=== PATIENT | male | born 1955 | race Caucasian/White ===

== ENCOUNTER 2020-03-26 13:33 | Inpatient (IN) | payer OTHER, SELFPAY ==
[2020-03-26] VITALS (67 sets, daily range): BP systolic 147–220; BP diastolic 85–110; PULSE 45–79; RESP 9–22; TEMP 36.1–36.7; O2SAT 91–99
--- NOTE | 2020-03-26 13:45 | DI.CT_ITS ---
EXAM: CT ABDOMEN PELVIS W CLINICAL HISTORY: ABDOMINAL PAIN, HX PANCREATITIS. TECHNIQUE: Imaging Protocol: Axial computed tomography images with coronal and sagittal reformatted images were created and reviewed CONTRAST MATERIAL: Intravenous: Omnipaque 350 Contrast volume:100 ml Oral: No COMPARISON: No exams were available for comparison FINDINGS: LOWER CHEST: Heart and great vessels: Mild left ventricular dilatation. There are no pleural or pericardial effusions. Lungs: Dependent changes. No pulmonary nodules, mass or infiltrate. Bones: There is no evidence of spine or rib fracture. ABDOMEN/PELVIS: Liver: Normal density. No measurable mass. Gallbladder: No calcified stones, no wall thickening, no abnormal distention.No pericholecystic fluid . Biliary tract: No radiodense calculus, no dilation. Pancreas: There is inflammation of the pancreas and some surrounding fluid. There is no drainable co llection. The vasculature appears intact.. Spleen: Normal. Kidneys: Normal size, contour and axis. No radiodense stones. No hydronephrosis. No masses seen. No perinephric collection. Adrenal glands: No masses seen. Abdominal Aorta: Non-dilated. [id number] atherosclerotic changes. Bowel: Small hiatal hernia. Mild inflammation of the duodenum adjacent to the head of the pancreas. Mild dilatation of loops of small bowel. No evidence of obstruction. Bladder: No gross wall thickening, focal mass or stones. Peritoneal cavity: No ascites, focal collection or mesenteric inflammatory response. No free air. Bones: No suspicious lesions or fractures. Degenerative changes in the spine. Reproductive organs: Within normal limits. Lymph nodes: No pathologically enlarged lymph nodes. Impression: Findings consistent with acute pancreatitis. There is fluid around the pancreas but no drainable foc al collection.. RADIATION DOSE DELIVERED: Total DLP Total DLP DATA REPOSITORY: All CT scans at this facility are submitted to the National Radiology Data Registry (NRDR) Dose Index Registry (DIR) with the [employer] (ACR). RADIATION OPTIMIZATION: All CT scans at this facility use at least one of these dose optimization te chniques: automated exposure control; mA and/or kV adjustment per patient size (includes targeted exa ms where dose is matched to clinical indication); or iterative reconstruction.
--- NOTE | 2020-03-26 13:50 | W.ED.GENAD ---
Discharge Plan Disposition Patient Disposition: [facility] INPATIENT Condition: Serious Discharge Details Chief Complaint: Abd Prob Clinical Impression: Acute recurrent pancreatitis Admit Date/Time: 03/26/20 18:52 Admit Provider: Min Mata Attending Provider: Min Mata Primary Care Provider: Unknown,Unknown ED Provider: Diana Ann Discharge Data Discharge Date/Time-TO BE ENTERED AT DEPARTURE: 03/26/20 20:45 Medical Decision Making <Kari Singh - Last Filed: 03/29/20 16:15> 64-year-old male presents to the ER with left upper quadrant abdominal pain which began approximately an hour and a half ago. Patient states that he has a history of pancreatitis and feels the same. He reports sharp pain which is non radiating he states severe on a scale. Denies chest pain or shortness of breath, positive nausea no vomiting diarrhea. On initial exam he is diaphoretic, has a rigid abdomen tender to left periumbilical area. Slightly bradycardic with a rate of 48. Reports 1 alcoholic drink a day, is a cigar smoker occasionally, denies drugs. Denies any abdominal surgical history. 1436: Informed by balance staff staker that patient is requesting another dose of hydromorphone, 0.5 mg ordered for a total dose of 1 mg. Initial labs resulted initial troponin is negative, EKG was reviewed by [Dr. Bonita Johnston MD] ER attending, shows bradycardia, no STEMI no ectopy. Lipase is greater than 15,000, white blood cell count 15.47, absolute neutrophils 10.36, potassium is 3.0, glucose 162. We will add on an ethyl alcohol level, urinalysis is pending at this time. Expected disposition at this time is admission for pancreatitis pending CT result. CT abdomen pelvis with contrast: FINDINGS: LOWER CHEST: Heart and great vessels: Mild left ventricular dilatation. There are no pleural or pericardial effusions. Lungs: Dependent changes. No pulmonary nodules, mass or infiltrate. Bones: There is no evidence of spine or rib fracture. ABDOMEN/PELVIS: Liver: Normal density. No measurable mass. Gallbladder: No calcified stones, no wall thickening, no abnormal distention.No pericholecystic fluid. Biliary tract: No radiodense calculus, no dilation. Pancreas: There is inflammation of the pancreas and some surrounding fluid. There is no drainable collection. The vasculature appears intact.. Spleen: Normal. Kidneys: Normal size, contour and axis. No radiodense stones. No hydronephrosis. No masses seen. No perinephric collection. Adrenal glands: No masses seen. Abdominal Aorta: Non-dilated. [id number] atherosclerotic changes. Bowel: Small hiatal hernia. Mild inflammation of the duodenum adjacent to the head of the pancreas. Mild dilatation of loops of small bowel. No evidence of obstruction. Bladder: No gross wall thickening, focal mass or stones. Peritoneal cavity: No ascites, focal collection or mesenteric inflammatory response. No free air. Bones: No suspicious lesions or fractures. Degenerative changes in the spine. Reproductive organs: Within normal limits. Lymph nodes: No pathologically enlarged lymph nodes. Impression: Findings consistent with acute pancreatitis. There is fluid around the pancreas but no drainable focal collection. 1555: [facility] transfer center contacted regarding possible transfer for admission for this patient due to staffing issues and bed placement here at [facility]. Patient is still complaining of 6 out of 10 pain requiring other 0.5 mg of Dilaudid IV. Potassium is 3.0 ordered potassium IV piggyback 10 mEq x 4. <MARYJANE Rowley - Last Filed: 03/27/20 21:34> Care transition myself from Fe Rao NP. Please see her initial note for history and presentation. In brief, patient presents with pancreatitis. Pain began approximately an hour and a half prior to arrival. Patient has had pancreatitis historically. Patient is hemodynamically stable. White count of 15.4. Potassium is 3.0. This has been replenished IV. Creatinine 1.26, no comparison historically. Initial troponin and EKG without significant normality. AST and ALT are within normal limits as is total bili. Lipase is over 15,000. Triglycerides 461. Lactate 1.4. CT was reported to have been called severe pancreatitis by radiologist. It did note fluid around the pancreas but no drainable or focal collection. Consult with [facility] has been requested. We are unable to keep the patient here at this time secondary to bed availability. I am also concerned with the speed of which patient's symptoms began and CT findings have developed. Consulted with Dr. Key with [facility]. She advised aggressive IV fluid, NPO. They do not have any bed availability at this point. Initially, we did not have bed here. However, appropriate staffing is now in place and patient may be admitted at this facility.. I consulted with Dr. Mata who agrees to admission for continued monitoring, hydration care of this patient's pancreatitis. Just prior to the patient going upstairs, he seemed more anxious. I did discuss possible need for CIWA protocol with nursing staff and they do agree with this concern. Patient had reported 1 alcoholic beverage per night. However, I wonder if CIWA with PRN Ativan would be appropriate. 1 mg of Ativan ordered. I discussed plan for admission with the patient as well as discussed course for continued care. He voiced understanding and wishes to proceed. HPI <Kari Singh - Last Filed: 03/29/20 16:15> General Mode of arrival: ambulatory. Date/Time Provider Initiated Documentation: 03/26/20 13:44. Limitations to Documentation: no limitations. Information obtained by: patient. HPI Narrative: 64-year-old male presents to the ER with left upper quadrant abdominal pain which began approximately an hour and a half ago. Patient states that he has a history of pancreatitis and feels the same. He reports sharp pain which is non radiating he states severe on a scale. Denies chest pain or shortness of breath, positive nausea no vomiting diarrhea. On initial exam he is diaphoretic, has a rigid abdomen tender to left periumbilical area. Slightly bradycardic with a rate of 48. Reports 1 alcoholic drink a day, is a cigar smoker occasionally, denies drugs. Denies any abdominal surgical history. Related Data Home Medications Medication Instructions Recorded Confirmed Unknown [No Known Home Meds] 03/26/20 03/26/20 Allergies Allergy/AdvReac Type Severity Reaction Status Date / Time Penicillins Allergy Anaphylaxsi Unverified 03/26/20 13:44 s General Stated Complaint: Abd Prob MINI: 2 Review of Systems <Karipatricia Singh - [facility] Filed: 03/29/20 16:15> Narrative: Constitutional: Negative for weight loss, alert and oriented, well groomed, normal body habitus, appears uncomfortable and diaphoretic. HEENT: Denies trauma, headaches, blurry vision, nasal discharge, sore throat, trouble swallowing. Chest: Denies chest pain, palpitations, irregular rhythm, hypertension. Respiratory: Denies Shortness of breath, cough, hemoptysis. GI: Denies vomiting, diarrhea, constipation. Positive abdominal pain and nausea. History of pancreatitis. : Denies dysuria, hematuria, flank pain, rectal bleeding. Neuro: Denies dizziness, blurry vision, weakness, syncope, headache or facial numbness. Hematologic: Denies easy bruising, intolerance to heat or cold, hair loss. PFSH <Kari Singh - Last Filed: 03/29/20 16:15> Medical History (Updated 03/28/20 @ 15:54 by Edith Moore NP) Pancreatitis (Chronic) Trigeminal neuralgia of right side of face (Acute) s/p surgical intervention Social History Smoking/Tobacco Use Status: Current-Occasional Tobacco Type: cigars Alcohol Intake: current Alcohol Intake frequency: 0-2 drinks per day Drug use: Never Substance use type: does not use Do you feel safe at home: Yes Do you feel safe in your relationship?: Yes Exam <Kari Singh - [facility] Filed: 03/29/20 16:15> Narrative Exam Narrative: Constitutional: Alert and oriented x3. Appears stated age. Normal body habitus. Slightly diaphoretic Head: Normocephalic, no trauma. Eyes: Pupils PERRLA, Red reflex noted, EOM's intact. Eyelids symmetrical without lesions, discharge, or swelling. ENT: Bilateral TM's WNL, External ear normal to inspection, no mastoid TTP, swelling, or erythema, Nasal turbinates WNL, no nasal discharge. Normal dentition, Posterior pharynx WNL, no exudate. Chest: Bradycardic at a rate of 48 normal S1, S2, distal pulses intact. Resp: Lungs clear to auscultation bilaterally, no wheezes, rales, or rhonchi. Musculoskeletal: Normal gait, 5/5 strength to all four extremities. Abdomen: Rigid abdomen, hypoactive bowel sounds, left upper quadrant tender to palpation. Skin: No suspicious rashes or lesions. Capillary refill less than 2 sec. Neurologic: Cranial nerves II-XII intact. Alert and oriented x 3. DTR's intact. Hematologic/Lymphatic: No ecchymosis, no lymphadenopathy. Course <Kari Singh - [facility] Filed: 03/29/20 16:15> Vital Signs Vital signs: Vital Signs Temperature 36.5 C 03/26/20 13:41 Pulse 48 L 03/26/20 13:41 Respiratory Rate 16 03/26/20 13:41 Blood Pressure 168/85 H 03/26/20 13:41 Pulse Oximetry 96 03/26/20 13:41 Temperature 36.5 C 03/26/20 13:41 Temperature Source Temporal Artery Scan 03/26/20 13:41 Pulse 48 L 03/26/20 13:41 Respiratory Rate 16 03/26/20 13:41 Respiratory Effort Non-Labored 03/26/20 13:45 Blood Pressure 168/85 H 03/26/20 13:41 Blood Pressure Position Sitting 03/26/20 13:41 Pulse Oximetry 96 03/26/20 13:41 Oxygen Delivery Method Room Air 03/26/20 13:41 Oxygen Flow Rate 0 03/26/20 13:41 Pain Level 10 03/26/20 13:41 <MARYJANE Rowley - Last Filed: 03/27/20 21:34> Abscess I/D Amount of fluid expressed (mL): 10 Sign Out <Kari Singh - Last Filed: 03/29/20 16:15> Sign Out Data: Sign Out Comment: Pending disposition and admission for acute recurrent pancreatitis Last updated by Kari Singh at 03/26/20 16:35
[2020-03-26] MEDS: Normal Saline 1,000 ML 1000 ML IV (14:00)
[2020-03-26] MEDS: HYDROmorphone 2 MG/ML VIAL 0.5 MG IVP ×3 (14:00→17:47)
[2020-03-26] MEDS: Ondansetron 4 MG/2 ML VIAL IVP (14:00)
[2020-03-26 14:07] LABS: Abs Immature Grans 0.05 k/cumm (0.0-0.09); Absolute Basophil Count 0.03 k/cumm (0.0-0.2); Absolute Eosinophil Count 0.32 k/cumm (0.0-0.7); Absolute Lymphocyte Count 3.71 k/cumm (1.2-3.4); Absolute Monocyte Count 0.99 k/cumm (0.11-0.7); Basophils % 0.2; Eosinophils % 2.1; HCT 48.2 % (40.0-50.0); HGB 16.8 g/dL (13.5-17.5); Immature Grans % 0.3 %; Mean Corp. HGB Concentration 34.9 g/dL (32.0-36.0); Mean Corpuscular Hemoglobin 30.4 pg (27.0-33.0); Mean Corpuscular Volume 87.2 fL (80-95); Mean Platelet Volume 9.9 fL (8.0-11.0); Monocytes % 6.4; Platelet Count 281 x1000/uL (130-400); RBC 5.53 m/cumm (4.50-6.00); RBC Distribution Width 13.5 % (11.8-14.1); White Blood Cell Count 15.47 k/cumm (4.4-10.8)
[2020-03-26 14:10] LABS: Absolute Neutrophil Count 10.36 k/cumm (1.2-6.7)
[2020-03-26 14:22] LABS: ALT 37 U/L (16-63); AST 27 U/L (15-37); Albumin 4.2 g/dL (3.4-5.0); Alkaline Phosphatase 102 U/L (46-116); Anion Gap 9.3 mmol/L (3-11); BUN 18 mg/dL (7-18); Bilirubin, Total 0.7 mg/dL (0.2-1.0); CO2 30.7 mmol/L (21.0-32.0); CREATININE 1.26 mg/dL (0.70-1.30); Calcium 9.2 mg/dL (8.5-10.1); Chloride 103 mmol/L (98-107); Glucose 162 mg/dL (74-106); Magnesium 1.9 mg/dL (1.8-2.4); Sodium 143 mmol/L (136-145); Total Protein 8.3 g/dL (6.4-8.2)
[2020-03-26 14:31] LABS: Lipase > 15000 U/L (73-393); Troponin I < 0.05 ng/mL (<0.06)
[2020-03-26] MEDS: Omnipaque 350 MG/ML 100 ML BTL IJ (14:42)
[2020-03-26] MEDS: Normal Saline Flush 10 ML SYR IVP ×4 (14:56→23:37)
[2020-03-26] MEDS: Normal Saline - Diluent 50 ML VIAL IV (14:57)
[2020-03-26 14:59] LABS: ETHANOL BLOOD < 3.0 mg/dL (<3)
[2020-03-26 15:59] LABS: Bilirubin Negative (Negative); Blood Trace-intact (Negative); Clarity Clear (Clear); Glucose Negative (Negative); Ketones Negative (Negative); Leukocyte Esterase Negative (Negative); Nitrite Negative (Negative); Specific Gravity 1.015 (1.005-1.025); Urobilinogen 0.2 EU/dL (Up TO 0.2)
[2020-03-26] MEDS: Normal Saline 250 ML IV (16:01)
[2020-03-26 16:09] LABS: RBC 0-2 HPF (0-2); WBC 0-2 HPF (0-5)
[2020-03-26] MEDS: POTASSIUM CHLORIDE 10 MEQ/100 ML BAG 100 MEQ IVPB ×4 (16:09→21:29)
[2020-03-26 16:10] LABS: Bacteria Negative HPF (Negative); C & S Indicated? No; Epithelial Cells Few HPF (Negative)
[2020-03-26 17:02] LABS: Triglyceride 461 mg/dL (<150)
[2020-03-26 17:16] LABS: Lactate 1.4 mmol/L (0.6-1.4)
[2020-03-26 17:29] LABS: LDL CHOLESTEROL 111 mg/dL (<100)
[2020-03-26 17:42] LABS: Troponin I < 0.05 ng/mL (<0.06)
[2020-03-26] MEDS: ACETAMINOPHEN 1,000 MG/100 ML BTL 400 MG IVPB (18:07)
[2020-03-26] MEDS: Lactated Ringers 1,000 ML 1000 ML IV (18:11)
--- NOTE | 2020-03-26 18:38 | W.PM.HP.N ---
Date of service: 03/26/20 Time of Service: 18:38 Assessment and Plan Assessment and plan (1) Acute recurrent pancreatitis: Status: Acute Assessment and plan: Pancreatitis, etiology not apparent. The suddenness of onset suggests possible mechanical cause (? passed stone), but may be idiopathic. The alcohol history appears underwhelming. In any case will place NPO, IVF and analgesics and antiemetics. Will track Lipase. History of Present Illness History of Present Illness Chief Complaint: abd pain Narrative: 89 male with h/'o pancreatitis 5 year [employer], states no etiology established. Drinks occ spirits, one cocktail once or twice a week, or occ hard lemonade. At any rate reports fairly sudden onset epigastric pain 6 hr ago, no radiation, associated with nausea. W/u in ER of note for lipase >15K and CT showing pancreatic edema, no stones. Given Zofran and cumulatively 2 mg dilaudid, w/o pain relief. Admkitted for further eval. [place] [facility] supportive measures indicated. WBC 15K, T Bili0.7, ALT 37, Ca 9.2 Review of Systems All systems reviewed & are unremarkable except as noted in HPI and below PFSH Social History Smoking/Tobacco Use Status: Current-Occasional Tobacco Type: cigars Alcohol Intake: current Alcohol Intake frequency: 0-2 drinks per day Drug use: Never Substance use type: does not use Do you feel safe at home: Yes Do you feel safe in your relationship?: Yes Meds Home Medications and Allergies Home Medications Medication Instructions Recorded Confirmed Type Unknown [No Known Home Meds] 03/26/20 03/26/20 History Allergies Allergy/AdvReac Type Severity Reaction Status Date / Time Penicillins Allergy Anaphylaxsi Unverified 03/26/20 13:44 s Exam Narrative Exam Narrative: 185/102, 879, 36.7, 20, 95% RA. HEENT anicteric; neck supple; lungs clear, heart RRR bw/o MRG; abdomen hypoactive BS, some guarding, moderate epigastric tenderness w/o rebound; rectal deferred; extremities w/o edema; neuro ox3, non focal Results Labs Result diagrams: 03/26/20 13:50 03/26/20 13:50 Labs: Laboratory Results - last 24 hr 03/26/20 03/26/20 03/26/20 13:25 13:50 13:50 WBC 15.47 H RBC 5.53 Hgb 16.8 Hct 48.2 MCV 87.2 MCH 30.4 MCHC 34.9 RDW 13.5 Plt Count 281 MPV 9.9 Immature Gran % 0.3 Neutrophils % 67.0 Lymphocytes % 24.0 Monocytes % 6.4 Eosinophils % 2.1 Basophils % 0.2 Absolute Neutrophils 10.36 H Absolute Lymphocytes 3.71 H Absolute Monocytes 0.99 H Absolute Eosinophils 0.32 Absolute Basophils 0.03 Sodium 143 Potassium 3.0 L Chloride 103 Carbon Dioxide 30.7 Anion Gap 9.3 BUN 18 Creatinine 1.26 Estimated GFR/1.73 m2 57.80 Glucose 162 H Lactate Calcium 9.2 Magnesium 1.9 Total Bilirubin 0.7 AST 27 ALT 37 Alkaline Phosphatase 102 Troponin I < 0.05 Total Protein 8.3 H Albumin 4.2 Triglycerides LDL Cholesterol Direct Lipase > 87877 H Urine Color Urine Clarity Urine pH Ur Specific [place] Urine Protein Urine Ketones Urine Blood Urine Nitrite Urine Bilirubin Urine Urobilinogen Ur Leukocyte Esterase Urine RBC Urine WBC Ur Epithelial Cells Urine Crystals Urine Bacteria Urine Mucus Ur Culture Indicated? Urine Glucose Ethyl Alcohol < 3.0 03/26/20 03/26/20 03/26/20 13:50 15:40 16:49 WBC RBC Hgb Hct MCV MCH MCHC RDW Plt Count MPV Immature Gran % Neutrophils % Lymphocytes % Monocytes % Eosinophils % Basophils % Absolute Neutrophils Absolute Lymphocytes Absolute Monocytes Absolute Eosinophils Absolute Basophils Sodium Potassium Chloride Carbon Dioxide Anion Gap BUN Creatinine Estimated GFR/1.73 m2 Glucose Lactate Calcium Magnesium Total Bilirubin AST ALT Alkaline Phosphatase Troponin I Cancelled Total Protein Albumin Triglycerides 461 H LDL Cholesterol Direct 111 H Lipase Urine Color Yellow Urine Clarity Clear Urine pH 5.0 Ur Specific [place] 1.015 Urine Protein Negative Urine Ketones Negative Urine Blood Trace-intact H Urine Nitrite Negative Urine Bilirubin Negative Urine Urobilinogen 0.2 Ur Leukocyte Esterase Negative Urine RBC 0-2 Urine WBC 0-2 Ur Epithelial Cells Few Urine Crystals Not Applicable Urine Bacteria Negative Urine Mucus Not Applicable Ur Culture Indicated? No Urine Glucose Negative Ethyl Alcohol 03/26/20 03/26/20 17:10 17:10 WBC RBC Hgb Hct MCV MCH MCHC RDW Plt Count MPV Immature Gran % Neutrophils % Lymphocytes % Monocytes % Eosinophils % Basophils % Absolute Neutrophils Absolute Lymphocytes Absolute Monocytes Absolute Eosinophils Absolute Basophils Sodium Potassium Chloride Carbon Dioxide Anion Gap BUN Creatinine Estimated GFR/1.73 m2 Glucose Lactate 1.4 Calcium Magnesium Total Bilirubin AST ALT Alkaline Phosphatase Troponin I < 0.05 Total Protein Albumin Triglycerides LDL Cholesterol Direct Lipase Urine Color Urine Clarity Urine pH Ur Specific [place] Urine Protein Urine Ketones Urine Blood Urine Nitrite Urine Bilirubin Urine Urobilinogen Ur Leukocyte Esterase Urine RBC Urine WBC Ur Epithelial Cells Urine Crystals Urine Bacteria Urine Mucus Ur Culture Indicated? Urine Glucose Ethyl Alcohol Last Vital Signs Temp 36.7 C 03/26/20 18:16 Pulse 53 L 03/26/20 18:16 Resp 20 03/26/20 18:16 BP 185/102 H 03/26/20 18:16 Pulse Ox 95 03/26/20 18:20 COVID-19 Screening Have you, or has anyone in your household, traveled outside of [place] in the last 14 days?: YES Had IN PERSON contact w/suspected or confirmed C-19 person: No
[2020-03-26] MEDS: fentaNYL 100 MCG/2 ML VIAL 25 MCG IVP (18:39)
[2020-03-26] MEDS: HYDROmorphone 2 MG/ML VIAL 1 MG IVP (19:07)
[2020-03-26] MEDS: LORazepam 2 MG/ML VIAL 1 MG IVP (20:33)
[2020-03-26 20:34] LABS: LDH 205 U/L (85-227)
[2020-03-26] MEDS: fentaNYL 100 MCG/2 ML VIAL IVP ×3 (21:02→23:37)
[2020-03-26] MEDS: POTASSIUM CHLORIDE/0.9% NACL 1,000 ML 150 MEQ IV (21:20)
[2020-03-27] VITALS (9 sets, daily range): BP systolic 145–201; BP diastolic 93–122; PULSE 77–103; RESP 16–18; TEMP 35.7–37.3; O2SAT 93–98
--- NOTE | 2020-03-27 | DI.US_ITS ---
EXAM: US ABDOMEN CLINICAL HISTORY: Pancreatitis TECHNIQUE: Ultrasound abdomen performed using standard protocol. COMPARISON: CT CT ABDOMEN PELVIS W from 03/26/2020 FINDINGS: LIVER: Normal size and echogenicity. No focal liver lesions are seen.. GALLBLADDER: No evidence of cholelithiasis. No evidence of wall thickening. No pericholecystic fluid identified. HENDERSON'S SIGN: Negative. BILIARY SYSTEM: No intrahepatic or extrahepatic biliary ductal dilation. KIDNEYS: Kidneys are symmetric in size. No evidence of renal calculi. No evidence of hydronephrosis. No renal mass or cyst identified. PANCREAS: Obscured. SPLEEN: Not enlarged. ABDOMINAL AORTA AND IVC: Obscured by bowel gas. Seen in ASCITES: A small amount of fluid is seen around the liver. A small right pleural effusion is also see n. IMPRESSION: Small amount of right upper quadrant fluid and small right pleural effusion. No evidence of gallstone s or acute cholecystitis. DATA REPOSITORY:
[2020-03-27] MEDS: fentaNYL 100 MCG/2 ML VIAL IVP ×4 (00:38→07:43)
[2020-03-27] MEDS: Normal Saline Flush 10 ML SYR IVP ×8 (00:41→20:54)
[2020-03-27] MEDS: HYDROmorphone 2 MG/ML VIAL 1 MG IVP (01:18)
[2020-03-27] MEDS: POTASSIUM CHLORIDE/0.9% NACL 1,000 ML 150 MEQ IV (02:55)
[2020-03-27] MEDS: HYDROmorphone 2 MG/ML VIAL IVP ×7 (03:33→21:57)
[2020-03-27 07:34] LABS: HCT 49.7 % (40.0-50.0); HGB 17.4 g/dL (13.5-17.5); Mean Corpuscular Hemoglobin 30.6 pg (27.0-33.0); Mean Corpuscular Volume 87.5 fL (80-95); Mean Platelet Volume 9.8 fL (8.0-11.0); Platelet Count 202 x1000/uL (130-400); RBC 5.68 m/cumm (4.50-6.00); RBC Distribution Width 13.9 % (11.8-14.1); White Blood Cell Count 13.17 k/cumm (4.4-10.8)
[2020-03-27 07:42] LABS: Anion Gap -0.9 mmol/L (3-11); BUN 16 mg/dL (7-18); CO2 26.9 mmol/L (21.0-32.0); CREATININE 1.12 mg/dL (0.70-1.30); Calcium 8.3 mg/dL (8.5-10.1); Chloride 105 mmol/L (98-107); Glucose 162 mg/dL (74-106); Potassium 3.8 mmol/L (3.5-5.1); Sodium 131 mmol/L (136-145)
[2020-03-27] MEDS: Ondansetron 4 MG/2 ML VIAL IVP (07:42)
[2020-03-27 07:54] LABS: Lipase 5826 U/L (73-393)
[2020-03-27 09:06] LABS: Hemoglobin A1C 5.3 % (3.8-5.6)
[2020-03-27 09:11] LABS: ALT 28 U/L (16-63); AST 27 U/L (15-37); Albumin 3.6 g/dL (3.4-5.0); Alkaline Phosphatase 81 U/L (46-116); Magnesium 1.8 mg/dL (1.8-2.4); TSH 0.42 uIU/mL (0.36-3.74); Total Protein 7.2 g/dL (6.4-8.2); Triglyceride 199 mg/dL (<150)
[2020-03-27 09:23] LABS: Bilirubin, Direct 0.21 mg/dL (0.00-0.20); C-Reactive Protein 11.11 mg/dL (0.0-0.3)
--- NOTE | 2020-03-27 09:31 | NUR.NOTE ---
Nursing Note: Reported to photogrammetric stereo compilerLiliana, that the patient was still in 10/10 pain with the pain medications ordered. Requested clarification of pain medication orders. Also stated that the patients blood pressure was 201/118. ESTHER Ford stated she would tell the MD.
[2020-03-27] MEDS: Normal Saline 1,000 ML 125 ML IV ×2 (11:09→18:26)
[2020-03-27] MEDS: Pantoprazole 40 MG VIAL 80 MG IVP (11:42)
[2020-03-27] MEDS: Sucralfate 1 GM TAB PO ×3 (11:43→20:54)
--- NOTE | 2020-03-27 13:05 | W.SURGCON ---
Date of service: 03/27/20 Time of Service: 13:05 Assessment and Plan Assessment and plan (1) Acute recurrent pancreatitis: Status: Acute Assessment and plan: The most common causes of pancreatitis are ETOH and gallstones. He has a few drinks a week which may not explain his pancreatitis. US of gallbladder ordered. Lipase is trending down, will monitor, keep NPO for now. Agree with PPI and Carafate for possible gastritis, follow HgB. History of Present Illness Narrative: This 64-year-old man presented to the emergency department yesterday with sudden onset of significant epigastric pain and nausea. He was diagnosed with pancreatitis based on elevated lipase and CT scan findings. He is feeling somewhat better today although is still requiring narcotics about every hour. He has persistent nausea and will occasionally cough up a small amount of dark brownish fluid. He had a prior episode of pancreatitis about 5 or 6 years ago and was admitted in [place], his home state. He currently takes in about 2 alcoholic drinks a week. He does not recall having had a prior gallbladder ultrasound. He does not take any medications. He reports no prior history of peptic ulcer disease. Does not use NSAIDs. Has noted no bloody or black stools. He has had a normal colonoscopy. Review of Systems All systems reviewed & are unremarkable except as noted in HPI and below PFSH Medical History (Updated 03/27/20 @ 13:10 by Sydnee Lala MD) Pancreatitis (Chronic) Trigeminal neuralgia of right side of face (Acute) s/p surgical intervention Social History Smoking/Tobacco Use Status: Current-Occasional Tobacco Type: cigars Alcohol Intake: current Alcohol Intake frequency: 0-2 drinks per day Drug use: Never Substance use type: does not use Do you feel safe at home: Yes Do you feel safe in your relationship?: Yes Exam Narrative Exam Narrative: Alert Abdomen distended, no significant tenderness Results Last Vital Signs Temp 96.3 F L 03/27/20 09:10 Pulse 91 H 03/27/20 11:07 Resp 16 03/27/20 11:07 BP 185/122 H 03/27/20 11:07 Pulse Ox 93 L 03/27/20 09:10 Labs Result diagrams: 03/27/20 07:15 03/27/20 07:15 Labs: Laboratory Results - last 24 hr 03/26/20 03/26/20 03/26/20 13:25 13:50 13:50 WBC 15.47 H RBC 5.53 Hgb 16.8 Hct 48.2 MCV 87.2 MCH 30.4 MCHC 34.9 RDW 13.5 Plt Count 281 MPV 9.9 Immature Gran % 0.3 Neutrophils % 67.0 Lymphocytes % 24.0 Monocytes % 6.4 Eosinophils % 2.1 Basophils % 0.2 Absolute Neutrophils 10.36 H Absolute Lymphocytes 3.71 H Absolute Monocytes 0.99 H Absolute Eosinophils 0.32 Absolute Basophils 0.03 Sodium 143 Potassium 3.0 L Chloride 103 Carbon Dioxide 30.7 Anion Gap 9.3 BUN 18 Creatinine 1.26 Estimated GFR/1.73 m2 57.80 Glucose 162 H Hemoglobin A1c Lactate Calcium 9.2 Magnesium 1.9 Total Bilirubin 0.7 Conjugated Bilirubin AST 27 ALT 37 Alkaline Phosphatase 102 Lactate Dehydrogenase Troponin I < 0.05 C-Reactive Protein Total Protein 8.3 H Albumin 4.2 Triglycerides LDL Cholesterol Direct Lipase > 81502 H TSH Urine Color Urine Clarity Urine pH Ur Specific [place] Urine Protein Urine Ketones Urine Blood Urine Nitrite Urine Bilirubin Urine Urobilinogen Ur Leukocyte Esterase Urine RBC Urine WBC Ur Epithelial Cells Urine Crystals Urine Bacteria Urine Mucus Ur Culture Indicated? Urine Glucose Ethyl Alcohol < 3.0 03/26/20 03/26/20 03/26/20 13:50 15:40 16:49 WBC RBC Hgb Hct MCV MCH MCHC RDW Plt Count MPV Immature Gran % Neutrophils % Lymphocytes % Monocytes % Eosinophils % Basophils % Absolute Neutrophils Absolute Lymphocytes Absolute Monocytes Absolute Eosinophils Absolute Basophils Sodium Potassium Chloride Carbon Dioxide Anion Gap BUN Creatinine Estimated GFR/1.73 m2 Glucose Hemoglobin A1c Lactate Calcium Magnesium Total Bilirubin Conjugated Bilirubin AST ALT Alkaline Phosphatase Lactate Dehydrogenase Troponin I Cancelled C-Reactive Protein Total Protein Albumin Triglycerides 461 H LDL Cholesterol Direct 111 H Lipase TSH Urine Color Yellow Urine Clarity Clear Urine pH 5.0 Ur Specific [place] 1.015 Urine Protein Negative Urine Ketones Negative Urine Blood Trace-intact H Urine Nitrite Negative Urine Bilirubin Negative Urine Urobilinogen 0.2 Ur Leukocyte Esterase Negative Urine RBC 0-2 Urine WBC 0-2 Ur Epithelial Cells Few Urine Crystals Not Applicable Urine Bacteria Negative Urine Mucus Not Applicable Ur Culture Indicated? No Urine Glucose Negative Ethyl Alcohol 03/26/20 03/26/20 03/26/20 17:10 17:10 17:10 WBC RBC Hgb Hct MCV MCH MCHC RDW Plt Count MPV Immature Gran % Neutrophils % Lymphocytes % Monocytes % Eosinophils % Basophils % Absolute Neutrophils Absolute Lymphocytes Absolute Monocytes Absolute Eosinophils Absolute Basophils Sodium Potassium Chloride Carbon Dioxide Anion Gap BUN Creatinine Estimated GFR/1.73 m2 Glucose Hemoglobin A1c Lactate 1.4 Calcium Magnesium Total Bilirubin Conjugated Bilirubin AST ALT Alkaline Phosphatase Lactate Dehydrogenase 205 Troponin I < 0.05 C-Reactive Protein Total Protein Albumin Triglycerides LDL Cholesterol Direct Lipase TSH Urine Color Urine Clarity Urine pH Ur Specific [place] Urine Protein Urine Ketones Urine Blood Urine Nitrite Urine Bilirubin Urine Urobilinogen Ur Leukocyte Esterase Urine RBC Urine WBC Ur Epithelial Cells Urine Crystals Urine Bacteria Urine Mucus Ur Culture Indicated? Urine Glucose Ethyl Alcohol 03/27/20 03/27/20 03/27/20 07:15 07:15 07:15 WBC 13.17 H RBC 5.68 Hgb 17.4 Hct 49.7 MCV 87.5 MCH 30.6 MCHC 35.0 RDW 13.9 Plt Count 202 MPV 9.8 Immature Gran % Neutrophils % Lymphocytes % Monocytes % Eosinophils % Basophils % Absolute Neutrophils Absolute Lymphocytes Absolute Monocytes Absolute Eosinophils Absolute Basophils Sodium 131 L D Potassium 3.8 D Chloride 105 Carbon Dioxide 26.9 Anion Gap -0.9 L BUN 16 Creatinine 1.12 Estimated GFR/1.73 m2 >= 60.00 Glucose 162 H Hemoglobin A1c 5.3 Lactate Calcium 8.3 L Magnesium 1.8 Total Bilirubin 1.0 Conjugated Bilirubin 0.21 H AST 27 ALT 28 Alkaline Phosphatase 81 Lactate Dehydrogenase Troponin I C-Reactive Protein 11.11 H Total Protein 7.2 Albumin 3.6 Triglycerides 199 H LDL Cholesterol Direct Lipase 5826 H TSH 0.42 Urine Color Urine Clarity Urine pH Ur Specific [place] Urine Protein Urine Ketones Urine Blood Urine Nitrite Urine Bilirubin Urine Urobilinogen Ur Leukocyte Esterase Urine RBC Urine WBC Ur Epithelial Cells Urine Crystals Urine Bacteria Urine Mucus Ur Culture Indicated? Urine Glucose Ethyl Alcohol
--- NOTE | 2020-03-27 13:53 | PGE_ITS ---
Date of Service Date of service: 03/27/20 Time of Service: 13:53 Assessment and Plan Assessment and plan (1) Acute recurrent pancreatitis: Start date: 03/27/20 Start time: 13:58 Status: Acute Assessment and plan: Does endorse drinking twisted teas over last couple of days. Lipase today 5826 CRP elevated at 11.11 Triglycerides have come down to 199 from 461 CIWA 1 overnight Continue fluids, IV analgesics fentanyl dcd, dilaudid IV. NPO, hematest all stools, gastric occult positive, BID PPI, carafate and surgical consult (2) Dark emesis: Start date: 03/27/20 Start time: 14:02 Status: Acute Assessment and plan: Continues to spit up dark emesis, gatric occult positive see above (3) HTN (hypertension): Start date: 03/27/20 Start time: 14:03 Status: Chronic Assessment and plan: Unsure if this is a new finding, patient from [place], it could be pain related, will start on low dose lopressor IV for SBP greater than 140 and DBP greater than 100 (4) DVT prophylaxis: Start date: 03/27/20 Start time: 14:10 Status: Acute Assessment and plan: TEDS and SCD, hold chemical as patient may have GI bleed. above case discussed with Dr. Saldana who is in agreement. Subjective Subjective Patient reports: no new complaints Interval history since last seen: Pain controlled at this time. Vomiting small amount brown emesis. NPO, gastroccult positive. Add BID protonix, carafate and surgery consult. He does endorse at least 6 twisted teas over 24 of March weekend. He denies CP, SOB, n/V/D Exam Const General: cooperative and no acute distress Orientation: alert, awake and oriented x3 Eyes Alignment and Position: alignment normal Cornea: corneas normal Pupils: pinpoint Neck Neck: normal visual inspection, full ROM and no JVD Carotids: normal carotid upstroke Lymphatic: no lymphadenopathy noted and no lymphedema noted Chest Chest: normal inspection of the chest Resp Effort & Inspection: normal respiratory effort Auscultation: clear to auscultation bilaterally Cardio Jugular venous pressure: no JVD Rate: regular rate Rhythm: regular rhythm Heart Sounds: S1 normal and S2 normal GI Inspection: distended Palpation: firm in the LLQ, in the RLQ, in the LUQ and in the RUQ Auscultation: hypoactive bowel sounds Skin General skin exam: no rashes or lesions noted Wounds: no wounds Neuro General: patient alert, patient awake and patient oriented x3 Cognition: normal cognition Speech: speech normal Extrem General: normal to inspection, full ROM and no clubbing, cyanosis or edema Objective Objective Clinical Data: Abnormal lab results 03/26/20 03/26/20 03/26/20 Range/Units 13:50 13:50 13:50 WBC 15.47 H (4.4-10.8) k/cumm Absolute Neutrophils 10.36 H (1.2-6.7) k/cumm Absolute Lymphocytes 3.71 H (1.2-3.4) k/cumm Absolute Monocytes 0.99 H (0.11-0.7) k/cumm Sodium (136-145) mmol/L Potassium 3.0 L (3.5-5.1) mmol/L Anion Gap (3-11) mmol/L Glucose 162 H (74-106) mg/dL Calcium (8.5-10.1) mg/dL Conjugated Bilirubin (0.00-0.20) mg/dL C-Reactive Protein (0.0-0.3) mg/dL Total Protein 8.3 H (6.4-8.2) g/dL Triglycerides 461 H (<150) mg/dL LDL Cholesterol Direct 111 H (<100) mg/dL Lipase > 64578 H (73-393) U/L Urine Blood (Negative) 03/26/20 03/27/20 03/27/20 Range/Units 15:40 07:15 07:15 WBC 13.17 H (4.4-10.8) k/cumm Absolute Neutrophils (1.2-6.7) k/cumm Absolute Lymphocytes (1.2-3.4) k/cumm Absolute Monocytes (0.11-0.7) k/cumm Sodium 131 L D (136-145) mmol/L Potassium (3.5-5.1) mmol/L Anion Gap -0.9 L (3-11) mmol/L Glucose 162 H (74-106) mg/dL Calcium 8.3 L (8.5-10.1) mg/dL Conjugated Bilirubin 0.21 H (0.00-0.20) mg/dL C-Reactive Protein 11.11 H (0.0-0.3) mg/dL Total Protein (6.4-8.2) g/dL Triglycerides 199 H (<150) mg/dL LDL Cholesterol Direct (<100) mg/dL Lipase 5826 H (73-393) U/L Urine Blood Trace-intact H (Negative) Vital Signs Temperature 37.3 C 03/27/20 11:07 Temperature Source Tympanic 03/27/20 09:10 Pulse 91 H 03/27/20 11:07 Pulse Rhythm Regular 03/27/20 08:48 Pulse 48 L 03/26/20 20:10 Respiratory Rate 16 03/27/20 11:07 Respiratory Effort Non-Labored 03/27/20 08:48 Respiratory Depth Normal 03/27/20 08:48 Respiratory Pattern Normal 03/27/20 08:48 Blood Pressure 185/122 H 03/27/20 11:07 Blood Pressure Mean 117 03/26/20 20:01 Blood Pressure Position Sitting 03/26/20 13:41 Pulse Oximetry 94 L 03/27/20 11:07 Oxygen Delivery Method Room Air 03/27/20 11:07 Oxygen Flow Rate 0 03/27/20 11:07 Pain Level 7 03/27/20 12:16 Intake & Output 03/26/20 03/27/20 03/27/20 23:59 11:59 23:59 Intake Total 1258.333 / 1258.333 837.5 / 837.5 Output Total 675 / 675 Balance 1258.333 / 1258.333 162.5 / 162.5 Weight 67.1 kg Intake: IV 1258.333 / 1258.333 837.5 / 837.5 Output: Urine 675 / 675 Other: Urine Color Light Lindsay Urine Appearance Clear Urine Odor None Voiding Methods Urinal Laboratory Results WBC 13.17 k/cumm (4.4-10.8) H 03/27/20 07:15 RBC 5.68 m/cumm (4.50-6.00) 03/27/20 07:15 Hgb 17.4 g/dL (13.5-17.5) 03/27/20 07:15 Hct 49.7 % (40.0-50.0) 03/27/20 07:15 MCV 87.5 fL (80-95) 03/27/20 07:15 MCH 30.6 pg (27.0-33.0) 03/27/20 07:15 MCHC 35.0 g/dL (32.0-36.0) 03/27/20 07:15 RDW 13.9 % (11.8-14.1) 03/27/20 07:15 Plt Count 202 x1000/uL (130-400) 03/27/20 07:15 MPV 9.8 fL (8.0-11.0) 03/27/20 07:15 Immature Gran % 0.3 % 03/26/20 13:50 Neutrophils % 67.0 03/26/20 13:50 Lymphocytes % 24.0 03/26/20 13:50 Monocytes % 6.4 03/26/20 13:50 Eosinophils % 2.1 03/26/20 13:50 Basophils % 0.2 03/26/20 13:50 Absolute Neutrophils 10.36 k/cumm (1.2-6.7) H 03/26/20 13:50 Absolute Lymphocytes 3.71 k/cumm (1.2-3.4) H 03/26/20 13:50 Absolute Monocytes 0.99 k/cumm (0.11-0.7) H 03/26/20 13:50 Absolute Eosinophils 0.32 k/cumm (0.0-0.7) 03/26/20 13:50 Absolute Basophils 0.03 k/cumm (0.0-0.2) 03/26/20 13:50 Sodium 131 mmol/L (136-145) L D 03/27/20 07:15 Potassium 3.8 mmol/L (3.5-5.1) D 03/27/20 07:15 Chloride 105 mmol/L (98-107) 03/27/20 07:15 Carbon Dioxide 26.9 mmol/L (21.0-32.0) 03/27/20 07:15 Anion Gap -0.9 mmol/L (3-11) L 03/27/20 07:15 BUN 16 mg/dL (7-18) 03/27/20 07:15 Creatinine 1.12 mg/dL (0.70-1.30) 03/27/20 07:15 Estimated GFR/1.73 m2 >= 60.00 (mL/min/1.73m2) 03/27/20 07:15 Glucose 162 mg/dL (74-106) H 03/27/20 07:15 Hemoglobin A1c 5.3 % (3.8-5.6) 03/27/20 07:15 Lactate 1.4 mmol/L (0.6-1.4) 03/26/20 17:10 Calcium 8.3 mg/dL (8.5-10.1) L 03/27/20 07:15 Magnesium 1.8 mg/dL (1.8-2.4) 03/27/20 07:15 Total Bilirubin 1.0 mg/dL (0.2-1.0) 03/27/20 07:15 Conjugated Bilirubin 0.21 mg/dL (0.00-0.20) H 03/27/20 07:15 AST 27 U/L (15-37) 03/27/20 07:15 ALT 28 U/L (16-63) 03/27/20 07:15 Alkaline Phosphatase 81 U/L (46-116) 03/27/20 07:15 Lactate Dehydrogenase 205 U/L (85-227) 03/26/20 17:10 Troponin I < 0.05 ng/mL (<0.06) 03/26/20 17:10 C-Reactive Protein 11.11 mg/dL (0.0-0.3) H 03/27/20 07:15 Total Protein 7.2 g/dL (6.4-8.2) 03/27/20 07:15 Albumin 3.6 g/dL (3.4-5.0) 03/27/20 07:15 Triglycerides 199 mg/dL (<150) H 03/27/20 07:15 LDL Cholesterol Direct 111 mg/dL (<100) H 03/26/20 13:50 Lipase 5826 U/L (73-393) H 03/27/20 07:15 TSH 0.42 uIU/mL (0.36-3.74) 03/27/20 07:15 Urine Color Yellow (Yellow) 03/26/20 15:40 Urine Clarity Clear (Clear) 03/26/20 15:40 Urine pH 5.0 (5-8) 03/26/20 15:40 Ur Specific [place] 1.015 (1.005-1.025) 03/26/20 15:40 Urine Protein Negative mg/dL (Negative) 03/26/20 15:40 Urine Ketones Negative mg/dL (Negative) 03/26/20 15:40 Urine Blood Trace-intact (Negative) H 03/26/20 15:40 Urine Nitrite Negative (Negative) 03/26/20 15:40 Urine Bilirubin Negative (Negative) 03/26/20 15:40 Urine Urobilinogen 0.2 EU/dL (Up TO 0.2) 03/26/20 15:40 Ur Leukocyte Esterase Negative (Negative) 03/26/20 15:40 Urine RBC 0-2 HPF (0-2) 03/26/20 15:40 Urine WBC 0-2 HPF (0-5) 03/26/20 15:40 Ur Epithelial Cells Few HPF (Negative) 03/26/20 15:40 Urine Crystals Not Applicable 03/26/20 15:40 Urine Bacteria Negative HPF (Negative) 03/26/20 15:40 Urine Mucus Not Applicable 03/26/20 15:40 Ur Culture Indicated? No 03/26/20 15:40 Urine Glucose Negative mg/dL (Negative) 03/26/20 15:40 Ethyl Alcohol < 3.0 mg/dL (<3) 03/26/20 13:25
[2020-03-27] MEDS: Lisinopril 5 MG TAB PO (14:03)
[2020-03-27 14:27] LABS: COVID-19 RT-PCR UVMMC Result Negative (Negative)
--- NOTE | 2020-03-27 15:09 | PHA.REVIEW ---
Pharmacy Admission Review - Admission Clinical Review (Last Updated 03/27/20 @ 13:10 by Sydnee Lala MD) Dark emesis (Acute) DVT prophylaxis (Acute) Acute recurrent pancreatitis (Acute) Penicillins Allergy (Unverified 03/26/20 13:44) Anaphylaxsis Height 5 ft 10 in Weight 67.1 kg - Renal Dosing Renal Dosing: BUN 16 mg/dL (7-18) 03/27/20 07:15 Creatinine 1.12 mg/dL (0.70-1.30) 03/27/20 07:15 Medications needing adjustments: Reviewed (Crcl ~64 mL/min current meds okay) - Anticoagulation Anticoagulation: Hgb 17.4 g/dL (13.5-17.5) 03/27/20 07:15 Hct 49.7 % (40.0-50.0) 03/27/20 07:15 Plt Count 202 x1000/uL (130-400) 03/27/20 07:15 Creatinine 1.12 mg/dL (0.70-1.30) 03/27/20 07:15 DVT Prohphylaxis: N/A (has dark emesis, gastric occult positive) Therapeutic Anticoagulation: N/A - Opiate Usage Evaluate Pain Scale/Pains Meds: Reviewed Scheduled Bowel Reg ordered if on Opiates?: No (will mention to provider) - Relevant Labs Sodium 131 mmol/L (136-145) L D 03/27/20 07:15 Potassium 3.8 mmol/L (3.5-5.1) D 03/27/20 07:15 Chloride 105 mmol/L (98-107) 03/27/20 07:15 Magnesium 1.8 mg/dL (1.8-2.4) 03/27/20 07:15 C-Reactive Protein 11.11 mg/dL (0.0-0.3) H 03/27/20 07:15 Electrolytes, C-Reactive P, ESR: Reviewed (watch sodium, CRP) - DM Control DM Control: Glucose 162 mg/dL (74-106) H 03/27/20 07:15 Hemoglobin A1c 5.3 % (3.8-5.6) 03/27/20 07:15 Insulin Dosing: N/A - Heart Failure/ND Heart Failure/ND: Troponin I < 0.05 ng/mL (<0.06) 03/26/20 17:10 EF%, SWAPNIL's, B-Blockers, Diuretics: N/A - BP Control BP Control: Blood Pressure 197/117 Blood Pressure 185/122 Blood Pressure 201/118 Blood Pressure 183/104 If elevated: Reviewed (lisinopril dose given today, metoprolol ordered PRN) - Qtc Review If Elevated: N/A (QTc 457) - IV to PO Switch IV Medications: N/A - Home Meds Home Med List reviewed: Reviewed (no known home meds) - Current meds Current Medication Order Review: Reviewed - Comments Comments/Follow Ups: watch BP, sodium, and for med changes (BM meds, IV to PO)
[2020-03-27] MEDS: Metoprolol 5 MG/5 ML VIAL 2.5 MG IVP (15:46)
--- NOTE | 2020-03-27 16:14 | INITIAL_ITS ---
- If Service Date Differs Date of service: 03/27/20 Time of Service: 16:14 Care Management Initial Assess REASON FOR HOSPITALIZATION:: Pancreatitis PAST MEDICAL HISTORY/PAST SURGICAL HISTORY:: Dark emesis, DVT prophylaxis, HTN, Acute recurrent pancreatitis. PREVIOUS FUNCTIONAL STATUS/SOCIAL/FAMILY SUPPORTS:: Rajat lives in [place], [place] with his . He was recently visiting the area when he became ill. He is independent at baseline. CURRENT FUNCTIONAL STATUS:: Rajat is under precautions due to possible Covid 19 exposure, therefore CM did not meet with him in person. CM did attempt to call Rajat in his room, with no answer. Per report, Rajat was visiting the area from [place] when he became ill. He had a surgical consultation today, per report, he will have a gallbladder u/s. CM will continue to follow. ADVANCE DIRECTIVES:: None on file. Has patient been provided with info about the portal/API?: No Did the patient sign up for the portal?: No CODE STATUS:: Full Code INSURANCE COVERAGE / FINANCIAL ISSUES:: [facility] CURRENT HOME/COMMUNITY SERVICES/EQUIPMENT:: Unknown. PRIMARY CARE PHYSICIAN:: Unknown, not local. POTENTIAL DISCHARGE NEEDS:: Follow up appointments, referrals. PATIENT/FAMILY EDUCATION NEEDS:: Review discharge instructions with pt, family, and PCP, discussion of self care needs including ask me three. ANTICIPATED BARRIERS TO DISCHARGE:: None identified at this time. TRANSPORTATION:: Anticipate [facility] will drive him home via private vehicle. PLAN:: Anticipate Rajat will return home when medically cleared. He will follow up with his PCP and discharge plan of care. His will drive him home when ready. CM will continue to follow.
[2020-03-27] MEDS: THIAMINE 100 MG in Normal Saline 100 ML 200 MG IVPB (18:26)
[2020-03-27] MEDS: Pantoprazole 40 MG VIAL IVP (20:53)
[2020-03-28] VITALS (12 sets, daily range): BP systolic 133–178; BP diastolic 80–118; PULSE 98–120; RESP 18–20; TEMP 36.4–37.8; O2SAT 90–96
--- NOTE | 2020-03-28 | DI.MRI_ITS ---
EXAM: MR ABDOMEN WO CLINICAL HISTORY: pancreatitis. TECHNIQUE: Multiplanar multisequence MRI was performed. MRCP sequences were also performed. COMPARISON: CT CT ABDOMEN PELVIS W from 03/26/2020 US US ABDOMEN from 03/27/2020 FINDINGS: No gallstones or abnormal gallbladder wall thickening is seen. There is no biliary dilatation. No choledocholithiasis is visible. There is edema surrounding the pancreas as well as some surrounding fluid. There is no drainable collection. The amount of fluid has increased when compared with the previous CT, extending around the liver and spleen. There is also there are also bilateral pleural e ffusions. There is bibasilar atelectasis. Some edema is also seen in the abdominal wall. The liver , spleen, adrenals, kidneys and aorta are unremarkable. IMPRESSION: Findings consistent with pancreatitis. There is increased ascites and bilateral pleural effusions. No evidence gallstones, common bile duct stones or acute cholecystitis. DATA REPOSITORY:
[2020-03-28] MEDS: HYDROmorphone 2 MG/ML VIAL IVP ×5 (01:29→20:20)
[2020-03-28] MEDS: Normal Saline 1,000 ML 125 ML IV ×3 (02:15→20:20)
[2020-03-28 07:44] LABS: Abs Immature Grans 0.06 k/cumm (0.0-0.09); Absolute Lymphocyte Count 0.87 k/cumm (1.2-3.4); Absolute Monocyte Count 1.03 k/cumm (0.11-0.7); Absolute Neutrophil Count 13.81 k/cumm (1.2-6.7); Basophils % 0.1; HCT 44.2 % (40.0-50.0); HGB 15.4 g/dL (13.5-17.5); Immature Grans % 0.4 %; Lymphocytes % 5.5; Mean Corp. HGB Concentration 34.8 g/dL (32.0-36.0); Mean Corpuscular Volume 88.9 fL (80-95); Mean Platelet Volume 10.1 fL (8.0-11.0); Monocytes % 6.5; Neutrophils % 87.5; Platelet Count 159 x1000/uL (130-400); RBC 4.97 m/cumm (4.50-6.00); RBC Distribution Width 14.6 % (11.8-14.1); White Blood Cell Count 15.78 k/cumm (4.4-10.8)
[2020-03-28] MEDS: LORazepam 1 MG TAB PO/SL (07:47)
[2020-03-28] MEDS: Multivitamin TAB 1 TAB PO (07:48)
[2020-03-28] MEDS: Pantoprazole 40 MG VIAL IVP ×2 (07:48→19:58)
[2020-03-28] MEDS: Normal Saline Flush 10 ML SYR IVP ×2 (07:48→20:01)
[2020-03-28] MEDS: Sucralfate 1 GM TAB PO ×4 (07:48→22:08)
[2020-03-28] MEDS: Folic Acid 1 MG TAB PO (07:48)
[2020-03-28 07:49] LABS: Absolute Basophil Count 0.02 k/cumm (0.0-0.2)
[2020-03-28] MEDS: Thiamine 100 MG TAB PO (07:49)
[2020-03-28 07:50] LABS: ALT 25 U/L (16-63); AST 59 U/L (15-37); Albumin 2.7 g/dL (3.4-5.0); Alkaline Phosphatase 64 U/L (46-116); Anion Gap 8.3 mmol/L (3-11); BUN 19 mg/dL (7-18); Bilirubin, Total 1.7 mg/dL (0.2-1.0); CO2 26.7 mmol/L (21.0-32.0); CREATININE 0.94 mg/dL (0.70-1.30); Chloride 108 mmol/L (98-107); Glucose 122 mg/dL (74-106); Potassium 3.4 mmol/L (3.5-5.1); Sodium 143 mmol/L (136-145); Total Protein 6.2 g/dL (6.4-8.2)
[2020-03-28] MEDS: Metoprolol 5 MG/5 ML VIAL 2.5 MG IVP ×2 (07:50→15:48)
[2020-03-28 08:01] LABS: Lipase 2269 U/L (73-393)
--- NOTE | 2020-03-28 09:13 | W.PM.PROGNOT ---
Date of Service Date of service: 03/28/20 Time of Service: 09:13 Assessment and Plan Assessment and plan (1) PAF (paroxysmal atrial fibrillation): Status: Acute Assessment and plan: very brief and patient is asymptomatic. will start scheduled lopressor with sips of water, IV prn. continue telemetry. (2) Ileus, unspecified: Status: Acute Assessment and plan: likely d/t pancreatitis and narcotic use. will continue NPO status and bowel management. meds with sips, encourage ambulation (3) Acute recurrent pancreatitis: Status: Acute Assessment and plan: symptoms continue to slowly improve with lipase trending downward, still having pain but less use of narcotics. continue IV fluids, bowel rest, pain management. surgery following. MRCP results pending. (4) HTN (hypertension): Status: Chronic Assessment and plan: blood pressures elevated, likely d/t pain, will start scheduled lopressor d/t PAF. continue to monitor and adjust as needed. (5) Dark emesis: Status: Acute Assessment and plan: no further episodes, continue GI prophylaxis (6) DVT prophylaxis: Status: Acute Assessment and plan: TEDS and SCD, hold chemical as patient may have GI bleed. above case discussed with Dr. Saldana who is in agreement. Subjective Subjective Patient reports: feels better, still having pain and afebrile Interval history since last seen: has had 2 bursts of SVT that appear irregular, brief and slows back to sinus tach. asymptomatic with no chest pain, shortness of breath or dizziness Exam Const General: cooperative, ill appearing (older than stated age, with flush face) acutely and lethargic (just received dilaudid) Nutritional Appearance: average body habitus Orientation: awake and oriented x3 [facility] Head: normal to inspection, normocephalic and atraumatic Mouth: oral mucosae normal Cardio Rate: tachycardic (2 episodes of SVT, appears PAF, otherwise ST) Rhythm: regular rhythm GI Inspection: distended Palpation: firm Auscultation: hypoactive bowel sounds General: other (concentrated urine) Skin General skin exam: no rashes or lesions noted Neuro General: patient awake and patient oriented x3 Cognition: normal cognition Speech: speech normal Extrem General: normal to inspection and full ROM Objective Objective Clinical Data: Abnormal lab results 03/27/20 03/28/20 03/28/20 Range/Units 07:15 07:03 07:03 WBC 15.78 H (4.4-10.8) k/cumm RDW 14.6 H (11.8-14.1) % Absolute Neutrophils 13.81 H (1.2-6.7) k/cumm Absolute Lymphocytes 0.87 L (1.2-3.4) k/cumm Absolute Monocytes 1.03 H (0.11-0.7) k/cumm Sodium 131 L D (136-145) mmol/L Potassium 3.4 L (3.5-5.1) mmol/L Chloride 108 H (98-107) mmol/L Anion Gap -0.9 L (3-11) mmol/L BUN 19 H (7-18) mg/dL Glucose 162 H 122 H (74-106) mg/dL Calcium 8.3 L 8.0 L (8.5-10.1) mg/dL Total Bilirubin 1.7 H (0.2-1.0) mg/dL Conjugated Bilirubin 0.21 H (0.00-0.20) mg/dL AST 59 H (15-37) U/L C-Reactive Protein 11.11 H (0.0-0.3) mg/dL Total Protein 6.2 L (6.4-8.2) g/dL Albumin 2.7 L (3.4-5.0) g/dL Triglycerides 199 H (<150) mg/dL Lipase 5826 H 2269 H (73-393) U/L Vital Signs Temperature 36.4 C L 03/28/20 07:46 Temperature Source Tympanic 03/28/20 07:46 Pulse 102 H 03/28/20 08:00 Pulse Rhythm Regular 03/28/20 02:41 Pulse 48 L 03/26/20 20:10 Respiratory Rate 18 03/28/20 07:46 Respiratory Effort Non-Labored 03/28/20 02:41 Respiratory Depth Normal 03/28/20 02:41 Respiratory Pattern Normal 03/28/20 02:41 Blood Pressure 133/85 03/28/20 08:00 Blood Pressure Mean 117 03/26/20 20:01 Blood Pressure Position Sitting 03/26/20 13:41 Pulse Oximetry 96 03/28/20 07:46 Oxygen Delivery Method Room Air 03/28/20 07:46 Oxygen Flow Rate 0 03/28/20 07:46 Pain Level 0 03/28/20 07:46 Intake & Output 03/27/20 03/27/20 03/28/20 11:59 23:59 11:59 Intake Total 837.5 / 1747.917 910.417 / 1747.917 977.083 / 977.083 Output Total 675 / 1075 400 / 1075 380 / 380 Balance 162.5 / 672.917 510.417 / 672.917 597.083 / 597.083 Intake: IV 837.5 / 1747.917 910.417 / 1747.917 977.083 / 977.083 Output: Urine 675 / 1075 400 / 1075 380 / 380 Other: Urine Color Light Lindsay Yellow Light Lindsay Urine Appearance Clear Clear Clear Urine Odor None Normal Normal Voiding Methods Urinal Urinal Urinal Laboratory Results WBC 15.78 k/cumm (4.4-10.8) H 03/28/20 07:03 RBC 4.97 m/cumm (4.50-6.00) 03/28/20 07:03 Hgb 15.4 g/dL (13.5-17.5) 03/28/20 07:03 Hct 44.2 % (40.0-50.0) 03/28/20 07:03 MCV 88.9 fL (80-95) 03/28/20 07:03 MCH 31.0 pg (27.0-33.0) 03/28/20 07:03 MCHC 34.8 g/dL (32.0-36.0) 03/28/20 07:03 RDW 14.6 % (11.8-14.1) H 03/28/20 07:03 Plt Count 159 x1000/uL (130-400) 03/28/20 07:03 MPV 10.1 fL (8.0-11.0) 03/28/20 07:03 Immature Gran % 0.4 % 03/28/20 07:03 Neutrophils % 87.5 03/28/20 07:03 Lymphocytes % 5.5 03/28/20 07:03 Monocytes % 6.5 03/28/20 07:03 Eosinophils % 0.0 03/28/20 07:03 Basophils % 0.1 03/28/20 07:03 Absolute Neutrophils 13.81 k/cumm (1.2-6.7) H 03/28/20 07:03 Absolute Lymphocytes 0.87 k/cumm (1.2-3.4) L 03/28/20 07:03 Absolute Monocytes 1.03 k/cumm (0.11-0.7) H 03/28/20 07:03 Absolute Eosinophils 0.00 k/cumm (0.0-0.7) 03/28/20 07:03 Absolute Basophils 0.02 k/cumm (0.0-0.2) 03/28/20 07:03 Sodium 143 mmol/L (136-145) D 03/28/20 07:03 Potassium 3.4 mmol/L (3.5-5.1) L 03/28/20 07:03 Chloride 108 mmol/L (98-107) H 03/28/20 07:03 Carbon Dioxide 26.7 mmol/L (21.0-32.0) 03/28/20 07:03 Anion Gap 8.3 mmol/L (3-11) 03/28/20 07:03 BUN 19 mg/dL (7-18) H 03/28/20 07:03 Creatinine 0.94 mg/dL (0.70-1.30) 03/28/20 07:03 Estimated GFR/1.73 m2 >= 60.00 (mL/min/1.73m2) 03/28/20 07:03 Glucose 122 mg/dL (74-106) H 03/28/20 07:03 Hemoglobin A1c 5.3 % (3.8-5.6) 03/27/20 07:15 Lactate 1.4 mmol/L (0.6-1.4) 03/26/20 17:10 Calcium 8.0 mg/dL (8.5-10.1) L 03/28/20 07:03 Magnesium 1.8 mg/dL (1.8-2.4) 03/27/20 07:15 Total Bilirubin 1.7 mg/dL (0.2-1.0) H 03/28/20 07:03 Conjugated Bilirubin 0.21 mg/dL (0.00-0.20) H 03/27/20 07:15 AST 59 U/L (15-37) H 03/28/20 07:03 ALT 25 U/L (16-63) 03/28/20 07:03 Alkaline Phosphatase 64 U/L (46-116) 03/28/20 07:03 Lactate Dehydrogenase 205 U/L (85-227) 03/26/20 17:10 Troponin I < 0.05 ng/mL (<0.06) 03/26/20 17:10 C-Reactive Protein 11.11 mg/dL (0.0-0.3) H 03/27/20 07:15 Total Protein 6.2 g/dL (6.4-8.2) L 03/28/20 07:03 Albumin 2.7 g/dL (3.4-5.0) L 03/28/20 07:03 Triglycerides 199 mg/dL (<150) H 03/27/20 07:15 LDL Cholesterol Direct 111 mg/dL (<100) H 03/26/20 13:50 Lipase 2269 U/L (73-393) H 03/28/20 07:03 TSH 0.42 uIU/mL (0.36-3.74) 03/27/20 07:15 Urine Color Yellow (Yellow) 03/26/20 15:40 Urine Clarity Clear (Clear) 03/26/20 15:40 Urine pH 5.0 (5-8) 03/26/20 15:40 Ur Specific [place] 1.015 (1.005-1.025) 03/26/20 15:40 Urine Protein Negative mg/dL (Negative) 03/26/20 15:40 Urine Ketones Negative mg/dL (Negative) 03/26/20 15:40 Urine Blood Trace-intact (Negative) H 03/26/20 15:40 Urine Nitrite Negative (Negative) 03/26/20 15:40 Urine Bilirubin Negative (Negative) 03/26/20 15:40 Urine Urobilinogen 0.2 EU/dL (Up TO 0.2) 03/26/20 15:40 Ur Leukocyte Esterase Negative (Negative) 03/26/20 15:40 Urine RBC 0-2 HPF (0-2) 03/26/20 15:40 Urine WBC 0-2 HPF (0-5) 03/26/20 15:40 Ur Epithelial Cells Few HPF (Negative) 03/26/20 15:40 Urine Crystals Not Applicable 03/26/20 15:40 Urine Bacteria Negative HPF (Negative) 03/26/20 15:40 Urine Mucus Not Applicable 03/26/20 15:40 Ur Culture Indicated? No 03/26/20 15:40 Urine Glucose Negative mg/dL (Negative) 03/26/20 15:40 Ethyl Alcohol < 3.0 mg/dL (<3) 03/26/20 13:25 COVID-19 PCR Negative (Negative) 03/26/20 20:30 Nasopharyn COVID-19 PCR Not Applicable 03/26/20 20:30 [facility] 03/26/20 20:30
[2020-03-28] MEDS: Docusate Sodium 100 MG CAP PO ×2 (09:50→19:58)
--- NOTE | 2020-03-28 10:04 | W.PM.PROGNOT ---
Date of Service Date of service: 03/28/20 Time of Service: 10:05 Assessment and Plan Assessment and plan (1) Acute recurrent pancreatitis: Status: Acute Assessment and plan: A\\ 64 year old male with pancreatitis. Lipase on admission was >15,000. Today it is down to just above 2000. His abdominal pain is getting better. He has not had a BM and has not passed any flatus. US showed no stones and no cholecystitis ? alcohol induced pancreatitis Triglycerides are elevated but not enough to cause pancreatitis P\\ Continue supportive care with IV fluids, bowel rest and pain medication MRCP to make sure there isn't an obstruction although Bilirubin is only slightly elevated today. LFTs continue to be normal (2) Dark emesis: Status: Acute Assessment and plan: A\\ Hgb is stable. Suspect this is due to N/V prior to admission as well as possible alcohol abuse although patient doesn't endorse increased daily drinking P\\ Continue with IV protonix and carafate (3) Ileus, unspecified: Status: Acute Assessment and plan: A\\ This is most likely secondary to his pancreatitis P\\ Continue bowel rest and IV fluids Subjective Subjective Interval history since last seen: Mr. Williamson is a pleasant 64 year old male admitted for acute pancreatitis. He had a previous bout of acute pancreatitis about 5-6 years ago. He tells me that he feels better. He still is needing narcotic pain medications about every 3 to 4 hours which is less then yesterday. He has not had a BM since admission and he is not passing any flatus. His Nausea has resolved. He is asking for some ice chips because his mouth feels dry. Exam GI Inspection: normal to inspection Palpation: soft and tender (periumbilical. NO rebound. Mild guarding) Auscultation: hypoactive bowel sounds Objective Objective Clinical Data: Abnormal lab results 03/28/20 03/28/20 Range/Units 07:03 07:03 WBC 15.78 H (4.4-10.8) k/cumm RDW 14.6 H (11.8-14.1) % Absolute Neutrophils 13.81 H (1.2-6.7) k/cumm Absolute Lymphocytes 0.87 L (1.2-3.4) k/cumm Absolute Monocytes 1.03 H (0.11-0.7) k/cumm Potassium 3.4 L (3.5-5.1) mmol/L Chloride 108 H (98-107) mmol/L BUN 19 H (7-18) mg/dL Glucose 122 H (74-106) mg/dL Calcium 8.0 L (8.5-10.1) mg/dL Total Bilirubin 1.7 H (0.2-1.0) mg/dL AST 59 H (15-37) U/L Total Protein 6.2 L (6.4-8.2) g/dL Albumin 2.7 L (3.4-5.0) g/dL Lipase 2269 H (73-393) U/L Vital Signs Temperature 97.5 F L 03/28/20 07:46 Temperature Source Tympanic 03/28/20 07:46 Pulse 102 H 03/28/20 08:00 Pulse Rhythm Regular 03/28/20 02:41 Pulse 48 L 03/26/20 20:10 Respiratory Rate 18 03/28/20 07:46 Respiratory Effort Non-Labored 03/28/20 02:41 Respiratory Depth Normal 03/28/20 02:41 Respiratory Pattern Normal 03/28/20 02:41 Blood Pressure 133/85 03/28/20 08:00 Blood Pressure Mean 117 03/26/20 20:01 Blood Pressure Position Sitting 03/26/20 13:41 Pulse Oximetry 96 03/28/20 07:46 Oxygen Delivery Method Room Air 03/28/20 07:46 Oxygen Flow Rate 0 03/28/20 07:46 Pain Level 0 03/28/20 07:46 Intake & Output 03/27/20 03/27/20 03/28/20 11:59 23:59 11:59 Intake Total 837.5 / 1747.917 910.417 / 1747.917 977.083 / 977.083 Output Total 675 / 1075 400 / 1075 380 / 380 Balance 162.5 / 672.917 510.417 / 672.917 597.083 / 597.083 Intake: IV 837.5 / 1747.917 910.417 / 1747.917 977.083 / 977.083 Output: Urine 675 / 1075 400 / 1075 380 / 380 Other: Urine Color Light Lindsay Yellow Light Lindsay Urine Appearance Clear Clear Clear Urine Odor None Normal Normal Voiding Methods Urinal Urinal Urinal Laboratory Results WBC 15.78 k/cumm (4.4-10.8) H 03/28/20 07:03 RBC 4.97 m/cumm (4.50-6.00) 03/28/20 07:03 Hgb 15.4 g/dL (13.5-17.5) 03/28/20 07:03 Hct 44.2 % (40.0-50.0) 03/28/20 07:03 MCV 88.9 fL (80-95) 03/28/20 07:03 MCH 31.0 pg (27.0-33.0) 03/28/20 07:03 MCHC 34.8 g/dL (32.0-36.0) 03/28/20 07:03 RDW 14.6 % (11.8-14.1) H 03/28/20 07:03 Plt Count 159 x1000/uL (130-400) 03/28/20 07:03 MPV 10.1 fL (8.0-11.0) 03/28/20 07:03 Immature Gran % 0.4 % 03/28/20 07:03 Neutrophils % 87.5 03/28/20 07:03 Lymphocytes % 5.5 03/28/20 07:03 Monocytes % 6.5 03/28/20 07:03 Eosinophils % 0.0 03/28/20 07:03 Basophils % 0.1 03/28/20 07:03 Absolute Neutrophils 13.81 k/cumm (1.2-6.7) H 03/28/20 07:03 Absolute Lymphocytes 0.87 k/cumm (1.2-3.4) L 03/28/20 07:03 Absolute Monocytes 1.03 k/cumm (0.11-0.7) H 03/28/20 07:03 Absolute Eosinophils 0.00 k/cumm (0.0-0.7) 03/28/20 07:03 Absolute Basophils 0.02 k/cumm (0.0-0.2) 03/28/20 07:03 Sodium 143 mmol/L (136-145) D 03/28/20 07:03 Potassium 3.4 mmol/L (3.5-5.1) L 03/28/20 07:03 Chloride 108 mmol/L (98-107) H 03/28/20 07:03 Carbon Dioxide 26.7 mmol/L (21.0-32.0) 03/28/20 07:03 Anion Gap 8.3 mmol/L (3-11) 03/28/20 07:03 BUN 19 mg/dL (7-18) H 03/28/20 07:03 Creatinine 0.94 mg/dL (0.70-1.30) 03/28/20 07:03 Estimated GFR/1.73 m2 >= 60.00 (mL/min/1.73m2) 03/28/20 07:03 Glucose 122 mg/dL (74-106) H 03/28/20 07:03 Hemoglobin A1c 5.3 % (3.8-5.6) 03/27/20 07:15 Lactate 1.4 mmol/L (0.6-1.4) 03/26/20 17:10 Calcium 8.0 mg/dL (8.5-10.1) L 03/28/20 07:03 Magnesium 1.8 mg/dL (1.8-2.4) 03/27/20 07:15 Total Bilirubin 1.7 mg/dL (0.2-1.0) H 03/28/20 07:03 Conjugated Bilirubin 0.21 mg/dL (0.00-0.20) H 03/27/20 07:15 AST 59 U/L (15-37) H 03/28/20 07:03 ALT 25 U/L (16-63) 03/28/20 07:03 Alkaline Phosphatase 64 U/L (46-116) 03/28/20 07:03 Lactate Dehydrogenase 205 U/L (85-227) 03/26/20 17:10 Troponin I < 0.05 ng/mL (<0.06) 03/26/20 17:10 C-Reactive Protein 11.11 mg/dL (0.0-0.3) H 03/27/20 07:15 Total Protein 6.2 g/dL (6.4-8.2) L 03/28/20 07:03 Albumin 2.7 g/dL (3.4-5.0) L 03/28/20 07:03 Triglycerides 199 mg/dL (<150) H 03/27/20 07:15 LDL Cholesterol Direct 111 mg/dL (<100) H 03/26/20 13:50 Lipase 2269 U/L (73-393) H 03/28/20 07:03 TSH 0.42 uIU/mL (0.36-3.74) 03/27/20 07:15 Urine Color Yellow (Yellow) 03/26/20 15:40 Urine Clarity Clear (Clear) 03/26/20 15:40 Urine pH 5.0 (5-8) 03/26/20 15:40 Ur Specific [place] 1.015 (1.005-1.025) 03/26/20 15:40 Urine Protein Negative mg/dL (Negative) 03/26/20 15:40 Urine Ketones Negative mg/dL (Negative) 03/26/20 15:40 Urine Blood Trace-intact (Negative) H 03/26/20 15:40 Urine Nitrite Negative (Negative) 03/26/20 15:40 Urine Bilirubin Negative (Negative) 03/26/20 15:40 Urine Urobilinogen 0.2 EU/dL (Up TO 0.2) 03/26/20 15:40 Ur Leukocyte Esterase Negative (Negative) 03/26/20 15:40 Urine RBC 0-2 HPF (0-2) 03/26/20 15:40 Urine WBC 0-2 HPF (0-5) 03/26/20 15:40 Ur Epithelial Cells Few HPF (Negative) 03/26/20 15:40 Urine Crystals Not Applicable 03/26/20 15:40 Urine Bacteria Negative HPF (Negative) 03/26/20 15:40 Urine Mucus Not Applicable 03/26/20 15:40 Ur Culture Indicated? No 03/26/20 15:40 Urine Glucose Negative mg/dL (Negative) 03/26/20 15:40 Ethyl Alcohol < 3.0 mg/dL (<3) 03/26/20 13:25 COVID-19 PCR Negative (Negative) 03/26/20 20:30 Nasopharyn COVID-19 PCR Not Applicable 03/26/20 20:30 Ref Test [facility] 03/26/20 20:30
[2020-03-28] MEDS: POTASSIUM CHLORIDE 20 MEQ/100 ML BAG 50 MEQ IVPB ×2 (11:07→13:16)
--- NOTE | 2020-03-28 15:12 | CMPROGNOTE_ITS ---
- If Service Date Differs Date of service: 03/28/20 Time of Service: 15:13 Care Management Progress Note S/O: Rajat remains in precautions due to potential Covid 19 exposure. Per report, he is still requiring narcotic pain medications every 3-4 hours. He remains on bowel rest with IV fluids, and will have an MRCP today to check for an obstruction. CM spoke to his primary RN, who will page CM with any concerns. Attempts to call the hospital room phone have been unsuccessful. CM will continu e to follow. A: Rajat is a 64 year old male admitted on 03/26/20 for Pancreatitis. P: Anticipate Rajat will return home with no anticipated services once medically cleared. His will drive him home via private vehicle when ready. He will follow up with his PCP and discharge plan of care. CM will continue to follow.
--- NOTE | 2020-03-28 18:05 | DI.VRAD_ITS ---
PROCEDURE INFORMATION: Exam: MR Abdomen Without Contrast Exam date and time: 03/28/2020 5:38 PM Age: 64 years old Clinical indication: Abdominal pain; Acute; Patient HX: Pancreatitis; Additional info: Mrcp TECHNIQUE: Imaging protocol: MR of the abdomen without contrast. 3D rendering: MIP and/or 3D reconstructed images were created by the technologist. COMPARISON: CT ABDOMEN PELVIS W 03/26/2020 2:41 PM FINDINGS: Pleura: Interval development of small bilateral pleural effusions. Liver: No mass. Gallbladder and bile ducts: No significant biliary ductal dilation for the patient's age, with the CBD measuring up to 6 mm. Punctate central filling defect in the mid CBD on image 17 series 4001 is related to flow artifact. No discrete intraluminal filling defects are otherwise noted within the CBD. Specifically, there is no evidence of choledocholithiasis. The gallbladder appears unremarkable. Pancreas: Edematous pancreatic parenchyma with surrounding mesenteric fat inflammation and peripancreatic free fluid, in keeping with known diagnosis of acute pancreatitis. No peripancreatic fluid collections are appreciated at this time. Spleen: The spleen appears unremarkable. Adrenals: The adrenal glands are unremarkable. Kidneys and ureters: The kidneys are unremarkable. Stomach and bowel: No bowel obstruction or significant bowel wall thickening. Intraperitoneal space: Worsening diffuse abdominal ascites, now tracking along the bilateral diaphragmatic spaces, perihepatic space, perisplenic space, peripancreatic space, and bilateral paracolic gutters. Arteries: No abdominal aortic aneurysm. Bones/joints: No aggressive osseous lesions. Soft tissues: Unremarkable. IMPRESSION: 1. No cholelithiasis or choledocholithiasis. 2. Worsening interstitial third-spacing, as manifested by worsening diffuse and moderate abdominal ascites and new small bilateral layering pleural effusions 3. Persistent acute pancreatitis without peripancreatic fluid collections appreciated at this time. Dictated and Authenticated by: Dante Weinstein MD. Ordering:DONNA Sharma MD
[2020-03-28] MEDS: Metoprolol 25 MG TAB PO (19:58)
[2020-03-28] MEDS: ACETAMINOPHEN 1,000 MG/100 ML BTL 400 MG IVPB (20:20)
[2020-03-29] VITALS (15 sets, daily range): BP systolic 138–185; BP diastolic 86–111; PULSE 76–115; RESP 18–22; TEMP 35.8–37.3; O2SAT 89–98
[2020-03-29] MEDS: HYDROmorphone 2 MG/ML VIAL IVP ×6 (00:45→19:54)
[2020-03-29] MEDS: Normal Saline 1,000 ML 125 ML IV (04:36)
[2020-03-29] MEDS: Metoprolol 5 MG/5 ML VIAL IVP ×2 (05:05→08:15)
[2020-03-29] MEDS: Docusate Sodium 100 MG CAP PO ×2 (08:15→19:54)
[2020-03-29] MEDS: Bisacodyl 5 MG TABEC 10 MG PO (08:15)
[2020-03-29] MEDS: Metoprolol 25 MG TAB PO ×2 (08:15→11:17)
[2020-03-29] MEDS: Folic Acid 1 MG TAB PO (08:15)
[2020-03-29] MEDS: Normal Saline Flush 10 ML SYR IVP ×3 (08:16→21:59)
[2020-03-29] MEDS: Sucralfate 1 GM TAB PO ×4 (08:16→21:51)
[2020-03-29] MEDS: Pantoprazole 40 MG VIAL IVP ×2 (08:16→19:54)
[2020-03-29] MEDS: Multivitamin TAB 1 TAB PO (08:16)
[2020-03-29] MEDS: Thiamine 100 MG TAB PO (08:16)
[2020-03-29 09:14] LABS: Abs Immature Grans 0.11 k/cumm (0.0-0.09); Absolute Lymphocyte Count 0.93 k/cumm (1.2-3.4); Absolute Monocyte Count 1.01 k/cumm (0.11-0.7); Basophils % 0.1; Eosinophils % 0.1; HGB 14.5 g/dL (13.5-17.5); Immature Grans % 0.7 %; Mean Corp. HGB Concentration 34.5 g/dL (32.0-36.0); Mean Corpuscular Volume 89.7 fL (80-95); Mean Platelet Volume 10.2 fL (8.0-11.0); Monocytes % 6.5; Neutrophils % 86.6; Platelet Count 180 x1000/uL (130-400); RBC 4.68 m/cumm (4.50-6.00); RBC Distribution Width 14.6 % (11.8-14.1); White Blood Cell Count 15.52 k/cumm (4.4-10.8)
[2020-03-29 09:19] LABS: Absolute Basophil Count 0.02 k/cumm (0.0-0.2); Absolute Eosinophil Count 0.02 k/cumm (0.0-0.7); Absolute Neutrophil Count 13.44 k/cumm (1.2-6.7)
--- NOTE | 2020-03-29 09:25 | PGE_ITS ---
Date of Service Date of service: 03/29/20 Time of Service: 09:25 Assessment and Plan Assessment and plan (1) Fluid overload: Status: Acute Assessment and plan: diuresed with good effect, monitor I&O, continue I/S. (2) PAF (paroxysmal atrial fibrillation): Status: Acute Assessment and plan: very brief and patient is asymptomatic. will start scheduled lopressor with sips of water, IV prn. continue telemetry. echo results pending. (3) Ileus, unspecified: Status: Acute Assessment and plan: likely d/t pancreatitis and narcotic use. improving and passing flatus will slowly advance diet and continue bowel management. meds with sips, encourage ambulation. (4) Acute recurrent pancreatitis: Status: Acute Assessment and plan: symptoms continue to slowly improve with lipase trending downward, still having pain but less use of narcotics. continue IV fluids, trial clears, wean pain meds. surgery following. MRCP Findings consistent with pancreatitis. There is increased ascites and bilateral pleural effusions. No evidence gallstones, common bile duct stones or acute cholecystitis. . (5) HTN (hypertension): Status: Chronic Assessment and plan: blood pressures elevated, likely d/t pain, will start scheduled lopressor d/t PAF. continue to monitor and adjust as needed. (6) Dark emesis: Status: Acute Assessment and plan: no further episodes, continue GI prophylaxis (7) DVT prophylaxis: Status: Acute Assessment and plan: TEDS and SCD, hold chemical as patient may have GI bleed. above case discussed with Dr. Saldana who is in agreement. Subjective Subjective Patient reports: still having pain Interval history since last seen: remains NPO, no bowel movement, refusing to get out of bed this morning but after receiving IV lasix for fluid overload, markedly improved this afternoon. pain much improved, no further wheezing, voiding well. no nausea or vomiting Exam Const General: cooperative, ill appearing (older than stated age, with flush face) acutely and lethargic (just received dilaudid) Nutritional Appearance: average body habitus Orientation: awake and oriented x3 HENMT Head: normal to inspection, normocephalic and atraumatic Mouth: oral mucosae normal Cardio Rate: tachycardic (2 episodes of SVT, appears PAF, otherwise ST) Rhythm: regular rhythm GI Inspection: distended Palpation: firm Auscultation: hypoactive bowel sounds General: other (concentrated urine) Skin General skin exam: no rashes or lesions noted Neuro General: patient awake and patient oriented x3 Cognition: normal cognition Speech: speech normal Extrem General: normal to inspection and full ROM Objective Objective Clinical Data: Abnormal lab results 03/29/20 Range/Units 08:42 WBC 15.52 H (4.4-10.8) k/cumm RDW 14.6 H (11.8-14.1) % Absolute Neutrophils 13.44 H (1.2-6.7) k/cumm Absolute Lymphocytes 0.93 L (1.2-3.4) k/cumm Absolute Monocytes 1.01 H (0.11-0.7) k/cumm Vital Signs Temperature 37.3 C 03/29/20 07:50 Temperature Source Tympanic 03/29/20 07:50 Pulse 115 H 03/29/20 08:15 Pulse Rhythm Regular 03/29/20 07:50 Pulse 48 L 03/26/20 20:10 Respiratory Rate 20 03/29/20 07:50 Respiratory Effort Non-Labored 03/29/20 07:50 Respiratory Depth Normal 03/29/20 07:50 Respiratory Pattern Normal 03/29/20 07:50 Blood Pressure 185/111 H 03/29/20 08:15 Blood Pressure Mean 117 03/26/20 20:01 Blood Pressure Position Sitting 03/26/20 13:41 Pulse Oximetry 95 03/29/20 07:50 Oxygen Delivery Method Room Air 03/29/20 07:50 Oxygen Flow Rate 0 03/29/20 07:50 Pain Level 3 03/29/20 07:50 Intake & Output 03/28/20 03/28/20 03/29/20 11:59 23:59 11:59 Intake Total 2954.166 / 4174.166 1220 / 4174.166 1000 / 1000 Output Total 680 / 1450 770 / 1450 570 / 570 Balance 2274.166 / 2724.166 450 / 2724.166 430 / 430 Intake: IV 2954.166 / 4174.166 1220 / 4174.166 1000 / 1000 Output: Urine 680 / 1450 770 / 1450 570 / 570 Other: Urine Color Dark Lindsay Dark Lindsay Dark Lindsay Urine Appearance Clear Clear Clear Urine Odor None None None Voiding Methods Urinal Urinal Urinal Laboratory Results WBC 15.52 k/cumm (4.4-10.8) H 03/29/20 08:42 RBC 4.68 m/cumm (4.50-6.00) 03/29/20 08:42 Hgb 14.5 g/dL (13.5-17.5) 03/29/20 08:42 Hct 42.0 % (40.0-50.0) 03/29/20 08:42 MCV 89.7 fL (80-95) 03/29/20 08:42 MCH 31.0 pg (27.0-33.0) 03/29/20 08:42 MCHC 34.5 g/dL (32.0-36.0) 03/29/20 08:42 RDW 14.6 % (11.8-14.1) H 03/29/20 08:42 Plt Count 180 x1000/uL (130-400) 03/29/20 08:42 MPV 10.2 fL (8.0-11.0) 03/29/20 08:42 Immature Gran % 0.7 % 03/29/20 08:42 Neutrophils % 86.6 03/29/20 08:42 Lymphocytes % 6.0 03/29/20 08:42 Monocytes % 6.5 03/29/20 08:42 Eosinophils % 0.1 03/29/20 08:42 Basophils % 0.1 03/29/20 08:42 Absolute Neutrophils 13.44 k/cumm (1.2-6.7) H 03/29/20 08:42 Absolute Lymphocytes 0.93 k/cumm (1.2-3.4) L 03/29/20 08:42 Absolute Monocytes 1.01 k/cumm (0.11-0.7) H 03/29/20 08:42 Absolute Eosinophils 0.02 k/cumm (0.0-0.7) 03/29/20 08:42 Absolute Basophils 0.02 k/cumm (0.0-0.2) 03/29/20 08:42 Sodium 143 mmol/L (136-145) D 03/28/20 07:03 Potassium 3.4 mmol/L (3.5-5.1) L 03/28/20 07:03 Chloride 108 mmol/L (98-107) H 03/28/20 07:03 Carbon Dioxide 26.7 mmol/L (21.0-32.0) 03/28/20 07:03 Anion Gap 8.3 mmol/L (3-11) 03/28/20 07:03 BUN 19 mg/dL (7-18) H 03/28/20 07:03 Creatinine 0.94 mg/dL (0.70-1.30) 03/28/20 07:03 Estimated GFR/1.73 m2 >= 60.00 (mL/min/1.73m2) 03/28/20 07:03 Glucose 122 mg/dL (74-106) H 03/28/20 07:03 Hemoglobin A1c 5.3 % (3.8-5.6) 03/27/20 07:15 Lactate 1.4 mmol/L (0.6-1.4) 03/26/20 17:10 Calcium 8.0 mg/dL (8.5-10.1) L 03/28/20 07:03 Magnesium 1.8 mg/dL (1.8-2.4) 03/27/20 07:15 Total Bilirubin 1.7 mg/dL (0.2-1.0) H 03/28/20 07:03 Conjugated Bilirubin 0.21 mg/dL (0.00-0.20) H 03/27/20 07:15 AST 59 U/L (15-37) H 03/28/20 07:03 ALT 25 U/L (16-63) 03/28/20 07:03 Alkaline Phosphatase 64 U/L (46-116) 03/28/20 07:03 Lactate Dehydrogenase 205 U/L (85-227) 03/26/20 17:10 Troponin I < 0.05 ng/mL (<0.06) 03/26/20 17:10 C-Reactive Protein 11.11 mg/dL (0.0-0.3) H 03/27/20 07:15 Total Protein 6.2 g/dL (6.4-8.2) L 03/28/20 07:03 Albumin 2.7 g/dL (3.4-5.0) L 03/28/20 07:03 Triglycerides 199 mg/dL (<150) H 03/27/20 07:15 LDL Cholesterol Direct 111 mg/dL (<100) H 03/26/20 13:50 Lipase 2269 U/L (73-393) H 03/28/20 07:03 TSH 0.42 uIU/mL (0.36-3.74) 03/27/20 07:15 Urine Color Yellow (Yellow) 03/26/20 15:40 Urine Clarity Clear (Clear) 03/26/20 15:40 Urine pH 5.0 (5-8) 03/26/20 15:40 Ur Specific [place] 1.015 (1.005-1.025) 03/26/20 15:40 Urine Protein Negative mg/dL (Negative) 03/26/20 15:40 Urine Ketones Negative mg/dL (Negative) 03/26/20 15:40 Urine Blood Trace-intact (Negative) H 03/26/20 15:40 Urine Nitrite Negative (Negative) 03/26/20 15:40 Urine Bilirubin Negative (Negative) 03/26/20 15:40 Urine Urobilinogen 0.2 EU/dL (Up TO 0.2) 03/26/20 15:40 Ur Leukocyte Esterase Negative (Negative) 03/26/20 15:40 Urine RBC 0-2 HPF (0-2) 03/26/20 15:40 Urine WBC 0-2 HPF (0-5) 03/26/20 15:40 Ur Epithelial Cells Few HPF (Negative) 03/26/20 15:40 Urine Crystals Not Applicable 03/26/20 15:40 Urine Bacteria Negative HPF (Negative) 03/26/20 15:40 Urine Mucus Not Applicable 03/26/20 15:40 Ur Culture Indicated? No 03/26/20 15:40 Urine Glucose Negative mg/dL (Negative) 03/26/20 15:40 Ethyl Alcohol < 3.0 mg/dL (<3) 03/26/20 13:25 COVID-19 PCR Negative (Negative) 03/26/20 20:30 Nasopharyn COVID-19 PCR Not Applicable 03/26/20 20:30 Ref Test [facility] 03/26/20 20:30
[2020-03-29 09:29] LABS: ALT 33 U/L (16-63); AST 69 U/L (15-37); Albumin 2.5 g/dL (3.4-5.0); Alkaline Phosphatase 74 U/L (46-116); Anion Gap 9.1 mmol/L (3-11); BUN 20 mg/dL (7-18); Bilirubin, Direct 0.52 mg/dL (0.00-0.20); Bilirubin, Total 1.6 mg/dL (0.2-1.0); CO2 26.9 mmol/L (21.0-32.0); CREATININE 0.87 mg/dL (0.70-1.30); Calcium 8.4 mg/dL (8.5-10.1); Chloride 108 mmol/L (98-107); Glucose 90 mg/dL (74-106); Magnesium 1.9 mg/dL (1.8-2.4); Potassium 3.3 mmol/L (3.5-5.1); Sodium 144 mmol/L (136-145); Total Protein 6.5 g/dL (6.4-8.2); Troponin I < 0.05 ng/mL (<0.06)
--- NOTE | 2020-03-29 09:38 | W.PM.PROGNOT ---
Date of Service Date of service: 03/29/20 Time of Service: 09:38 Assessment and Plan Assessment and plan (1) Acute recurrent pancreatitis: Status: Acute Assessment and plan: No signs of biliary pathology. MRI and ultrasound reviewed. He does have severe pancreatitis. There is no signs of necrotizing pancreatitis at this point there is no abscesses. There is nothing drainable. There is no signs of infection from the pancreas itself. It is some mild elevated bilirubin but this is probably due to ductal swelling. At this point the only treatment is supportive. This is going to take several weeks to months to clear because of the severity. Is at high risk for developing necrotizing keep otitis, abdominal compartment syndrome, blood clots, pneumonia, and pseudocysts. We will continue to follow to monitor for signs of this. cont pulm toilet. He is somewhat fluid overloaded. He is however having pretty significant third spacing into the abdominal and the retroperitoneum as well. He does have dark urine. No signs of abdominal compartment syndrome at this time. No signs of bleeding into the retroperitoneum. GI proph: PPI/carafate elevated WBC: No signs of pneumonia on chest x-ray. No signs of DVT. No signs of abscesses or infections within the pancreas itself. No open wounds or breakdown. He is not currently on antibiotics. But I do not see any in any indication for antibiotics at this time. No signs of alcohol withdrawal at this point His albumin is 2.5. He does have bowel sounds and is passing gas. He does want to try a popsicle today. This is acceptable. It is day 3 of his admission. If he is not tolerating p.o.'s significantly improved his lab work significantly improved by tomorrow, and that I would insert PICC line in preparation of starting TPN. DVT proph: Unclear why patient is not on Lovenox. He does not allergies. His platelets and his hemoglobin stable Electrolyte abnormalities: Replace as required No signs of biliary pathology. Address alcohol issues as outpatient. Subjective Subjective Interval history since last seen: Pt seen and examined. Pt c/o abdominal pain- although it is better. He denies fever/chills. He says he is hungry. He is passing gas. no thrush adn no diaeehea. He is on abx. He is walking around in his room. he is pulling about 12-1300 on IS. No calf pain or swelling. His abdom is extremely distended on bloated. Flank edema but no echymosis. no sign sof ETOH w/ drawl today Pt is extremely hungry and wants to try a popsicles. All labs and radiological studies are reviewed. Exam HENMT Other: No eye pain or discharge. No redness or swelling. No dental abscesses. No thrush. No headaches. Resp Effort & Inspection: normal respiratory effort and able to speak in complete sentences Other: Lungs are clear to auscultation bilaterally. No wheeze rhonchi or wheezing. Patient does note some short of breath. Was then about 12 to 1300 cc on I-S. Cardio Other: NSR GI Auscultation: normal bowel sounds Other: distended abdom/flank from edema. no echmyosis. tender but improved per pt. no gross ascites Skin Other: mild non pitting edema. Objective Objective Clinical Data: Abnormal lab results 03/29/20 03/29/20 Range/Units 08:42 08:42 WBC 15.52 H (4.4-10.8) k/cumm RDW 14.6 H (11.8-14.1) % Absolute Neutrophils 13.44 H (1.2-6.7) k/cumm Absolute Lymphocytes 0.93 L (1.2-3.4) k/cumm Absolute Monocytes 1.01 H (0.11-0.7) k/cumm Potassium 3.3 L (3.5-5.1) mmol/L Chloride 108 H (98-107) mmol/L BUN 20 H (7-18) mg/dL Calcium 8.4 L (8.5-10.1) mg/dL Total Bilirubin 1.6 H (0.2-1.0) mg/dL Conjugated Bilirubin 0.52 H (0.00-0.20) mg/dL AST 69 H (15-37) U/L Albumin 2.5 L (3.4-5.0) g/dL Vital Signs Temperature 37.3 C 03/29/20 07:50 Temperature Source Tympanic 03/29/20 07:50 Pulse 115 H 03/29/20 08:15 Pulse Rhythm Regular 03/29/20 07:50 Pulse 48 L 03/26/20 20:10 Respiratory Rate 20 03/29/20 07:50 Respiratory Effort Non-Labored 03/29/20 07:50 Respiratory Depth Normal 03/29/20 07:50 Respiratory Pattern Normal 03/29/20 07:50 Blood Pressure 185/111 H 03/29/20 08:15 Blood Pressure Mean 117 03/26/20 20:01 Blood Pressure Position Sitting 03/26/20 13:41 Pulse Oximetry 95 03/29/20 07:50 Oxygen Delivery Method Room Air 03/29/20 07:50 Oxygen Flow Rate 0 03/29/20 07:50 Pain Level 3 03/29/20 07:50 Intake & Output 03/28/20 03/28/20 03/29/20 11:59 23:59 11:59 Intake Total 2954.166 / 4174.166 1220 / 4174.166 1000 / 1000 Output Total 680 / 1450 770 / 1450 570 / 570 Balance 2274.166 / 2724.166 450 / 2724.166 430 / 430 Intake: IV 2954.166 / 4174.166 1220 / 4174.166 1000 / 1000 Output: Urine 680 / 1450 770 / 1450 570 / 570 Other: Urine Color Dark Lindsay Dark Lindsay Dark Lindsay Urine Appearance Clear Clear Clear Urine Odor None None None Voiding Methods Urinal Urinal Urinal Laboratory Results WBC 15.52 k/cumm (4.4-10.8) H 03/29/20 08:42 RBC 4.68 m/cumm (4.50-6.00) 03/29/20 08:42 Hgb 14.5 g/dL (13.5-17.5) 03/29/20 08:42 Hct 42.0 % (40.0-50.0) 03/29/20 08:42 MCV 89.7 fL (80-95) 03/29/20 08:42 MCH 31.0 pg (27.0-33.0) 03/29/20 08:42 MCHC 34.5 g/dL (32.0-36.0) 03/29/20 08:42 RDW 14.6 % (11.8-14.1) H 03/29/20 08:42 Plt Count 180 x1000/uL (130-400) 03/29/20 08:42 MPV 10.2 fL (8.0-11.0) 03/29/20 08:42 Immature Gran % 0.7 % 03/29/20 08:42 Neutrophils % 86.6 03/29/20 08:42 Lymphocytes % 6.0 03/29/20 08:42 Monocytes % 6.5 03/29/20 08:42 Eosinophils % 0.1 03/29/20 08:42 Basophils % 0.1 03/29/20 08:42 Absolute Neutrophils 13.44 k/cumm (1.2-6.7) H 03/29/20 08:42 Absolute Lymphocytes 0.93 k/cumm (1.2-3.4) L 03/29/20 08:42 Absolute Monocytes 1.01 k/cumm (0.11-0.7) H 03/29/20 08:42 Absolute Eosinophils 0.02 k/cumm (0.0-0.7) 03/29/20 08:42 Absolute Basophils 0.02 k/cumm (0.0-0.2) 03/29/20 08:42 Sodium 144 mmol/L (136-145) 03/29/20 08:42 Potassium 3.3 mmol/L (3.5-5.1) L 03/29/20 08:42 Chloride 108 mmol/L (98-107) H 03/29/20 08:42 Carbon Dioxide 26.9 mmol/L (21.0-32.0) 03/29/20 08:42 Anion Gap 9.1 mmol/L (3-11) 03/29/20 08:42 BUN 20 mg/dL (7-18) H 03/29/20 08:42 Creatinine 0.87 mg/dL (0.70-1.30) 03/29/20 08:42 Estimated GFR/1.73 m2 >= 60.00 (mL/min/1.73m2) 03/29/20 08:42 Glucose 90 mg/dL (74-106) 03/29/20 08:42 Hemoglobin A1c 5.3 % (3.8-5.6) 03/27/20 07:15 Lactate 1.4 mmol/L (0.6-1.4) 03/26/20 17:10 Calcium 8.4 mg/dL (8.5-10.1) L 03/29/20 08:42 Magnesium 1.9 mg/dL (1.8-2.4) 03/29/20 08:42 Total Bilirubin 1.6 mg/dL (0.2-1.0) H 03/29/20 08:42 Conjugated Bilirubin 0.52 mg/dL (0.00-0.20) H 03/29/20 08:42 AST 69 U/L (15-37) H 03/29/20 08:42 ALT 33 U/L (16-63) 03/29/20 08:42 Alkaline Phosphatase 74 U/L (46-116) 03/29/20 08:42 Lactate Dehydrogenase 205 U/L (85-227) 03/26/20 17:10 Troponin I < 0.05 ng/mL (<0.06) 03/29/20 08:42 C-Reactive Protein 11.11 mg/dL (0.0-0.3) H 03/27/20 07:15 Total Protein 6.5 g/dL (6.4-8.2) 03/29/20 08:42 Albumin 2.5 g/dL (3.4-5.0) L 03/29/20 08:42 Triglycerides 199 mg/dL (<150) H 03/27/20 07:15 LDL Cholesterol Direct 111 mg/dL (<100) H 03/26/20 13:50 Lipase 2269 U/L (73-393) H 03/28/20 07:03 TSH 0.42 uIU/mL (0.36-3.74) 03/27/20 07:15 Urine Color Yellow (Yellow) 03/26/20 15:40 Urine Clarity Clear (Clear) 03/26/20 15:40 Urine pH 5.0 (5-8) 03/26/20 15:40 Ur Specific [place] 1.015 (1.005-1.025) 03/26/20 15:40 Urine Protein Negative mg/dL (Negative) 03/26/20 15:40 Urine Ketones Negative mg/dL (Negative) 03/26/20 15:40 Urine Blood Trace-intact (Negative) H 03/26/20 15:40 Urine Nitrite Negative (Negative) 03/26/20 15:40 Urine Bilirubin Negative (Negative) 03/26/20 15:40 Urine Urobilinogen 0.2 EU/dL (Up TO 0.2) 03/26/20 15:40 Ur Leukocyte Esterase Negative (Negative) 03/26/20 15:40 Urine RBC 0-2 HPF (0-2) 03/26/20 15:40 Urine WBC 0-2 HPF (0-5) 03/26/20 15:40 Ur Epithelial Cells Few HPF (Negative) 03/26/20 15:40 Urine Crystals Not Applicable 03/26/20 15:40 Urine Bacteria Negative HPF (Negative) 03/26/20 15:40 Urine Mucus Not Applicable 03/26/20 15:40 Ur Culture Indicated? No 03/26/20 15:40 Urine Glucose Negative mg/dL (Negative) 03/26/20 15:40 Ethyl Alcohol < 3.0 mg/dL (<3) 03/26/20 13:25 COVID-19 PCR Negative (Negative) 03/26/20 20:30 Nasopharyn COVID-19 PCR Not Applicable 03/26/20 20:30 Ref Test Perform Site [facility] lab 03/26/20 20:30
--- NOTE | 2020-03-29 11:57 | PDOC.CMPRO ---
- If Service Date Differs Date of service: 03/29/20 Time of Service: 11:57 Care Management Progress Note S/O: Rajat remains inpatient today no change in the plan of care. CM will continue to assess for ongoing discharge needs. A: Rajat is a 64 year old male admitted on 03/26/20 for Pancreatitis. P: Anticipate Rajat will return home with no anticipated services once medically cleared. His will drive him home via private vehicle when ready. He will follow up with his PCP and discharge plan of care. CM will continue to follow.
[2020-03-29 12:09] LABS: TSH (W/Ref FT4) 0.33 uIU/mL (0.36-3.74)
--- NOTE | 2020-03-29 12:31 | NS.NUTBLAN_ITS ---
Date of service: 03/29/20 Time of Service: 12:32 Nutritional Consult ASSESSMENT: 64 year old male admitted 03/26/20 with acute pancreatitis with ileus. PMH: HTN, alcohol abuse. BMI wnl. Has been NPO x 3 days with no bowel tones, or BM. If NPO is expected > 5 days, recommend initiate TPN to support nutrient needs. Estimated Needs: [id number] kcal, 70-80 g protein, 2010 free fluid. Has been refusing to ambulate as recommended. Meds include MVI, thiamin, folic acid, lasix. Labs indicate lipase trending down (15K to 699 ). NUTRITIONAL DIAGNOSIS: Inadequate oral nutrient intake due to ileus/ NPO status INTERVENTION: NPO status if NPO>5 days, initiate TPN to support lean body mass, immune function. TPN: Dextrose 10%, Amino Acids 4.25% in 2000 ml infuse @80 cc/hr. Lipids 20% 250 m l/day run @ 10cc/hour provides total of 1520 kcal, 84 g protein, 55 g fat. Standard electrolytes and MVI and trace elements. daily labs CBC with Diff, CMP, magnesium, phosphorus and potassium and replete as needed. Lipid panel 3 times weekly, Blood glucose monitoring twice daily. MONITORING AND EVALUATION: will monitor labs, meds and progression to PO diet May need TPN, will make necessary recommendations Time Spent in Nutritional Counseling and Treatment: 0
[2020-03-29 12:33] LABS: FREE T4 1.09 ng/dL (0.76-1.46); Lipase 699 U/L (73-393)
[2020-03-29] MEDS: Albuterol HFA 8 GM 60 PUFF INH IH (12:45)
[2020-03-29] MEDS: POTASSIUM CHLORIDE 10 MEQ/100 ML BAG 100 MEQ IVPB ×4 (12:59→17:21)
[2020-03-29] MEDS: Potassium Chloride 20 MEQ TABCR 40 MEQ PO (13:00)
[2020-03-29] MEDS: Furosemide 40 MG/4 ML VIAL IVP (13:00)
--- NOTE | 2020-03-29 14:14 | DI.RAD_ITS ---
EXAM: XR PORTABLE CHEST AP CLINICAL HISTORY: wheezing TECHNIQUE: 2D digital imaging was performed. COMPARISON: CT CT ABDOMEN PELVIS W from 03/26/2020 MR MR ABDOMEN WO from 03/28/2020 FINDINGS: The heart size is within normal limits for projection. The lungs are not well inflated. There are s mall bilateral pleural effusions and mild basilar atelectasis. The upper lobes appear clear. There is no evidence of pulmonary edema. IMPRESSION: Small bilateral pleural effusions and bibasilar atelectasis. DATA REPOSITORY: RADIATION DOSE DELIVERED:
[2020-03-29] MEDS: Metoprolol 50 MG TAB PO (19:54)
[2020-03-29] MEDS: ACETAMINOPHEN 1,000 MG/100 ML BTL 400 MG IVPB (19:56)
--- NOTE | 2020-03-29 21:40 | NUR.NOTE ---
Patient state he is not feeling right, state he does not know what it is and he is unable to identify what it is but he is not feeling right. Vitals Temp: 35.8, Resp: 20bpm, Pulses: 76 Bp: 138/86mmHg. Lungs sounds a slightly wheezy, with fine crackles in the bases. State he does not want to be alone in the room. Denies having any chest patient or SOB but state he is starting to feel a little nauseated and bloated.
[2020-03-29] MEDS: Ondansetron 4 MG/2 ML VIAL IVP (21:59)
[2020-03-30] VITALS (15 sets, daily range): BP systolic 129–176; BP diastolic 76–117; PULSE 89–128; RESP 18–22; TEMP 36.1–37; O2SAT 91–100
[2020-03-30] MEDS: Normal Saline Flush 10 ML SYR IVP ×9 (00:33→18:22)
[2020-03-30] MEDS: HYDROmorphone 2 MG/ML VIAL IVP ×4 (00:33→11:08)
[2020-03-30] MEDS: ACETAMINOPHEN 1,000 MG/100 ML BTL 400 MG IVPB (06:33)
[2020-03-30 07:39] LABS: Abs Immature Grans 0.09 k/cumm (0.0-0.09); Absolute Basophil Count 0.01 k/cumm (0.0-0.2); Absolute Eosinophil Count 0.04 k/cumm (0.0-0.7); Absolute Lymphocyte Count 0.95 k/cumm (1.2-3.4); Absolute Monocyte Count 1.14 k/cumm (0.11-0.7); Absolute Neutrophil Count 12.18 k/cumm (1.2-6.7); Basophils % 0.1; Eosinophils % 0.3; HCT 38.2 % (40.0-50.0); HGB 13.1 g/dL (13.5-17.5); Immature Grans % 0.6 %; Lymphocytes % 6.6; Mean Corp. HGB Concentration 34.3 g/dL (32.0-36.0); Mean Corpuscular Hemoglobin 30.8 pg (27.0-33.0); Mean Corpuscular Volume 89.7 fL (80-95); Mean Platelet Volume 10.1 fL (8.0-11.0); Monocytes % 7.9; Neutrophils % 84.5; Platelet Count 203 x1000/uL (130-400); RBC 4.26 m/cumm (4.50-6.00); RBC Distribution Width 14.7 % (11.8-14.1); White Blood Cell Count 14.41 k/cumm (4.4-10.8)
[2020-03-30 07:54] LABS: ALT 36 U/L (16-63); AST 47 U/L (15-37); Albumin 2.4 g/dL (3.4-5.0); Alkaline Phosphatase 75 U/L (46-116); Anion Gap 6.5 mmol/L (3-11); BUN 20 mg/dL (7-18); Bilirubin, Direct 0.35 mg/dL (0.00-0.20); CO2 29.5 mmol/L (21.0-32.0); CREATININE 1.01 mg/dL (0.70-1.30); Calcium 8.4 mg/dL (8.5-10.1); Chloride 105 mmol/L (98-107); Glucose 159 mg/dL (74-106); NT-proBNP 328 pg/mL (<300); Sodium 141 mmol/L (136-145); Total Protein 6.4 g/dL (6.4-8.2)
[2020-03-30] MEDS: Thiamine 100 MG TAB PO (07:54)
[2020-03-30] MEDS: Metoprolol 50 MG TAB PO ×2 (07:54→19:43)
[2020-03-30] MEDS: Enoxaparin 40 MG/0.4 ML SYR SC (07:54)
[2020-03-30] MEDS: Folic Acid 1 MG TAB PO (07:54)
[2020-03-30] MEDS: Pantoprazole 40 MG VIAL IVP ×2 (07:54→19:44)
[2020-03-30] MEDS: Sucralfate 1 GM TAB PO ×3 (07:54→21:57)
[2020-03-30] MEDS: Docusate Sodium 100 MG CAP PO ×2 (07:54→19:44)
[2020-03-30] MEDS: Multivitamin TAB 1 TAB PO (07:54)
[2020-03-30 07:56] LABS: Potassium 2.9 mmol/L (3.5-5.1)
[2020-03-30 09:39] LABS: Lipase 263 U/L (73-393)
[2020-03-30 09:41] LABS: Iron 19 ug/dL (65-175); Total Iron Binding Capacity 127 ug/dL (250-450); Transferrin Sat 15 % (20-55)
[2020-03-30] MEDS: Potassium Chloride 20 MEQ TABCR 40 MEQ PO ×3 (09:43→21:57)
[2020-03-30] MEDS: Bisacodyl 5 MG TABEC 10 MG PO (09:43)
--- NOTE | 2020-03-30 12:18 | PGE_ITS ---
Date of Service Date of service: 03/30/20 Time of Service: 12:18 Assessment and Plan Assessment and plan (1) Acute recurrent pancreatitis: Status: Acute Assessment and plan: Labs are improved today Agree with trying suppository, definitely expect an ileus due to inflammation, narcotics, inactivity Can slowly advance diet when he feels ready Subjective Subjective Interval history since last seen: Tolerating clear liquids. Appetite is poor, does not want to advance. Passing flatus, no BM. Thinks abdomen is softer. Exam Narrative Exam Narrative: Resting comfortably after recent pain meds Abdomen distended but not tense. No significant tenderness to palpation. Objective Objective Clinical Data: Abnormal lab results 03/29/20 03/30/20 03/30/20 Range/Units 08:42 06:45 06:45 WBC 14.41 H (4.4-10.8) k/cumm RBC 4.26 L (4.50-6.00) m/cumm Hgb 13.1 L (13.5-17.5) g/dL Hct 38.2 L (40.0-50.0) % RDW 14.7 H (11.8-14.1) % Absolute Neutrophils 12.18 H (1.2-6.7) k/cumm Absolute Lymphocytes 0.95 L (1.2-3.4) k/cumm Absolute Monocytes 1.14 H (0.11-0.7) k/cumm Potassium 2.9 L* (3.5-5.1) mmol/L BUN 20 H (7-18) mg/dL Glucose 159 H (74-106) mg/dL Calcium 8.4 L (8.5-10.1) mg/dL Iron (65-175) ug/dL TIBC (250-450) ug/dL Transferrin % Sat (20-55) % Conjugated Bilirubin 0.35 H (0.00-0.20) mg/dL AST 47 H (15-37) U/L NT-Pro-B Natriuret Pep 328 H (<300) pg/mL Albumin 2.4 L (3.4-5.0) g/dL Lipase 699 H (73-393) U/L TSH 0.33 L (0.36-3.74) uIU/mL 03/30/20 Range/Units 06:45 WBC (4.4-10.8) k/cumm RBC (4.50-6.00) m/cumm Hgb (13.5-17.5) g/dL Hct (40.0-50.0) % RDW (11.8-14.1) % Absolute Neutrophils (1.2-6.7) k/cumm Absolute Lymphocytes (1.2-3.4) k/cumm Absolute Monocytes (0.11-0.7) k/cumm Potassium (3.5-5.1) mmol/L BUN (7-18) mg/dL Glucose (74-106) mg/dL Calcium (8.5-10.1) mg/dL Iron 19 L (65-175) ug/dL TIBC 127 L (250-450) ug/dL Transferrin % Sat 15 L (20-55) % Conjugated Bilirubin (0.00-0.20) mg/dL AST (15-37) U/L NT-Pro-B Natriuret Pep (<300) pg/mL Albumin (3.4-5.0) g/dL Lipase (73-393) U/L TSH (0.36-3.74) uIU/mL Vital Signs Temperature 98.2 F 03/30/20 11:15 Temperature Source Tympanic 03/30/20 11:15 Pulse 89 03/30/20 11:15 Pulse Rhythm Regular 03/30/20 08:00 Pulse 48 L 03/26/20 20:10 Respiratory Rate 20 03/30/20 11:15 Respiratory Effort Non-Labored 03/30/20 08:00 Respiratory Depth Normal 03/30/20 08:00 Respiratory Pattern Normal 03/30/20 08:00 Blood Pressure 158/106 H 03/30/20 11:15 Blood Pressure Mean 117 03/26/20 20:01 Blood Pressure Position Sitting 03/26/20 13:41 Pulse Oximetry 93 L 03/30/20 11:15 Oxygen Delivery Method Room Air 03/30/20 11:15 Oxygen Flow Rate 0 03/30/20 11:15 Pain Level 4 03/30/20 11:15 Comment 03/30/20 00:40 Intake & Output 03/29/20 03/30/20 03/30/20 23:59 11:59 23:59 Intake Total 300 / 1300 110 / 110 Output Total 2350 / 3470 400 / 400 Balance -2050 / -2170 -290 / -290 Intake: IV 300 / 1300 Oral 90 / 90 Output: Urine 2350 / 3470 400 / 400 Other: Urine Color Light Lindsay Light Lindsay Urine Appearance Clear Clear Urine Odor None None Comment per patient verbalization pt Voiding Methods Toilet Toilet Laboratory Results WBC 14.41 k/cumm (4.4-10.8) H 03/30/20 06:45 RBC 4.26 m/cumm (4.50-6.00) L 03/30/20 06:45 Hgb 13.1 g/dL (13.5-17.5) L 03/30/20 06:45 Hct 38.2 % (40.0-50.0) L 03/30/20 06:45 MCV 89.7 fL (80-95) 03/30/20 06:45 MCH 30.8 pg (27.0-33.0) 03/30/20 06:45 MCHC 34.3 g/dL (32.0-36.0) 03/30/20 06:45 RDW 14.7 % (11.8-14.1) H 03/30/20 06:45 Plt Count 203 x1000/uL (130-400) 03/30/20 06:45 MPV 10.1 fL (8.0-11.0) 03/30/20 06:45 Immature Gran % 0.6 % 03/30/20 06:45 Neutrophils % 84.5 03/30/20 06:45 Lymphocytes % 6.6 03/30/20 06:45 Monocytes % 7.9 03/30/20 06:45 Eosinophils % 0.3 03/30/20 06:45 Basophils % 0.1 03/30/20 06:45 Absolute Neutrophils 12.18 k/cumm (1.2-6.7) H 03/30/20 06:45 Absolute Lymphocytes 0.95 k/cumm (1.2-3.4) L 03/30/20 06:45 Absolute Monocytes 1.14 k/cumm (0.11-0.7) H 03/30/20 06:45 Absolute Eosinophils 0.04 k/cumm (0.0-0.7) 03/30/20 06:45 Absolute Basophils 0.01 k/cumm (0.0-0.2) 03/30/20 06:45 Sodium 141 mmol/L (136-145) 03/30/20 06:45 Potassium 2.9 mmol/L (3.5-5.1) L* 03/30/20 06:45 Chloride 105 mmol/L (98-107) 03/30/20 06:45 Carbon Dioxide 29.5 mmol/L (21.0-32.0) 03/30/20 06:45 Anion Gap 6.5 mmol/L (3-11) 03/30/20 06:45 BUN 20 mg/dL (7-18) H 03/30/20 06:45 Creatinine 1.01 mg/dL (0.70-1.30) 03/30/20 06:45 Estimated GFR/1.73 m2 >= 60.00 (mL/min/1.73m2) 03/30/20 06:45 Glucose 159 mg/dL (74-106) H 03/30/20 06:45 Hemoglobin A1c 5.3 % (3.8-5.6) 03/27/20 07:15 Lactate 1.4 mmol/L (0.6-1.4) 03/26/20 17:10 Calcium 8.4 mg/dL (8.5-10.1) L 03/30/20 06:45 Magnesium 2.0 mg/dL (1.8-2.4) 03/30/20 06:45 Iron 19 ug/dL (65-175) L 03/30/20 06:45 TIBC 127 ug/dL (250-450) L 03/30/20 06:45 Transferrin % Sat 15 % (20-55) L 03/30/20 06:45 Total Bilirubin 1.0 mg/dL (0.2-1.0) 03/30/20 06:45 Conjugated Bilirubin 0.35 mg/dL (0.00-0.20) H 03/30/20 06:45 AST 47 U/L (15-37) H 03/30/20 06:45 ALT 36 U/L (16-63) 03/30/20 06:45 Alkaline Phosphatase 75 U/L (46-116) 03/30/20 06:45 Lactate Dehydrogenase 205 U/L (85-227) 03/26/20 17:10 Troponin I < 0.05 ng/mL (<0.06) 03/29/20 08:42 C-Reactive Protein 11.11 mg/dL (0.0-0.3) H 03/27/20 07:15 NT-Pro-B Natriuret Pep 328 pg/mL (<300) H 03/30/20 06:45 Total Protein 6.4 g/dL (6.4-8.2) 03/30/20 06:45 Albumin 2.4 g/dL (3.4-5.0) L 03/30/20 06:45 Triglycerides 199 mg/dL (<150) H 03/27/20 07:15 LDL Cholesterol Direct 111 mg/dL (<100) H 03/26/20 13:50 Lipase 263 U/L (73-393) 03/30/20 06:45 TSH 0.33 uIU/mL (0.36-3.74) L 03/29/20 08:42 Free T4 1.09 ng/dL (0.76-1.46) 03/29/20 08:42 Urine Color Yellow (Yellow) 03/26/20 15:40 Urine Clarity Clear (Clear) 03/26/20 15:40 Urine pH 5.0 (5-8) 03/26/20 15:40 Ur Specific [place] 1.015 (1.005-1.025) 03/26/20 15:40 Urine Protein Negative mg/dL (Negative) 03/26/20 15:40 Urine Ketones Negative mg/dL (Negative) 03/26/20 15:40 Urine Blood Trace-intact (Negative) H 03/26/20 15:40 Urine Nitrite Negative (Negative) 03/26/20 15:40 Urine Bilirubin Negative (Negative) 03/26/20 15:40 Urine Urobilinogen 0.2 EU/dL (Up TO 0.2) 03/26/20 15:40 Ur Leukocyte Esterase Negative (Negative) 03/26/20 15:40 Urine RBC 0-2 HPF (0-2) 03/26/20 15:40 Urine WBC 0-2 HPF (0-5) 03/26/20 15:40 Ur Epithelial Cells Few HPF (Negative) 03/26/20 15:40 Urine Crystals Not Applicable 03/26/20 15:40 Urine Bacteria Negative HPF (Negative) 03/26/20 15:40 Urine Mucus Not Applicable 03/26/20 15:40 Ur Culture Indicated? No 03/26/20 15:40 Urine Glucose Negative mg/dL (Negative) 03/26/20 15:40 Ethyl Alcohol < 3.0 mg/dL (<3) 03/26/20 13:25 COVID-19 PCR Negative (Negative) 03/26/20 20:30 Nasopharyn COVID-19 PCR Not Applicable 03/26/20 20:30 Ref Test Perform Site [facility] lab 03/26/20 20:30
--- NOTE | 2020-03-30 13:11 | PGE_ITS ---
Date of Service Date of service: 03/30/20 Time of Service: 13:11 Assessment and Plan Assessment and plan (1) Hypokalemia: Status: Acute Assessment and plan: worsened by diuresis and ongoing npo, will continue to replete and follow. magnesium 2.0. (2) Fluid overload: Status: Acute Assessment and plan: improved with diuresis, will repeat again today, continue to monitor I&O, continue I/S. (3) PAF (paroxysmal atrial fibrillation): Status: Acute Assessment and plan: No further episodes, tolerating scheduled lopressor with sips of water, IV prn. continue telemetry. echo with LVEF of 60% with no wall motion abnormalities. no significant valvular disease. (4) Ileus, unspecified: Status: Acute Assessment and plan: likely d/t pancreatitis and narcotic use. improving and passing flatus will slowly advance diet and continue aggressive bowel management. meds with sips, encourage ambulation. (5) Acute recurrent pancreatitis: Status: Acute Assessment and plan: symptoms continue to slowly improve with lipase normalized, still having pain but will decrease narcotics as lipase normalized. continue to trial clears, wean pain meds. surgery following. MRCP Findings consistent with pancreatitis. There is increased ascites and bilateral pleural effusions. No evidence gallstones, common bile duct stones or acute cholecystitis. . (6) HTN (hypertension): Status: Chronic Assessment and plan: blood pressures improved on lopressor. continue to monitor and adjust as needed. (7) Dark emesis: Status: Acute Assessment and plan: no further episodes, continue GI prophylaxis (8) DVT prophylaxis: Status: Acute Assessment and plan: TEDS and SCD, hold chemical as patient may have GI bleed. patient has been encouraged to ambulate above case discussed with Dr. Saldana who is in agreement. Subjective Subjective Patient reports: still having pain, voiding w/o difficulty, no bowel movement and shortness of breath Interval history since last seen: remains NPO, no bowel movement, refusing to get out of bed this morning but after receiving IV lasix for fluid overload, no nausea or vomiting Exam Const General: cooperative, ill appearing (older than stated age, with flush face) acutely and lethargic (just received dilaudid) Nutritional Appearance: average body habitus Orientation: awake and oriented x3 HENMT Head: normal to inspection, normocephalic and atraumatic Mouth: oral mucosae normal Cardio Rate: tachycardic (2 episodes of SVT, appears PAF, otherwise ST) Rhythm: regular rhythm GI Inspection: distended Palpation: firm Auscultation: hypoactive bowel sounds General: other (concentrated urine) Skin General skin exam: no rashes or lesions noted Neuro General: patient awake and patient oriented x3 Cognition: normal cognition Speech: speech normal Extrem General: normal to inspection and full ROM Objective Objective Clinical Data: Abnormal lab results 03/30/20 03/30/20 03/30/20 Range/Units 06:45 06:45 06:45 WBC 14.41 H (4.4-10.8) k/cumm RBC 4.26 L (4.50-6.00) m/cumm Hgb 13.1 L (13.5-17.5) g/dL Hct 38.2 L (40.0-50.0) % RDW 14.7 H (11.8-14.1) % Absolute Neutrophils 12.18 H (1.2-6.7) k/cumm Absolute Lymphocytes 0.95 L (1.2-3.4) k/cumm Absolute Monocytes 1.14 H (0.11-0.7) k/cumm Potassium 2.9 L* (3.5-5.1) mmol/L BUN 20 H (7-18) mg/dL Glucose 159 H (74-106) mg/dL Calcium 8.4 L (8.5-10.1) mg/dL Iron 19 L (65-175) ug/dL TIBC 127 L (250-450) ug/dL Transferrin % Sat 15 L (20-55) % Conjugated Bilirubin 0.35 H (0.00-0.20) mg/dL AST 47 H (15-37) U/L NT-Pro-B Natriuret Pep 328 H (<300) pg/mL Albumin 2.4 L (3.4-5.0) g/dL Vital Signs Temperature 36.8 C 03/30/20 11:15 Temperature Source Tympanic 03/30/20 11:15 Pulse 89 03/30/20 11:15 Pulse Rhythm Regular 03/30/20 08:00 Pulse 48 L 03/26/20 20:10 Respiratory Rate 20 03/30/20 11:15 Respiratory Effort Non-Labored 03/30/20 08:00 Respiratory Depth Normal 03/30/20 08:00 Respiratory Pattern Normal 03/30/20 08:00 Blood Pressure 158/106 H 03/30/20 11:15 Blood Pressure Mean 117 03/26/20 20:01 Blood Pressure Position Sitting 03/26/20 13:41 Pulse Oximetry 93 L 03/30/20 11:15 Oxygen Delivery Method Room Air 03/30/20 11:15 Oxygen Flow Rate 0 03/30/20 11:15 Pain Level 4 03/30/20 11:15 Comment 03/30/20 00:40 Intake & Output 03/29/20 03/30/20 03/30/20 23:59 11:59 23:59 Intake Total 300 / 1300 110 / 110 Output Total 2350 / 3470 400 / 400 Balance -2050 / -2170 -290 / -290 Intake: IV 300 / 1300 Oral 90 / 90 Output: Urine 2350 / 3470 400 / 400 Other: Urine Color Light Lindsay Light Lindsay Urine Appearance Clear Clear Urine Odor None None Comment per patient verbalization pt Voiding Methods Toilet Toilet Laboratory Results WBC 14.41 k/cumm (4.4-10.8) H 03/30/20 06:45 RBC 4.26 m/cumm (4.50-6.00) L 03/30/20 06:45 Hgb 13.1 g/dL (13.5-17.5) L 03/30/20 06:45 Hct 38.2 % (40.0-50.0) L 03/30/20 06:45 MCV 89.7 fL (80-95) 03/30/20 06:45 MCH 30.8 pg (27.0-33.0) 03/30/20 06:45 MCHC 34.3 g/dL (32.0-36.0) 03/30/20 06:45 RDW 14.7 % (11.8-14.1) H 03/30/20 06:45 Plt Count 203 x1000/uL (130-400) 03/30/20 06:45 MPV 10.1 fL (8.0-11.0) 03/30/20 06:45 Immature Gran % 0.6 % 03/30/20 06:45 Neutrophils % 84.5 03/30/20 06:45 Lymphocytes % 6.6 03/30/20 06:45 Monocytes % 7.9 03/30/20 06:45 Eosinophils % 0.3 03/30/20 06:45 Basophils % 0.1 03/30/20 06:45 Absolute Neutrophils 12.18 k/cumm (1.2-6.7) H 03/30/20 06:45 Absolute Lymphocytes 0.95 k/cumm (1.2-3.4) L 03/30/20 06:45 Absolute Monocytes 1.14 k/cumm (0.11-0.7) H 03/30/20 06:45 Absolute Eosinophils 0.04 k/cumm (0.0-0.7) 03/30/20 06:45 Absolute Basophils 0.01 k/cumm (0.0-0.2) 03/30/20 06:45 Sodium 141 mmol/L (136-145) 03/30/20 06:45 Potassium 2.9 mmol/L (3.5-5.1) L* 03/30/20 06:45 Chloride 105 mmol/L (98-107) 03/30/20 06:45 Carbon Dioxide 29.5 mmol/L (21.0-32.0) 03/30/20 06:45 Anion Gap 6.5 mmol/L (3-11) 03/30/20 06:45 BUN 20 mg/dL (7-18) H 03/30/20 06:45 Creatinine 1.01 mg/dL (0.70-1.30) 03/30/20 06:45 Estimated GFR/1.73 m2 >= 60.00 (mL/min/1.73m2) 03/30/20 06:45 Glucose 159 mg/dL (74-106) H 03/30/20 06:45 Hemoglobin A1c 5.3 % (3.8-5.6) 03/27/20 07:15 Lactate 1.4 mmol/L (0.6-1.4) 03/26/20 17:10 Calcium 8.4 mg/dL (8.5-10.1) L 03/30/20 06:45 Magnesium 2.0 mg/dL (1.8-2.4) 03/30/20 06:45 Iron 19 ug/dL (65-175) L 03/30/20 06:45 TIBC 127 ug/dL (250-450) L 03/30/20 06:45 Transferrin % Sat 15 % (20-55) L 03/30/20 06:45 Total Bilirubin 1.0 mg/dL (0.2-1.0) 03/30/20 06:45 Conjugated Bilirubin 0.35 mg/dL (0.00-0.20) H 03/30/20 06:45 AST 47 U/L (15-37) H 03/30/20 06:45 ALT 36 U/L (16-63) 03/30/20 06:45 Alkaline Phosphatase 75 U/L (46-116) 03/30/20 06:45 Lactate Dehydrogenase 205 U/L (85-227) 03/26/20 17:10 Troponin I < 0.05 ng/mL (<0.06) 03/29/20 08:42 C-Reactive Protein 11.11 mg/dL (0.0-0.3) H 03/27/20 07:15 NT-Pro-B Natriuret Pep 328 pg/mL (<300) H 03/30/20 06:45 Total Protein 6.4 g/dL (6.4-8.2) 03/30/20 06:45 Albumin 2.4 g/dL (3.4-5.0) L 03/30/20 06:45 Triglycerides 199 mg/dL (<150) H 03/27/20 07:15 LDL Cholesterol Direct 111 mg/dL (<100) H 03/26/20 13:50 Lipase 263 U/L (73-393) 03/30/20 06:45 TSH 0.33 uIU/mL (0.36-3.74) L 03/29/20 08:42 Free T4 1.09 ng/dL (0.76-1.46) 03/29/20 08:42 Urine Color Yellow (Yellow) 03/26/20 15:40 Urine Clarity Clear (Clear) 03/26/20 15:40 Urine pH 5.0 (5-8) 03/26/20 15:40 Ur Specific [place] 1.015 (1.005-1.025) 03/26/20 15:40 Urine Protein Negative mg/dL (Negative) 03/26/20 15:40 Urine Ketones Negative mg/dL (Negative) 03/26/20 15:40 Urine Blood Trace-intact (Negative) H 03/26/20 15:40 Urine Nitrite Negative (Negative) 03/26/20 15:40 Urine Bilirubin Negative (Negative) 03/26/20 15:40 Urine Urobilinogen 0.2 EU/dL (Up TO 0.2) 03/26/20 15:40 Ur Leukocyte Esterase Negative (Negative) 03/26/20 15:40 Urine RBC 0-2 HPF (0-2) 03/26/20 15:40 Urine WBC 0-2 HPF (0-5) 03/26/20 15:40 Ur Epithelial Cells Few HPF (Negative) 03/26/20 15:40 Urine Crystals Not Applicable 03/26/20 15:40 Urine Bacteria Negative HPF (Negative) 03/26/20 15:40 Urine Mucus Not Applicable 03/26/20 15:40 Ur Culture Indicated? No 03/26/20 15:40 Urine Glucose Negative mg/dL (Negative) 03/26/20 15:40 Ethyl Alcohol < 3.0 mg/dL (<3) 03/26/20 13:25 COVID-19 PCR Negative (Negative) 03/26/20 20:30 Nasopharyn COVID-19 PCR Not Applicable 03/26/20 20:30 Ref Test Perform Site [facility] lab 03/26/20 20:30
[2020-03-30] MEDS: HYDROmorphone 2 MG/ML VIAL 1 MG IVP ×3 (14:32→23:31)
[2020-03-30] MEDS: Furosemide 40 MG/4 ML VIAL IVP (14:33)
[2020-03-30] MEDS: Magnesium Citrate 300 ML BTL PO (14:33)
--- NOTE | 2020-03-30 15:15 | PDOC.CMPRO ---
- If Service Date Differs Date of service: 03/30/20 Time of Service: 15:15 Care Management Progress Note S/O: Per report, Baris diet will be slowly advanced today. Once he has a bowel movement and is able to tolerate his diet, he may be ready for discharge. He remains under precautions for Covid 19. CM will continue to follow. A: Rajat is a 64 year old male admitted on 03/26/20 for Pancreatitis. P: Anticipate Rajat will return home with no anticipated services once medically cleared. His will drive him home via private vehicle when ready. He will follow up with his PCP and discharge plan of care. CM will continue to follow.
[2020-03-30] MEDS: Metoprolol 5 MG/5 ML VIAL IVP (15:49)
--- NOTE | 2020-03-30 16:08 | W.NUTRFU ---
Date of service: 03/30/20 Time of Service: 16:08 Nutritional Follow up NOTE: Diet readvanced to clears, will provide ensure clear TID to provide additional 600 calories, 45 g protein. If unable to complete at least 50% of clear liquid tray, recommend considering TPN. See note from 03/29/20 for TPN recommendations. Time Spent in Nutritional Counseling and Treatment: 0 time spent face to face
[2020-03-30] MEDS: Ondansetron 4 MG/2 ML VIAL IVP (17:00)
[2020-03-30 17:07] LABS: Potassium 2.9 mmol/L (3.5-5.1)
--- NOTE | 2020-03-30 17:45 | DI.CT_ITS ---
EXAM: CT ABDOMEN PELVIS W CLINICAL HISTORY: abdominal pain, worsening, distention TECHNIQUE: COMPARISON: CT CT ABDOMEN PELVIS W from 03/26/2020 FINDINGS: CT examination of the abdomen and pelvis was performed with bolus inj fusion of 100 cc of Omnipaque 3 50. Images obtained through the lung bases show bilateral pleural effusions and small areas of consolidat ion and/or atelectasis. In comparison with prior examination of March 30, note is again made of marked peripancreatic edema, there are now areas of decreased attenuation involving the pancreatic body suggesting areas of necro sis and/or edema. There is increased intra-abdominal fluid in comparison with prior examination. No free intraperitoneal air or retroperitoneal gas seen. There is mild wall thickening of the duodenum and gastric antrum consistent with mild inflammation associated with pancreatitis. Colon is moderat sherine distended and gas and fluid filled, no focal colonic lesion identified, question diarrhea. Liver and spleen appear normal. No biliary dilatation. Increased radiodensity of gallbladder conten ts consistent with excretion contrast material from prior CT March 26. Adrenals and kidneys are unremarkable with incidental left renal cysts. No urinary tract calcificati on or obstruction. Small urinary bladder diverticuli and wall thickening again noted consistent with chronic bladder outlet obstruction. IMPRESSION: Findings consistent with interval worsening of pancreatitis with probable pancreatic necrosis now pre sent. No pseudocyst formation identified. Marked colonic dilatation without specific evidence of obstruction. Bilateral pleural effusions and areas of atelectasis and/or consolidation in lung bases.
[2020-03-30] MEDS: POTASSIUM CHLORIDE 10 MEQ/100 ML BAG 100 MEQ IVPB ×4 (18:22→21:57)
--- NOTE | 2020-03-30 19:04 | DI.VRAD_ITS ---
PROCEDURE INFORMATION: Exam: CT Abdomen And Pelvis With Contrast Exam date and time: 03/30/2020 5:57 PM Age: 64 years old Clinical indication: Abdominal pain worsening, distension, bloating TECHNIQUE: Imaging protocol: Computed tomography of the abdomen and pelvis with intravenous contrast. COMPARISON: CT ABDOMEN PELVIS W 03/26/2020 2:41 PM FINDINGS: Lungs: Compared to 03/26/2020, new small bilateral pleural fluid collections with new adjacent areas of consolidation and/or atelectasis within the posterior lower lobes. Liver: Normal. No mass. Gallbladder and bile ducts: Small amount of retained contrast material within the gallbladder in this patient with prior CT examination on 03/26/2020. No biliary tract dilatation. Pancreas: Compared to 03/26/2020, once again noted is the enlarged pancreas with peripancreatic stranding / peripancreatic fluid consistent with acute pancreatitis. The pancreatic body and proximal tail now exhibit new decreased density - reflecting increased edema or possible early necrosis. No pseudocyst formation. Spleen: Normal. No splenomegaly. Adrenals: Normal. No mass. Kidneys and ureters: Normal. No hydronephrosis. Stomach and bowel: No significant amount of well-formed stool within the colon - primarily internal fluid and air - suggesting diarrhea. Appendix: No evidence of appendicitis. Intraperitoneal space: Unremarkable. No free air. No significant fluid collection. Retroperitoneal space: Compared to 03/26/2020, mild interval increase in fluid along Gerota's fascia bilaterally with fluid now seen within paracolic gutters and within the pelvis. Vasculature: Unremarkable. No abdominal aortic aneurysm. Lymph nodes: Unremarkable. No enlarged lymph nodes. Bladder: Unremarkable as visualized. Reproductive: Enlarged prostate gland measuring 4.9 cm transversely. Bones/joints: Spinal degenerative changes. Soft tissues: Fat-containing umbilical hernia. IMPRESSION: 1. Compared to 03/26/2020, once again noted is the enlarged pancreas with peripancreatic stranding / peripancreatic fluid consistent with acute pancreatitis. The pancreatic body and proximal tail now exhibit new decreased density - reflecting increased edema or possible early necrosis. 2. No pseudocyst formation. 3. Compared to 03/26/2020, mild interval increase in fluid along Gerota's fascia bilaterally with fluid now seen within paracolic gutters and within the pelvis. 4. No significant amount of well-formed stool within the colon - primarily internal fluid and air - suggesting diarrhea. 5. Compared to 03/26/2020, new small bilateral pleural fluid collections with new adjacent areas of consolidation and/or atelectasis within the posterior lower lobes. Dictated and Authenticated by: Derrek Lopes MD. Ordering:DONNA Sharma MD
[2020-03-30] MEDS: Normal Saline Flush 10 ML SYR 20 ML IVP (19:43)
--- NOTE | 2020-03-30 20:30 | NUR.NOTE ---
Nursing Note: Notified M/S of increased HR rate 226 @ 1920. Strips captured. ALC.
[2020-03-30] MEDS: Lactated Ringers 1,000 ML 150 ML IV (20:52)
[2020-03-31] MEDS: chlorproMAZINE 25 MG TAB PO (02:43)
[2020-03-31] MEDS: HYDROmorphone 2 MG/ML VIAL 1 MG IVP ×8 (02:43→22:38)
[2020-03-31 03:00] LABS: COVID-19 RT-PCR UVMMC Result Negative (Negative)
[2020-03-31] MEDS: Lactated Ringers 1,000 ML 150 ML IV ×3 (06:26→20:40)
[2020-03-31 07:20] VITALS: BP 164/82; PULSE 103; RESP 17; TEMP 36.9; O2SAT 95
[2020-03-31 07:36] LABS: Abs Immature Grans 0.12 k/cumm (0.0-0.09); Absolute Basophil Count 0.01 k/cumm (0.0-0.2); Absolute Eosinophil Count 0.09 k/cumm (0.0-0.7); Absolute Lymphocyte Count 0.96 k/cumm (1.2-3.4); Absolute Monocyte Count 1.21 k/cumm (0.11-0.7); Basophils % 0.1; Eosinophils % 0.7; HCT 36.8 % (40.0-50.0); HGB 12.4 g/dL (13.5-17.5); Immature Grans % 0.9 %; Lymphocytes % 7.1; Mean Corp. HGB Concentration 33.7 g/dL (32.0-36.0); Mean Corpuscular Hemoglobin 30.4 pg (27.0-33.0); Mean Corpuscular Volume 90.2 fL (80-95); Mean Platelet Volume 9.9 fL (8.0-11.0); Monocytes % 8.9; Neutrophils % 82.3; Platelet Count 213 x1000/uL (130-400); RBC 4.08 m/cumm (4.50-6.00); RBC Distribution Width 14.8 % (11.8-14.1); White Blood Cell Count 13.54 k/cumm (4.4-10.8)
[2020-03-31 07:39] LABS: Absolute Neutrophil Count 11.14 k/cumm (1.2-6.7)
[2020-03-31] MEDS: Pantoprazole 40 MG VIAL IVP ×2 (07:39→20:29)
[2020-03-31] MEDS: Normal Saline Flush 10 ML SYR 20 ML IVP ×2 (07:39→20:28)
[2020-03-31] MEDS: Normal Saline Flush 10 ML SYR IVP ×4 (07:40→16:56)
[2020-03-31] MEDS: Sucralfate 1 GM TAB PO ×4 (07:41→21:35)
[2020-03-31] MEDS: Thiamine 100 MG TAB PO (07:42)
[2020-03-31] MEDS: Multivitamin TAB 1 TAB PO (07:42)
[2020-03-31] MEDS: Metoprolol 50 MG TAB PO ×3 (07:42→20:29)
[2020-03-31] MEDS: Enoxaparin 40 MG/0.4 ML SYR SC (07:42)
[2020-03-31] MEDS: Folic Acid 1 MG TAB PO (07:42)
[2020-03-31 07:52] LABS: ALT 30 U/L (16-63); AST 37 U/L (15-37); Albumin 2.1 g/dL (3.4-5.0); Alkaline Phosphatase 87 U/L (46-116); Anion Gap 9.1 mmol/L (3-11); BUN 20 mg/dL (7-18); Bilirubin, Total 0.7 mg/dL (0.2-1.0); CO2 28.9 mmol/L (21.0-32.0); Calcium 8.3 mg/dL (8.5-10.1); Chloride 104 mmol/L (98-107); Glucose 120 mg/dL (74-106); Potassium 3.5 mmol/L (3.5-5.1); Sodium 142 mmol/L (136-145)
--- NOTE | 2020-03-31 08:41 | PGE_ITS ---
Date of Service Date of service: 03/31/20 Time of Service: 08:41 Assessment and Plan Assessment and plan (1) Elevated d-dimer: Status: Acute Assessment and plan: unclear significance, respiratory status has been guarded but stable. he definitely needs to continue aggressive pulmonary toilet in setting of pleural effusions and abdominal pain/distention. no increased oxygen requirements or chest pain. will defer further testing to ordering provider (2) Hypokalemia: Status: Acute Assessment and plan: worsened by diuresis and ongoing npo but better today with repletion, will continue to replete and follow. magnesium 2.0. (3) Fluid overload: Status: Acute Assessment and plan: improved with diuresis, continue to monitor I&O, continue I/S. back on IV fluids as he is now NPO again, monitor fluid status closely (4) PAF (paroxysmal atrial fibrillation): Status: Acute Assessment and plan: continues to have brief, 1 minute episodes periodically, lopressor dose increased, IV prn. continue telemetry. echo with LVEF of 60% with no wall motion abnormalities. no significant valvular disease. (5) Ileus, unspecified: Status: Acute Assessment and plan: likely d/t pancreatitis and narcotic use. improving and passing flatus will slowly advance diet and continue aggressive bowel management. meds with sips, encourage ambulation. (6) Acute recurrent pancreatitis: Status: Acute Assessment and plan: symptoms worsened overnight so made NPO again, lipase had normalized, repeat CT last night shows ongoing inflammation, increased narcotics. surgery following. MRCP Findings consistent with pancreatitis. There is increased ascites and bilateral pleural effusions. No evidence gallstones, common bile duct stones or acute cholecystitis. . (7) HTN (hypertension): Status: Chronic Assessment and plan: blood pressures improved on lopressor. continue to monitor and adjust as needed. (8) Dark emesis: Status: Acute Assessment and plan: no further episodes, continue GI prophylaxis (9) DVT prophylaxis: Status: Acute Assessment and plan: TEDS and SCD, lovenox initiated by surgery. patient has been encouraged to ambulate above case discussed with Dr. Coleman who is in agreement. Subjective Subjective Patient reports: still having pain, voiding w/o difficulty, no bowel movement and shortness of breath Interval history since last seen: remains NPO, no bowel movement, refusing to get out of bed this morning but after receiving IV lasix for fluid overload, no nausea or vomiting Exam Const General: cooperative, ill appearing (older than stated age, with flush face) acutely and lethargic (just received dilaudid) Nutritional Appearance: average body habitus Orientation: awake and oriented x3 [facility] Head: normal to inspection, normocephalic and atraumatic Mouth: oral mucosae normal Cardio Rate: tachycardic (2 episodes of SVT, appears PAF, otherwise ST) Rhythm: regular rhythm GI Inspection: distended Palpation: firm Auscultation: hypoactive bowel sounds General: other (concentrated urine) Skin General skin exam: no rashes or lesions noted Neuro General: patient awake and patient oriented x3 Cognition: normal cognition Speech: speech normal Extrem General: normal to inspection and full ROM Objective Objective Clinical Data: Abnormal lab results 03/30/20 03/30/20 03/30/20 Range/Units 06:45 06:45 16:45 WBC (4.4-10.8) k/cumm RBC (4.50-6.00) m/cumm Hgb (13.5-17.5) g/dL Hct (40.0-50.0) % RDW (11.8-14.1) % Absolute Neutrophils (1.2-6.7) k/cumm Absolute Lymphocytes (1.2-3.4) k/cumm Absolute Monocytes (0.11-0.7) k/cumm Potassium 2.9 L* 2.9 L* (3.5-5.1) mmol/L BUN 20 H (7-18) mg/dL Glucose 159 H (74-106) mg/dL Calcium 8.4 L (8.5-10.1) mg/dL Iron 19 L (65-175) ug/dL TIBC 127 L (250-450) ug/dL Transferrin % Sat 15 L (20-55) % Conjugated Bilirubin 0.35 H (0.00-0.20) mg/dL AST 47 H (15-37) U/L NT-Pro-B Natriuret Pep 328 H (<300) pg/mL Total Protein (6.4-8.2) g/dL Albumin 2.4 L (3.4-5.0) g/dL 03/31/20 03/31/20 Range/Units 07:00 07:00 WBC 13.54 H (4.4-10.8) k/cumm RBC 4.08 L (4.50-6.00) m/cumm Hgb 12.4 L (13.5-17.5) g/dL Hct 36.8 L (40.0-50.0) % RDW 14.8 H (11.8-14.1) % Absolute Neutrophils 11.14 H (1.2-6.7) k/cumm Absolute Lymphocytes 0.96 L (1.2-3.4) k/cumm Absolute Monocytes 1.21 H (0.11-0.7) k/cumm Potassium (3.5-5.1) mmol/L BUN 20 H (7-18) mg/dL Glucose 120 H (74-106) mg/dL Calcium 8.3 L (8.5-10.1) mg/dL Iron (65-175) ug/dL TIBC (250-450) ug/dL Transferrin % Sat (20-55) % Conjugated Bilirubin (0.00-0.20) mg/dL AST (15-37) U/L NT-Pro-B Natriuret Pep (<300) pg/mL Total Protein 6.0 L (6.4-8.2) g/dL Albumin 2.1 L (3.4-5.0) g/dL Vital Signs Temperature 36.9 C 03/31/20 07:20 Temperature Source Tympanic 03/31/20 07:20 Pulse 103 H 03/31/20 07:20 Pulse Rhythm Regular 03/30/20 22:20 Pulse 48 L 03/26/20 20:10 Respiratory Rate 17 03/31/20 07:20 Respiratory Effort Non-Labored 03/30/20 22:20 Respiratory Depth Normal 03/30/20 22:20 Respiratory Pattern Normal 03/30/20 22:20 Blood Pressure 164/82 H 03/31/20 07:20 Blood Pressure Mean 117 03/26/20 20:01 Blood Pressure Position Sitting 03/26/20 13:41 Pulse Oximetry 95 03/31/20 07:20 Oxygen Delivery Method Room Air 03/31/20 07:20 Oxygen Flow Rate 0 03/31/20 07:20 Pain Level 6 03/31/20 07:42 Comment 03/30/20 00:40 Intake & Output 03/30/20 03/30/20 03/31/20 11:59 23:59 11:59 Intake Total 260 / 820 560 / 820 1000 / 1000 Output Total 400 / 1050 650 / 1050 Balance -140 / -230 -90 / -230 1000 / 1000 Intake: IV 20 / 340 320 / 340 1000 / 1000 Oral 240 / 480 240 / 480 Output: Urine 400 / 400 Stool 350 / 350 Emesis 300 / 300 Other: Urine Color Light Lindsay Yellow Urine Appearance Clear Clear Urine Odor None Comment pt voiding in toilet. missing hat Stool Occult Blood Negative Stool Characteristics Liquid Emesis Description Clear/Water Voiding Methods Toilet Laboratory Results WBC 13.54 k/cumm (4.4-10.8) H 03/31/20 07:00 RBC 4.08 m/cumm (4.50-6.00) L 03/31/20 07:00 Hgb 12.4 g/dL (13.5-17.5) L 03/31/20 07:00 Hct 36.8 % (40.0-50.0) L 03/31/20 07:00 MCV 90.2 fL (80-95) 03/31/20 07:00 MCH 30.4 pg (27.0-33.0) 03/31/20 07:00 MCHC 33.7 g/dL (32.0-36.0) 03/31/20 07:00 RDW 14.8 % (11.8-14.1) H 03/31/20 07:00 Plt Count 213 x1000/uL (130-400) 03/31/20 07:00 MPV 9.9 fL (8.0-11.0) 03/31/20 07:00 Immature Gran % 0.9 % 03/31/20 07:00 Neutrophils % 82.3 03/31/20 07:00 Lymphocytes % 7.1 03/31/20 07:00 Monocytes % 8.9 03/31/20 07:00 Eosinophils % 0.7 03/31/20 07:00 Basophils % 0.1 03/31/20 07:00 Absolute Neutrophils 11.14 k/cumm (1.2-6.7) H 03/31/20 07:00 Absolute Lymphocytes 0.96 k/cumm (1.2-3.4) L 03/31/20 07:00 Absolute Monocytes 1.21 k/cumm (0.11-0.7) H 03/31/20 07:00 Absolute Eosinophils 0.09 k/cumm (0.0-0.7) 03/31/20 07:00 Absolute Basophils 0.01 k/cumm (0.0-0.2) 03/31/20 07:00 Sodium 142 mmol/L (136-145) 03/31/20 07:00 Potassium 3.5 mmol/L (3.5-5.1) 03/31/20 07:00 Chloride 104 mmol/L (98-107) 03/31/20 07:00 Carbon Dioxide 28.9 mmol/L (21.0-32.0) 03/31/20 07:00 Anion Gap 9.1 mmol/L (3-11) 03/31/20 07:00 BUN 20 mg/dL (7-18) H 03/31/20 07:00 Creatinine 0.90 mg/dL (0.70-1.30) 03/31/20 07:00 Estimated GFR/1.73 m2 >= 60.00 (mL/min/1.73m2) 03/31/20 07:00 Glucose 120 mg/dL (74-106) H 03/31/20 07:00 Hemoglobin A1c 5.3 % (3.8-5.6) 03/27/20 07:15 Lactate 1.4 mmol/L (0.6-1.4) 03/26/20 17:10 Calcium 8.3 mg/dL (8.5-10.1) L 03/31/20 07:00 Magnesium 2.0 mg/dL (1.8-2.4) 03/30/20 06:45 Iron 19 ug/dL (65-175) L 03/30/20 06:45 TIBC 127 ug/dL (250-450) L 03/30/20 06:45 Transferrin % Sat 15 % (20-55) L 03/30/20 06:45 Total Bilirubin 0.7 mg/dL (0.2-1.0) 03/31/20 07:00 Conjugated Bilirubin 0.35 mg/dL (0.00-0.20) H 03/30/20 06:45 AST 37 U/L (15-37) 03/31/20 07:00 ALT 30 U/L (16-63) 03/31/20 07:00 Alkaline Phosphatase 87 U/L (46-116) 03/31/20 07:00 Lactate Dehydrogenase 205 U/L (85-227) 03/26/20 17:10 Troponin I < 0.05 ng/mL (<0.06) 03/29/20 08:42 C-Reactive Protein 11.11 mg/dL (0.0-0.3) H 03/27/20 07:15 NT-Pro-B Natriuret Pep 328 pg/mL (<300) H 03/30/20 06:45 Total Protein 6.0 g/dL (6.4-8.2) L 03/31/20 07:00 Albumin 2.1 g/dL (3.4-5.0) L 03/31/20 07:00 Triglycerides 199 mg/dL (<150) H 03/27/20 07:15 LDL Cholesterol Direct 111 mg/dL (<100) H 03/26/20 13:50 Lipase 263 U/L (73-393) 03/30/20 06:45 TSH 0.33 uIU/mL (0.36-3.74) L 03/29/20 08:42 Free T4 1.09 ng/dL (0.76-1.46) 03/29/20 08:42 Urine Color Yellow (Yellow) 03/26/20 15:40 Urine Clarity Clear (Clear) 03/26/20 15:40 Urine pH 5.0 (5-8) 03/26/20 15:40 Ur Specific [place] 1.015 (1.005-1.025) 03/26/20 15:40 Urine Protein Negative mg/dL (Negative) 03/26/20 15:40 Urine Ketones Negative mg/dL (Negative) 03/26/20 15:40 Urine Blood Trace-intact (Negative) H 03/26/20 15:40 Urine Nitrite Negative (Negative) 03/26/20 15:40 Urine Bilirubin Negative (Negative) 03/26/20 15:40 Urine Urobilinogen 0.2 EU/dL (Up TO 0.2) 03/26/20 15:40 Ur Leukocyte Esterase Negative (Negative) 03/26/20 15:40 Urine RBC 0-2 HPF (0-2) 03/26/20 15:40 Urine WBC 0-2 HPF (0-5) 03/26/20 15:40 Ur Epithelial Cells Few HPF (Negative) 03/26/20 15:40 Urine Crystals Not Applicable 03/26/20 15:40 Urine Bacteria Negative HPF (Negative) 03/26/20 15:40 Urine Mucus Not Applicable 03/26/20 15:40 Ur Culture Indicated? No 03/26/20 15:40 Urine Glucose Negative mg/dL (Negative) 03/26/20 15:40 Ethyl Alcohol < 3.0 mg/dL (<3) 03/26/20 13:25 COVID-19 PCR Negative (Negative) 03/30/20 08:05 Nasopharyn COVID-19 PCR Not Applicable 03/30/20 08:05 Ref Test Perform Site [facility] lab 03/30/20 08:05
[2020-03-31 08:50] LABS: D-Dimer > 7500 ng/mlFEU (<500)
[2020-03-31] MEDS: POTASSIUM CHLORIDE 10 MEQ/100 ML BAG 100 MEQ IVPB ×4 (09:21→13:09)
--- NOTE | 2020-03-31 09:36 | PGE_ITS ---
Date of Service Date of service: 03/31/20 Time of Service: 09:36 Assessment and Plan Assessment and plan (1) Acute recurrent pancreatitis: Status: Acute Assessment and plan: CT from last night reviewed. Shows more inflammation than admission CT with possible early necrosis of portions of the pancreas. No drainable collection/pseudocyst. No air. The slow progress is expected. Continue present management. Encourage ambulation. Subjective Subjective Interval history since last seen: Reports ongoing epigastric pain, worsened by eating. He does not want to advance his diet. No vomiting. Has hiccups that are relieved by Dilaudid. Loose stool last night. Exam Narrative Exam Narrative: In bed Abdomen distended. Mild epigastric tenderness. Objective Objective Clinical Data: Abnormal lab results 03/30/20 03/30/20 03/31/20 Range/Units 06:45 16:45 07:00 WBC (4.4-10.8) k/cumm RBC (4.50-6.00) m/cumm Hgb (13.5-17.5) g/dL Hct (40.0-50.0) % RDW (11.8-14.1) % Absolute Neutrophils (1.2-6.7) k/cumm Absolute Lymphocytes (1.2-3.4) k/cumm Absolute Monocytes (0.11-0.7) k/cumm D-Dimer (<500) ng/mlFEU Potassium 2.9 L* (3.5-5.1) mmol/L BUN 20 H (7-18) mg/dL Glucose 120 H (74-106) mg/dL Calcium 8.3 L (8.5-10.1) mg/dL Iron 19 L (65-175) ug/dL TIBC 127 L (250-450) ug/dL Transferrin % Sat 15 L (20-55) % Total Protein 6.0 L (6.4-8.2) g/dL Albumin 2.1 L (3.4-5.0) g/dL 03/31/20 03/31/20 Range/Units 07:00 08:03 WBC 13.54 H (4.4-10.8) k/cumm RBC 4.08 L (4.50-6.00) m/cumm Hgb 12.4 L (13.5-17.5) g/dL Hct 36.8 L (40.0-50.0) % RDW 14.8 H (11.8-14.1) % Absolute Neutrophils 11.14 H (1.2-6.7) k/cumm Absolute Lymphocytes 0.96 L (1.2-3.4) k/cumm Absolute Monocytes 1.21 H (0.11-0.7) k/cumm D-Dimer > 7500 H (<500) ng/mlFEU Potassium (3.5-5.1) mmol/L BUN (7-18) mg/dL Glucose (74-106) mg/dL Calcium (8.5-10.1) mg/dL Iron (65-175) ug/dL TIBC (250-450) ug/dL Transferrin % Sat (20-55) % Total Protein (6.4-8.2) g/dL Albumin (3.4-5.0) g/dL Vital Signs Temperature 98.4 F 03/31/20 07:20 Temperature Source Tympanic 03/31/20 07:20 Pulse 103 H 03/31/20 07:20 Pulse Rhythm Regular 03/30/20 22:20 Pulse 48 L 03/26/20 20:10 Respiratory Rate 17 03/31/20 07:20 Respiratory Effort Non-Labored 03/30/20 22:20 Respiratory Depth Normal 03/30/20 22:20 Respiratory Pattern Normal 03/30/20 22:20 Blood Pressure 164/82 H 03/31/20 07:20 Blood Pressure Mean 117 03/26/20 20:01 Blood Pressure Position Sitting 03/26/20 13:41 Pulse Oximetry 95 03/31/20 07:20 Oxygen Delivery Method Room Air 03/31/20 07:20 Oxygen Flow Rate 0 03/31/20 07:20 Pain Level 6 03/31/20 07:42 Comment 03/30/20 00:40 Intake & Output 03/30/20 03/30/20 03/31/20 11:59 23:59 11:59 Intake Total 260 / 820 560 / 820 1000 / 1000 Output Total 400 / 1050 650 / 1050 Balance -140 / -230 -90 / -230 1000 / 1000 Intake: IV 20 / 340 320 / 340 1000 / 1000 Oral 240 / 480 240 / 480 Output: Urine 400 / 400 Stool 350 / 350 Emesis 300 / 300 Other: Urine Color Light Lindsay Yellow Urine Appearance Clear Clear Urine Odor None Comment pt voiding in toilet. missing hat Stool Occult Blood Negative Stool Characteristics Liquid Emesis Description Clear/Water Voiding Methods Toilet Laboratory Results WBC 13.54 k/cumm (4.4-10.8) H 03/31/20 07:00 RBC 4.08 m/cumm (4.50-6.00) L 03/31/20 07:00 Hgb 12.4 g/dL (13.5-17.5) L 03/31/20 07:00 Hct 36.8 % (40.0-50.0) L 03/31/20 07:00 MCV 90.2 fL (80-95) 03/31/20 07:00 MCH 30.4 pg (27.0-33.0) 03/31/20 07:00 MCHC 33.7 g/dL (32.0-36.0) 03/31/20 07:00 RDW 14.8 % (11.8-14.1) H 03/31/20 07:00 Plt Count 213 x1000/uL (130-400) 03/31/20 07:00 MPV 9.9 fL (8.0-11.0) 03/31/20 07:00 Immature Gran % 0.9 % 03/31/20 07:00 Neutrophils % 82.3 03/31/20 07:00 Lymphocytes % 7.1 03/31/20 07:00 Monocytes % 8.9 03/31/20 07:00 Eosinophils % 0.7 03/31/20 07:00 Basophils % 0.1 03/31/20 07:00 Absolute Neutrophils 11.14 k/cumm (1.2-6.7) H 03/31/20 07:00 Absolute Lymphocytes 0.96 k/cumm (1.2-3.4) L 03/31/20 07:00 Absolute Monocytes 1.21 k/cumm (0.11-0.7) H 03/31/20 07:00 Absolute Eosinophils 0.09 k/cumm (0.0-0.7) 03/31/20 07:00 Absolute Basophils 0.01 k/cumm (0.0-0.2) 03/31/20 07:00 D-Dimer > 7500 ng/mlFEU (<500) H 03/31/20 08:03 Sodium 142 mmol/L (136-145) 03/31/20 07:00 Potassium 3.5 mmol/L (3.5-5.1) 03/31/20 07:00 Chloride 104 mmol/L (98-107) 03/31/20 07:00 Carbon Dioxide 28.9 mmol/L (21.0-32.0) 03/31/20 07:00 Anion Gap 9.1 mmol/L (3-11) 03/31/20 07:00 BUN 20 mg/dL (7-18) H 03/31/20 07:00 Creatinine 0.90 mg/dL (0.70-1.30) 03/31/20 07:00 Estimated GFR/1.73 m2 >= 60.00 (mL/min/1.73m2) 03/31/20 07:00 Glucose 120 mg/dL (74-106) H 03/31/20 07:00 Hemoglobin A1c 5.3 % (3.8-5.6) 03/27/20 07:15 Lactate 1.4 mmol/L (0.6-1.4) 03/26/20 17:10 Calcium 8.3 mg/dL (8.5-10.1) L 03/31/20 07:00 Magnesium 2.0 mg/dL (1.8-2.4) 03/30/20 06:45 Iron 19 ug/dL (65-175) L 03/30/20 06:45 TIBC 127 ug/dL (250-450) L 03/30/20 06:45 Transferrin % Sat 15 % (20-55) L 03/30/20 06:45 Total Bilirubin 0.7 mg/dL (0.2-1.0) 03/31/20 07:00 Conjugated Bilirubin 0.35 mg/dL (0.00-0.20) H 03/30/20 06:45 AST 37 U/L (15-37) 03/31/20 07:00 ALT 30 U/L (16-63) 03/31/20 07:00 Alkaline Phosphatase 87 U/L (46-116) 03/31/20 07:00 Lactate Dehydrogenase 205 U/L (85-227) 03/26/20 17:10 Troponin I < 0.05 ng/mL (<0.06) 03/29/20 08:42 C-Reactive Protein 11.11 mg/dL (0.0-0.3) H 03/27/20 07:15 NT-Pro-B Natriuret Pep 328 pg/mL (<300) H 03/30/20 06:45 Total Protein 6.0 g/dL (6.4-8.2) L 03/31/20 07:00 Albumin 2.1 g/dL (3.4-5.0) L 03/31/20 07:00 Triglycerides 199 mg/dL (<150) H 03/27/20 07:15 LDL Cholesterol Direct 111 mg/dL (<100) H 03/26/20 13:50 Lipase 263 U/L (73-393) 03/30/20 06:45 TSH 0.33 uIU/mL (0.36-3.74) L 03/29/20 08:42 Free T4 1.09 ng/dL (0.76-1.46) 03/29/20 08:42 Urine Color Yellow (Yellow) 03/26/20 15:40 Urine Clarity Clear (Clear) 03/26/20 15:40 Urine pH 5.0 (5-8) 03/26/20 15:40 Ur Specific [place] 1.015 (1.005-1.025) 03/26/20 15:40 Urine Protein Negative mg/dL (Negative) 03/26/20 15:40 Urine Ketones Negative mg/dL (Negative) 03/26/20 15:40 Urine Blood Trace-intact (Negative) H 03/26/20 15:40 Urine Nitrite Negative (Negative) 03/26/20 15:40 Urine Bilirubin Negative (Negative) 03/26/20 15:40 Urine Urobilinogen 0.2 EU/dL (Up TO 0.2) 03/26/20 15:40 Ur Leukocyte Esterase Negative (Negative) 03/26/20 15:40 Urine RBC 0-2 HPF (0-2) 03/26/20 15:40 Urine WBC 0-2 HPF (0-5) 03/26/20 15:40 Ur Epithelial Cells Few HPF (Negative) 03/26/20 15:40 Urine Crystals Not Applicable 03/26/20 15:40 Urine Bacteria Negative HPF (Negative) 03/26/20 15:40 Urine Mucus Not Applicable 03/26/20 15:40 Ur Culture Indicated? No 03/26/20 15:40 Urine Glucose Negative mg/dL (Negative) 03/26/20 15:40 Ethyl Alcohol < 3.0 mg/dL (<3) 03/26/20 13:25 COVID-19 PCR Negative (Negative) 03/30/20 08:05 Nasopharyn COVID-19 PCR Not Applicable 03/30/20 08:05 Ref Test [facility] 03/30/20 08:05
--- NOTE | 2020-03-31 13:48 | CMPROGNOTE_ITS ---
- If Service Date Differs Date of service: 03/31/20 Time of Service: 13:48 Care Management Progress Note S/O: CM was able to visit with Drew today as his precautions for Covid have been lifted. 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 His family has all returned home since their vacation ended, leaving him in [place] alone. He stated that he has had pancreatitis before, but it was not this severe and he was able to return home after 3-4 days. Per report, there is possible early necrosis on his repeat CT, so his progress is expected to be slow. He stated that he is hoping to have it resolved soon so that he can return home. also recommends ambulation for increased progress. CM will continue to follow. A: Rajat is a 64 year old male admitted on 03/26/20 for Pancreatitis. P: Anticipate Rajat will return home with no anticipated services once medically cleared. His will drive him home via private vehicle when ready. He will follow up with his PCP and discharge plan of care. CM will continue to follow.
[2020-03-31 15:39] VITALS: BP 164/111; PULSE 88; RESP 16; TEMP 37.2; O2SAT 91
[2020-03-31] MEDS: ACETAMINOPHEN 1,000 MG/100 ML BTL 400 MG IVPB (15:43)
[2020-03-31] MEDS: Docusate Sodium 100 MG CAP PO (20:29)
[2020-03-31 21:10] VITALS: BP 177/101; PULSE 93; RESP 18; TEMP 37.1; O2SAT 95
[2020-03-31 23:20] VITALS: BP 177/100; PULSE 91; RESP 17; TEMP 36.9; O2SAT 95
[2020-04-01] VITALS (13 sets, daily range): BP systolic 158–196; BP diastolic 94–110; PULSE 69–111; RESP 18–19; TEMP 36–37.1; O2SAT 95–98
--- NOTE | 2020-04-01 | DI.CT_ITS ---
EXAM: CT CHEST PE CTA CLINICAL HISTORY: Elevated d-dimer, heart rate and SOB TECHNIQUE: COMPARISON: CT CT ABDOMEN PELVIS W from 03/30/2020 FINDINGS: CT angiography of the chest was performed with intravenous infusion of 75 cc of Omnipaque 350. Images obtained through the upper abdomen again show findings of severe pancreatitis. There are moderate-sized bilateral pleural effusions, right greater left. There are areas of depende nt atelectasis seen bilaterally. Superimposed patchy consolidation not excludable on this examinatio n. Otherwise lungs are clear. No pulmonary embolic disease. No thoracic aortic aneurysm or dissect ion. No mediastinal or hilar adenopathy. Tracheobronchial tree appears intact. IMPRESSION: Bilateral pleural effusions with presumed bibasilar atelectasis. Small areas of consolidation could not be excluded on this examination. No evidence of pulmonary embolic disease.
[2020-04-01] MEDS: chlorproMAZINE 25 MG TAB PO (00:13)
[2020-04-01] MEDS: Lactated Ringers 1,000 ML 150 ML IV ×2 (03:06→10:59)
[2020-04-01] MEDS: HYDROmorphone 2 MG/ML VIAL 1 MG IVP ×7 (03:31→22:57)
[2020-04-01] MEDS: Normal Saline Flush 10 ML SYR 20 ML IVP ×2 (08:15→20:38)
[2020-04-01] MEDS: Pantoprazole 40 MG VIAL IVP ×2 (08:15→20:37)
[2020-04-01] MEDS: Enoxaparin 40 MG/0.4 ML SYR SC (08:16)
[2020-04-01] MEDS: Sucralfate 1 GM TAB PO ×4 (08:21→21:31)
[2020-04-01] MEDS: Multivitamin TAB 1 TAB PO (08:21)
[2020-04-01] MEDS: Thiamine 100 MG TAB PO (08:21)
[2020-04-01] MEDS: Folic Acid 1 MG TAB PO (08:21)
[2020-04-01] MEDS: Docusate Sodium 100 MG CAP PO ×2 (08:21→20:37)
--- NOTE | 2020-04-01 08:48 | PDOC.CMPRO ---
- If Service Date Differs Date of service: 04/01/20 Time of Service: 08:48 Care Management Progress Note S/O: Rajat was sitting up in bed when CM met with him. He had an ice bag on his head and stated it was to reduce the nausea which he still has, despite medication. Drew shared that he is not feeling well and was disinclined to have a lengthy conversation.Per report, there is possible early necrosis on his repeat CT, so his progress is expected to be slow. He stated that he is hoping to have it resolved soon so that he can return home. also recommends ambulation for increased progress. CM will continue to follow. A: Rajat is a 64 year old male admitted on 03/26/20 for Pancreatitis. P: Anticipate Rajat will return home with no anticipated services once medically cleared. His will drive him home via private vehicle when ready. He will follow up with his PCP and discharge plan of care. CM will continue to follow.
[2020-04-01] MEDS: Metoprolol 50 MG TAB PO ×3 (09:00→20:37)
[2020-04-01] MEDS: Metoprolol 5 MG/5 ML VIAL IVP (09:09)
[2020-04-01] MEDS: Normal Saline Flush 10 ML SYR IVP ×4 (09:10→18:45)
[2020-04-01] MEDS: Omnipaque 350 MG/ML 100 ML BTL IV (09:33)
[2020-04-01] MEDS: Normal Saline - Diluent 50 ML VIAL IV (09:43)
[2020-04-01] MEDS: amLODIPine 5 MG TAB PO (10:49)
--- NOTE | 2020-04-01 10:57 | DI.VRAD_ITS ---
PROCEDURE INFORMATION: Exam: CT Angiography Chest With Contrast Exam date and time: 04/01/2020 9:48 AM Age: 64 years old Clinical indication: Abnormal findings; Abnormal diagnostic tests; Elevated d-dimer; Patient HX: Elevated heart rate, SOB TECHNIQUE: Imaging protocol: Computed tomographic angiography of the chest with intravenous contrast. 3D rendering: MIP and/or 3D reconstructed images were created by the technologist. Contrast material: OMNIPAQUE 350; Contrast volume: 75 ml; Contrast route: INTRAVENOUS (IV); COMPARISON: 1. CT ABDOMEN PELVIS W 03/30/2020 5:51:44 PM 2. CR XR PORTABLE CHEST AP 03/29/2020 2:08 PM FINDINGS: Tubes, catheters and devices: Left upper extremity PICC with distal tip at the superior caval atrial junction. Pulmonary arteries: Evaluation limited by respiratory motion. No pulmonary emboli. Aorta: There is no evidence of an abdominal aortic aneurysm.There is no evidence of dissection, leak, rupture, or other acute vascular pathology. Lungs: Consolidation and/or atelectasis of the posterior lower lobes (right greater than left). Upper lobe centrilobular emphysema. No masses. Right lower lobe bronchiolar wall thickening. Pleural space: Moderate right, small left pleural effusions. No pneumothorax Heart: Unremarkable. No cardiomegaly. No pericardial effusion. Lymph nodes: Unremarkable. No enlarged lymph nodes. Pancreas: Partially visualized sequelae of acute pancreatitis with likely areas of necrosis. No pseudoaneurysm. Bones/joints: Unremarkable. No acute fracture. Soft tissues: Unremarkable. IMPRESSION: 1. No large pulmonary embolus. 2. Right, greater than left posterior lower lobe consolidations with associated bronchiolar wall thickening could represent aspiration and/or atelectasis. 3. Moderate right, small left pleural effusions. 4. Partially visualized acute pancreatitis process with likely areas of necrosis. No pseudoaneurysm of the splenic artery. Dictated and Authenticated by: Ru Myers MD. Ordering:GUILLERMINA Jenkins MD
[2020-04-01] MEDS: Lactated Ringers 1,000 ML 100 ML IV ×2 (10:59→22:30)
[2020-04-01] MEDS: ACETAMINOPHEN 1,000 MG/100 ML BTL 400 MG IVPB ×2 (11:24→18:44)
[2020-04-01] MEDS: Trimethobenzamide 200 MG/2 ML VIAL IM ×2 (11:32→18:44)
--- NOTE | 2020-04-01 12:24 | PGE_ITS ---
Date of Service Date of service: 04/01/20 Time of Service: 12:24 Assessment and Plan Assessment and plan (1) Acute recurrent pancreatitis: Status: Acute Assessment and plan: Agree with advancing diet as tolerated Transition to PO pain meds when eating more Chest CT done yesterday to evaluate elevated D dimer did not show PE. Does have bilateral effusions/atelectasis. Patient advised to walk. Subjective Subjective Interval history since last seen: Says today is a better day Walked twice last night Still passing flatus Tolerated clears without increased pain or nausea Exam Narrative Exam Narrative: In chair, more alert Abdomen distended but no significant tenderness Objective Objective Clinical Data: Vital Signs Temperature 97.5 F L 04/01/20 12:09 Temperature Source Temporal Artery Scan 04/01/20 12:09 Pulse 94 H 04/01/20 12:09 Pulse Rhythm Regular 03/31/20 17:46 Pulse 48 L 03/26/20 20:10 Respiratory Rate 18 04/01/20 12:09 Respiratory Effort Non-Labored 03/31/20 17:46 Respiratory Depth Normal 03/31/20 17:46 Respiratory Pattern Normal 03/31/20 17:46 Blood Pressure 164/94 H 04/01/20 12:09 Blood Pressure Mean 117 03/26/20 20:01 Blood Pressure Position Sitting 03/26/20 13:41 Pulse Oximetry 96 04/01/20 12:09 Oxygen Delivery Method Room Air 04/01/20 12:09 Oxygen Flow Rate 0 04/01/20 12:09 Pain Level 3 04/01/20 12:09 Comment 03/31/20 21:10 Intake & Output 03/31/20 04/01/20 04/01/20 23:59 11:59 23:59 Intake Total 2225 / 3445 1964 Output Total 1300 / 1300 1275 / 1425 150 / 1425 Balance 925 / 2145 690 / 540 -150 / 540 Intake: IV 2225 / 3445 1964 Output: Urine 1300 / 1300 1275 / 1425 150 / 1425 Other: Urine Color Yellow Yellow Pale Urine Appearance Clear Clear Clear Urine Odor None Normal Normal Emesis Description None Voiding Methods Toilet Urinal Laboratory Results WBC 13.54 k/cumm (4.4-10.8) H 03/31/20 07:00 RBC 4.08 m/cumm (4.50-6.00) L 03/31/20 07:00 Hgb 12.4 g/dL (13.5-17.5) L 03/31/20 07:00 Hct 36.8 % (40.0-50.0) L 03/31/20 07:00 MCV 90.2 fL (80-95) 03/31/20 07:00 MCH 30.4 pg (27.0-33.0) 03/31/20 07:00 MCHC 33.7 g/dL (32.0-36.0) 03/31/20 07:00 RDW 14.8 % (11.8-14.1) H 03/31/20 07:00 Plt Count 213 x1000/uL (130-400) 03/31/20 07:00 MPV 9.9 fL (8.0-11.0) 03/31/20 07:00 Immature Gran % 0.9 % 03/31/20 07:00 Neutrophils % 82.3 03/31/20 07:00 Lymphocytes % 7.1 03/31/20 07:00 Monocytes % 8.9 03/31/20 07:00 Eosinophils % 0.7 03/31/20 07:00 Basophils % 0.1 03/31/20 07:00 Absolute Neutrophils 11.14 k/cumm (1.2-6.7) H 03/31/20 07:00 Absolute Lymphocytes 0.96 k/cumm (1.2-3.4) L 03/31/20 07:00 Absolute Monocytes 1.21 k/cumm (0.11-0.7) H 03/31/20 07:00 Absolute Eosinophils 0.09 k/cumm (0.0-0.7) 03/31/20 07:00 Absolute Basophils 0.01 k/cumm (0.0-0.2) 03/31/20 07:00 D-Dimer > 7500 ng/mlFEU (<500) H 03/31/20 08:03 Sodium 142 mmol/L (136-145) 03/31/20 07:00 Potassium 3.5 mmol/L (3.5-5.1) 03/31/20 07:00 Chloride 104 mmol/L (98-107) 03/31/20 07:00 Carbon Dioxide 28.9 mmol/L (21.0-32.0) 03/31/20 07:00 Anion Gap 9.1 mmol/L (3-11) 03/31/20 07:00 BUN 20 mg/dL (7-18) H 03/31/20 07:00 Creatinine 0.90 mg/dL (0.70-1.30) 03/31/20 07:00 Estimated GFR/1.73 m2 >= 60.00 (mL/min/1.73m2) 03/31/20 07:00 Glucose 120 mg/dL (74-106) H 03/31/20 07:00 Hemoglobin A1c 5.3 % (3.8-5.6) 03/27/20 07:15 Lactate 1.4 mmol/L (0.6-1.4) 03/26/20 17:10 Calcium 8.3 mg/dL (8.5-10.1) L 03/31/20 07:00 Magnesium 2.0 mg/dL (1.8-2.4) 03/30/20 06:45 Iron 19 ug/dL (65-175) L 03/30/20 06:45 TIBC 127 ug/dL (250-450) L 03/30/20 06:45 Transferrin % Sat 15 % (20-55) L 03/30/20 06:45 Total Bilirubin 0.7 mg/dL (0.2-1.0) 03/31/20 07:00 Conjugated Bilirubin 0.35 mg/dL (0.00-0.20) H 03/30/20 06:45 AST 37 U/L (15-37) 03/31/20 07:00 ALT 30 U/L (16-63) 03/31/20 07:00 Alkaline Phosphatase 87 U/L (46-116) 03/31/20 07:00 Lactate Dehydrogenase 205 U/L (85-227) 03/26/20 17:10 Troponin I < 0.05 ng/mL (<0.06) 03/29/20 08:42 C-Reactive Protein 11.11 mg/dL (0.0-0.3) H 03/27/20 07:15 NT-Pro-B Natriuret Pep 328 pg/mL (<300) H 03/30/20 06:45 Total Protein 6.0 g/dL (6.4-8.2) L 03/31/20 07:00 Albumin 2.1 g/dL (3.4-5.0) L 03/31/20 07:00 Triglycerides 199 mg/dL (<150) H 03/27/20 07:15 LDL Cholesterol Direct 111 mg/dL (<100) H 03/26/20 13:50 Lipase 263 U/L (73-393) 03/30/20 06:45 TSH 0.33 uIU/mL (0.36-3.74) L 03/29/20 08:42 Free T4 1.09 ng/dL (0.76-1.46) 03/29/20 08:42 Urine Color Yellow (Yellow) 03/26/20 15:40 Urine Clarity Clear (Clear) 03/26/20 15:40 Urine pH 5.0 (5-8) 03/26/20 15:40 Ur Specific [place] 1.015 (1.005-1.025) 03/26/20 15:40 Urine Protein Negative mg/dL (Negative) 03/26/20 15:40 Urine Ketones Negative mg/dL (Negative) 03/26/20 15:40 Urine Blood Trace-intact (Negative) H 03/26/20 15:40 Urine Nitrite Negative (Negative) 03/26/20 15:40 Urine Bilirubin Negative (Negative) 03/26/20 15:40 Urine Urobilinogen 0.2 EU/dL (Up TO 0.2) 03/26/20 15:40 Ur Leukocyte Esterase Negative (Negative) 03/26/20 15:40 Urine RBC 0-2 HPF (0-2) 03/26/20 15:40 Urine WBC 0-2 HPF (0-5) 03/26/20 15:40 Ur Epithelial Cells Few HPF (Negative) 03/26/20 15:40 Urine Crystals Not Applicable 03/26/20 15:40 Urine Bacteria Negative HPF (Negative) 03/26/20 15:40 Urine Mucus Not Applicable 03/26/20 15:40 Ur Culture Indicated? No 03/26/20 15:40 Urine Glucose Negative mg/dL (Negative) 03/26/20 15:40 Ethyl Alcohol < 3.0 mg/dL (<3) 03/26/20 13:25 COVID-19 PCR Negative (Negative) 03/30/20 08:05 Nasopharyn COVID-19 PCR Not Applicable 03/30/20 08:05 Ref Test Perform Site [facility] 03/30/20 08:05
--- NOTE | 2020-04-01 12:33 | W.PM.PROGNOT ---
Date of Service Date of service: 04/01/20 Time of Service: 12:33 Assessment and Plan Assessment and plan (1) Elevated d-dimer: Start date: 04/01/20 Start time: 12:35 Status: Acute Assessment and plan: unclear significance, likely from possibly necrotic pancreas. CTA negative for PE. (2) Hypokalemia: Start date: 04/01/20 Start time: 12:36 Status: Acute Assessment and plan: Improved today. Continue to monitor and repelete as needed. (3) Fluid overload: Start date: 04/01/20 Start time: 12:36 Status: Resolved Assessment and plan: Does not appear volume overloaded today. Decreased IVF to 100 from 150. Starting to take po will d/c fluids when patient able to take PO without nausea and vomting. (4) PAF (paroxysmal atrial fibrillation): Start date: 04/01/20 Start time: 12:37 Status: Acute Assessment and plan: continues to have brief, 1 minute episodes periodically, lopressor dose increased, IV prn. continue telemetry. echo with LVEF of 60% with no wall motion abnormalities. no significant valvular disease. (5) Ileus, unspecified: Start date: 04/01/20 Start time: 12:37 Status: Acute Assessment and plan: likely d/t pancreatitis and narcotic use. improving and passing flatus encourage ambulation QID with ICS use. Starting po intake today. (6) Acute recurrent pancreatitis: Start date: 04/01/20 Start time: 12:38 Status: Acute Assessment and plan: Improving symptoms today, lipase had normalized, repeat CT last night shows ongoing inflammation, increased narcotics. surgery following. MRCP Findings consistent with pancreatitis. There is increased ascites and bilateral pleural effusions. No evidence gallstones, common bile duct stones or acute cholecystitis. . (7) HTN (hypertension): Start date: 04/01/20 Start time: 12:38 Status: Chronic Assessment and plan: Blood pressure in elevated today in 190 sbp and 110 dbp will add amlodinpine for better pressure control in addition to Lopressor. continue to monitor and adjust as needed. (8) Dark emesis: Start date: 04/01/20 Start time: 12:40 Status: Acute Assessment and plan: no further episodes, continue GI prophylaxis (9) DVT prophylaxis: Start date: 04/01/20 Start time: 12:40 Status: Acute Assessment and plan: TEDS and SCD, lovenox initiated by surgery. patient has been encouraged to ambulate above case discussed with Dr. Coleman who is in agreement. Subjective Subjective Patient reports: feels better Interval history since last seen: Feeling better today. Passing flatus, wants to eat a popsicle. Surgery agrees to advancing diet to clears. Continues to have hiccups. Encourage ambulation QID. Denies N/V/D, SOB, CP. Exam Const General: cooperative and no acute distress Orientation: alert, awake and oriented x3 Eyes Alignment and Position: alignment normal Cornea: corneas normal Pupils: pinpoint Neck Neck: normal visual inspection, full ROM and no JVD Carotids: normal carotid upstroke Lymphatic: no lymphadenopathy noted and no lymphedema noted Chest Chest: normal inspection of the chest Resp Effort & Inspection: normal respiratory effort Auscultation: clear to auscultation bilaterally Cardio Jugular venous pressure: no JVD Rate: regular rate Rhythm: regular rhythm Heart Sounds: S1 normal and S2 normal GI Inspection: distended Palpation: firm in the LLQ, in the RLQ, in the LUQ and in the RUQ Auscultation: hypoactive bowel sounds Skin General skin exam: no rashes or lesions noted Wounds: no wounds Neuro General: patient alert, patient awake and patient oriented x3 Cognition: normal cognition Speech: speech normal Extrem General: normal to inspection, full ROM and no clubbing, cyanosis or edema Objective Objective Clinical Data: Vital Signs Temperature 36.4 C L 04/01/20 12:09 Temperature Source Temporal Artery Scan 04/01/20 12:09 Pulse 94 H 04/01/20 12:09 Pulse Rhythm Regular 03/31/20 17:46 Pulse 48 L 03/26/20 20:10 Respiratory Rate 18 04/01/20 12:09 Respiratory Effort Non-Labored 03/31/20 17:46 Respiratory Depth Normal 03/31/20 17:46 Respiratory Pattern Normal 03/31/20 17:46 Blood Pressure 164/94 H 04/01/20 12:09 Blood Pressure Mean 117 03/26/20 20:01 Blood Pressure Position Sitting 03/26/20 13:41 Pulse Oximetry 96 04/01/20 12:09 Oxygen Delivery Method Room Air 04/01/20 12:09 Oxygen Flow Rate 0 04/01/20 12:09 Pain Level 3 04/01/20 12:09 Comment 03/31/20 21:10 Intake & Output 03/31/20 04/01/20 04/01/20 23:59 11:59 23:59 Intake Total 2225 / 3445 1964 Output Total 1300 / 1300 1275 / 1425 150 / 1425 Balance 925 / 2145 690 / 540 -150 / 540 Intake: IV 2225 / 3445 1964 Output: Urine 1300 / 1300 1275 / 1425 150 / 1425 Other: Urine Color Yellow Yellow Pale Urine Appearance Clear Clear Clear Urine Odor None Normal Normal Emesis Description None Voiding Methods Toilet Urinal Laboratory Results WBC 13.54 k/cumm (4.4-10.8) H 03/31/20 07:00 RBC 4.08 m/cumm (4.50-6.00) L 03/31/20 07:00 Hgb 12.4 g/dL (13.5-17.5) L 03/31/20 07:00 Hct 36.8 % (40.0-50.0) L 03/31/20 07:00 MCV 90.2 fL (80-95) 03/31/20 07:00 MCH 30.4 pg (27.0-33.0) 03/31/20 07:00 MCHC 33.7 g/dL (32.0-36.0) 03/31/20 07:00 RDW 14.8 % (11.8-14.1) H 03/31/20 07:00 Plt Count 213 x1000/uL (130-400) 03/31/20 07:00 MPV 9.9 fL (8.0-11.0) 03/31/20 07:00 Immature Gran % 0.9 % 03/31/20 07:00 Neutrophils % 82.3 03/31/20 07:00 Lymphocytes % 7.1 03/31/20 07:00 Monocytes % 8.9 03/31/20 07:00 Eosinophils % 0.7 03/31/20 07:00 Basophils % 0.1 03/31/20 07:00 Absolute Neutrophils 11.14 k/cumm (1.2-6.7) H 03/31/20 07:00 Absolute Lymphocytes 0.96 k/cumm (1.2-3.4) L 03/31/20 07:00 Absolute Monocytes 1.21 k/cumm (0.11-0.7) H 03/31/20 07:00 Absolute Eosinophils 0.09 k/cumm (0.0-0.7) 03/31/20 07:00 Absolute Basophils 0.01 k/cumm (0.0-0.2) 03/31/20 07:00 D-Dimer > 7500 ng/mlFEU (<500) H 03/31/20 08:03 Sodium 142 mmol/L (136-145) 03/31/20 07:00 Potassium 3.5 mmol/L (3.5-5.1) 03/31/20 07:00 Chloride 104 mmol/L (98-107) 03/31/20 07:00 Carbon Dioxide 28.9 mmol/L (21.0-32.0) 03/31/20 07:00 Anion Gap 9.1 mmol/L (3-11) 03/31/20 07:00 BUN 20 mg/dL (7-18) H 03/31/20 07:00 Creatinine 0.90 mg/dL (0.70-1.30) 03/31/20 07:00 Estimated GFR/1.73 m2 >= 60.00 (mL/min/1.73m2) 03/31/20 07:00 Glucose 120 mg/dL (74-106) H 03/31/20 07:00 Hemoglobin A1c 5.3 % (3.8-5.6) 03/27/20 07:15 Lactate 1.4 mmol/L (0.6-1.4) 03/26/20 17:10 Calcium 8.3 mg/dL (8.5-10.1) L 03/31/20 07:00 Magnesium 2.0 mg/dL (1.8-2.4) 03/30/20 06:45 Iron 19 ug/dL (65-175) L 03/30/20 06:45 TIBC 127 ug/dL (250-450) L 03/30/20 06:45 Transferrin % Sat 15 % (20-55) L 03/30/20 06:45 Total Bilirubin 0.7 mg/dL (0.2-1.0) 03/31/20 07:00 Conjugated Bilirubin 0.35 mg/dL (0.00-0.20) H 03/30/20 06:45 AST 37 U/L (15-37) 03/31/20 07:00 ALT 30 U/L (16-63) 03/31/20 07:00 Alkaline Phosphatase 87 U/L (46-116) 03/31/20 07:00 Lactate Dehydrogenase 205 U/L (85-227) 03/26/20 17:10 Troponin I < 0.05 ng/mL (<0.06) 03/29/20 08:42 C-Reactive Protein 11.11 mg/dL (0.0-0.3) H 03/27/20 07:15 NT-Pro-B Natriuret Pep 328 pg/mL (<300) H 03/30/20 06:45 Total Protein 6.0 g/dL (6.4-8.2) L 03/31/20 07:00 Albumin 2.1 g/dL (3.4-5.0) L 03/31/20 07:00 Triglycerides 199 mg/dL (<150) H 03/27/20 07:15 LDL Cholesterol Direct 111 mg/dL (<100) H 03/26/20 13:50 Lipase 263 U/L (73-393) 03/30/20 06:45 TSH 0.33 uIU/mL (0.36-3.74) L 03/29/20 08:42 Free T4 1.09 ng/dL (0.76-1.46) 03/29/20 08:42 Urine Color Yellow (Yellow) 03/26/20 15:40 Urine Clarity Clear (Clear) 03/26/20 15:40 Urine pH 5.0 (5-8) 03/26/20 15:40 Ur Specific [place] 1.015 (1.005-1.025) 03/26/20 15:40 Urine Protein Negative mg/dL (Negative) 03/26/20 15:40 Urine Ketones Negative mg/dL (Negative) 03/26/20 15:40 Urine Blood Trace-intact (Negative) H 03/26/20 15:40 Urine Nitrite Negative (Negative) 03/26/20 15:40 Urine Bilirubin Negative (Negative) 03/26/20 15:40 Urine Urobilinogen 0.2 EU/dL (Up TO 0.2) 03/26/20 15:40 Ur Leukocyte Esterase Negative (Negative) 03/26/20 15:40 Urine RBC 0-2 HPF (0-2) 03/26/20 15:40 Urine WBC 0-2 HPF (0-5) 03/26/20 15:40 Ur Epithelial Cells Few HPF (Negative) 03/26/20 15:40 Urine Crystals Not Applicable 03/26/20 15:40 Urine Bacteria Negative HPF (Negative) 03/26/20 15:40 Urine Mucus Not Applicable 03/26/20 15:40 Ur Culture Indicated? No 03/26/20 15:40 Urine Glucose Negative mg/dL (Negative) 03/26/20 15:40 Ethyl Alcohol < 3.0 mg/dL (<3) 03/26/20 13:25 COVID-19 PCR Negative (Negative) 03/30/20 08:05 Nasopharyn COVID-19 PCR Not Applicable 03/30/20 08:05 [facility] 03/30/20 08:05
[2020-04-02] VITALS (8 sets, daily range): BP systolic 124–169; BP diastolic 79–99; PULSE 76–104; RESP 16–20; TEMP 36.7–37.7; O2SAT 91–99
--- NOTE | 2020-04-02 | DI.US_ITS ---
EXAM: US ABDOMEN CLINICAL HISTORY: r/o gallbladder and worsening pancreatitis TECHNIQUE: Ultrasound abdomen performed using standard protocol. COMPARISON: US US ABDOMEN from 03/27/[address] ABDOMEN PELVIS W from 03/30/2020 FINDINGS: ABDOMINAL AORTA AND IVC: Visualized portions normal caliber. PANCREAS: Unremarkable sonographically. Please refer to the CT scan of the abdomen and pelvis from . LIVER: Normal. Hepatopedal flow in the Portal Vein. GALLBLADDER: No evidence of cholelithiasis. No evidence of wall thickening. No pericholecystic fluid identified. There is sludge seen within the gallbladder. BILIARY SYSTEM: Common bile duct measures 4.6 mm. No intrahepatic biliary ductal dilation. MCPHERSON'S SIGN: Positive KIDNEYS: Kidneys are symmetric in size. No evidence of renal calculi. No evidence of hydronephrosis. No renal mass or cyst identified. SPLEEN: Upper limits of normal in size at 12.9 cm. ASCITES: Small amount of ascites in the right lower quadrant. Lungs: No pleural effusions. IMPRESSION: 1. No evidence of cholelithiasis or biliary ductal dilatation. 2. Gallbladder sludge and positive sonographic Mcpherson sign. 3. Small amount of abdominal ascites and bilateral pleural effusions DATA REPOSITORY:
[2020-04-02] MEDS: HYDROmorphone 2 MG/ML VIAL 1 MG IVP ×7 (00:58→21:31)
[2020-04-02] MEDS: Lactated Ringers 1,000 ML 100 ML IV (06:16)
[2020-04-02 07:26] LABS: Abs Immature Grans 0.41 k/cumm (0.0-0.09); Absolute Basophil Count 0.02 k/cumm (0.0-0.2); Absolute Lymphocyte Count 1.08 k/cumm (1.2-3.4); Basophils % 0.1; Eosinophils % 1.4; HCT 35.7 % (40.0-50.0); HGB 12.2 g/dL (13.5-17.5); Immature Grans % 2.3 %; Lymphocytes % 6.1; Mean Corp. HGB Concentration 34.2 g/dL (32.0-36.0); Mean Corpuscular Hemoglobin 30.4 pg (27.0-33.0); Mean Platelet Volume 9.8 fL (8.0-11.0); Monocytes % 6.2; Neutrophils % 83.9; Platelet Count 256 x1000/uL (130-400); RBC 4.01 m/cumm (4.50-6.00); White Blood Cell Count 17.71 k/cumm (4.4-10.8)
[2020-04-02 07:28] LABS: Absolute Eosinophil Count 0.25 k/cumm (0.0-0.7); Absolute Neutrophil Count 14.86 k/cumm (1.2-6.7)
[2020-04-02 07:37] LABS: Anion Gap 9.5 mmol/L (3-11); BUN 12 mg/dL (7-18); CO2 28.5 mmol/L (21.0-32.0); CREATININE 0.91 mg/dL (0.70-1.30); Calcium 8.3 mg/dL (8.5-10.1); Chloride 98 mmol/L (98-107); Glucose 117 mg/dL (74-106); Magnesium 1.7 mg/dL (1.8-2.4); Sodium 136 mmol/L (136-145)
[2020-04-02 07:47] LABS: C-Reactive Protein > 25.00 mg/dL (0.0-0.3)
[2020-04-02] MEDS: Magnesium Oxide 400 MG TAB 800 MG PO (08:40)
[2020-04-02] MEDS: amLODIPine 5 MG TAB PO (08:41)
[2020-04-02] MEDS: Thiamine 100 MG TAB PO (08:42)
[2020-04-02] MEDS: Potassium Chloride 20 MEQ TABCR PO (08:42)
[2020-04-02] MEDS: Folic Acid 1 MG TAB PO (08:42)
[2020-04-02] MEDS: Sucralfate 1 GM TAB PO ×4 (08:43→22:22)
[2020-04-02] MEDS: Multivitamin TAB 1 TAB PO (08:43)
[2020-04-02] MEDS: Metoprolol 50 MG TAB PO ×3 (08:43→19:43)
[2020-04-02] MEDS: Pantoprazole 40 MG VIAL IVP ×2 (08:45→19:43)
[2020-04-02] MEDS: Enoxaparin 40 MG/0.4 ML SYR SC (08:45)
[2020-04-02] MEDS: Normal Saline Flush 10 ML SYR 20 ML IVP ×2 (08:46→19:43)
[2020-04-02] MEDS: Normal Saline Flush 10 ML SYR IVP ×6 (08:48→17:54)
[2020-04-02] MEDS: POTASSIUM CHLORIDE 20 MEQ/100 ML BAG 50 MEQ IVPB ×2 (09:19→11:23)
[2020-04-02] MEDS: metroNIDAZOLE 1,000 MG/200 ML BAG 200 MG IVPB (09:48)
--- NOTE | 2020-04-02 11:17 | CMPROGNOTE_ITS ---
- If Service Date Differs Date of service: 04/02/20 Time of Service: 11:17 Care Management Progress Note S/O: Drew was lying in bed when CM met with him. He stated that he is doing ok. He reported that his is having a hard time with him being so far from home, but he is able to update her daily. He stated that he was going to have a shower today, which he was looking forward to. Per report, he may need to be transferred to a tertiary facility. His provider will discuss this and other opt ions with the surgical team today. CM will continue to follow. A: Rajat is a 64 year old male admitted on 03/26/20 for Pancreatitis. P: Anticipate Rajat will return home with no anticipated services once medically cleared. His will drive him home via private vehicle when ready. He will follow up with his PCP and discharge plan of care. CM will continue to follow.
[2020-04-02] MEDS: levoFLOXacin 750 MG/150 ML BAG 100 MG IVPB (11:24)
[2020-04-02 13:38] LABS: Lactate 0.7 mmol/L (0.6-1.4)
--- NOTE | 2020-04-02 14:02 | PGE_ITS ---
Date of Service Date of service: 04/02/20 Time of Service: 14:09 Assessment and Plan Assessment and plan (1) Acute recurrent pancreatitis: Start date: 04/02/20 Start time: 14:23 Status: Acute Assessment and plan: Symptoms the same. WBC increased to 17 and CRP greater than 25. CT with atelectasis vs pleural effusions. Clinically this does not appear to be pneumonia. No cough, sputum, LSC, however he has been immobile starting on antibiotics, vanco, levaquin and metradonazole to cover both lungs and pancreas. Will repeat labs in am Encourage ambulation with ICS Lactate 0.7, Blood cultures pending. . (2) Elevated d-dimer: Start date: 04/02/20 Start time: 14:14 Status: Ruled-out Assessment and plan: unclear significance, likely from possibly necrotic pancreas. CTA negative for PE. (3) Hypokalemia: Start date: 04/02/20 Start time: 14:14 Status: Acute Assessment and plan: 3.0 today given both PO and IV supplementation, will recheck in am. likely from not eating and dilution (4) Fluid overload: Start date: 04/02/20 Start time: 14:15 Status: Resolved Assessment and plan: Does not appear volume overloaded today. Decreased IVF from 100 to 50, he started taking clears. Hiccups have improved, nausea improved. (5) PAF (paroxysmal atrial fibrillation): Start date: 04/02/20 Start time: 14:16 Status: Acute Assessment and plan: Started on amlodipine, has not required any doses of IV for HR or BP lopressor dose increased, IV prn. continue telemetry. echo with LVEF of 60% with no wall motion abnormalities. no significant valvular disease. (6) Ileus, unspecified: Start date: 04/02/20 Start time: 14:18 Status: Acute Assessment and plan: likely d/t pancreatitis and narcotic use. improving and passing flatus encourage ambulation QID with ICS use. Taking PO, Abd u/s without evidence of cholelithiasis, ductal dilatation, gallbladder sludge and positive cm sign, small amount ascities. (7) HTN (hypertension): Start date: 04/02/20 Start time: 14:23 Status: Chronic Assessment and plan: Blood pressure in elevated today in 190 sbp and 110 dbp will add amlodinpine for better pressure control in addition to Lopressor. continue to monitor and adjust as needed. (8) Dark emesis: Start date: 04/02/20 Start time: 14:25 Status: Resolved Assessment and plan: no further episodes, continue GI prophylaxis (9) DVT prophylaxis: Start date: 04/02/20 Start time: 14:25 Status: Acute Assessment and plan: TEDS and SCD, lovenox initiated by surgery. patient has been encouraged to ambulate above case discussed with Dr. Coleman who is in agreement. Subjective Subjective Patient reports: other Interval history since last seen: Appears more tired today. Arousable but sleepy. Continues to c/o pain. Abd is round. He denies CP, SOB, N/V/D. Exam Const General: cooperative and no acute distress Orientation: alert, awake and oriented x3 Other: sleepy Eyes Alignment and Position: alignment normal Cornea: corneas normal Pupils: pinpoint Neck Neck: normal visual inspection, full ROM and no JVD Carotids: normal carotid upstroke Lymphatic: no lymphadenopathy noted and no lymphedema noted Chest Chest: normal inspection of the chest Resp Effort & Inspection: normal respiratory effort Auscultation: clear to auscultation bilaterally Cardio Jugular venous pressure: no JVD Rate: regular rate Rhythm: regular rhythm Heart Sounds: S1 normal and S2 normal GI Inspection: distended Palpation: firm in the LLQ, in the RLQ, in the LUQ and in the RUQ Auscultation: hypoactive bowel sounds Skin General skin exam: no rashes or lesions noted Wounds: no wounds Neuro General: patient alert, patient awake and patient oriented x3 Cognition: normal cognition Speech: speech normal Extrem General: normal to inspection, full ROM and no clubbing, cyanosis or edema Objective Objective Clinical Data: Abnormal lab results 04/02/20 04/02/20 Range/Units 06:15 06:15 WBC 17.71 H (4.4-10.8) k/cumm RBC 4.01 L (4.50-6.00) m/cumm Hgb 12.2 L (13.5-17.5) g/dL Hct 35.7 L (40.0-50.0) % Absolute Neutrophils 14.86 H (1.2-6.7) k/cumm Absolute Lymphocytes 1.08 L (1.2-3.4) k/cumm Absolute Monocytes 1.10 H (0.11-0.7) k/cumm Potassium 3.0 L (3.5-5.1) mmol/L Glucose 117 H (74-106) mg/dL Calcium 8.3 L (8.5-10.1) mg/dL Magnesium 1.7 L (1.8-2.4) mg/dL C-Reactive Protein > 25.00 H (0.0-0.3) mg/dL Vital Signs Temperature 37.7 C H 04/02/20 12:02 Temperature Source Temporal Artery Scan 04/02/20 12:02 Pulse 96 H 04/02/20 13:15 Pulse Rhythm Regular 04/02/20 10:51 Pulse 48 L 03/26/20 20:10 Respiratory Rate 20 04/02/20 12:02 Respiratory Effort Non-Labored 04/02/20 10:51 Respiratory Depth Normal 04/02/20 10:51 Respiratory Pattern Normal 04/02/20 10:51 Blood Pressure 143/97 H 04/02/20 13:15 Blood Pressure Mean 117 03/26/20 20:01 Blood Pressure Position Sitting 03/26/20 13:41 Pulse Oximetry 91 L 04/02/20 12:02 Oxygen Delivery Method Room Air 04/02/20 12:02 Oxygen Flow Rate 0 04/02/20 12:02 Pain Level 4 04/02/20 11:49 Comment 04/01/20 22:59 Intake & Output 04/01/20 04/02/20 04/02/20 23:59 11:59 23:59 Intake Total 2060 / 4055 1356.667 / 1356.667 Output Total 650 / 1925 800 / 800 Balance 1410 / 2130 556.667 / 556.667 Intake: IV 1100 / 3095 876.667 / 876.667 Oral 960 / 960 480 / 480 Output: Urine 550 / 1825 800 / 800 Stool 100 / 100 Other: Urine Color Dark Lindsay Straw Urine Appearance Clear Clear Urine Odor None Strong Stool Size Small Stool Characteristics Soft Formed Liquid Voiding Methods Urinal Urinal Laboratory Results WBC 17.71 k/cumm (4.4-10.8) H 04/02/20 06:15 RBC 4.01 m/cumm (4.50-6.00) L 04/02/20 06:15 Hgb 12.2 g/dL (13.5-17.5) L 04/02/20 06:15 Hct 35.7 % (40.0-50.0) L 04/02/20 06:15 MCV 89.0 fL (80-95) 04/02/20 06:15 MCH 30.4 pg (27.0-33.0) 04/02/20 06:15 MCHC 34.2 g/dL (32.0-36.0) 04/02/20 06:15 RDW 14.0 % (11.8-14.1) 04/02/20 06:15 Plt Count 256 x1000/uL (130-400) 04/02/20 06:15 MPV 9.8 fL (8.0-11.0) 04/02/20 06:15 Immature Gran % 2.3 % 04/02/20 06:15 Neutrophils % 83.9 04/02/20 06:15 Lymphocytes % 6.1 04/02/20 06:15 Monocytes % 6.2 04/02/20 06:15 Eosinophils % 1.4 04/02/20 06:15 Basophils % 0.1 04/02/20 06:15 Absolute Neutrophils 14.86 k/cumm (1.2-6.7) H 04/02/20 06:15 Absolute Lymphocytes 1.08 k/cumm (1.2-3.4) L 04/02/20 06:15 Absolute Monocytes 1.10 k/cumm (0.11-0.7) H 04/02/20 06:15 Absolute Eosinophils 0.25 k/cumm (0.0-0.7) 04/02/20 06:15 Absolute Basophils 0.02 k/cumm (0.0-0.2) 04/02/20 06:15 D-Dimer > 7500 ng/mlFEU (<500) H 03/31/20 08:03 Sodium 136 mmol/L (136-145) 04/02/20 06:15 Potassium 3.0 mmol/L (3.5-5.1) L 04/02/20 06:15 Chloride 98 mmol/L (98-107) 04/02/20 06:15 Carbon Dioxide 28.5 mmol/L (21.0-32.0) 04/02/20 06:15 Anion Gap 9.5 mmol/L (3-11) 04/02/20 06:15 BUN 12 mg/dL (7-18) D 04/02/20 06:15 Creatinine 0.91 mg/dL (0.70-1.30) 04/02/20 06:15 Estimated GFR/1.73 m2 >= 60.00 (mL/min/1.73m2) 04/02/20 06:15 Glucose 117 mg/dL (74-106) H 04/02/20 06:15 Hemoglobin A1c 5.3 % (3.8-5.6) 03/27/20 07:15 Lactate 0.7 mmol/L (0.6-1.4) 04/02/20 13:25 Calcium 8.3 mg/dL (8.5-10.1) L 04/02/20 06:15 Magnesium 1.7 mg/dL (1.8-2.4) L 04/02/20 06:15 Iron 19 ug/dL (65-175) L 03/30/20 06:45 TIBC 127 ug/dL (250-450) L 03/30/20 06:45 Transferrin % Sat 15 % (20-55) L 03/30/20 06:45 Total Bilirubin 0.7 mg/dL (0.2-1.0) 03/31/20 07:00 Conjugated Bilirubin 0.35 mg/dL (0.00-0.20) H 03/30/20 06:45 AST 37 U/L (15-37) 03/31/20 07:00 ALT 30 U/L (16-63) 03/31/20 07:00 Alkaline Phosphatase 87 U/L (46-116) 03/31/20 07:00 Lactate Dehydrogenase 205 U/L (85-227) 03/26/20 17:10 Troponin I < 0.05 ng/mL (<0.06) 03/29/20 08:42 C-Reactive Protein > 25.00 mg/dL (0.0-0.3) H 04/02/20 06:15 NT-Pro-B Natriuret Pep 328 pg/mL (<300) H 03/30/20 06:45 Total Protein 6.0 g/dL (6.4-8.2) L 03/31/20 07:00 Albumin 2.1 g/dL (3.4-5.0) L 03/31/20 07:00 Triglycerides 199 mg/dL (<150) H 03/27/20 07:15 LDL Cholesterol Direct 111 mg/dL (<100) H 03/26/20 13:50 Lipase 263 U/L (73-393) 03/30/20 06:45 TSH 0.33 uIU/mL (0.36-3.74) L 03/29/20 08:42 Free T4 1.09 ng/dL (0.76-1.46) 03/29/20 08:42 Urine Color Yellow (Yellow) 03/26/20 15:40 Urine Clarity Clear (Clear) 03/26/20 15:40 Urine pH 5.0 (5-8) 03/26/20 15:40 Ur Specific [place] 1.015 (1.005-1.025) 03/26/20 15:40 Urine Protein Negative mg/dL (Negative) 03/26/20 15:40 Urine Ketones Negative mg/dL (Negative) 03/26/20 15:40 Urine Blood Trace-intact (Negative) H 03/26/20 15:40 Urine Nitrite Negative (Negative) 03/26/20 15:40 Urine Bilirubin Negative (Negative) 03/26/20 15:40 Urine Urobilinogen 0.2 EU/dL (Up TO 0.2) 03/26/20 15:40 Ur Leukocyte Esterase Negative (Negative) 03/26/20 15:40 Urine RBC 0-2 HPF (0-2) 03/26/20 15:40 Urine WBC 0-2 HPF (0-5) 03/26/20 15:40 Ur Epithelial Cells Few HPF (Negative) 03/26/20 15:40 Urine Crystals Not Applicable 03/26/20 15:40 Urine Bacteria Negative HPF (Negative) 03/26/20 15:40 Urine Mucus Not Applicable 03/26/20 15:40 Ur Culture Indicated? No 03/26/20 15:40 Urine Glucose Negative mg/dL (Negative) 03/26/20 15:40 Ethyl Alcohol < 3.0 mg/dL (<3) 03/26/20 13:25 COVID-19 PCR Negative (Negative) 03/30/20 08:05 Nasopharyn COVID-19 PCR Not Applicable 03/30/20 08:05 Ref Test [facility]form [facility] 03/30/20 08:05
[2020-04-02 14:50] LABS: BE 5.8 mmol/L (-3-3); HCO3 29 mmol/L (22-28); pCO2 39 mmHg (34-47); pH 7.49 (7.35-7.45); pO2 67 mmHg (83-108); sO2 94 % (94-98); tCO2 26 mmol/L (22-29)
[2020-04-02 14:52] LABS: FIO2 21 %; Site Left Radial
[2020-04-02] MEDS: metroNIDAZOLE 500 MG/100 ML BAG 100 MG IVPB ×2 (16:50→22:22)
[2020-04-02] MEDS: Lactated Ringers 1,000 ML 50 ML IV (19:21)
[2020-04-02] MEDS: Docusate Sodium 100 MG CAP PO (19:43)
[2020-04-02] MEDS: Acetaminophen 325 MG TAB 650 MG PO (21:30)
[2020-04-03] VITALS (7 sets, daily range): BP systolic 118–162; BP diastolic 70–90; PULSE 70–87; RESP 18–94; TEMP 36.5–37.7; O2SAT 95–97
[2020-04-03] MEDS: HYDROmorphone 2 MG/ML VIAL 1 MG IVP ×3 (03:03→23:55)
[2020-04-03] MEDS: metroNIDAZOLE 500 MG/100 ML BAG 100 MG IVPB ×4 (04:08→21:51)
[2020-04-03 07:47] LABS: Abs Immature Grans 0.29 k/cumm (0.0-0.09); Absolute Basophil Count 0.02 k/cumm (0.0-0.2); Absolute Lymphocyte Count 0.86 k/cumm (1.2-3.4); Absolute Monocyte Count 0.96 k/cumm (0.11-0.7); Basophils % 0.1; Eosinophils % 1.3; HCT 32.1 % (40.0-50.0); HGB 11.2 g/dL (13.5-17.5); Immature Grans % 1.7 %; Lymphocytes % 5.1; Mean Corp. HGB Concentration 34.9 g/dL (32.0-36.0); Mean Corpuscular Hemoglobin 31.1 pg (27.0-33.0); Mean Corpuscular Volume 89.2 fL (80-95); Mean Platelet Volume 9.4 fL (8.0-11.0); Monocytes % 5.7; Neutrophils % 86.1; Platelet Count 278 x1000/uL (130-400); RBC Distribution Width 14.1 % (11.8-14.1); White Blood Cell Count 16.77 k/cumm (4.4-10.8)
[2020-04-03 07:48] LABS: Bilirubin Negative (Negative); Blood Trace-intact (Negative); Clarity Clear (Clear); Glucose Negative (Negative); Ketones 15 mg/dL (Negative); Leukocyte Esterase Negative (Negative); Nitrite Negative (Negative)
[2020-04-03 07:51] LABS: Absolute Eosinophil Count 0.22 k/cumm (0.0-0.7); Absolute Neutrophil Count 14.44 k/cumm (1.2-6.7)
--- NOTE | 2020-04-03 07:51 | PDOC.CMPRO ---
- If Service Date Differs Date of service: 04/03/20 Time of Service: 07:51 Care Management Progress Note S/O: Drew was sitting up in a chair when CM met with him. He stated that he still has a lot of pain and was waiting for his pain medication. Drew denied nausea at this time. Per Dr. Lala, his abdominal exam shows slight improvement. Goals include ambulation and increased protein intake. CM will continue to follow. A: Rajat is a 64 year old male admitted on 03/26/20 for Pancreatitis. P: Anticipate Rajat will return home with no anticipated services once medically cleared. His will drive him home via private vehicle when ready. He will follow up with his PCP and discharge plan of care. CM will continue to support Drew and his discharge planning needs.
[2020-04-03 08:00] LABS: BUN 10 mg/dL (7-18); CREATININE 0.88 mg/dL (0.70-1.30); Calcium 8.2 mg/dL (8.5-10.1); Chloride 101 mmol/L (98-107); Glucose 151 mg/dL (74-106); Magnesium 1.7 mg/dL (1.8-2.4); Sodium 137 mmol/L (136-145)
[2020-04-03 08:04] LABS: Potassium 2.8 mmol/L (3.5-5.1)
[2020-04-03 08:06] LABS: C & S Indicated? No; Epithelial Cells Rare HPF (Negative); RBC 0-2 HPF (0-2); WBC 0-2 HPF (0-5)
[2020-04-03] MEDS: Enoxaparin 40 MG/0.4 ML SYR SC (08:27)
[2020-04-03] MEDS: Normal Saline Flush 10 ML SYR 20 ML IVP ×2 (08:35→20:41)
[2020-04-03] MEDS: amLODIPine 5 MG TAB PO (08:36)
[2020-04-03] MEDS: Pantoprazole 40 MG VIAL IVP ×2 (08:36→20:40)
[2020-04-03] MEDS: Docusate Sodium 100 MG CAP PO ×2 (08:37→20:41)
[2020-04-03] MEDS: Thiamine 100 MG TAB PO (08:37)
[2020-04-03] MEDS: Sucralfate 1 GM TAB PO ×4 (08:37→21:50)
[2020-04-03] MEDS: Metoprolol 50 MG TAB PO ×3 (08:38→20:40)
[2020-04-03] MEDS: Multivitamin TAB 1 TAB PO (08:38)
[2020-04-03] MEDS: Folic Acid 1 MG TAB PO (08:38)
--- NOTE | 2020-04-03 10:31 | W.NUTRFU ---
Date of service: 04/03/20 Time of Service: 10:31 Nutritional Follow up NOTE: ASSESSMENT: 64 year old male admitted 03/26/20 with acute pancreatitis with ileus Has been NPO or on clear liquid diet with inconsistent intake for last 7 days. Met with Drew and he reports no appetite. Discussed importance of po intake. Recommend initiate TPN to support nutrient needs. Estimated Needs: 2927-5239 kcal, 70-80 g protein, 2010 free fluid. Has been refusing to ambulate as recommended. Meds include MVI, thiamin, folic acid, lasix. Labs indicate lipase trending down (15K to 699 ). NUTRITIONAL DIAGNOSIS: Inadequate oral nutrient intake for more than 7 days INTERVENTION: initiate TPN to support lean body mass, immune function. TPN: Dextrose 10%, Amino Acids 4.25% in 2000 ml infuse @80 cc/hr. Lipids 20% 250 ml/day run @ 10cc/hour provides total of 1520 kcal, 84 g protein, 55 g fat. Standard electrolytes and MVI and trace elements. daily labs CBC with Diff, CMP, magnesium, phosphorus and potassium and replete as needed. Lipid panel 3 times weekly, Blood glucose monitoring twice daily. MONITORING AND EVALUATION: will monitor labs, meds and progression to PO diet May need TPN, will make necessary recommendations Time Spent in Nutritional Counseling and Treatment: 10 min spent face to face
[2020-04-03] MEDS: MAGNESIUM SULFATE 2 GM/50 ML BAG IVPB (10:48)
[2020-04-03] MEDS: Normal Saline Flush 10 ML SYR IVP ×3 (10:48→23:55)
[2020-04-03] MEDS: levoFLOXacin 750 MG/150 ML BAG 100 MG IVPB (11:18)
[2020-04-03] MEDS: POTASSIUM CHLORIDE 10 MEQ/100 ML BAG 100 MEQ IVPB (11:57)
--- NOTE | 2020-04-03 12:19 | PGE_ITS ---
Date of Service Date of service: 04/03/20 Time of Service: 12:19 Assessment and Plan Assessment and plan (1) Acute recurrent pancreatitis: Status: Acute Assessment and plan: Abdominal exam slightly improved today. Continue to advance diet Patient encouraged to walk, take in protein drinks preferentially Subjective Subjective Interval history since last seen: Tolerated crackers this am Walked once today No vomiting Still having pain Exam Narrative Exam Narrative: Alert Abdomen distended but less tense. No significant tenderness. Objective Objective Clinical Data: Abnormal lab results 04/02/20 04/03/20 04/03/20 Range/Units 14:49 07:10 07:10 WBC 16.77 H (4.4-10.8) k/cumm RBC 3.60 L (4.50-6.00) m/cumm Hgb 11.2 L (13.5-17.5) g/dL Hct 32.1 L (40.0-50.0) % Absolute Neutrophils 14.44 H (1.2-6.7) k/cumm Absolute Lymphocytes 0.86 L (1.2-3.4) k/cumm Absolute Monocytes 0.96 H (0.11-0.7) k/cumm ABG pH 7.49 H (7.35-7.45) ABG pO2 67 L (83-108) mmHg ABG HCO3 29 H (22-28) mmol/L ABG Base Excess 5.8 H (-3-3) mmol/L Potassium 2.8 L* (3.5-5.1) mmol/L Glucose 151 H (74-106) mg/dL Calcium 8.2 L (8.5-10.1) mg/dL Magnesium 1.7 L (1.8-2.4) mg/dL Urine Ketones (Negative) mg/dL Urine Blood (Negative) Urine Urobilinogen (Up TO 0.2) EU/dL 04/03/20 Range/Units 07:25 WBC (4.4-10.8) k/cumm RBC (4.50-6.00) m/cumm Hgb (13.5-17.5) g/dL Hct (40.0-50.0) % Absolute Neutrophils (1.2-6.7) k/cumm Absolute Lymphocytes (1.2-3.4) k/cumm Absolute Monocytes (0.11-0.7) k/cumm ABG pH (7.35-7.45) ABG pO2 (83-108) mmHg ABG HCO3 (22-28) mmol/L ABG Base Excess (-3-3) mmol/L Potassium (3.5-5.1) mmol/L Glucose (74-106) mg/dL Calcium (8.5-10.1) mg/dL Magnesium (1.8-2.4) mg/dL Urine Ketones 15 H (Negative) mg/dL Urine Blood Trace-intact H (Negative) Urine Urobilinogen 1.0 H (Up TO 0.2) EU/dL Vital Signs Temperature 98.8 F 04/03/20 11:10 Temperature Source Tympanic 04/03/20 11:10 Pulse 82 04/03/20 11:10 Pulse Rhythm Regular 04/03/20 08:30 Pulse 48 L 03/26/20 20:10 Respiratory Rate 19 04/03/20 11:10 Respiratory Effort 04/03/20 08:30 Respiratory Depth Normal 04/03/20 08:30 Respiratory Pattern Normal 04/03/20 08:30 Blood Pressure 118/70 04/03/20 11:10 Blood Pressure Mean 117 03/26/20 20:01 Blood Pressure Position Sitting 03/26/20 13:41 Pulse Oximetry 97 04/03/20 11:10 Oxygen Delivery Method Room Air 04/03/20 11:10 Oxygen Flow Rate 0 04/03/20 11:10 Pain Level 3 04/03/20 11:33 Comment 04/01/20 22:59 Intake & Output 04/02/20 04/03/20 04/03/20 23:59 11:59 23:59 Intake Total 2350.000 / 3706.667 100 / 100 Output Total 400 / 1500 1000 / 1000 Balance 1950.000 / 2206.667 -900 / -900 Intake: IV 1870.000 / 2746.667 100 / 100 Oral 480 / 960 Output: Urine 400 / 1500 1000 / 1000 Other: Urine Color Yellow Light Lindsay Urine Appearance Clear Clear Comment mixed with bowel Stool Occult Blood Negative Stool Size Moderate Moderate Stool Characteristics Liquid Liquid Voiding Methods Urinal Urinal Laboratory Results WBC 16.77 k/cumm (4.4-10.8) H 04/03/20 07:10 RBC 3.60 m/cumm (4.50-6.00) L 04/03/20 07:10 Hgb 11.2 g/dL (13.5-17.5) L 04/03/20 07:10 Hct 32.1 % (40.0-50.0) L 04/03/20 07:10 MCV 89.2 fL (80-95) 04/03/20 07:10 MCH 31.1 pg (27.0-33.0) 04/03/20 07:10 MCHC 34.9 g/dL (32.0-36.0) 04/03/20 07:10 RDW 14.1 % (11.8-14.1) 04/03/20 07:10 Plt Count 278 x1000/uL (130-400) 04/03/20 07:10 MPV 9.4 fL (8.0-11.0) 04/03/20 07:10 Immature Gran % 1.7 % 04/03/20 07:10 Neutrophils % 86.1 04/03/20 07:10 Lymphocytes % 5.1 04/03/20 07:10 Monocytes % 5.7 04/03/20 07:10 Eosinophils % 1.3 04/03/20 07:10 Basophils % 0.1 04/03/20 07:10 Absolute Neutrophils 14.44 k/cumm (1.2-6.7) H 04/03/20 07:10 Absolute Lymphocytes 0.86 k/cumm (1.2-3.4) L 04/03/20 07:10 Absolute Monocytes 0.96 k/cumm (0.11-0.7) H 04/03/20 07:10 Absolute Eosinophils 0.22 k/cumm (0.0-0.7) 04/03/20 07:10 Absolute Basophils 0.02 k/cumm (0.0-0.2) 04/03/20 07:10 D-Dimer > 7500 ng/mlFEU (<500) H 03/31/20 08:03 ABG Sample Site Left radial 04/02/20 14:49 ABG pH 7.49 (7.35-7.45) H 04/02/20 14:49 ABG pCO2 39 mmHg (34-47) 04/02/20 14:49 ABG pO2 67 mmHg (83-108) L 04/02/20 14:49 ABG HCO3 29 mmol/L (22-28) H 04/02/20 14:49 ABG Total CO2 26 mmol/L (22-29) 04/02/20 14:49 ABG O2 Saturation 94 % (94-98) 04/02/20 14:49 ABG Base Excess 5.8 mmol/L (-3-3) H 04/02/20 14:49 FiO2 21 % 04/02/20 14:49 Sodium 137 mmol/L (136-145) 04/03/20 07:10 Potassium 2.8 mmol/L (3.5-5.1) L* 04/03/20 07:10 Chloride 101 mmol/L (98-107) 04/03/20 07:10 Carbon Dioxide 31.0 mmol/L (21.0-32.0) 04/03/20 07:10 Anion Gap 5.0 mmol/L (3-11) 04/03/20 07:10 BUN 10 mg/dL (7-18) 04/03/20 07:10 Creatinine 0.88 mg/dL (0.70-1.30) 04/03/20 07:10 Estimated GFR/1.73 m2 >= 60.00 (mL/min/1.73m2) 04/03/20 07:10 Glucose 151 mg/dL (74-106) H 04/03/20 07:10 Hemoglobin A1c 5.3 % (3.8-5.6) 03/27/20 07:15 Lactate 0.7 mmol/L (0.6-1.4) 04/02/20 13:25 Calcium 8.2 mg/dL (8.5-10.1) L 04/03/20 07:10 Magnesium 1.7 mg/dL (1.8-2.4) L 04/03/20 07:10 Iron 19 ug/dL (65-175) L 03/30/20 06:45 TIBC 127 ug/dL (250-450) L 03/30/20 06:45 Transferrin % Sat 15 % (20-55) L 03/30/20 06:45 Total Bilirubin 0.7 mg/dL (0.2-1.0) 03/31/20 07:00 Conjugated Bilirubin 0.35 mg/dL (0.00-0.20) H 03/30/20 06:45 AST 37 U/L (15-37) 03/31/20 07:00 ALT 30 U/L (16-63) 03/31/20 07:00 Alkaline Phosphatase 87 U/L (46-116) 03/31/20 07:00 Lactate Dehydrogenase 205 U/L (85-227) 03/26/20 17:10 Troponin I < 0.05 ng/mL (<0.06) 03/29/20 08:42 C-Reactive Protein > 25.00 mg/dL (0.0-0.3) H 04/02/20 06:15 NT-Pro-B Natriuret Pep 328 pg/mL (<300) H 03/30/20 06:45 Total Protein 6.0 g/dL (6.4-8.2) L 03/31/20 07:00 Albumin 2.1 g/dL (3.4-5.0) L 03/31/20 07:00 Triglycerides 199 mg/dL (<150) H 03/27/20 07:15 LDL Cholesterol Direct 111 mg/dL (<100) H 03/26/20 13:50 Lipase 263 U/L (73-393) 03/30/20 06:45 TSH 0.33 uIU/mL (0.36-3.74) L 03/29/20 08:42 Free T4 1.09 ng/dL (0.76-1.46) 03/29/20 08:42 Urine Color Yellow (Yellow) 04/03/20 07:25 Urine Clarity Clear (Clear) 04/03/20 07:25 Urine pH 6.0 (5-8) 04/03/20 07:25 Ur Specific [place] 1.020 (1.005-1.025) 04/03/20 07:25 Urine Protein Negative mg/dL (Negative) 04/03/20 07:25 Urine Ketones 15 mg/dL (Negative) H 04/03/20 07:25 Urine Blood Trace-intact (Negative) H 04/03/20 07:25 Urine Nitrite Negative (Negative) 04/03/20 07:25 Urine Bilirubin Negative (Negative) 04/03/20 07:25 Urine Urobilinogen 1.0 EU/dL (Up TO 0.2) H 04/03/20 07:25 Ur Leukocyte Esterase Negative (Negative) 04/03/20 07:25 Urine RBC 0-2 HPF (0-2) 04/03/20 07:25 Urine WBC 0-2 HPF (0-5) 04/03/20 07:25 Ur Epithelial Cells Rare HPF (Negative) 04/03/20 07:25 Urine Crystals Not Applicable 04/03/20 07:25 Urine Bacteria Not Applicable 04/03/20 07:25 Urine Mucus Not Applicable 04/03/20 07:25 Ur Culture Indicated? No 04/03/20 07:25 Urine Glucose Negative mg/dL (Negative) 04/03/20 07:25 Ethyl Alcohol < 3.0 mg/dL (<3) 03/26/20 13:25 COVID-19 PCR Negative (Negative) 03/30/20 08:05 Nasopharyn COVID-19 PCR Not Applicable 03/30/20 08:05 Ref Test Perform Site [facility] lab 03/30/20 08:05
[2020-04-03] MEDS: POTASSIUM CHLORIDE 10 MEQ/100 ML BAG 200 MEQ IVPB ×3 (12:30→13:39)
[2020-04-03] MEDS: Potassium Chloride 20 MEQ TABCR PO ×2 (13:15→20:40)
[2020-04-03] MEDS: Acetaminophen 325 MG TAB 650 MG PO ×2 (14:36→19:01)
--- NOTE | 2020-04-03 14:36 | W.PM.PROGNOT ---
Date of Service Date of service: 04/03/20 Time of Service: 14:36 Assessment and Plan Assessment and plan (1) Elevated d-dimer: Status: Ruled-out Assessment and plan: unclear significance, No PE on CT scan. (2) Hypokalemia: Status: Acute Assessment and plan: will continue to replete and follow. magnesium 1.7, will get 2 gm IV magnesium and 40 meq IV potassium. (3) Fluid overload: Status: Resolved Assessment and plan: uvolemic, monitor (4) PAF (paroxysmal atrial fibrillation): Status: Acute Assessment and plan: no further events, continue telemetry. echo with LVEF of 60% with no wall motion abnormalities. no significant valvular disease. tsh normal (5) Ileus, unspecified: Status: Acute Assessment and plan: likely d/t pancreatitis and narcotic use. improving and passing flatus and having loose stools, advance diet per surgery. meds with sips, encourage ambulation. (6) Acute recurrent pancreatitis: Status: Acute Assessment and plan: symptoms remain severe, lipase had normalized, repeat CT shows ongoing inflammation, increased narcotics. surgery following. MRCP Findings consistent with pancreatitis. There is increased ascites and bilateral pleural effusions. No evidence gallstones, common bile duct stones or acute cholecystitis. . (7) HTN (hypertension): Status: Chronic Assessment and plan: blood pressures improved on lopressor. continue to monitor and adjust as needed. (8) Dark emesis: Status: Resolved Assessment and plan: no further episodes, continue GI prophylaxis (9) DVT prophylaxis: Status: Acute Assessment and plan: TEDS and SCD, lovenox. patient has been encouraged to ambulate above case discussed with Dr. Coleman who is in agreement. Subjective Subjective Patient reports: still having pain, diarrhea and afebrile Interval history since last seen: tolerating 25% meals, loose stools, still refusing to get out of bed and using I/S, Exam Const General: cooperative, ill appearing (older than stated age, with flush face) acutely and lethargic (just received dilaudid) Nutritional Appearance: average body habitus Orientation: awake and oriented x3 HENMT Head: normal to inspection, normocephalic and atraumatic Mouth: oral mucosae normal Cardio Rate: regular rate Rhythm: regular rhythm GI Inspection: distended Palpation: firm Auscultation: hypoactive bowel sounds General: other (concentrated urine) Skin General skin exam: no rashes or lesions noted Neuro General: patient awake and patient oriented x3 Cognition: normal cognition Speech: speech normal Extrem General: normal to inspection and full ROM Objective Objective Clinical Data: Abnormal lab results 04/02/20 04/03/20 04/03/20 Range/Units 14:49 07:10 07:10 WBC 16.77 H (4.4-10.8) k/cumm RBC 3.60 L (4.50-6.00) m/cumm Hgb 11.2 L (13.5-17.5) g/dL Hct 32.1 L (40.0-50.0) % Absolute Neutrophils 14.44 H (1.2-6.7) k/cumm Absolute Lymphocytes 0.86 L (1.2-3.4) k/cumm Absolute Monocytes 0.96 H (0.11-0.7) k/cumm ABG pH 7.49 H (7.35-7.45) ABG pO2 67 L (83-108) mmHg ABG HCO3 29 H (22-28) mmol/L ABG Base Excess 5.8 H (-3-3) mmol/L Potassium 2.8 L* (3.5-5.1) mmol/L Glucose 151 H (74-106) mg/dL Calcium 8.2 L (8.5-10.1) mg/dL Magnesium 1.7 L (1.8-2.4) mg/dL Urine Ketones (Negative) mg/dL Urine Blood (Negative) Urine Urobilinogen (Up TO 0.2) EU/dL 04/03/20 Range/Units 07:25 WBC (4.4-10.8) k/cumm RBC (4.50-6.00) m/cumm Hgb (13.5-17.5) g/dL Hct (40.0-50.0) % Absolute Neutrophils (1.2-6.7) k/cumm Absolute Lymphocytes (1.2-3.4) k/cumm Absolute Monocytes (0.11-0.7) k/cumm ABG pH (7.35-7.45) ABG pO2 (83-108) mmHg ABG HCO3 (22-28) mmol/L ABG Base Excess (-3-3) mmol/L Potassium (3.5-5.1) mmol/L Glucose (74-106) mg/dL Calcium (8.5-10.1) mg/dL Magnesium (1.8-2.4) mg/dL Urine Ketones 15 H (Negative) mg/dL Urine Blood Trace-intact H (Negative) Urine Urobilinogen 1.0 H (Up TO 0.2) EU/dL Vital Signs Temperature 37.1 C 04/03/20 11:10 Temperature Source Tympanic 04/03/20 11:10 Pulse 82 04/03/20 11:10 Pulse Rhythm Regular 04/03/20 08:30 Pulse 48 L 03/26/20 20:10 Respiratory Rate 19 04/03/20 11:10 Respiratory Effort 04/03/20 08:30 Respiratory Depth Normal 04/03/20 08:30 Respiratory Pattern Normal 04/03/20 08:30 Blood Pressure 118/70 04/03/20 11:10 Blood Pressure Mean 117 03/26/20 20:01 Blood Pressure Position Sitting 03/26/20 13:41 Pulse Oximetry 97 04/03/20 11:10 Oxygen Delivery Method Room Air 04/03/20 11:10 Oxygen Flow Rate 0 04/03/20 11:10 Pain Level 3 04/03/20 14:36 Comment 04/01/20 22:59 Intake & Output 04/02/20 04/03/20 04/03/20 23:59 11:59 23:59 Intake Total 2350.000 / 3706.667 100 / 355 255 / 355 Output Total 400 / 1500 1000 / 2200 1200 / 2200 Balance 1950.000 / 2206.667 -900 / -1845 -945 / -1845 Intake: IV 1870.000 / 2746.667 100 / 355 255 / 355 Oral 480 / 960 Output: Urine 400 / 1500 1000 / 1300 300 / 1300 Stool 900 / 900 Other: Urine Color Yellow Light Lindsay Light Lindsay Dark Lindsay Urine Appearance Clear Clear Clear Urine Odor Normal Comment mixed with bowel Stool Occult Blood Negative Stool Size Moderate Moderate Large Stool Characteristics Liquid Liquid Liquid Brown Voiding Methods Urinal Urinal Urinal Laboratory Results WBC 16.77 k/cumm (4.4-10.8) H 04/03/20 07:10 RBC 3.60 m/cumm (4.50-6.00) L 04/03/20 07:10 Hgb 11.2 g/dL (13.5-17.5) L 04/03/20 07:10 Hct 32.1 % (40.0-50.0) L 04/03/20 07:10 MCV 89.2 fL (80-95) 04/03/20 07:10 MCH 31.1 pg (27.0-33.0) 04/03/20 07:10 MCHC 34.9 g/dL (32.0-36.0) 04/03/20 07:10 RDW 14.1 % (11.8-14.1) 04/03/20 07:10 Plt Count 278 x1000/uL (130-400) 04/03/20 07:10 MPV 9.4 fL (8.0-11.0) 04/03/20 07:10 Immature Gran % 1.7 % 04/03/20 07:10 Neutrophils % 86.1 04/03/20 07:10 Lymphocytes % 5.1 04/03/20 07:10 Monocytes % 5.7 04/03/20 07:10 Eosinophils % 1.3 04/03/20 07:10 Basophils % 0.1 04/03/20 07:10 Absolute Neutrophils 14.44 k/cumm (1.2-6.7) H 04/03/20 07:10 Absolute Lymphocytes 0.86 k/cumm (1.2-3.4) L 04/03/20 07:10 Absolute Monocytes 0.96 k/cumm (0.11-0.7) H 04/03/20 07:10 Absolute Eosinophils 0.22 k/cumm (0.0-0.7) 04/03/20 07:10 Absolute Basophils 0.02 k/cumm (0.0-0.2) 04/03/20 07:10 D-Dimer > 7500 ng/mlFEU (<500) H 03/31/20 08:03 ABG Sample Site Left radial 04/02/20 14:49 ABG pH 7.49 (7.35-7.45) H 04/02/20 14:49 ABG pCO2 39 mmHg (34-47) 04/02/20 14:49 ABG pO2 67 mmHg (83-108) L 04/02/20 14:49 ABG HCO3 29 mmol/L (22-28) H 04/02/20 14:49 ABG Total CO2 26 mmol/L (22-29) 04/02/20 14:49 ABG O2 Saturation 94 % (94-98) 04/02/20 14:49 ABG Base Excess 5.8 mmol/L (-3-3) H 04/02/20 14:49 FiO2 21 % 04/02/20 14:49 Sodium 137 mmol/L (136-145) 04/03/20 07:10 Potassium 2.8 mmol/L (3.5-5.1) L* 04/03/20 07:10 Chloride 101 mmol/L (98-107) 04/03/20 07:10 Carbon Dioxide 31.0 mmol/L (21.0-32.0) 04/03/20 07:10 Anion Gap 5.0 mmol/L (3-11) 04/03/20 07:10 BUN 10 mg/dL (7-18) 04/03/20 07:10 Creatinine 0.88 mg/dL (0.70-1.30) 04/03/20 07:10 Estimated GFR/1.73 m2 >= 60.00 (mL/min/1.73m2) 04/03/20 07:10 Glucose 151 mg/dL (74-106) H 04/03/20 07:10 Hemoglobin A1c 5.3 % (3.8-5.6) 03/27/20 07:15 Lactate 0.7 mmol/L (0.6-1.4) 04/02/20 13:25 Calcium 8.2 mg/dL (8.5-10.1) L 04/03/20 07:10 Magnesium 1.7 mg/dL (1.8-2.4) L 04/03/20 07:10 Iron 19 ug/dL (65-175) L 03/30/20 06:45 TIBC 127 ug/dL (250-450) L 03/30/20 06:45 Transferrin % Sat 15 % (20-55) L 03/30/20 06:45 Total Bilirubin 0.7 mg/dL (0.2-1.0) 03/31/20 07:00 Conjugated Bilirubin 0.35 mg/dL (0.00-0.20) H 03/30/20 06:45 AST 37 U/L (15-37) 03/31/20 07:00 ALT 30 U/L (16-63) 03/31/20 07:00 Alkaline Phosphatase 87 U/L (46-116) 03/31/20 07:00 Lactate Dehydrogenase 205 U/L (85-227) 03/26/20 17:10 Troponin I < 0.05 ng/mL (<0.06) 03/29/20 08:42 C-Reactive Protein > 25.00 mg/dL (0.0-0.3) H 04/02/20 06:15 NT-Pro-B Natriuret Pep 328 pg/mL (<300) H 03/30/20 06:45 Total Protein 6.0 g/dL (6.4-8.2) L 03/31/20 07:00 Albumin 2.1 g/dL (3.4-5.0) L 03/31/20 07:00 Triglycerides 199 mg/dL (<150) H 03/27/20 07:15 LDL Cholesterol Direct 111 mg/dL (<100) H 03/26/20 13:50 Lipase 263 U/L (73-393) 03/30/20 06:45 TSH 0.33 uIU/mL (0.36-3.74) L 03/29/20 08:42 Free T4 1.09 ng/dL (0.76-1.46) 03/29/20 08:42 Urine Color Yellow (Yellow) 04/03/20 07:25 Urine Clarity Clear (Clear) 04/03/20 07:25 Urine pH 6.0 (5-8) 04/03/20 07:25 Ur Specific [place] 1.020 (1.005-1.025) 04/03/20 07:25 Urine Protein Negative mg/dL (Negative) 04/03/20 07:25 Urine Ketones 15 mg/dL (Negative) H 04/03/20 07:25 Urine Blood Trace-intact (Negative) H 04/03/20 07:25 Urine Nitrite Negative (Negative) 04/03/20 07:25 Urine Bilirubin Negative (Negative) 04/03/20 07:25 Urine Urobilinogen 1.0 EU/dL (Up TO 0.2) H 04/03/20 07:25 Ur Leukocyte Esterase Negative (Negative) 04/03/20 07:25 Urine RBC 0-2 HPF (0-2) 04/03/20 07:25 Urine WBC 0-2 HPF (0-5) 04/03/20 07:25 Ur Epithelial Cells Rare HPF (Negative) 04/03/20 07:25 Urine Crystals Not Applicable 04/03/20 07:25 Urine Bacteria Not Applicable 04/03/20 07:25 Urine Mucus Not Applicable 04/03/20 07:25 Ur Culture Indicated? No 04/03/20 07:25 Urine Glucose Negative mg/dL (Negative) 04/03/20 07:25 Ethyl Alcohol < 3.0 mg/dL (<3) 03/26/20 13:25 COVID-19 PCR Negative (Negative) 03/30/20 08:05 Nasopharyn COVID-19 PCR Not Applicable 03/30/20 08:05 Ref Test [facility] 03/30/20 08:05
[2020-04-03 17:07] LABS: Vancomycin, Trough 10.5 ug/mL (10.0-20.0)
[2020-04-03] MEDS: Lactated Ringers 1,000 ML 50 ML IV (17:45)
[2020-04-04] VITALS (7 sets, daily range): BP systolic 136–196; BP diastolic 06–105; PULSE 56–96; RESP 16–20; TEMP 36.9–37.4; O2SAT 95–96
[2020-04-04] MEDS: Acetaminophen 325 MG TAB 650 MG PO ×3 (02:28→17:56)
[2020-04-04] MEDS: metroNIDAZOLE 500 MG/100 ML BAG 100 MG IVPB ×4 (04:23→21:45)
[2020-04-04 07:22] LABS: Abs Immature Grans 0.28 k/cumm (0.0-0.09); Absolute Basophil Count 0.02 k/cumm (0.0-0.2); Absolute Eosinophil Count 0.22 k/cumm (0.0-0.7); Absolute Lymphocyte Count 0.92 k/cumm (1.2-3.4); Absolute Monocyte Count 0.99 k/cumm (0.11-0.7); Basophils % 0.1; Eosinophils % 1.3; HCT 33.3 % (40.0-50.0); HGB 11.2 g/dL (13.5-17.5); Immature Grans % 1.7 %; Lymphocytes % 5.5; Mean Corp. HGB Concentration 33.6 g/dL (32.0-36.0); Mean Corpuscular Hemoglobin 30.1 pg (27.0-33.0); Mean Corpuscular Volume 89.5 fL (80-95); Mean Platelet Volume 9.6 fL (8.0-11.0); Monocytes % 5.9; Neutrophils % 85.5; Platelet Count 302 x1000/uL (130-400); RBC 3.72 m/cumm (4.50-6.00); RBC Distribution Width 14.2 % (11.8-14.1)
[2020-04-04 07:23] LABS: Absolute Neutrophil Count 14.28 k/cumm (1.2-6.7)
[2020-04-04 07:32] LABS: ALT 42 U/L (16-63); AST 51 U/L (15-37); Alkaline Phosphatase 100 U/L (46-116); Anion Gap 7.4 mmol/L (3-11); BUN 7 mg/dL (7-18); Bilirubin, Total 0.6 mg/dL (0.2-1.0); CO2 29.6 mmol/L (21.0-32.0); CREATININE 0.89 mg/dL (0.70-1.30); Calcium 7.8 mg/dL (8.5-10.1); Chloride 102 mmol/L (98-107); Glucose 164 mg/dL (74-106); Magnesium 1.9 mg/dL (1.8-2.4); Sodium 139 mmol/L (136-145); Total Protein 5.6 g/dL (6.4-8.2)
[2020-04-04 07:34] LABS: Potassium 2.8 mmol/L (3.5-5.1)
[2020-04-04] MEDS: amLODIPine 5 MG TAB PO ×2 (07:54→10:11)
[2020-04-04] MEDS: Sucralfate 1 GM TAB PO ×4 (07:54→21:10)
[2020-04-04] MEDS: Docusate Sodium 100 MG CAP PO (07:54)
[2020-04-04] MEDS: Pantoprazole 40 MG VIAL IVP ×2 (07:55→19:54)
[2020-04-04] MEDS: Potassium Chloride 20 MEQ TABCR PO ×3 (07:55→18:31)
[2020-04-04] MEDS: Metoprolol 50 MG TAB PO ×2 (07:55→19:54)
[2020-04-04] MEDS: Enoxaparin 40 MG/0.4 ML SYR SC (07:56)
[2020-04-04] MEDS: Normal Saline Flush 10 ML SYR 20 ML IVP ×2 (07:56→19:53)
[2020-04-04] MEDS: Normal Saline Flush 10 ML SYR IVP ×5 (07:56→21:59)
[2020-04-04] MEDS: HYDROmorphone 2 MG/ML VIAL 1 MG IVP ×4 (08:04→21:59)
--- NOTE | 2020-04-04 09:16 | W.PM.PROGNOT ---
Date of Service Date of service: 04/04/20 Time of Service: 09:16 Assessment and Plan Assessment and plan (1) Elevated d-dimer: Status: Ruled-out Assessment and plan: unclear significance, No PE on CT scan. no further evaluation at this time (2) Hypokalemia: Status: Acute Assessment and plan: will continue to replete and follow. magnesium 1.9, 40 meq IV potassium and 20 mg TID PO. (3) Fluid overload: Status: Resolved Assessment and plan: uvolemic, monitor (4) PAF (paroxysmal atrial fibrillation): Status: Acute Assessment and plan: no further events, continue telemetry. echo with LVEF of 60% with no wall motion abnormalities. no significant valvular disease. tsh normal. heart rate in the 50's this morning. will decrease lopressor to BID and continue to monitor (5) Ileus, unspecified: Status: Acute Assessment and plan: resolved, advance diet per surgery. meds with sips, encourage ambulation. (6) Acute recurrent pancreatitis: Status: Acute Assessment and plan: symptoms slowly improving, will try advancing diet as tolerated, MRCP Findings consistent with pancreatitis. There is increased ascites and bilateral pleural effusions. No evidence gallstones, common bile duct stones or acute cholecystitis. . (7) HTN (hypertension): Status: Chronic Assessment and plan: blood pressures still elevated, continue lopressor bid, increase amlodipine to 10 mg daily. continue to monitor and adjust as needed. (8) Dark emesis: Status: Resolved Assessment and plan: no further episodes, continue GI prophylaxis (9) DVT prophylaxis: Status: Acute Assessment and plan: TEDS and SCD, lovenox. patient has been encouraged to ambulate (10) Discharge planning issues: Status: Acute Assessment and plan: home with no services once medically stable and taking good PO above case discussed with Dr. Coleman who is in agreement. Subjective Subjective Patient reports: tolerating liquids well, bowel movement and afebrile Interval history since last seen: tolerating 25% meals, increased stools, still reporting pain and resistant to get out of bed and using I/S, Exam Const General: cooperative, comfortable, no acute distress and ill appearing (older than stated age, with flush face) Nutritional Appearance: average body habitus Orientation: awake and oriented x3 HENMT Head: normal to inspection, normocephalic and atraumatic Mouth: oral mucosae normal Cardio Rate: regular rate Rhythm: regular rhythm GI Inspection: distended Palpation: soft Auscultation: hypoactive bowel sounds Skin General skin exam: no rashes or lesions noted Neuro General: patient awake and patient oriented x3 Cognition: normal cognition Speech: speech normal Extrem General: normal to inspection and full ROM Objective Objective Clinical Data: Abnormal lab results 04/04/20 04/04/20 Range/Units 06:25 06:25 WBC 16.70 H (4.4-10.8) k/cumm RBC 3.72 L (4.50-6.00) m/cumm Hgb 11.2 L (13.5-17.5) g/dL Hct 33.3 L (40.0-50.0) % RDW 14.2 H (11.8-14.1) % Absolute Neutrophils 14.28 H (1.2-6.7) k/cumm Absolute Lymphocytes 0.92 L (1.2-3.4) k/cumm Absolute Monocytes 0.99 H (0.11-0.7) k/cumm Potassium 2.8 L* (3.5-5.1) mmol/L Glucose 164 H (74-106) mg/dL Calcium 7.8 L (8.5-10.1) mg/dL AST 51 H (15-37) U/L Total Protein 5.6 L (6.4-8.2) g/dL Albumin 2.0 L (3.4-5.0) g/dL Vital Signs Temperature 37.4 C 04/04/20 07:35 Temperature Source Tympanic 04/04/20 07:35 Pulse 56 L 04/04/20 07:35 Pulse Rhythm Regular 04/03/20 21:00 Pulse 48 L 03/26/20 20:10 Respiratory Rate 18 04/04/20 07:35 Respiratory Effort Non-Labored 04/03/20 21:00 Respiratory Depth Normal 04/03/20 21:00 Respiratory Pattern Normal 04/03/20 21:00 Blood Pressure 173/06 H 04/04/20 07:35 Blood Pressure Mean 117 03/26/20 20:01 Blood Pressure Position Sitting 03/26/20 13:41 Pulse Oximetry 96 04/04/20 07:35 Oxygen Delivery Method Room Air 04/04/20 07:35 Oxygen Flow Rate 0 04/04/20 07:35 Pain Level 3 04/04/20 08:04 Comment 04/01/20 22:59 Intake & Output 04/03/20 04/03/20 04/04/20 11:59 23:59 11:59 Intake Total 200 / 1905 1705 / 1905 340 / 340 Output Total 1000 / 2200 1200 / 2200 725 / 725 Balance -800 / -295 505 / -295 -385 / -385 Intake: IV 200 / 1905 1705 / 1905 100 / 100 Oral 240 / 240 Output: Urine 1000 / 1300 300 / 1300 250 / 250 Stool 900 / 900 475 / 475 Other: Urine Color Light Lindsay Yellow Yellow Urine Appearance Clear Clear Clear Urine Odor Normal Comment mixed with bowel mixed with stool Stool Occult Blood Negative Stool Size Moderate Moderate Small Stool Characteristics Liquid Liquid Liquid Brown Voiding Methods Urinal Bedside Commode Bedside Commode Laboratory Results WBC 16.70 k/cumm (4.4-10.8) H 04/04/20 06:25 RBC 3.72 m/cumm (4.50-6.00) L 04/04/20 06:25 Hgb 11.2 g/dL (13.5-17.5) L 04/04/20 06:25 Hct 33.3 % (40.0-50.0) L 04/04/20 06:25 MCV 89.5 fL (80-95) 04/04/20 06:25 MCH 30.1 pg (27.0-33.0) 04/04/20 06:25 MCHC 33.6 g/dL (32.0-36.0) 04/04/20 06:25 RDW 14.2 % (11.8-14.1) H 04/04/20 06:25 Plt Count 302 x1000/uL (130-400) 04/04/20 06:25 MPV 9.6 fL (8.0-11.0) 04/04/20 06:25 Immature Gran % 1.7 % 04/04/20 06:25 Neutrophils % 85.5 04/04/20 06:25 Lymphocytes % 5.5 04/04/20 06:25 Monocytes % 5.9 04/04/20 06:25 Eosinophils % 1.3 04/04/20 06:25 Basophils % 0.1 04/04/20 06:25 Absolute Neutrophils 14.28 k/cumm (1.2-6.7) H 04/04/20 06:25 Absolute Lymphocytes 0.92 k/cumm (1.2-3.4) L 04/04/20 06:25 Absolute Monocytes 0.99 k/cumm (0.11-0.7) H 04/04/20 06:25 Absolute Eosinophils 0.22 k/cumm (0.0-0.7) 04/04/20 06:25 Absolute Basophils 0.02 k/cumm (0.0-0.2) 04/04/20 06:25 D-Dimer > 7500 ng/mlFEU (<500) H 03/31/20 08:03 ABG Sample Site Left radial 04/02/20 14:49 ABG pH 7.49 (7.35-7.45) H 04/02/20 14:49 ABG pCO2 39 mmHg (34-47) 04/02/20 14:49 ABG pO2 67 mmHg (83-108) L 04/02/20 14:49 ABG HCO3 29 mmol/L (22-28) H 04/02/20 14:49 ABG Total CO2 26 mmol/L (22-29) 04/02/20 14:49 ABG O2 Saturation 94 % (94-98) 04/02/20 14:49 ABG Base Excess 5.8 mmol/L (-3-3) H 04/02/20 14:49 FiO2 21 % 04/02/20 14:49 Sodium 139 mmol/L (136-145) 04/04/20 06:25 Potassium 2.8 mmol/L (3.5-5.1) L* 04/04/20 06:25 Chloride 102 mmol/L (98-107) 04/04/20 06:25 Carbon Dioxide 29.6 mmol/L (21.0-32.0) 04/04/20 06:25 Anion Gap 7.4 mmol/L (3-11) 04/04/20 06:25 BUN 7 mg/dL (7-18) 04/04/20 06:25 Creatinine 0.89 mg/dL (0.70-1.30) 04/04/20 06:25 Estimated GFR/1.73 m2 >= 60.00 (mL/min/1.73m2) 04/04/20 06:25 Glucose 164 mg/dL (74-106) H 04/04/20 06:25 Hemoglobin A1c 5.3 % (3.8-5.6) 03/27/20 07:15 Lactate 0.7 mmol/L (0.6-1.4) 04/02/20 13:25 Calcium 7.8 mg/dL (8.5-10.1) L 04/04/20 06:25 Magnesium 1.9 mg/dL (1.8-2.4) 04/04/20 06:25 Iron 19 ug/dL (65-175) L 03/30/20 06:45 TIBC 127 ug/dL (250-450) L 03/30/20 06:45 Transferrin % Sat 15 % (20-55) L 03/30/20 06:45 Total Bilirubin 0.6 mg/dL (0.2-1.0) 04/04/20 06:25 Conjugated Bilirubin 0.35 mg/dL (0.00-0.20) H 03/30/20 06:45 AST 51 U/L (15-37) H 04/04/20 06:25 ALT 42 U/L (16-63) 04/04/20 06:25 Alkaline Phosphatase 100 U/L (46-116) 04/04/20 06:25 Lactate Dehydrogenase 205 U/L (85-227) 03/26/20 17:10 Troponin I < 0.05 ng/mL (<0.06) 03/29/20 08:42 C-Reactive Protein > 25.00 mg/dL (0.0-0.3) H 04/02/20 06:15 NT-Pro-B Natriuret Pep 328 pg/mL (<300) H 03/30/20 06:45 Total Protein 5.6 g/dL (6.4-8.2) L 04/04/20 06:25 Albumin 2.0 g/dL (3.4-5.0) L 04/04/20 06:25 Triglycerides 199 mg/dL (<150) H 03/27/20 07:15 LDL Cholesterol Direct 111 mg/dL (<100) H 03/26/20 13:50 Lipase 263 U/L (73-393) 03/30/20 06:45 TSH 0.33 uIU/mL (0.36-3.74) L 03/29/20 08:42 Free T4 1.09 ng/dL (0.76-1.46) 03/29/20 08:42 Urine Color Yellow (Yellow) 04/03/20 07:25 Urine Clarity Clear (Clear) 04/03/20 07:25 Urine pH 6.0 (5-8) 04/03/20 07:25 Ur Specific [place] 1.020 (1.005-1.025) 04/03/20 07:25 Urine Protein Negative mg/dL (Negative) 04/03/20 07:25 Urine Ketones 15 mg/dL (Negative) H 04/03/20 07:25 Urine Blood Trace-intact (Negative) H 04/03/20 07:25 Urine Nitrite Negative (Negative) 04/03/20 07:25 Urine Bilirubin Negative (Negative) 04/03/20 07:25 Urine Urobilinogen 1.0 EU/dL (Up TO 0.2) H 04/03/20 07:25 Ur Leukocyte Esterase Negative (Negative) 04/03/20 07:25 Urine RBC 0-2 HPF (0-2) 04/03/20 07:25 Urine WBC 0-2 HPF (0-5) 04/03/20 07:25 Ur Epithelial Cells Rare HPF (Negative) 04/03/20 07:25 Urine Crystals Not Applicable 04/03/20 07:25 Urine Bacteria Not Applicable 04/03/20 07:25 Urine Mucus Not Applicable 04/03/20 07:25 Ur Culture Indicated? No 04/03/20 07:25 Urine Glucose Negative mg/dL (Negative) 04/03/20 07:25 Vancomycin Trough 10.5 ug/mL (10.0-20.0) 04/03/20 16:45 Ethyl Alcohol < 3.0 mg/dL (<3) 03/26/20 13:25 COVID-19 PCR Negative (Negative) 03/30/20 08:05 Nasopharyn COVID-19 PCR Not Applicable 03/30/20 08:05 Ref Test Perform Site [place] [facility] 03/30/20 08:05
[2020-04-04] MEDS: POTASSIUM CHLORIDE 10 MEQ/100 ML BAG 200 MEQ IVPB ×4 (09:30→11:40)
[2020-04-04] MEDS: levoFLOXacin 750 MG/150 ML BAG 100 MG IVPB (10:05)
--- NOTE | 2020-04-04 15:41 | PDOC.CMPRO ---
- If Service Date Differs Date of service: 04/04/20 Time of Service: 15:58 Care Management Progress Note S/O: Drew was lying in bed when CM met with him. He stated that he still is in pain, but per MD, he is making progress in the right direction. He stated that he felt so much better after having a shower and shave. He also stated that he has been in regular contact with his . CM will continue to follow. A: Rajat is a 64 year old male admitted on 03/26/20 for Pancreatitis. P: Anticipate Rajat will return home with no anticipated services once medically cleared. His will drive him home via private vehicle when ready. He will follow up with his PCP and discharge plan of care. CM will continue to support Drew and his discharge planning needs.
[2020-04-04] MEDS: POTASSIUM CHLORIDE/0.9% NACL 1,000 ML 50 MEQ IV (16:07)
[2020-04-05] VITALS (7 sets, daily range): BP systolic 139–157; BP diastolic 85–93; PULSE 69–93; RESP 17–18; TEMP 35.7–37.3; O2SAT 94–96
[2020-04-05] MEDS: HYDROmorphone 2 MG/ML VIAL 1 MG IVP ×4 (02:18→21:57)
[2020-04-05] MEDS: Normal Saline Flush 10 ML SYR IVP ×3 (02:19→15:15)
[2020-04-05] MEDS: metroNIDAZOLE 500 MG/100 ML BAG 100 MG IVPB ×4 (04:59→21:57)
[2020-04-05] MEDS: Acetaminophen 325 MG TAB 650 MG PO ×2 (05:44→13:31)
[2020-04-05 06:40] LABS: HCT 32.8 % (40.0-50.0); HGB 11.1 g/dL (13.5-17.5); Mean Corp. HGB Concentration 33.8 g/dL (32.0-36.0); Mean Corpuscular Hemoglobin 30.2 pg (27.0-33.0); Mean Corpuscular Volume 89.4 fL (80-95); Mean Platelet Volume 9.1 fL (8.0-11.0); Platelet Count 330 x1000/uL (130-400); RBC 3.67 m/cumm (4.50-6.00); White Blood Cell Count 16.61 k/cumm (4.4-10.8)
[2020-04-05 06:53] LABS: Anion Gap 7.8 mmol/L (3-11); BUN 9 mg/dL (7-18); CO2 28.2 mmol/L (21.0-32.0); CREATININE 0.92 mg/dL (0.70-1.30); Chloride 99 mmol/L (98-107); Glucose 224 mg/dL (74-106); Magnesium 1.7 mg/dL (1.8-2.4); PHOSPHORUS 2.7 mg/dL (2.6-4.7); Potassium 3.1 mmol/L (3.5-5.1); Sodium 135 mmol/L (136-145)
[2020-04-05] MEDS: Potassium Chloride 20 MEQ TABCR PO ×3 (07:47→18:01)
[2020-04-05] MEDS: Sucralfate 1 GM TAB PO ×4 (07:48→21:57)
[2020-04-05] MEDS: Metoprolol 50 MG TAB PO ×2 (08:43→20:42)
[2020-04-05] MEDS: amLODIPine 10 MG TAB PO (08:43)
[2020-04-05] MEDS: Enoxaparin 40 MG/0.4 ML SYR SC (08:44)
[2020-04-05] MEDS: Pantoprazole 40 MG VIAL IVP ×2 (08:45→20:43)
[2020-04-05] MEDS: Normal Saline Flush 10 ML SYR 20 ML IVP ×2 (08:48→20:43)
[2020-04-05] MEDS: Magnesium Oxide 400 MG TAB PO (09:36)
[2020-04-05] MEDS: Potassium Chloride 20 MEQ TABCR 40 MEQ PO ×2 (09:36→13:31)
[2020-04-05] MEDS: levoFLOXacin 750 MG/150 ML BAG 100 MG IVPB (10:57)
[2020-04-05] MEDS: Ondansetron 4 MG/2 ML VIAL IVP (12:09)
--- NOTE | 2020-04-05 12:09 | W.PM.PROGNOT ---
Date of Service Date of service: 04/05/20 Time of Service: 12:10 Assessment and Plan Assessment and plan (1) Acute recurrent pancreatitis: Start date: 04/05/20 Start time: 12:16 Status: Acute Assessment and plan: slowly improving sx. Not tolerating po well, small amounts. sleeping alot, depressed mood, which is likely contributing to lack of appetite. Lack of motivation to move and pain will only make recovery longer. Will add cymbalta for depression. TPN per surgery Continue to intake PO even if small amounts. continue to encourage ambulation . (2) Elevated d-dimer: Start date: 04/05/20 Start time: 12:18 Status: Ruled-out Assessment and plan: unclear significance CTA negative for PE. no further evaluation (3) Hypokalemia: Start date: 04/05/20 Start time: 12:18 Status: Acute Assessment and plan: continue to replete and follow (4) Fluid overload: Start date: 04/05/20 Start time: 12:18 Status: Resolved Assessment and plan: Uvolemic (5) PAF (paroxysmal atrial fibrillation): Start date: 04/05/20 Start time: 12:19 Status: Chronic Assessment and plan: No further events he has not required any additional doses of IV metoprolol for bp in 2 days, mag has not been below 1.7 at this time D/C teley. (6) Ileus, unspecified: Start date: 04/05/20 Start time: 12:23 Status: Resolved Assessment and plan: TPN per surgery, meds with sips, encourage PO intake and ambulation (7) HTN (hypertension): Start date: 04/05/20 Start time: 12:23 Status: Chronic Assessment and plan: Elevated but improved. Not requiring additional doses IV lopressor, Amlodipine increased to 10 mg daily. continue to monitor and adjust (8) DVT prophylaxis: Status: Acute Assessment and plan: TEDS and SCD, lovenox initiated by surgery. patient has been encouraged to ambulate above case discussed with Dr. Coleman who is in agreement. Subjective Subjective Patient reports: still having pain, vomiting and other Interval history since last seen: sitting up in chair when evaluating patient. TPN started by surgery. Patient is awake and tearful he is feeling depressed missing his family. He states he has no appetite and just does not want to eat. States he is having pain, takes the pain medicine and falls asleep and therefore does not get up. It sounds as though he may becoming FTT. Will start low dose cymbalta for depression. There is a 6% chance this could cause anorexia per UTD, however with his severe depression this is likely the cause he is not eating and if his mood improved his appetite may improve. He is also vomiting at times. Will treat with IVP medication. He denies CP, SOB. Exam Const General: cooperative, comfortable, no acute distress and ill appearing (older than stated age, with flush face) acutely Nutritional Appearance: average body habitus Orientation: alert, awake and oriented x3 HENMT Head: normal to inspection, normocephalic and atraumatic Mouth: oral mucosae normal Eyes Alignment and Position: alignment normal Cornea: corneas normal Pupils: pinpoint Neck Neck: normal visual inspection, full ROM and no JVD Carotids: normal carotid upstroke Lymphatic: no lymphadenopathy noted and no lymphedema noted Chest Chest: normal inspection of the chest Resp Effort & Inspection: normal respiratory effort Auscultation: clear to auscultation bilaterally Cardio Jugular venous pressure: no JVD Rate: regular rate Rhythm: regular rhythm Heart Sounds: S1 normal and S2 normal GI Inspection: distended Palpation: soft Auscultation: hypoactive bowel sounds General: other (concentrated urine) Skin General skin exam: no rashes or lesions noted Wounds: no wounds Neuro General: patient alert, patient awake and patient oriented x3 Cognition: normal cognition Speech: speech normal Extrem General: normal to inspection, full ROM and no clubbing, cyanosis or edema Objective Objective Clinical Data: Abnormal lab results 04/04/20 04/05/20 04/05/20 Range/Units 16:00 06:30 06:30 WBC 16.61 H (4.4-10.8) k/cumm RBC 3.67 L (4.50-6.00) m/cumm Hgb 11.1 L (13.5-17.5) g/dL Hct 32.8 L (40.0-50.0) % Sodium 135 L (136-145) mmol/L Potassium 3.1 L (3.5-5.1) mmol/L Glucose 224 H (74-106) mg/dL Calcium 8.0 L (8.5-10.1) mg/dL Magnesium 1.7 L (1.8-2.4) mg/dL Vancomycin Trough 21.1 H* (10.0-20.0) ug/mL Vital Signs Temperature 37.1 C 04/05/20 11:29 Temperature Source Temporal Artery Scan 04/05/20 11:29 Pulse 89 04/05/20 11:29 Pulse Rhythm Regular 04/05/20 04:38 Pulse 48 L 03/26/20 20:10 Respiratory Rate 17 04/05/20 11:29 Respiratory Effort Non-Labored 04/05/20 04:38 Respiratory Depth Normal 04/05/20 04:38 Respiratory Pattern Normal 04/05/20 04:38 Blood Pressure 147/85 H 04/05/20 11:29 Blood Pressure Mean 117 03/26/20 20:01 Blood Pressure Position Sitting 03/26/20 13:41 Pulse Oximetry 96 04/05/20 11:29 Oxygen Delivery Method Room Air 04/05/20 11:29 Oxygen Flow Rate 0 04/05/20 11:29 Pain Level 0 04/05/20 11:29 Comment 04/01/20 22:59 Intake & Output 04/04/20 04/05/20 04/05/20 23:59 11:59 23:59 Intake Total 1891.333 / 3421.333 1621 / 1621 Output Total 1999 / 3024 3300 / 3300 Balance -108.667 / 396.333 -1679 / -1679 Intake: IV 1771.333 / 2821.333 1381 / 1381 Oral 120 / 600 240 / 240 Output: Urine 1999 / 2550 3300 / 3300 Other: Urine Color Yellow Dark Lindsay Urine Appearance Clear Clear Urine Odor None Normal Comment mixed with diarrhea - Stool Occult Blood Negative Stool Size Moderate Small Stool Characteristics Liquid Soft Brown Brown Voiding Methods Bedside Commode Bedside Commode Laboratory Results WBC 16.61 k/cumm (4.4-10.8) H 04/05/20 06:30 RBC 3.67 m/cumm (4.50-6.00) L 04/05/20 06:30 Hgb 11.1 g/dL (13.5-17.5) L 04/05/20 06:30 Hct 32.8 % (40.0-50.0) L 04/05/20 06:30 MCV 89.4 fL (80-95) 04/05/20 06:30 MCH 30.2 pg (27.0-33.0) 04/05/20 06:30 MCHC 33.8 g/dL (32.0-36.0) 04/05/20 06:30 RDW 14.0 % (11.8-14.1) 04/05/20 06:30 Plt Count 330 x1000/uL (130-400) 04/05/20 06:30 MPV 9.1 fL (8.0-11.0) 04/05/20 06:30 Immature Gran % 1.7 % 04/04/20 06:25 Neutrophils % 85.5 04/04/20 06:25 Lymphocytes % 5.5 04/04/20 06:25 Monocytes % 5.9 04/04/20 06:25 Eosinophils % 1.3 04/04/20 06:25 Basophils % 0.1 04/04/20 06:25 Absolute Neutrophils 14.28 k/cumm (1.2-6.7) H 04/04/20 06:25 Absolute Lymphocytes 0.92 k/cumm (1.2-3.4) L 04/04/20 06:25 Absolute Monocytes 0.99 k/cumm (0.11-0.7) H 04/04/20 06:25 Absolute Eosinophils 0.22 k/cumm (0.0-0.7) 04/04/20 06:25 Absolute Basophils 0.02 k/cumm (0.0-0.2) 04/04/20 06:25 D-Dimer > 7500 ng/mlFEU (<500) H 03/31/20 08:03 ABG Sample Site Left radial 04/02/20 14:49 ABG pH 7.49 (7.35-7.45) H 04/02/20 14:49 ABG pCO2 39 mmHg (34-47) 04/02/20 14:49 ABG pO2 67 mmHg (83-108) L 04/02/20 14:49 ABG HCO3 29 mmol/L (22-28) H 04/02/20 14:49 ABG Total CO2 26 mmol/L (22-29) 04/02/20 14:49 ABG O2 Saturation 94 % (94-98) 04/02/20 14:49 ABG Base Excess 5.8 mmol/L (-3-3) H 04/02/20 14:49 FiO2 21 % 04/02/20 14:49 Sodium 135 mmol/L (136-145) L 04/05/20 06:30 Potassium 3.1 mmol/L (3.5-5.1) L 04/05/20 06:30 Chloride 99 mmol/L (98-107) 04/05/20 06:30 Carbon Dioxide 28.2 mmol/L (21.0-32.0) 04/05/20 06:30 Anion Gap 7.8 mmol/L (3-11) 04/05/20 06:30 BUN 9 mg/dL (7-18) 04/05/20 06:30 Creatinine 0.92 mg/dL (0.70-1.30) 04/05/20 06:30 Estimated GFR/1.73 m2 >= 60.00 (mL/min/1.73m2) 04/05/20 06:30 Glucose 224 mg/dL (74-106) H 04/05/20 06:30 Hemoglobin A1c 5.3 % (3.8-5.6) 03/27/20 07:15 Lactate 0.7 mmol/L (0.6-1.4) 04/02/20 13:25 Calcium 8.0 mg/dL (8.5-10.1) L 04/05/20 06:30 Phosphorus 2.7 mg/dL (2.6-4.7) 04/05/20 06:30 Magnesium 1.7 mg/dL (1.8-2.4) L 04/05/20 06:30 Iron 19 ug/dL (65-175) L 03/30/20 06:45 TIBC 127 ug/dL (250-450) L 03/30/20 06:45 Transferrin % Sat 15 % (20-55) L 03/30/20 06:45 Total Bilirubin 0.6 mg/dL (0.2-1.0) 04/04/20 06:25 Conjugated Bilirubin 0.35 mg/dL (0.00-0.20) H 03/30/20 06:45 AST 51 U/L (15-37) H 04/04/20 06:25 ALT 42 U/L (16-63) 04/04/20 06:25 Alkaline Phosphatase 100 U/L (46-116) 04/04/20 06:25 Lactate Dehydrogenase 205 U/L (85-227) 03/26/20 17:10 Troponin I < 0.05 ng/mL (<0.06) 03/29/20 08:42 C-Reactive Protein > 25.00 mg/dL (0.0-0.3) H 04/02/20 06:15 NT-Pro-B Natriuret Pep 328 pg/mL (<300) H 03/30/20 06:45 Total Protein 5.6 g/dL (6.4-8.2) L 04/04/20 06:25 Albumin 2.0 g/dL (3.4-5.0) L 04/04/20 06:25 Triglycerides 199 mg/dL (<150) H 03/27/20 07:15 LDL Cholesterol Direct 111 mg/dL (<100) H 03/26/20 13:50 Lipase 263 U/L (73-393) 03/30/20 06:45 TSH 0.33 uIU/mL (0.36-3.74) L 03/29/20 08:42 Free T4 1.09 ng/dL (0.76-1.46) 03/29/20 08:42 Urine Color Yellow (Yellow) 04/03/20 07:25 Urine Clarity Clear (Clear) 04/03/20 07:25 Urine pH 6.0 (5-8) 04/03/20 07:25 Ur Specific [place] 1.020 (1.005-1.025) 04/03/20 07:25 Urine Protein Negative mg/dL (Negative) 04/03/20 07:25 Urine Ketones 15 mg/dL (Negative) H 04/03/20 07:25 Urine Blood Trace-intact (Negative) H 04/03/20 07:25 Urine Nitrite Negative (Negative) 04/03/20 07:25 Urine Bilirubin Negative (Negative) 04/03/20 07:25 Urine Urobilinogen 1.0 EU/dL (Up TO 0.2) H 04/03/20 07:25 Ur Leukocyte Esterase Negative (Negative) 04/03/20 07:25 Urine RBC 0-2 HPF (0-2) 04/03/20 07:25 Urine WBC 0-2 HPF (0-5) 04/03/20 07:25 Ur Epithelial Cells Rare HPF (Negative) 04/03/20 07:25 Urine Crystals Not Applicable 04/03/20 07:25 Urine Bacteria Not Applicable 04/03/20 07:25 Urine Mucus Not Applicable 04/03/20 07:25 Ur Culture Indicated? No 04/03/20 07:25 Urine Glucose Negative mg/dL (Negative) 04/03/20 07:25 Vancomycin Trough 21.1 ug/mL (10.0-20.0) H* 04/04/20 16:00 Ethyl Alcohol < 3.0 mg/dL (<3) 03/26/20 13:25 COVID-19 PCR Negative (Negative) 03/30/20 08:05 Nasopharyn COVID-19 PCR Not Applicable 03/30/20 08:05 Ref Test Perform [facility] 03/30/20 08:05
[2020-04-05] MEDS: DULoxetine 20 MG CAP PO (12:28)
--- NOTE | 2020-04-05 13:30 | W.NUTCONSULT ---
Date of service: 04/05/20 Time of Service: 13:30 Nutritional Consult ASSESSMENT: Met with Drew again today and he continues to reports no appetite, unwilling to push his intake due to stomach pain. Recommend initiate TPN to support nutrient needs. Estimated Needs: [id number] kcal, 70-80 g protein, 2010 free fluid. Has been refusing to ambulate as recommended. Meds include MVI, thiamin, folic acid, lasix. Lipase wnl (03/30/20) NUTRITIONAL DIAGNOSIS: Moderate Malnutrition due to inadequate intake > 7 days due to acute pancreatitis INTERVENTION: TPN: Dextrose 10%, Amino Acids 4.25% in 2000 ml infuse Goal rate @80 cc/hr. Lipids 20% 250 ml/day run @ 31cc/hour provides total of 1520 kcal, 84 g protein, 55 g fat. S Continue oral intake- switch to LOW FAT diet for increased toleranace MONITORING AND EVALUATION: Pharmacy to monitor labs and adjust TPN per needs will follow and encourage po intake and make recommendations to taper TPN as po intake increases. Will start calorie count today. Time Spent in Nutritional Counseling and Treatment: 10 min
--- NOTE | 2020-04-05 16:49 | PDOC.CMPRO ---
- If Service Date Differs Date of service: 04/05/20 Time of Service: 16:49 Care Management Progress Note S/O: Drew was sitting up in his chair when CM met with him. He reported that he had just been vomiting. He stated that he misses his family, especially his grandchildren. He stated that he was tearful while reading a message that his 14 year old grandson wrote to him. He reported that he didn't expect his course to be so long here, but he is very happy with the care he is receiving. CM will continue to follow. A: Rajat is a 64 year old male admitted on 03/26/20 for Pancreatitis. P: Anticipate Rajat will return home with no anticipated services once medically cleared. His will drive him home via private vehicle when ready. He will follow up with his PCP and discharge plan of care. CM will continue to support Drew and his discharge planning needs.
[2020-04-05 18:56] LABS: Vancomycin, Trough 25.2 ug/mL (10.0-20.0)
--- NOTE | 2020-04-05 19:15 | W.PM.PROGNOT ---
Date of Service Date of service: 04/05/20 Time of Service: 19:15 Assessment and Plan Assessment and plan (1) Ileus, unspecified: Status: Resolved (2) Acute recurrent pancreatitis: Status: Acute Assessment and plan: -Because of the change in the patient's health status and his mild white count will order a CT for in the morning to look for abscesses or pseudocyst formation. I do not believe he has had any major abdominal surgery before. Most likely the ileus is physiologic and not mechanical in nature. He is getting plenty of IV fluid and taking minimal and orally. We will hold his p.o. intake for now he has Zofran for nausea. If it becomes severe during the night he may require NG tube placement. He is on PPI prophylaxis as well as Carafate. We may need to hold the Carafate as well -We will check chest x-ray in the morning in the morning for pneumonia. He is on Levaquin Flagyl and Vanco. He did have a sputum culture which was mostly normal juanito. But there was some staph/gram-positive cocci as well. He is on Vanco for this. -He also has been having pretty liquid stools and has been on antibiotics I am in a send stool for C. difficile as well. Preliminary recommendations following results CT scan tomorrow (3) HTN (hypertension): Status: Chronic (4) Anemia of chronic disease: Status: Acute Assessment and plan: He is on a PPI. We will start him on Bentyl for. (5) Protein-calorie malnutrition, mild: Status: Acute Assessment and plan: Continue TPN Electrolytes adjusted Continue following sliding scale insulin (6) Gallbladder sludge: Status: Acute Assessment and plan: -Unknown if this is the cause of the pancreatitis, or from pancreatitis/PND. Patient not clinically stable to undergo lap moy at this time. If his gallbladder persistently becomes infected then they should do a percutaneous drain and treat with antibiotics. Subjective Subjective Interval history since last seen: Pt was actively vomting while I was in the room. He did eat more today- but has vomted it all up this evening. He is passing gas and passing liquid stool. Nursing notes that his abdomen is much more distended this afternoon. They do not appreciate any bowel sounds. Patient has been requiring more pain medication. He says he has been coughing up green sputum as well. no leg pain or swelling. no pain or birning w/ urination no breakdown per RN's. Pt is on TPN/lovnox/vanco/levaquin/flagyl cxr and repeat CT abdom in am. Exam Resp Effort & Inspection: normal respiratory effort and able to speak in complete sentences Auscultation: clear to auscultation bilaterally GI Other: more distended and firm today. signif less edema than last week. no acitve BS present tonight Extrem General: normal to inspection, capillary refill normal and no clubbing, cyanosis or edema Other: PICC site c/d/i Objective Objective Clinical Data: Abnormal lab results 04/05/20 04/05/20 04/05/20 Range/Units 06:30 06:30 17:30 WBC 16.61 H (4.4-10.8) k/cumm RBC 3.67 L (4.50-6.00) m/cumm Hgb 11.1 L (13.5-17.5) g/dL Hct 32.8 L (40.0-50.0) % Sodium 135 L (136-145) mmol/L Potassium 3.1 L (3.5-5.1) mmol/L Glucose 224 H (74-106) mg/dL Calcium 8.0 L (8.5-10.1) mg/dL Magnesium 1.7 L (1.8-2.4) mg/dL Vancomycin Trough 25.2 H* (10.0-20.0) ug/mL Vital Signs Temperature 37.1 C 04/05/20 11:29 Temperature Source Temporal Artery Scan 04/05/20 11:29 Pulse 93 H 04/05/20 12:34 Pulse Rhythm Regular 04/05/20 15:40 Pulse 48 L 03/26/20 20:10 Respiratory Rate 17 04/05/20 11:29 Respiratory Effort Non-Labored 04/05/20 15:40 Respiratory Depth Normal 04/05/20 15:40 Respiratory Pattern Normal 04/05/20 15:40 Blood Pressure 147/85 H 04/05/20 11:29 Blood Pressure Mean 117 03/26/20 20:01 Blood Pressure Position Sitting 03/26/20 13:41 Pulse Oximetry 96 04/05/20 11:29 Oxygen Delivery Method Room Air 04/05/20 11:29 Oxygen Flow Rate 0 04/05/20 11:29 Pain Level 4 04/05/20 15:14 Comment 04/01/20 22:59 Intake & Output 04/04/20 04/05/20 04/05/20 23:59 11:59 23:59 Intake Total 1891.333 / 3421.333 1721 / 2211 490 / 2211 Output Total 1999 / 3025 3300 / 4500 1200 / 4500 Balance -108.667 / 396.333 -1579 / -2289 -710 / -2289 Intake: IV 1771.333 / 2821.333 1481 / 1731 250 / 1731 Oral 120 / 600 240 / 480 240 / 480 Output: Urine 1999 / 2550 3300 / 4500 1200 / 4500 Other: Urine Color Yellow Dark Lindsay Yellow Urine Appearance Clear Clear Clear Urine Odor None Normal Normal Comment mixed with diarrhea - mixed with stool. Stool Occult Blood Negative Stool Size Moderate Small Small Stool Characteristics Liquid Soft Soft Brown Brown Brown Voiding Methods Bedside Commode Bedside Commode Bedside Commode Laboratory Results WBC 16.61 k/cumm (4.4-10.8) H 04/05/20 06:30 RBC 3.67 m/cumm (4.50-6.00) L 04/05/20 06:30 Hgb 11.1 g/dL (13.5-17.5) L 04/05/20 06:30 Hct 32.8 % (40.0-50.0) L 04/05/20 06:30 MCV 89.4 fL (80-95) 04/05/20 06:30 MCH 30.2 pg (27.0-33.0) 04/05/20 06:30 MCHC 33.8 g/dL (32.0-36.0) 04/05/20 06:30 RDW 14.0 % (11.8-14.1) 04/05/20 06:30 Plt Count 330 x1000/uL (130-400) 04/05/20 06:30 MPV 9.1 fL (8.0-11.0) 04/05/20 06:30 Immature Gran % 1.7 % 04/04/20 06:25 Neutrophils % 85.5 04/04/20 06:25 Lymphocytes % 5.5 04/04/20 06:25 Monocytes % 5.9 04/04/20 06:25 Eosinophils % 1.3 04/04/20 06:25 Basophils % 0.1 04/04/20 06:25 Absolute Neutrophils 14.28 k/cumm (1.2-6.7) H 04/04/20 06:25 Absolute Lymphocytes 0.92 k/cumm (1.2-3.4) L 04/04/20 06:25 Absolute Monocytes 0.99 k/cumm (0.11-0.7) H 04/04/20 06:25 Absolute Eosinophils 0.22 k/cumm (0.0-0.7) 04/04/20 06:25 Absolute Basophils 0.02 k/cumm (0.0-0.2) 04/04/20 06:25 D-Dimer > 7500 ng/mlFEU (<500) H 03/31/20 08:03 ABG Sample Site Left radial 04/02/20 14:49 ABG pH 7.49 (7.35-7.45) H 04/02/20 14:49 ABG pCO2 39 mmHg (34-47) 04/02/20 14:49 ABG pO2 67 mmHg (83-108) L 04/02/20 14:49 ABG HCO3 29 mmol/L (22-28) H 04/02/20 14:49 ABG Total CO2 26 mmol/L (22-29) 04/02/20 14:49 ABG O2 Saturation 94 % (94-98) 04/02/20 14:49 ABG Base Excess 5.8 mmol/L (-3-3) H 04/02/20 14:49 FiO2 21 % 04/02/20 14:49 Sodium 135 mmol/L (136-145) L 04/05/20 06:30 Potassium 3.1 mmol/L (3.5-5.1) L 04/05/20 06:30 Chloride 99 mmol/L (98-107) 04/05/20 06:30 Carbon Dioxide 28.2 mmol/L (21.0-32.0) 04/05/20 06:30 Anion Gap 7.8 mmol/L (3-11) 04/05/20 06:30 BUN 9 mg/dL (7-18) 04/05/20 06:30 Creatinine 0.92 mg/dL (0.70-1.30) 04/05/20 06:30 Estimated GFR/1.73 m2 >= 60.00 (mL/min/1.73m2) 04/05/20 06:30 Glucose 224 mg/dL (74-106) H 04/05/20 06:30 Hemoglobin A1c 5.3 % (3.8-5.6) 03/27/20 07:15 Lactate 0.7 mmol/L (0.6-1.4) 04/02/20 13:25 Calcium 8.0 mg/dL (8.5-10.1) L 04/05/20 06:30 Phosphorus 2.7 mg/dL (2.6-4.7) 04/05/20 06:30 Magnesium 1.7 mg/dL (1.8-2.4) L 04/05/20 06:30 Iron 19 ug/dL (65-175) L 03/30/20 06:45 TIBC 127 ug/dL (250-450) L 03/30/20 06:45 Transferrin % Sat 15 % (20-55) L 03/30/20 06:45 Total Bilirubin 0.6 mg/dL (0.2-1.0) 04/04/20 06:25 Conjugated Bilirubin 0.35 mg/dL (0.00-0.20) H 03/30/20 06:45 AST 51 U/L (15-37) H 04/04/20 06:25 ALT 42 U/L (16-63) 04/04/20 06:25 Alkaline Phosphatase 100 U/L (46-116) 04/04/20 06:25 Lactate Dehydrogenase 205 U/L (85-227) 03/26/20 17:10 Troponin I < 0.05 ng/mL (<0.06) 03/29/20 08:42 C-Reactive Protein > 25.00 mg/dL (0.0-0.3) H 04/02/20 06:15 NT-Pro-B Natriuret Pep 328 pg/mL (<300) H 03/30/20 06:45 Total Protein 5.6 g/dL (6.4-8.2) L 04/04/20 06:25 Albumin 2.0 g/dL (3.4-5.0) L 04/04/20 06:25 Triglycerides 199 mg/dL (<150) H 03/27/20 07:15 LDL Cholesterol Direct 111 mg/dL (<100) H 03/26/20 13:50 Lipase 263 U/L (73-393) 03/30/20 06:45 TSH 0.33 uIU/mL (0.36-3.74) L 03/29/20 08:42 Free T4 1.09 ng/dL (0.76-1.46) 03/29/20 08:42 Urine Color Yellow (Yellow) 04/03/20 07:25 Urine Clarity Clear (Clear) 04/03/20 07:25 Urine pH 6.0 (5-8) 04/03/20 07:25 Ur Specific [place] 1.020 (1.005-1.025) 04/03/20 07:25 Urine Protein Negative mg/dL (Negative) 04/03/20 07:25 Urine Ketones 15 mg/dL (Negative) H 04/03/20 07:25 Urine Blood Trace-intact (Negative) H 04/03/20 07:25 Urine Nitrite Negative (Negative) 04/03/20 07:25 Urine Bilirubin Negative (Negative) 04/03/20 07:25 Urine Urobilinogen 1.0 EU/dL (Up TO 0.2) H 04/03/20 07:25 Ur Leukocyte Esterase Negative (Negative) 04/03/20 07:25 Urine RBC 0-2 HPF (0-2) 04/03/20 07:25 Urine WBC 0-2 HPF (0-5) 04/03/20 07:25 Ur Epithelial Cells Rare HPF (Negative) 04/03/20 07:25 Urine Crystals Not Applicable 04/03/20 07:25 Urine Bacteria Not Applicable 04/03/20 07:25 Urine Mucus Not Applicable 04/03/20 07:25 Ur Culture Indicated? No 04/03/20 07:25 Urine Glucose Negative mg/dL (Negative) 04/03/20 07:25 Vancomycin Trough 25.2 ug/mL (10.0-20.0) H* 04/05/20 17:30 Ethyl Alcohol < 3.0 mg/dL (<3) 03/26/20 13:25 COVID-19 PCR Negative (Negative) 03/30/20 08:05 Nasopharyn COVID-19 PCR Not Applicable 03/30/20 08:05 Ref Test Perform Site [facility] lab 03/30/20 08:05
[2020-04-05] MEDS: Docusate Sodium 100 MG CAP PO (20:42)
--- NOTE | 2020-04-06 | DI.CT_ITS ---
EXAM: CT ABDOMEN PELVIS W CLINICAL HISTORY: pancreatitis/elevated WBC/new onset ileus TECHNIQUE: COMPARISON: CT CT ABDOMEN PELVIS W from 03/30/[address] CHEST PE CTA from 04/01/2020 FINDINGS: CT examination of the abdomen and pelvis was performed with intravenous infusion of 100 cc of Omnipaq ue 350. Examination is compared with recent scan of March 30. Note is again made findings of severe acute pancreatitis. There appear to be areas of pancreatic nec rosis and there are peripancreatic poorly defined areas of fluid attenuation which are slightly more prominent than on the previous examination. No gross pseudocyst or abscess identified at this time. Thickening of a snow of adjacent stomach, duodenum, and transverse colon noted consistent with infl ammation. Right pleural effusion and basilar atelectasis noted, less prominent than on prior study, previously noted left pleural effusion has resolved. Trace fluid identified in the pelvis and [place] gutters, no gross interval change from prior study. No evidence of bowel obstruction. Unremarkable appearance of liver, spleen, adrenals, and kidneys. IMPRESSION: Interval development of increasing areas of peripancreatic fluid attenuation in a patient with severe acute pancreatitis. No gross pseudocyst identified at this time. Decreasing pleural effusions since the prior study.
[2020-04-06] MEDS: HYDROmorphone 2 MG/ML VIAL 1 MG IVP ×5 (02:28→22:37)
[2020-04-06] MEDS: metroNIDAZOLE 500 MG/100 ML BAG 100 MG IVPB ×4 (04:16→21:20)
[2020-04-06 05:50] VITALS: BP 151/93; PULSE 73; RESP 18; TEMP 36.3; O2SAT 95
[2020-04-06 07:25] VITALS: BP 151/95; PULSE 74; RESP 18; TEMP 35.6; O2SAT 95
[2020-04-06] MEDS: Potassium Chloride 20 MEQ TABCR PO ×3 (07:42→17:34)
[2020-04-06] MEDS: Sucralfate 1 GM TAB PO ×4 (07:42→21:20)
[2020-04-06] MEDS: Omnipaque 350 MG/ML 100 ML BTL IJ (09:05)
[2020-04-06 09:09] LABS: INR 1.2 (0.9-1.1); Prothrombin Time 11.9 sec (9.3-11.0)
--- NOTE | 2020-04-06 09:20 | DI.RAD_ITS ---
EXAM: XR CHEST 2V PA LATERAL CLINICAL HISTORY: elevated WBC/greensputum TECHNIQUE: COMPARISON: CR XR PORTABLE CHEST AP from 03/29/2020 FINDINGS: Heart is not enlarged. There are minimal areas of atelectasis in the lung bases, there has been sign ificant interval improvement since previous examination of March 29. A PICC line is noted with its t ip in the superior vena cava just above the right atrium. No significant pleural effusion seen radio graphically, although CT obtained earlier today did show a small right pleural effusion. IMPRESSION: Interval clearing of the lung bases since prior study.
[2020-04-06] MEDS: DULoxetine 20 MG CAP PO (09:28)
[2020-04-06] MEDS: Enoxaparin 40 MG/0.4 ML SYR SC (09:28)
[2020-04-06] MEDS: Metoprolol 50 MG TAB PO ×2 (09:29→20:12)
[2020-04-06] MEDS: Normal Saline Flush 10 ML SYR 20 ML IVP ×2 (09:30→20:17)
[2020-04-06] MEDS: amLODIPine 10 MG TAB PO (09:30)
--- NOTE | 2020-04-06 09:30 | PDOC.CMPRO ---
- If Service Date Differs Date of service: 04/06/20 Time of Service: 09:30 Care Management Progress Note S/O: Drew was sitting up in bed when CM met with him. He admitted to having pain at that time and was waiting for medication. Drew shared a video of his 2 year old grandaughter saying I love you and blowing him kisses. He stated that he really misses her and his 15 year old grandson, with whom he is very close. Drew had had his diet advanced a couple of days ago but was unable to tolerate it, so is again NPO. CM to follow. A: Rajat is a 64 year old male admitted on 03/26/20 for Pancreatitis. P: Anticipate Rajat will return home with no anticipated services once medically cleared. His will drive him home via private vehicle when ready. He will follow up with his PCP and discharge plan of care. CM will continue to support Drew and his discharge planning needs.
[2020-04-06] MEDS: Pantoprazole 40 MG VIAL IVP ×2 (09:31→20:12)
[2020-04-06] MEDS: Insulin Aspart 300 UNITS/3 ML PEN SC ×3 (09:32→20:12)
--- NOTE | 2020-04-06 10:16 | W.PM.PROGNOT ---
Date of Service Date of service: 04/06/20 Time of Service: 16:00 Assessment and Plan Assessment and plan (1) Gallbladder sludge: Status: Acute (2) Protein-calorie malnutrition, mild: Status: Acute (3) Anemia of chronic disease: Status: Acute (4) HTN (hypertension): Status: Chronic (5) Acute recurrent pancreatitis: Status: Acute Assessment and plan: CT shows no abscesses.no ileues try cl liq supportive care hopefully soon transition to more po's to facilitate d/c. Subjective Subjective Interval history since last seen: pt feeling better today. no headaches. No CP or SOB. no productive cough. no dysuria. no leg pain or swelling. no n/v today. had a small bm. reviewed results of CT and labs- appear to be doing well. Exam HENMT Other: no thrush no dental abscesses. Chest Chest: normal inspection of the chest Resp Effort & Inspection: normal respiratory effort and able to speak in complete sentences Auscultation: clear to auscultation bilaterally Cardio Rate: regular rate Rhythm: regular rhythm GI Palpation: soft Auscultation: normal bowel sounds Other: less distention Extrem General: no clubbing, cyanosis or edema Objective Objective Clinical Data: Abnormal lab results 04/05/20 04/06/20 04/06/20 Range/Units 17:30 07:00 08:40 WBC 13.72 H (4.4-10.8) k/cumm RBC 3.51 L (4.50-6.00) m/cumm Hgb 10.6 L (13.5-17.5) g/dL Hct 33.0 L (40.0-50.0) % PT 11.9 H (9.3-11.0) sec INR 1.2 H (0.9-1.1) Vancomycin Trough 25.2 H* (10.0-20.0) ug/mL Vital Signs Temperature 35.6 C L 04/06/20 07:25 Temperature Source Tympanic 04/06/20 07:25 Pulse 74 04/06/20 07:25 Pulse Rhythm Regular 04/06/20 03:21 Pulse 48 L 03/26/20 20:10 Respiratory Rate 18 04/06/20 07:25 Respiratory Effort Non-Labored 04/06/20 03:21 Respiratory Depth Normal 04/06/20 03:21 Respiratory Pattern Normal 04/06/20 03:21 Blood Pressure 151/95 H 04/06/20 07:25 Blood Pressure Mean 117 03/26/20 20:01 Blood Pressure Position Sitting 03/26/20 13:41 Pulse Oximetry 95 04/06/20 07:25 Oxygen Delivery Method Room Air 04/06/20 07:25 Oxygen Flow Rate 0 04/06/20 07:25 Pain Level 0 04/06/20 07:25 Comment 04/01/20 22:59 Intake & Output 04/05/20 04/05/20 04/06/20 11:59 23:59 11:59 Intake Total 1721 / 4451 2730 / 4451 1051 / 1051 Output Total 3300 / 5220 1920 / 5220 2140 / 2140 Balance -1579 / -769 810 / -769 -1089 / -1089 Intake: IV 1481 / 3971 2490 / 3971 1051 / 1051 Oral 240 / 480 240 / 480 Output: Urine 3300 / 4820 1520 / 4820 2140 / 2140 Stool 400 / 400 Other: Urine Color Dark [place] Yellow Yellow Urine Appearance Clear Clear Clear Urine Odor Normal Normal Normal Comment mixed with stool. Stool Occult Blood Negative Positive Negative Stool Size Small Moderate Small Stool Characteristics Soft Liquid Soft Brown Voiding Methods Bedside Commode Urinal Urinal Laboratory Results WBC 13.72 k/cumm (4.4-10.8) H 04/06/20 07:00 RBC 3.51 m/cumm (4.50-6.00) L 04/06/20 07:00 Hgb 10.6 g/dL (13.5-17.5) L 04/06/20 07:00 Hct 33.0 % (40.0-50.0) L 04/06/20 07:00 MCV 94.0 fL (80-95) 04/06/20 07:00 MCH 30.2 pg (27.0-33.0) 04/06/20 07:00 MCHC 32.1 g/dL (32.0-36.0) 04/06/20 07:00 RDW 14.1 % (11.8-14.1) 04/06/20 07:00 Plt Count 318 x1000/uL (130-400) 04/06/20 07:00 MPV 9.5 fL (8.0-11.0) 04/06/20 07:00 Immature Gran % 1.7 % 04/04/20 06:25 Neutrophils % 85.5 04/04/20 06:25 Lymphocytes % 5.5 04/04/20 06:25 Monocytes % 5.9 04/04/20 06:25 Eosinophils % 1.3 04/04/20 06:25 Basophils % 0.1 04/04/20 06:25 Absolute Neutrophils 14.28 k/cumm (1.2-6.7) H 04/04/20 06:25 Absolute Lymphocytes 0.92 k/cumm (1.2-3.4) L 04/04/20 06:25 Absolute Monocytes 0.99 k/cumm (0.11-0.7) H 04/04/20 06:25 Absolute Eosinophils 0.22 k/cumm (0.0-0.7) 04/04/20 06:25 Absolute Basophils 0.02 k/cumm (0.0-0.2) 04/04/20 06:25 PT 11.9 sec (9.3-11.0) H 04/06/20 08:40 INR 1.2 (0.9-1.1) H 04/06/20 08:40 D-Dimer > 7500 ng/mlFEU (<500) H 03/31/20 08:03 ABG Sample Site Left radial 04/02/20 14:49 ABG pH 7.49 (7.35-7.45) H 04/02/20 14:49 ABG pCO2 39 mmHg (34-47) 04/02/20 14:49 ABG pO2 67 mmHg (83-108) L 04/02/20 14:49 ABG HCO3 29 mmol/L (22-28) H 04/02/20 14:49 ABG Total CO2 26 mmol/L (22-29) 04/02/20 14:49 ABG O2 Saturation 94 % (94-98) 04/02/20 14:49 ABG Base Excess 5.8 mmol/L (-3-3) H 04/02/20 14:49 FiO2 21 % 04/02/20 14:49 Sodium Cancelled 04/06/20 07:00 Potassium Cancelled 04/06/20 07:00 Chloride Cancelled 04/06/20 07:00 Carbon Dioxide Cancelled 04/06/20 07:00 Anion Gap Cancelled 04/06/20 07:00 BUN Cancelled 04/06/20 07:00 Creatinine Cancelled 04/06/20 07:00 Estimated GFR/1.73 m2 Cancelled 04/06/20 07:00 Glucose Cancelled 04/06/20 07:00 Hemoglobin A1c 5.3 % (3.8-5.6) 03/27/20 07:15 Lactate 0.7 mmol/L (0.6-1.4) 04/02/20 13:25 Calcium Cancelled 04/06/20 07:00 Phosphorus Cancelled 04/06/20 07:00 Magnesium Cancelled 04/06/20 07:00 Iron 19 ug/dL (65-175) L 03/30/20 06:45 TIBC 127 ug/dL (250-450) L 03/30/20 06:45 Transferrin % Sat 15 % (20-55) L 03/30/20 06:45 Total Bilirubin Cancelled 04/06/20 07:00 Conjugated Bilirubin 0.35 mg/dL (0.00-0.20) H 03/30/20 06:45 AST Cancelled 04/06/20 07:00 ALT Cancelled 04/06/20 07:00 Alkaline Phosphatase Cancelled 04/06/20 07:00 Lactate Dehydrogenase 205 U/L (85-227) 03/26/20 17:10 Troponin I < 0.05 ng/mL (<0.06) 03/29/20 08:42 C-Reactive Protein Cancelled 04/06/20 07:00 NT-Pro-B Natriuret Pep 328 pg/mL (<300) H 03/30/20 06:45 Total Protein Cancelled 04/06/20 07:00 Albumin Cancelled 04/06/20 07:00 Triglycerides 199 mg/dL (<150) H 03/27/20 07:15 LDL Cholesterol Direct 111 mg/dL (<100) H 03/26/20 13:50 Lipase Cancelled 04/06/20 07:00 TSH 0.33 uIU/mL (0.36-3.74) L 03/29/20 08:42 Free T4 1.09 ng/dL (0.76-1.46) 03/29/20 08:42 Urine Color Yellow (Yellow) 04/03/20 07:25 Urine Clarity Clear (Clear) 04/03/20 07:25 Urine pH 6.0 (5-8) 04/03/20 07:25 Ur Specific [place] 1.020 (1.005-1.025) 04/03/20 07:25 Urine Protein Negative mg/dL (Negative) 04/03/20 07:25 Urine Ketones 15 mg/dL (Negative) H 04/03/20 07:25 Urine Blood Trace-intact (Negative) H 04/03/20 07:25 Urine Nitrite Negative (Negative) 04/03/20 07:25 Urine Bilirubin Negative (Negative) 04/03/20 07:25 Urine Urobilinogen 1.0 EU/dL (Up TO 0.2) H 04/03/20 07:25 Ur Leukocyte Esterase Negative (Negative) 04/03/20 07:25 Urine RBC 0-2 HPF (0-2) 04/03/20 07:25 Urine WBC 0-2 HPF (0-5) 04/03/20 07:25 Ur Epithelial Cells Rare HPF (Negative) 04/03/20 07:25 Urine Crystals Not Applicable 04/03/20 07:25 Urine Bacteria Not Applicable 04/03/20 07:25 Urine Mucus Not Applicable 04/03/20 07:25 Ur Culture Indicated? No 04/03/20 07:25 Urine Glucose Negative mg/dL (Negative) 04/03/20 07:25 Vancomycin Trough 25.2 ug/mL (10.0-20.0) H* 04/05/20 17:30 Ethyl Alcohol < 3.0 mg/dL (<3) 03/26/20 13:25 COVID-19 PCR Negative (Negative) 03/30/20 08:05 Nasopharyn COVID-19 PCR Not Applicable 03/30/20 08:05 Ref Test Perform Site [facility] 03/30/20 08:05
[2020-04-06] MEDS: levoFLOXacin 750 MG/150 ML BAG 100 MG IVPB (10:22)
[2020-04-06] MEDS: Normal Saline Flush 10 ML SYR IVP ×4 (10:25→17:35)
[2020-04-06 11:20] VITALS: BP 144/80; PULSE 80; RESP 18; TEMP 36.7; O2SAT 97
[2020-04-06 11:43] LABS: ALT 59 U/L (16-63); AST 64 U/L (15-37); Albumin 2.4 g/dL (3.4-5.0); Alkaline Phosphatase 108 U/L (46-116); Anion Gap 5.4 mmol/L (3-11); BUN 12 mg/dL (7-18); Bilirubin, Total 0.4 mg/dL (0.2-1.0); C-Reactive Protein 12.66 mg/dL (0.0-0.3); CO2 30.6 mmol/L (21.0-32.0); CREATININE 0.86 mg/dL (0.70-1.30); Calcium 8.5 mg/dL (8.5-10.1); Chloride 96 mmol/L (98-107); Glucose 273 mg/dL (74-106); Lipase 332 U/L (73-393); Magnesium 1.9 mg/dL (1.8-2.4); PHOSPHORUS 2.8 mg/dL (2.6-4.7); Potassium 3.9 mmol/L (3.5-5.1); Sodium 132 mmol/L (136-145); Total Protein 6.6 g/dL (6.4-8.2)
--- NOTE | 2020-04-06 12:08 | DM INPTCON_ITS ---
Date of service: 04/06/20 Time of Service: 12:09 Diabetes Inpatient Consult DESCRIPTION/ASSESSMENT: 64 year old gentleman receiving TPN due to acute pancreatits and now with ilues. TPN (D10/AA4.25 and 20% lipids) providing 200 grams carbohydrate, 84 grams protein and 55 g fat in 2 L solution/250 ml lipids, now with hyperglycemia controlled by sliding scale insulin (aspart) SQ q 6 hours. Suspect hyperglycedmia due to multiple factors including acute pancreatitis, acute phase response, initiation of TPN with protein caloric malnutrition. At risk for refeeding syndrome, will need to monitor Phos, Mg and calcium daily and replete. Expect blood sugars to normalize. Met with Drew today, he was out of bed and feeling much better. He is currently NPO due to continued pain with po intake, now with ileus. Per MD notes, may need NG for drainage. INTERVENTION: continue to monitor CBC, CMP, Mag, Phos and Ca daily and replete as needed continue sliding scale insulin as ordered PLAN: continue sliding scale insulin to correct blood sugars as needed monitor electrolytes daily (Mg, Phos, Ca) and replete. At risk for refeeding syndrome Continue current TPN, specifications writer will make recommendations to taper as po intake increases When appropriate, advance diet to LOW FAT Time Spent in Nutritional Counseling and Treatment: 10 min
[2020-04-06] MEDS: IRON SUCROSE COMPLEX 200 MG in Normal Saline 100 ML 400 MG IVPB ×2 (12:34→12:52)
--- NOTE | 2020-04-06 14:55 | W.PM.PROGNOT ---
Date of Service Date of service: 04/06/20 Time of Service: 14:55 Assessment and Plan Assessment and plan (1) Acute recurrent pancreatitis: Start date: 04/06/20 Start time: 14:57 Status: Acute Assessment and plan: slowly improving sx. Not tolerating po well, small amounts, Pain appears improved, states a 3 today. Mood appears improved, continue cymbalta. TPN per surgery Continue to intake PO even if small amounts. continue to encourage ambulation . (2) Hypokalemia: Start date: 04/06/20 Start time: 14:58 Status: Acute Assessment and plan: continue to replete and follow 3.9 today (3) PAF (paroxysmal atrial fibrillation): Start date: 04/06/20 Start time: 15:02 Status: Chronic Assessment and plan: No further events he has not required any additional doses of IV metoprolol for bp in 2 days, mag has not been below 1.7 at this time D/C teley. (4) Ileus, unspecified: Start date: 04/06/20 Start time: 15:02 Status: Resolved Assessment and plan: TPN per surgery, meds with sips, encourage PO intake and ambulation (5) HTN (hypertension): Start date: 04/06/20 Start time: 15:02 Status: Chronic Assessment and plan: Elevated but improved. Not requiring additional doses IV lopressor, Amlodipine increased to 10 mg daily. continue to monitor and adjust (6) DVT prophylaxis: Start date: 04/06/20 Start time: 15:06 Status: Acute Assessment and plan: TEDS and SCD, lovenox initiated by surgery. patient has been encouraged to ambulate above case discussed with Dr. Coleman who is in agreement. Subjective Subjective Patient reports: other Interval history since last seen: Pain is improved today, he states a 3. He was up and ambulating, he appears in better mood, not tearful, smiling. Started on cymbalta yesterday. Continue TPN per surgery. Poor PO intake. Denies CP, SOB, N/V/D> Exam Const General: cooperative, comfortable, no acute distress and ill appearing (older than stated age, with flush face) acutely Nutritional Appearance: average body habitus Orientation: alert, awake and oriented x3 HENMT Head: normal to inspection, normocephalic and atraumatic Mouth: oral mucosae normal Eyes Alignment and Position: alignment normal Cornea: corneas normal Pupils: pinpoint Neck Neck: normal visual inspection, full ROM and no JVD Carotids: normal carotid upstroke Lymphatic: no lymphadenopathy noted and no lymphedema noted Chest Chest: normal inspection of the chest Resp Effort & Inspection: normal respiratory effort Auscultation: clear to auscultation bilaterally Cardio Jugular venous pressure: no JVD Rate: regular rate Rhythm: regular rhythm Heart Sounds: S1 normal and S2 normal GI Inspection: distended Palpation: soft and firm in the LLQ, in the RLQ, in the LUQ and in the RUQ Auscultation: hypoactive bowel sounds General: other (concentrated urine) Skin General skin exam: no rashes or lesions noted Wounds: no wounds Neuro General: patient alert, patient awake and patient oriented x3 Cognition: normal cognition Speech: speech normal Extrem General: normal to inspection, full ROM and no clubbing, cyanosis or edema Objective Objective Clinical Data: Abnormal lab results 04/05/20 04/06/20 04/06/20 Range/Units 17:30 07:00 08:40 WBC 13.72 H (4.4-10.8) k/cumm RBC 3.51 L (4.50-6.00) m/cumm Hgb 10.6 L (13.5-17.5) g/dL Hct 33.0 L (40.0-50.0) % PT 11.9 H (9.3-11.0) sec INR 1.2 H (0.9-1.1) Sodium (136-145) mmol/L Chloride (98-107) mmol/L Glucose (74-106) mg/dL AST (15-37) U/L C-Reactive Protein (0.0-0.3) mg/dL Albumin (3.4-5.0) g/dL Vancomycin Trough 25.2 H* (10.0-20.0) ug/mL 04/06/20 Range/Units 11:13 WBC (4.4-10.8) k/cumm RBC (4.50-6.00) m/cumm Hgb (13.5-17.5) g/dL Hct (40.0-50.0) % PT (9.3-11.0) sec INR (0.9-1.1) Sodium 132 L (136-145) mmol/L Chloride 96 L (98-107) mmol/L Glucose 273 H (74-106) mg/dL AST 64 H (15-37) U/L C-Reactive Protein 12.66 H (0.0-0.3) mg/dL Albumin 2.4 L (3.4-5.0) g/dL Vancomycin Trough (10.0-20.0) ug/mL Vital Signs Temperature 36.7 C 04/06/20 11:20 Temperature Source Tympanic 04/06/20 11:20 Pulse 80 04/06/20 11:20 Pulse Rhythm Regular 04/06/20 08:00 Pulse 48 L 03/26/20 20:10 Respiratory Rate 18 04/06/20 11:20 Respiratory Effort Non-Labored 04/06/20 08:00 Respiratory Depth Normal 04/06/20 08:00 Respiratory Pattern Normal 04/06/20 08:00 Blood Pressure 144/80 H 04/06/20 11:20 Blood Pressure Mean 117 03/26/20 20:01 Blood Pressure Position Sitting 03/26/20 13:41 Pulse Oximetry 97 04/06/20 11:20 Oxygen Delivery Method Room Air 04/06/20 11:20 Oxygen Flow Rate 0 04/06/20 11:20 Pain Level 3 04/06/20 12:33 Comment 04/01/20 22:59 Intake & Output 04/05/20 04/06/20 04/06/20 23:59 11:59 23:59 Intake Total 2880 / 4601 1151 / 1261 110 / 1261 Output Total 1920 / 5220 2610 / 2610 Balance 960 / -619 -1459 / -1349 110 / -1349 Intake: IV 2640 / 4121 1151 / 1261 110 / 1261 Oral 240 / 480 0 / 0 Output: Urine 1520 / 4820 2610 / 2610 Stool 400 / 400 Other: Urine Color Yellow Yellow Urine Appearance Clear Clear Urine Odor Normal Normal Comment mixed with stool. Stool Occult Blood Positive Negative Stool Size Moderate Small Stool Characteristics Liquid Soft Voiding Methods Urinal Bedside Commode Laboratory Results WBC 13.72 k/cumm (4.4-10.8) H 04/06/20 07:00 RBC 3.51 m/cumm (4.50-6.00) L 07/17/20 07:00 Hgb 10.6 g/dL (13.5-17.5) L 04/06/20 07:00 Hct 33.0 % (40.0-50.0) L 04/06/20 07:00 MCV 94.0 fL (80-95) 04/06/20 07:00 MCH 30.2 pg (27.0-33.0) 04/06/20 07:00 MCHC 32.1 g/dL (32.0-36.0) 04/06/20 07:00 RDW 14.1 % (11.8-14.1) 04/06/20 07:00 Plt Count 318 x1000/uL (130-400) 04/06/20 07:00 MPV 9.5 fL (8.0-11.0) 04/06/20 07:00 Immature Gran % 1.7 % 04/04/20 06:25 Neutrophils % 85.5 04/04/20 06:25 Lymphocytes % 5.5 04/04/20 06:25 Monocytes % 5.9 04/04/20 06:25 Eosinophils % 1.3 04/04/20 06:25 Basophils % 0.1 04/04/20 06:25 Absolute Neutrophils 14.28 k/cumm (1.2-6.7) H 04/04/20 06:25 Absolute Lymphocytes 0.92 k/cumm (1.2-3.4) L 04/04/20 06:25 Absolute Monocytes 0.99 k/cumm (0.11-0.7) H 04/04/20 06:25 Absolute Eosinophils 0.22 k/cumm (0.0-0.7) 04/04/20 06:25 Absolute Basophils 0.02 k/cumm (0.0-0.2) 04/04/20 06:25 PT 11.9 sec (9.3-11.0) H 04/06/20 08:40 INR 1.2 (0.9-1.1) H 04/06/20 08:40 D-Dimer > 7500 ng/mlFEU (<500) H 03/31/20 08:03 ABG Sample Site Left radial 04/02/20 14:49 ABG pH 7.49 (7.35-7.45) H 04/02/20 14:49 ABG pCO2 39 mmHg (34-47) 04/02/20 14:49 ABG pO2 67 mmHg (83-108) L 04/02/20 14:49 ABG HCO3 29 mmol/L (22-28) H 04/02/20 14:49 ABG Total CO2 26 mmol/L (22-29) 04/02/20 14:49 ABG O2 Saturation 94 % (94-98) 04/02/20 14:49 ABG Base Excess 5.8 mmol/L (-3-3) H 04/02/20 14:49 FiO2 21 % 04/02/20 14:49 Sodium 132 mmol/L (136-145) L 04/06/20 11:13 Potassium 3.9 mmol/L (3.5-5.1) D 04/06/20 11:13 Chloride 96 mmol/L (98-107) L 04/06/20 11:13 Carbon Dioxide 30.6 mmol/L (21.0-32.0) 04/06/20 11:13 Anion Gap 5.4 mmol/L (3-11) 04/06/20 11:13 BUN 12 mg/dL (7-18) 04/06/20 11:13 Creatinine 0.86 mg/dL (0.70-1.30) 04/06/20 11:13 Estimated GFR/1.73 m2 >= 60.00 (mL/min/1.73m2) 04/06/20 11:13 Glucose 273 mg/dL (74-106) H 04/06/20 11:13 Hemoglobin A1c 5.3 % (3.8-5.6) 03/27/20 07:15 Lactate 0.7 mmol/L (0.6-1.4) 04/02/20 13:25 Calcium 8.5 mg/dL (8.5-10.1) 04/06/20 11:13 Phosphorus 2.8 mg/dL (2.6-4.7) 04/06/20 11:13 Magnesium 1.9 mg/dL (1.8-2.4) 04/06/20 11:13 Iron 19 ug/dL (65-175) L 03/30/20 06:45 TIBC 127 ug/dL (250-450) L 03/30/20 06:45 Transferrin % Sat 15 % (20-55) L 03/30/20 06:45 Total Bilirubin 0.4 mg/dL (0.2-1.0) 04/06/20 11:13 Conjugated Bilirubin 0.35 mg/dL (0.00-0.20) H 03/30/20 06:45 AST 64 U/L (15-37) H 04/06/20 11:13 ALT 59 U/L (16-63) 04/06/20 11:13 Alkaline Phosphatase 108 U/L (46-116) 04/06/20 11:13 Lactate Dehydrogenase 205 U/L (85-227) 03/26/20 17:10 Troponin I < 0.05 ng/mL (<0.06) 03/29/20 08:42 C-Reactive Protein 12.66 mg/dL (0.0-0.3) H 04/06/20 11:13 NT-Pro-B Natriuret Pep 328 pg/mL (<300) H 03/30/20 06:45 Total Protein 6.6 g/dL (6.4-8.2) 04/06/20 11:13 Albumin 2.4 g/dL (3.4-5.0) L 04/06/20 11:13 Triglycerides 199 mg/dL (<150) H 03/27/20 07:15 LDL Cholesterol Direct 111 mg/dL (<100) H 03/26/20 13:50 Lipase 332 U/L (73-393) 04/06/20 11:13 TSH 0.33 uIU/mL (0.36-3.74) L 03/29/20 08:42 Free T4 1.09 ng/dL (0.76-1.46) 03/29/20 08:42 Urine Color Yellow (Yellow) 04/03/20 07:25 Urine Clarity Clear (Clear) 04/03/20 07:25 Urine pH 6.0 (5-8) 04/03/20 07:25 Ur Specific [place] 1.020 (1.005-1.025) 04/03/20 07:25 Urine Protein Negative mg/dL (Negative) 04/03/20 07:25 Urine Ketones 15 mg/dL (Negative) H 04/03/20 07:25 Urine Blood Trace-intact (Negative) H 04/03/20 07:25 Urine Nitrite Negative (Negative) 04/03/20 07:25 Urine Bilirubin Negative (Negative) 04/03/20 07:25 Urine Urobilinogen 1.0 EU/dL (Up TO 0.2) H 04/03/20 07:25 Ur Leukocyte Esterase Negative (Negative) 04/03/20 07:25 Urine RBC 0-2 HPF (0-2) 04/03/20 07:25 Urine WBC 0-2 HPF (0-5) 04/03/20 07:25 Ur Epithelial Cells Rare HPF (Negative) 04/03/20 07:25 Urine Crystals Not Applicable 04/03/20 07:25 Urine Bacteria Not Applicable 04/03/20 07:25 Urine Mucus Not Applicable 04/03/20 07:25 Ur Culture Indicated? No 04/03/20 07:25 Urine Glucose Negative mg/dL (Negative) 04/03/20 07:25 Vancomycin Trough 25.2 ug/mL (10.0-20.0) H* 04/05/20 17:30 Ethyl Alcohol < 3.0 mg/dL (<3) 03/26/20 13:25 COVID-19 PCR Negative (Negative) 03/30/20 08:05 Nasopharyn COVID-19 PCR Not Applicable 03/30/20 08:05 Ref Test Perform Site [facility] 03/30/20 08:05
[2020-04-06 15:20] VITALS: BP 140/86; PULSE 84; RESP 18; TEMP 36.6; O2SAT 96
[2020-04-06] MEDS: POTASSIUM CHLORIDE/0.9% NACL 1,000 ML 50 MEQ IV (19:26)
[2020-04-06 19:59] VITALS: BP 157/83; PULSE 78; RESP 17; TEMP 36.7; O2SAT 95
[2020-04-06] MEDS: Docusate Sodium 100 MG CAP PO (20:12)
[2020-04-06 23:33] VITALS: BP 130/78; PULSE 72; RESP 18; TEMP 36.6; O2SAT 96
[2020-04-07] MEDS: Insulin Aspart 300 UNITS/3 ML PEN SC ×4 (02:16→20:44)
[2020-04-07] MEDS: metroNIDAZOLE 500 MG/100 ML BAG 100 MG IVPB ×4 (03:38→21:36)
[2020-04-07 03:44] VITALS: BP 146/93; PULSE 79; RESP 18; TEMP 36.2; O2SAT 93
[2020-04-07] MEDS: HYDROmorphone 2 MG/ML VIAL 1 MG IVP ×4 (05:17→20:44)
[2020-04-07 07:41] VITALS: BP 144/86; PULSE 78; RESP 17; TEMP 37.2; O2SAT 95
[2020-04-07 07:46] LABS: HCT 34.4 % (40.0-50.0); HGB 11.6 g/dL (13.5-17.5); Mean Corp. HGB Concentration 33.7 g/dL (32.0-36.0); Mean Corpuscular Hemoglobin 30.1 pg (27.0-33.0); Mean Corpuscular Volume 89.1 fL (80-95); Mean Platelet Volume 9.5 fL (8.0-11.0); Platelet Count 373 x1000/uL (130-400); RBC 3.86 m/cumm (4.50-6.00); RBC Distribution Width 13.4 % (11.8-14.1); White Blood Cell Count 13.08 k/cumm (4.4-10.8)
[2020-04-07 07:54] LABS: Anion Gap 7.1 mmol/L (3-11); BUN 13 mg/dL (7-18); CO2 27.9 mmol/L (21.0-32.0); CREATININE 0.84 mg/dL (0.70-1.30); Calcium 8.5 mg/dL (8.5-10.1); Chloride 98 mmol/L (98-107); Glucose 261 mg/dL (74-106); Magnesium 1.9 mg/dL (1.8-2.4); PHOSPHORUS 3.2 mg/dL (2.6-4.7); Potassium 3.7 mmol/L (3.5-5.1); Sodium 133 mmol/L (136-145)
[2020-04-07] MEDS: Docusate Sodium 100 MG CAP PO ×2 (08:27→20:44)
[2020-04-07] MEDS: DULoxetine 20 MG CAP PO (08:27)
[2020-04-07] MEDS: amLODIPine 10 MG TAB PO (08:27)
[2020-04-07] MEDS: Sucralfate 1 GM TAB PO ×4 (08:27→21:36)
[2020-04-07] MEDS: Metoprolol 50 MG TAB PO ×2 (08:27→20:44)
[2020-04-07] MEDS: Potassium Chloride 20 MEQ TABCR PO ×3 (08:27→17:11)
[2020-04-07] MEDS: Enoxaparin 40 MG/0.4 ML SYR SC (08:28)
[2020-04-07] MEDS: Normal Saline Flush 10 ML SYR 20 ML IVP ×2 (08:28→20:45)
[2020-04-07] MEDS: Pantoprazole 40 MG VIAL IVP ×2 (08:28→20:44)
[2020-04-07 08:37] LABS: Procalcitonin 0.1 ng/mL
[2020-04-07] MEDS: levoFLOXacin 750 MG/150 ML BAG 100 MG IVPB (09:46)
[2020-04-07] MEDS: Normal Saline Flush 10 ML SYR IVP ×4 (09:47→15:53)
[2020-04-07 10:19] LABS: Ferritin 1637 ng/mL (26-388)
[2020-04-07] MEDS: Insulin Glargine 300 UNITS/3 ML PEN SC ×2 (11:07→21:36)
--- NOTE | 2020-04-07 11:51 | W.PM.PROGNOT ---
Date of Service Date of service: 04/07/20 Time of Service: 11:52 Assessment and Plan Assessment and plan (1) Acute recurrent pancreatitis: Start date: 04/07/20 Start time: 13:22 Status: Acute Assessment and plan: slowly improving sx. Pain appears improved. Mood appears improved, continue cymbalta. TPN per surgery Tolerating small amounts of PO without pain and nv continue to encourage ambulation . (2) Hypokalemia: Start date: 04/07/20 Start time: 13:23 Status: Acute Assessment and plan: continue to replete and follow 3.7 today (3) Ileus, unspecified: Start date: 04/07/20 Start time: 13:25 Status: Resolved Assessment and plan: TPN per surgery, meds with sips, encourage PO intake and ambulation (4) HTN (hypertension): Start date: 04/07/20 Start time: 13:26 Status: Chronic Assessment and plan: Improved with Amlodipine 10 mg daily. continue to monitor and adjust (5) DVT prophylaxis: Start date: 04/07/20 Start time: 13:26 Status: Acute Assessment and plan: TEDS and SCD, lovenox initiated by surgery. patient has been encouraged to ambulate above case discussed with Dr. Saldana who is in agreement. Subjective Subjective Patient reports: tolerating liquids well Interval history since last seen: Pain is improved. Tolerating clear liquids this morning without vomiting. Exam Const General: cooperative, comfortable, no acute distress and ill appearing (older than stated age, with flush face) acutely Nutritional Appearance: average body habitus Orientation: alert, awake and oriented x3 HENMT Head: normal to inspection, normocephalic and atraumatic Mouth: oral mucosae normal Eyes Alignment and Position: alignment normal Cornea: corneas normal Pupils: pinpoint Neck Neck: normal visual inspection, full ROM and no JVD Carotids: normal carotid upstroke Lymphatic: no lymphadenopathy noted and no lymphedema noted Chest Chest: normal inspection of the chest Resp Effort & Inspection: normal respiratory effort Auscultation: clear to auscultation bilaterally Cardio Jugular venous pressure: no JVD Rate: regular rate Rhythm: regular rhythm Heart Sounds: S1 normal and S2 normal GI Inspection: distended Palpation: soft and firm in the LLQ, in the RLQ, in the LUQ and in the RUQ Auscultation: hypoactive bowel sounds General: other (concentrated urine) Skin General skin exam: no rashes or lesions noted Wounds: no wounds Neuro General: patient alert, patient awake and patient oriented x3 Cognition: normal cognition Speech: speech normal Extrem General: normal to inspection, full ROM and no clubbing, cyanosis or edema Objective Objective Clinical Data: Abnormal lab results 04/07/20 04/07/20 Range/Units 07:00 07:00 WBC 13.08 H (4.4-10.8) k/cumm RBC 3.86 L (4.50-6.00) m/cumm Hgb 11.6 L (13.5-17.5) g/dL Hct 34.4 L (40.0-50.0) % Sodium 133 L (136-145) mmol/L Glucose 261 H (74-106) mg/dL Ferritin 1637 H (26-388) ng/mL Vital Signs Temperature 37.2 C 04/07/20 07:41 Temperature Source Temporal Artery Scan 04/07/20 07:41 Pulse 78 04/07/20 07:41 Pulse Rhythm Regular 04/07/20 08:30 Pulse 48 L 03/26/20 20:10 Respiratory Rate 17 04/07/20 07:41 Respiratory Effort Non-Labored 04/07/20 08:30 Respiratory Depth Normal 04/07/20 08:30 Respiratory Pattern Normal 04/07/20 08:30 Blood Pressure 144/86 H 04/07/20 07:41 Blood Pressure Mean 117 03/26/20 20:01 Blood Pressure Position Sitting 03/26/20 13:41 Pulse Oximetry 95 04/07/20 07:41 Oxygen Delivery Method Room Air 04/07/20 07:41 Oxygen Flow Rate 0 04/07/20 07:41 Pain Level 0 04/07/20 07:41 Comment 04/01/20 22:59 Intake & Output 04/06/20 04/06/20 04/07/20 11:59 23:59 11:59 Intake Total 1651 / 3251 1600 / 3251 801.667 / 801.667 Output Total 2610 / 5310 2700 / 5310 1300 / 1300 Balance -959 / -2059 -1100 / -2059 -498.333 / -498.333 Intake: IV 1651 / 3251 1600 / 3251 801.667 / 801.667 Oral 0 / 0 Output: Urine 2610 / 5310 2700 / 5310 1300 / 1300 Other: Urine Color Yellow Yellow Yellow Urine Appearance Clear Clear Clear Urine Odor Normal Normal None Comment 1600 from a few times going to the bathroom. Stool Occult Blood Negative Stool Size Small Stool Characteristics Soft Voiding Methods Bedside Commode Bedside Commode Bedside Commode Laboratory Results WBC 13.08 k/cumm (4.4-10.8) H 04/07/20 07:00 RBC 3.86 m/cumm (4.50-6.00) L 04/07/20 07:00 Hgb 11.6 g/dL (13.5-17.5) L 04/07/20 07:00 Hct 34.4 % (40.0-50.0) L 04/07/20 07:00 MCV 89.1 fL (80-95) D 04/07/20 07:00 MCH 30.1 pg (27.0-33.0) 04/07/20 07:00 MCHC 33.7 g/dL (32.0-36.0) 04/07/20 07:00 RDW 13.4 % (11.8-14.1) 04/07/20 07:00 Plt Count 373 x1000/uL (130-400) 04/07/20 07:00 MPV 9.5 fL (8.0-11.0) 04/07/20 07:00 Immature Gran % 1.7 % 04/04/20 06:25 Neutrophils % 85.5 04/04/20 06:25 Lymphocytes % 5.5 04/04/20 06:25 Monocytes % 5.9 04/04/20 06:25 Eosinophils % 1.3 04/04/20 06:25 Basophils % 0.1 04/04/20 06:25 Absolute Neutrophils 14.28 k/cumm (1.2-6.7) H 04/04/20 06:25 Absolute Lymphocytes 0.92 k/cumm (1.2-3.4) L 04/04/20 06:25 Absolute Monocytes 0.99 k/cumm (0.11-0.7) H 04/04/20 06:25 Absolute Eosinophils 0.22 k/cumm (0.0-0.7) 04/04/20 06:25 Absolute Basophils 0.02 k/cumm (0.0-0.2) 04/04/20 06:25 PT 11.9 sec (9.3-11.0) H 04/06/20 08:40 INR 1.2 (0.9-1.1) H 04/06/20 08:40 D-Dimer > 7500 ng/mlFEU (<500) H 03/31/20 08:03 ABG Sample Site Left radial 04/02/20 14:49 ABG pH 7.49 (7.35-7.45) H 04/02/20 14:49 ABG pCO2 39 mmHg (34-47) 04/02/20 14:49 ABG pO2 67 mmHg (83-108) L 04/02/20 14:49 ABG HCO3 29 mmol/L (22-28) H 04/02/20 14:49 ABG Total CO2 26 mmol/L (22-29) 04/02/20 14:49 ABG O2 Saturation 94 % (94-98) 04/02/20 14:49 ABG Base Excess 5.8 mmol/L (-3-3) H 04/02/20 14:49 FiO2 21 % 04/02/20 14:49 Sodium 133 mmol/L (136-145) L 04/07/20 07:00 Potassium 3.7 mmol/L (3.5-5.1) 04/07/20 07:00 Chloride 98 mmol/L (98-107) 04/07/20 07:00 Carbon Dioxide 27.9 mmol/L (21.0-32.0) 04/07/20 07:00 Anion Gap 7.1 mmol/L (3-11) 04/07/20 07:00 BUN 13 mg/dL (7-18) 04/07/20 07:00 Creatinine 0.84 mg/dL (0.70-1.30) 04/07/20 07:00 Estimated GFR/1.73 m2 >= 60.00 (mL/min/1.73m2) 04/07/20 07:00 Glucose 261 mg/dL (74-106) H 04/07/20 07:00 Hemoglobin A1c 5.3 % (3.8-5.6) 03/27/20 07:15 Lactate 0.7 mmol/L (0.6-1.4) 04/02/20 13:25 Calcium 8.5 mg/dL (8.5-10.1) 04/07/20 07:00 Phosphorus 3.2 mg/dL (2.6-4.7) 04/07/20 07:00 Magnesium 1.9 mg/dL (1.8-2.4) 04/07/20 07:00 Iron 19 ug/dL (65-175) L 03/30/20 06:45 TIBC 127 ug/dL (250-450) L 03/30/20 06:45 Transferrin % Sat 15 % (20-55) L 03/30/20 06:45 Ferritin 1637 ng/mL (26-388) H 04/07/20 07:00 Total Bilirubin 0.4 mg/dL (0.2-1.0) 04/06/20 11:13 Conjugated Bilirubin 0.35 mg/dL (0.00-0.20) H 03/30/20 06:45 AST 64 U/L (15-37) H 04/06/20 11:13 ALT 59 U/L (16-63) 04/06/20 11:13 Alkaline Phosphatase 108 U/L (46-116) 04/06/20 11:13 Lactate Dehydrogenase 205 U/L (85-227) 03/26/20 17:10 Troponin I < 0.05 ng/mL (<0.06) 03/29/20 08:42 C-Reactive Protein 12.66 mg/dL (0.0-0.3) H 04/06/20 11:13 NT-Pro-B Natriuret Pep 328 pg/mL (<300) H 03/30/20 06:45 Total Protein 6.6 g/dL (6.4-8.2) 04/06/20 11:13 Albumin 2.4 g/dL (3.4-5.0) L 04/06/20 11:13 Triglycerides 199 mg/dL (<150) H 03/27/20 07:15 LDL Cholesterol Direct 111 mg/dL (<100) H 03/26/20 13:50 Lipase 332 U/L (73-393) 04/06/20 11:13 Procalcitonin 0.1 ng/mL 04/07/20 07:00 TSH 0.33 uIU/mL (0.36-3.74) L 03/29/20 08:42 Free T4 1.09 ng/dL (0.76-1.46) 03/29/20 08:42 Urine Color Yellow (Yellow) 04/03/20 07:25 Urine Clarity Clear (Clear) 04/03/20 07:25 Urine pH 6.0 (5-8) 04/03/20 07:25 Ur Specific [place] 1.020 (1.005-1.025) 04/03/20 07:25 Urine Protein Negative mg/dL (Negative) 04/03/20 07:25 Urine Ketones 15 mg/dL (Negative) H 04/03/20 07:25 Urine Blood Trace-intact (Negative) H 04/03/20 07:25 Urine Nitrite Negative (Negative) 04/03/20 07:25 Urine Bilirubin Negative (Negative) 04/03/20 07:25 Urine Urobilinogen 1.0 EU/dL (Up TO 0.2) H 04/03/20 07:25 Ur Leukocyte Esterase Negative (Negative) 04/03/20 07:25 Urine RBC 0-2 HPF (0-2) 04/03/20 07:25 Urine WBC 0-2 HPF (0-5) 04/03/20 07:25 Ur Epithelial Cells Rare HPF (Negative) 04/03/20 07:25 Urine Crystals Not Applicable 04/03/20 07:25 Urine Bacteria Not Applicable 04/03/20 07:25 Urine Mucus Not Applicable 04/03/20 07:25 Ur Culture Indicated? No 04/03/20 07:25 Urine Glucose Negative mg/dL (Negative) 04/03/20 07:25 Vancomycin Trough 25.2 ug/mL (10.0-20.0) H* 04/05/20 17:30 Ethyl Alcohol < 3.0 mg/dL (<3) 03/26/20 13:25 COVID-19 PCR Negative (Negative) 03/30/20 08:05 Nasopharyn COVID-19 PCR Not Applicable 03/30/20 08:05 Ref Test Perform Site [facility] lab 03/30/20 08:05
--- NOTE | 2020-04-07 13:18 | W.PM.PROGNOT ---
Date of Service Date of service: 04/07/20 Time of Service: 13:18 Assessment and Plan Assessment and plan (1) Gallbladder sludge: Status: Acute (2) Protein-calorie malnutrition, mild: Status: Acute (3) Anemia of chronic disease: Status: Acute (4) HTN (hypertension): Status: Chronic (5) Acute recurrent pancreatitis: Status: Acute Assessment and plan: tolerating cl liq today. Cont TPN until 48hrs of tolerating liquids. cont insulin. started on Creon pulm toilet/cont walking DVT and GI prophalxis cont supportive care -may require GB out eveutally. -pt will need insulin and glucometer to get back TO [place] -will send pt home w/ PICC as will prob require mult hospitalizations. ? length of abx- per hospitalists -will need close F/u w/ PCP in [place] Subjective Subjective Interval history since last seen: Patient continues to slowly improve. He did take in a full liquid tray today. He had no nausea vomiting. He is passing gas and urinating without any problems. He did note increase in pain every time he eats. He he is coughing, but not bringing up anything. He has had no fever or chills. Blood sugars have been in the 250-300 and have been covered. He notes he has very little strength or energy. Discussed with him that it is going to take many months to a year for him to fully recover. He cannot ever drink alcohol again. At some point he may need to have his gallbladder out it is indeterminate whether gallbladder is the cause of the pancreatitis, or the sludge in the gallbladder is from not eating and being on TPN. This will need to be followed very closely. He does have a PCP where he lives in [place]. He will need to follow-up with them very closely. He may have episodes again that landed him in the hospital. He will need to be monitored very closely. He may not be on insulin and pancreatic enzymes lifelong. Exam HENMT Other: no thrush Resp Other: no changes no thrush GI Other: soft. good BS. no peritonits. pt c/o pain after eating. d/w pt will prob have pain for some time- could even b/c chronic. Extrem Other: no c/c/e Objective Objective Clinical Data: Abnormal lab results 04/07/20 04/07/20 Range/Units 07:00 07:00 WBC 13.08 H (4.4-10.8) k/cumm RBC 3.86 L (4.50-6.00) m/cumm Hgb 11.6 L (13.5-17.5) g/dL Hct 34.4 L (40.0-50.0) % Sodium 133 L (136-145) mmol/L Glucose 261 H (74-106) mg/dL Ferritin 1637 H (26-388) ng/mL Vital Signs Temperature 37.2 C 04/07/20 07:41 Temperature Source Temporal Artery Scan 04/07/20 07:41 Pulse 78 04/07/20 07:41 Pulse Rhythm Regular 04/07/20 08:30 Pulse 48 L 03/26/20 20:10 Respiratory Rate 17 04/07/20 07:41 Respiratory Effort Non-Labored 04/07/20 08:30 Respiratory Depth Normal 04/07/20 08:30 Respiratory Pattern Normal 04/07/20 08:30 Blood Pressure 144/86 H 04/07/20 07:41 Blood Pressure Mean 117 03/26/20 20:01 Blood Pressure Position Sitting 03/26/20 13:41 Pulse Oximetry 95 04/07/20 07:41 Oxygen Delivery Method Room Air 04/07/20 07:41 Oxygen Flow Rate 0 04/07/20 07:41 Pain Level 4 04/07/20 11:56 Comment 04/01/20 22:59 Intake & Output 04/06/20 04/07/20 04/07/20 23:59 11:59 23:59 Intake Total 1600 / 3251 801.667 / 801.667 Output Total 2700 / 5310 1300 / 1300 Balance -1100 / -2059 -498.333 / -498.333 Intake: IV 1600 / 3251 801.667 / 801.667 Oral 0 / 0 Output: Urine 2700 / 5310 1300 / 1300 Other: Urine Color Yellow Yellow Urine Appearance Clear Clear Urine Odor Normal None Comment 1600 from a few times going to the bathroom. Voiding Methods Bedside Commode Bedside Commode Laboratory Results WBC 13.08 k/cumm (4.4-10.8) H 04/07/20 07:00 RBC 3.86 m/cumm (4.50-6.00) L 04/07/20 07:00 Hgb 11.6 g/dL (13.5-17.5) L 04/07/20 07:00 Hct 34.4 % (40.0-50.0) L 04/07/20 07:00 MCV 89.1 fL (80-95) D 04/07/20 07:00 MCH 30.1 pg (27.0-33.0) 04/07/20 07:00 MCHC 33.7 g/dL (32.0-36.0) 04/07/20 07:00 RDW 13.4 % (11.8-14.1) 04/07/20 07:00 Plt Count 373 x1000/uL (130-400) 04/07/20 07:00 MPV 9.5 fL (8.0-11.0) 04/07/20 07:00 Immature Gran % 1.7 % 04/04/20 06:25 Neutrophils % 85.5 04/04/20 06:25 Lymphocytes % 5.5 04/04/20 06:25 Monocytes % 5.9 04/04/20 06:25 Eosinophils % 1.3 04/04/20 06:25 Basophils % 0.1 04/04/20 06:25 Absolute Neutrophils 14.28 k/cumm (1.2-6.7) H 04/04/20 06:25 Absolute Lymphocytes 0.92 k/cumm (1.2-3.4) L 04/04/20 06:25 Absolute Monocytes 0.99 k/cumm (0.11-0.7) H 04/04/20 06:25 Absolute Eosinophils 0.22 k/cumm (0.0-0.7) 04/04/20 06:25 Absolute Basophils 0.02 k/cumm (0.0-0.2) 04/04/20 06:25 PT 11.9 sec (9.3-11.0) H 04/06/20 08:40 INR 1.2 (0.9-1.1) H 04/06/20 08:40 D-Dimer > 7500 ng/mlFEU (<500) H 03/31/20 08:03 ABG Sample Site Left radial 04/02/20 14:49 ABG pH 7.49 (7.35-7.45) H 04/02/20 14:49 ABG pCO2 39 mmHg (34-47) 04/02/20 14:49 ABG pO2 67 mmHg (83-108) L 04/02/20 14:49 ABG HCO3 29 mmol/L (22-28) H 04/02/20 14:49 ABG Total CO2 26 mmol/L (22-29) 04/02/20 14:49 ABG O2 Saturation 94 % (94-98) 04/02/20 14:49 ABG Base Excess 5.8 mmol/L (-3-3) H 04/02/20 14:49 FiO2 21 % 04/02/20 14:49 Sodium 133 mmol/L (136-145) L 04/07/20 07:00 Potassium 3.7 mmol/L (3.5-5.1) 04/07/20 07:00 Chloride 98 mmol/L (98-107) 04/07/20 07:00 Carbon Dioxide 27.9 mmol/L (21.0-32.0) 04/07/20 07:00 Anion Gap 7.1 mmol/L (3-11) 04/07/20 07:00 BUN 13 mg/dL (7-18) 04/07/20 07:00 Creatinine 0.84 mg/dL (0.70-1.30) 04/07/20 07:00 Estimated GFR/1.73 m2 >= 60.00 (mL/min/1.73m2) 04/07/20 07:00 Glucose 261 mg/dL (74-106) H 04/07/20 07:00 Hemoglobin A1c 5.3 % (3.8-5.6) 03/27/20 07:15 Lactate 0.7 mmol/L (0.6-1.4) 04/02/20 13:25 Calcium 8.5 mg/dL (8.5-10.1) 04/07/20 07:00 Phosphorus 3.2 mg/dL (2.6-4.7) 04/07/20 07:00 Magnesium 1.9 mg/dL (1.8-2.4) 04/07/20 07:00 Iron 19 ug/dL (65-175) L 03/30/20 06:45 TIBC 127 ug/dL (250-450) L 03/30/20 06:45 Transferrin % Sat 15 % (20-55) L 03/30/20 06:45 Ferritin 1637 ng/mL (26-388) H 04/07/20 07:00 Total Bilirubin 0.4 mg/dL (0.2-1.0) 04/06/20 11:13 Conjugated Bilirubin 0.35 mg/dL (0.00-0.20) H 03/30/20 06:45 AST 64 U/L (15-37) H 04/06/20 11:13 ALT 59 U/L (16-63) 04/06/20 11:13 Alkaline Phosphatase 108 U/L (46-116) 04/06/20 11:13 Lactate Dehydrogenase 205 U/L (85-227) 03/26/20 17:10 Troponin I < 0.05 ng/mL (<0.06) 03/29/20 08:42 C-Reactive Protein 12.66 mg/dL (0.0-0.3) H 04/06/20 11:13 NT-Pro-B Natriuret Pep 328 pg/mL (<300) H 03/30/20 06:45 Total Protein 6.6 g/dL (6.4-8.2) 04/06/20 11:13 Albumin 2.4 g/dL (3.4-5.0) L 04/06/20 11:13 Triglycerides 199 mg/dL (<150) H 03/27/20 07:15 LDL Cholesterol Direct 111 mg/dL (<100) H 03/26/20 13:50 Lipase 332 U/L (73-393) 04/06/20 11:13 Procalcitonin 0.1 ng/mL 04/07/20 07:00 TSH 0.33 uIU/mL (0.36-3.74) L 03/29/20 08:42 Free T4 1.09 ng/dL (0.76-1.46) 03/29/20 08:42 Urine Color Yellow (Yellow) 04/03/20 07:25 Urine Clarity Clear (Clear) 04/03/20 07:25 Urine pH 6.0 (5-8) 04/03/20 07:25 Ur Specific [place] 1.020 (1.005-1.025) 04/03/20 07:25 Urine Protein Negative mg/dL (Negative) 04/03/20 07:25 Urine Ketones 15 mg/dL (Negative) H 04/03/20 07:25 Urine Blood Trace-intact (Negative) H 04/03/20 07:25 Urine Nitrite Negative (Negative) 04/03/20 07:25 Urine Bilirubin Negative (Negative) 04/03/20 07:25 Urine Urobilinogen 1.0 EU/dL (Up TO 0.2) H 04/03/20 07:25 Ur Leukocyte Esterase Negative (Negative) 04/03/20 07:25 Urine RBC 0-2 HPF (0-2) 04/03/20 07:25 Urine WBC 0-2 HPF (0-5) 04/03/20 07:25 Ur Epithelial Cells Rare HPF (Negative) 04/03/20 07:25 Urine Crystals Not Applicable 04/03/20 07:25 Urine Bacteria Not Applicable 04/03/20 07:25 Urine Mucus Not Applicable 04/03/20 07:25 Ur Culture Indicated? No 04/03/20 07:25 Urine Glucose Negative mg/dL (Negative) 04/03/20 07:25 Vancomycin Trough 25.2 ug/mL (10.0-20.0) H* 04/05/20 17:30 Ethyl Alcohol < 3.0 mg/dL (<3) 03/26/20 13:25 COVID-19 PCR Negative (Negative) 03/30/20 08:05 Nasopharyn COVID-19 PCR Not Applicable 03/30/20 08:05 Ref Test Perform Site [facility] lab 03/30/20 08:05
[2020-04-07 14:01] LABS: Vancomycin, Trough 21.1 ug/mL (10.0-20.0)
[2020-04-07 15:31] VITALS: BP 137/84; PULSE 75; RESP 19; TEMP 36.4; O2SAT 97
[2020-04-07 19:10] VITALS: BP 147/84; PULSE 84; RESP 19; TEMP 36.5; O2SAT 98
--- NOTE | 2020-04-07 20:00 | PDOC.CMPRO ---
- If Service Date Differs Date of service: 04/07/20 Time of Service: 20:00 Care Management Progress Note S/O: Drew was sitting up in bed when CM met with him. He is still having pain he stated, but is trying to lengthen the time between doses of pain medication. Per Dr. Gonzales, Drew is showing some improvement. He is tolerating clear liquids and he proudly shared that he ate all of his jello this morning. Dr. Gonzales informed Drew that his convalescence is going to be prolonged and may require additional hospitalizations. She began discussions about discharge needs with CM today and close coordination of care with his community supports in [place] will be needed for a successful transition home. A: Rajat is a 64 year old male admitted on 03/26/20 for Pancreatitis. P: Anticipate Rajat will return home to [place] with new home health services once medically cleared. CM will coordinate a transition of care from [facility] to community supports in [place]. On Thursday, CM will contact his PCP and the local home health service provider to begin the planning. He will need follow up for the PICC line he will be discharged with, a new glucometer, Diabetes education, close medical follow up and transportation. CM will continue to support Drew, his family and his discharge planning needs.
[2020-04-07 23:20] VITALS: BP 136/78; PULSE 66; RESP 18; TEMP 37; O2SAT 97
[2020-04-08] MEDS: HYDROmorphone 2 MG/ML VIAL 1 MG IVP ×4 (01:20→16:54)
[2020-04-08] MEDS: Normal Saline Flush 10 ML SYR IVP ×8 (01:20→22:06)
[2020-04-08] MEDS: Insulin Aspart 300 UNITS/3 ML PEN SC ×4 (01:26→19:49)
[2020-04-08] MEDS: metroNIDAZOLE 500 MG/100 ML BAG 100 MG IVPB ×4 (03:55→22:04)
[2020-04-08 04:03] VITALS: BP 145/90; PULSE 79; RESP 18; TEMP 36.5; O2SAT 95
[2020-04-08 07:15] VITALS: BP 143/85; PULSE 94; RESP 19; TEMP 37.2; O2SAT 96
[2020-04-08 07:44] LABS: HCT 36.1 % (40.0-50.0); HGB 12.3 g/dL (13.5-17.5); Mean Corp. HGB Concentration 34.1 g/dL (32.0-36.0); Mean Corpuscular Hemoglobin 30.2 pg (27.0-33.0); Mean Corpuscular Volume 88.7 fL (80-95); Mean Platelet Volume 9.3 fL (8.0-11.0); Platelet Count 484 x1000/uL (130-400); RBC 4.07 m/cumm (4.50-6.00); RBC Distribution Width 13.4 % (11.8-14.1); White Blood Cell Count 13.95 k/cumm (4.4-10.8)
[2020-04-08 07:57] LABS: Anion Gap 9.3 mmol/L (3-11); BUN 16 mg/dL (7-18); C-Reactive Protein 7.34 mg/dL (0.0-0.3); CO2 26.7 mmol/L (21.0-32.0); CREATININE 0.92 mg/dL (0.70-1.30); Calcium 8.5 mg/dL (8.5-10.1); Chloride 96 mmol/L (98-107); Glucose 206 mg/dL (74-106); Magnesium 1.8 mg/dL (1.8-2.4); PHOSPHORUS 3.7 mg/dL (2.6-4.7); Potassium 3.6 mmol/L (3.5-5.1); Sodium 132 mmol/L (136-145)
[2020-04-08] MEDS: Enoxaparin 40 MG/0.4 ML SYR SC (08:05)
[2020-04-08] MEDS: Normal Saline Flush 10 ML SYR 20 ML IVP ×2 (08:06→19:48)
[2020-04-08] MEDS: Pantoprazole 40 MG VIAL IVP ×2 (08:06→19:47)
[2020-04-08] MEDS: Potassium Chloride 20 MEQ TABCR PO ×3 (08:07→16:55)
[2020-04-08] MEDS: amLODIPine 10 MG TAB PO (08:07)
[2020-04-08] MEDS: DULoxetine 20 MG CAP PO (08:07)
[2020-04-08] MEDS: Metoprolol 50 MG TAB PO ×2 (08:07→19:48)
[2020-04-08] MEDS: Sucralfate 1 GM TAB PO ×4 (08:07→22:06)
[2020-04-08] MEDS: levoFLOXacin 750 MG/150 ML BAG 100 MG IVPB (09:29)
--- NOTE | 2020-04-08 09:54 | CMPROGNOTE_ITS ---
- If Service Date Differs Date of service: 04/08/20 Time of Service: 09:54 Care Management Progress Note S/O: Drew appears to be slowing improving. He is now able to tolerate his diet and his TPN is being weaned accordingly. Per provider, he may be ready for discharge as soon as Thursday with very close follow up in his home community. A: Rajat is a 64 year old male admitted on 03/26/20 for Pancreatitis. P: Anticipate Rajat will return home to [place] with new home health services once medically cleared. CM will coordinate a transition of care from [facility] to community supports in [place]. On Thursday, CM will contact his PCP and the local home health service provider to begin the planning. He will need follow up for the PICC line he will be discharged with, a new glucometer, Diabetes education, close medical follow up and transportation. CM will continue to support Drew, his family and his discharge planning needs.
[2020-04-08 11:15] VITALS: BP 116/70; PULSE 74; RESP 19; TEMP 36.8; O2SAT 96
--- NOTE | 2020-04-08 12:07 | PGE_ITS ---
Date of Service Date of service: 04/08/20 Time of Service: 12:07 Assessment and Plan Assessment and plan (1) Gallbladder sludge: Status: Acute (2) Protein-calorie malnutrition, mild: Status: Acute (3) Anemia of chronic disease: Status: Acute (4) Acute recurrent pancreatitis: Status: Acute Assessment and plan: -wean TPN -will see how BS are off of TPN. -suspect he will have endocrine adn exocrine insufficiency still -d/c PICC line at time of d/C -immediately needs to f/u w/ PCP in [place]. pt will most likely have have longterm problems and high risk for chronic pancreatitis. -shouldn't require further abx at time fo d/c from surgical perspective -cont supportive care -will re-eval at your request Subjective Subjective Interval history since last seen: Pt is doing well. no headaches. No CP or SOB. no productive cough. no dysuria. no leg pain or swelling. tolerating clears and minimal pain. pt is hungry. no bleeding w/ BM Will advance to low fat diet. wean TPN walk Exam HENMT Other: no changes Eyes Other: no jaundice Resp Effort & Inspection: normal respiratory effort and able to speak in complete sentences Auscultation: clear to auscultation bilaterally GI Palpation: soft Auscultation: normal bowel sounds Other: no r/r/g Skin Other: intact.line site c/d/i Extrem General: no clubbing, cyanosis or edema Objective Objective Clinical Data: Abnormal lab results 04/04/20 04/07/20 04/08/20 Range/Units 16:00 07:00 07:12 WBC 13.08 H 13.95 H (4.4-10.8) k/cumm RBC 4.07 L (4.50-6.00) m/cumm Hgb 11.6 L 12.3 L (13.5-17.5) g/dL Hct 34.4 L 36.1 L (40.0-50.0) % Plt Count 484 H (130-400) x1000/uL Sodium (136-145) mmol/L Chloride (98-107) mmol/L Glucose (74-106) mg/dL C-Reactive Protein (0.0-0.3) mg/dL Vancomycin Trough 21.1 H* (10.0-20.0) ug/mL 07/19/20 Range/Units 07:12 WBC (4.4-10.8) k/cumm RBC (4.50-6.00) m/cumm Hgb (13.5-17.5) g/dL Hct (40.0-50.0) % Plt Count (130-400) x1000/uL Sodium 132 L (136-145) mmol/L Chloride 96 L (98-107) mmol/L Glucose 206 H (74-106) mg/dL C-Reactive Protein 7.34 H (0.0-0.3) mg/dL Vancomycin Trough (10.0-20.0) ug/mL Vital Signs Temperature 36.8 C 04/08/20 11:15 Temperature Source Tympanic 04/08/20 11:15 Pulse 74 04/08/20 11:15 Pulse Rhythm Regular 04/08/20 08:00 Pulse 48 L 03/26/20 20:10 Respiratory Rate 19 04/08/20 11:15 Respiratory Effort Non-Labored 04/08/20 08:00 Respiratory Depth Normal 04/08/20 08:00 Respiratory Pattern Normal 04/08/20 08:00 Blood Pressure 116/70 04/08/20 11:15 Blood Pressure Mean 117 03/26/20 20:01 Blood Pressure Position Sitting 03/26/20 13:41 Pulse Oximetry 96 04/08/20 11:15 Oxygen Delivery Method Room Air 04/08/20 11:15 Oxygen Flow Rate 0 04/08/20 11:15 Pain Level 0 04/08/20 11:15 Comment 04/01/20 22:59 Intake & Output 04/07/20 04/08/20 04/08/20 23:59 11:59 23:59 Intake Total 1580 / 2631.667 190 / 190 Output Total 1000 / 2300 2280 / 2280 Balance 580 / 331.667 -2089 / -2089 Intake: IV 470 / 1521.667 140 / 140 Oral 1110 / 1110 50 / 50 Output: Urine 1000 / 2300 2250 / 2250 Stool 30 / 30 Other: Urine Color Yellow Light [place] Urine Appearance Clear Clear Urine Odor Normal Normal Stool Occult Blood Negative Stool Size Small Smear Stool Characteristics Brown Mucoid Brown Voiding Methods Bedside Commode Bedside Commode Laboratory Results WBC 13.95 k/cumm (4.4-10.8) H 04/08/20 07:12 RBC 4.07 m/cumm (4.50-6.00) L 04/08/20 07:12 Hgb 12.3 g/dL (13.5-17.5) L 04/08/20 07:12 Hct 36.1 % (40.0-50.0) L 04/08/20 07:12 MCV 88.7 fL (80-95) 04/08/20 07:12 MCH 30.2 pg (27.0-33.0) 04/08/20 07:12 MCHC 34.1 g/dL (32.0-36.0) 04/08/20 07:12 RDW 13.4 % (11.8-14.1) 04/08/20 07:12 Plt Count 484 x1000/uL (130-400) H 04/08/20 07:12 MPV 9.3 fL (8.0-11.0) 04/08/20 07:12 Immature Gran % 1.7 % 04/04/20 06:25 Neutrophils % 85.5 04/04/20 06:25 Lymphocytes % 5.5 04/04/20 06:25 Monocytes % 5.9 04/04/20 06:25 Eosinophils % 1.3 04/04/20 06:25 Basophils % 0.1 04/04/20 06:25 Absolute Neutrophils 14.28 k/cumm (1.2-6.7) H 04/04/20 06:25 Absolute Lymphocytes 0.92 k/cumm (1.2-3.4) L 04/04/20 06:25 Absolute Monocytes 0.99 k/cumm (0.11-0.7) H 04/04/20 06:25 Absolute Eosinophils 0.22 k/cumm (0.0-0.7) 04/04/20 06:25 Absolute Basophils 0.02 k/cumm (0.0-0.2) 04/04/20 06:25 PT 11.9 sec (9.3-11.0) H 04/06/20 08:40 INR 1.2 (0.9-1.1) H 04/06/20 08:40 D-Dimer > 7500 ng/mlFEU (<500) H 03/31/20 08:03 ABG Sample Site Left radial 04/02/20 14:49 ABG pH 7.49 (7.35-7.45) H 04/02/20 14:49 ABG pCO2 39 mmHg (34-47) 04/02/20 14:49 ABG pO2 67 mmHg (83-108) L 04/02/20 14:49 ABG HCO3 29 mmol/L (22-28) H 04/02/20 14:49 ABG Total CO2 26 mmol/L (22-29) 04/02/20 14:49 ABG O2 Saturation 94 % (94-98) 04/02/20 14:49 ABG Base Excess 5.8 mmol/L (-3-3) H 04/02/20 14:49 FiO2 21 % 04/02/20 14:49 Sodium 132 mmol/L (136-145) L 04/08/20 07:12 Potassium 3.6 mmol/L (3.5-5.1) 04/08/20 07:12 Chloride 96 mmol/L (98-107) L 04/08/20 07:12 Carbon Dioxide 26.7 mmol/L (21.0-32.0) 04/08/20 07:12 Anion Gap 9.3 mmol/L (3-11) 04/08/20 07:12 BUN 16 mg/dL (7-18) 04/08/20 07:12 Creatinine 0.92 mg/dL (0.70-1.30) 04/08/20 07:12 Estimated GFR/1.73 m2 >= 60.00 (mL/min/1.73m2) 04/08/20 07:12 Glucose 206 mg/dL (74-106) H 04/08/20 07:12 Hemoglobin A1c 5.3 % (3.8-5.6) 03/27/20 07:15 Lactate 0.7 mmol/L (0.6-1.4) 04/02/20 13:25 Calcium 8.5 mg/dL (8.5-10.1) 04/08/20 07:12 Phosphorus 3.7 mg/dL (2.6-4.7) 04/08/20 07:12 Magnesium 1.8 mg/dL (1.8-2.4) 04/08/20 07:12 Iron 19 ug/dL (65-175) L 03/30/20 06:45 TIBC 127 ug/dL (250-450) L 03/30/20 06:45 Transferrin % Sat 15 % (20-55) L 03/30/20 06:45 Ferritin 1637 ng/mL (26-388) H 04/07/20 07:00 Total Bilirubin 0.4 mg/dL (0.2-1.0) 04/06/20 11:13 Conjugated Bilirubin 0.35 mg/dL (0.00-0.20) H 03/30/20 06:45 AST 64 U/L (15-37) H 04/06/20 11:13 ALT 59 U/L (16-63) 04/06/20 11:13 Alkaline Phosphatase 108 U/L (46-116) 04/06/20 11:13 Lactate Dehydrogenase 205 U/L (85-227) 03/26/20 17:10 Troponin I < 0.05 ng/mL (<0.06) 03/29/20 08:42 C-Reactive Protein 7.34 mg/dL (0.0-0.3) H 04/08/20 07:12 NT-Pro-B Natriuret Pep 328 pg/mL (<300) H 03/30/20 06:45 Total Protein 6.6 g/dL (6.4-8.2) 04/06/20 11:13 Albumin 2.4 g/dL (3.4-5.0) L 04/06/20 11:13 Triglycerides 199 mg/dL (<150) H 03/27/20 07:15 LDL Cholesterol Direct 111 mg/dL (<100) H 03/26/20 13:50 Lipase 332 U/L (73-393) 04/06/20 11:13 Procalcitonin 0.1 ng/mL 04/07/20 07:00 TSH 0.33 uIU/mL (0.36-3.74) L 03/29/20 08:42 Free T4 1.09 ng/dL (0.76-1.46) 03/29/20 08:42 Urine Color Yellow (Yellow) 04/03/20 07:25 Urine Clarity Clear (Clear) 04/03/20 07:25 Urine pH 6.0 (5-8) 04/03/20 07:25 Ur Specific [place] 1.020 (1.005-1.025) 04/03/20 07:25 Urine Protein Negative mg/dL (Negative) 04/03/20 07:25 Urine Ketones 15 mg/dL (Negative) H 04/03/20 07:25 Urine Blood Trace-intact (Negative) H 04/03/20 07:25 Urine Nitrite Negative (Negative) 04/03/20 07:25 Urine Bilirubin Negative (Negative) 04/03/20 07:25 Urine Urobilinogen 1.0 EU/dL (Up TO 0.2) H 04/03/20 07:25 Ur Leukocyte Esterase Negative (Negative) 04/03/20 07:25 Urine RBC 0-2 HPF (0-2) 04/03/20 07:25 Urine WBC 0-2 HPF (0-5) 04/03/20 07:25 Ur Epithelial Cells Rare HPF (Negative) 04/03/20 07:25 Urine Crystals Not Applicable 04/03/20 07:25 Urine Bacteria Not Applicable 04/03/20 07:25 Urine Mucus Not Applicable 04/03/20 07:25 Ur Culture Indicated? No 04/03/20 07:25 Urine Glucose Negative mg/dL (Negative) 04/03/20 07:25 Vancomycin Trough 25.2 ug/mL (10.0-20.0) H* 04/05/20 17:30 Ethyl Alcohol < 3.0 mg/dL (<3) 03/26/20 13:25 COVID-19 PCR Negative (Negative) 03/30/20 08:05 Nasopharyn COVID-19 PCR Not Applicable 03/30/20 08:05 Ref Test Perform Site [facility] lab 03/30/20 08:05
--- NOTE | 2020-04-08 13:18 | W.PM.PROGNOT ---
Date of Service Date of service: 04/08/20 Time of Service: 13:18 Assessment and Plan Assessment and plan (1) Acute recurrent pancreatitis: Start date: 04/08/20 Start time: 13:23 Status: Acute Assessment and plan: slowly improving sx. Pain appears improved, worse after eating which is to be expected. Mood appears improved, continue cymbalta. TPN being weaned off as patient can tolerate diet. continue to encourage ambulation . (2) Hypokalemia: Start date: 04/08/20 Start time: 13:24 Status: Resolved Assessment and plan: Resolved, continue to monitor. 3.6 today (3) HTN (hypertension): Start date: 04/08/20 Start time: 13:24 Status: Chronic Assessment and plan: Improved with Amlodipine 10 mg daily. continue to monitor and adjust (4) DVT prophylaxis: Start date: 04/08/20 Start time: 13:24 Status: Acute Assessment and plan: TEDS and SCD, lovenox initiated by surgery. patient has been encouraged to ambulate above case discussed with Dr. Saldana who is in agreement. Subjective Subjective Patient reports: no new complaints Interval history since last seen: Appears to be in better spirits. Plan is hopeful for discharge home by Thursday will need close follow up with PCP. Should check fingersticks BID when discharged and follow up with PCP day he returns to [place]. Exam Narrative Exam Narrative: 185/102, 879, 36.7, 20, 95% RA. HEENT anicteric; neck supple; lungs clear, heart RRR bw/o MRG; abdomen hypoactive BS, some guarding, moderate epigastric tenderness w/o rebound; rectal deferred; extremities w/o edema; neuro ox3, non focal Const General: cooperative, comfortable, no acute distress and ill appearing (older than stated age, with flush face) acutely Nutritional Appearance: average body habitus Orientation: alert, awake and oriented x3 HENMT Head: normal to inspection, normocephalic and atraumatic Mouth: oral mucosae normal Eyes Alignment and Position: alignment normal Cornea: corneas normal Pupils: pinpoint Neck Neck: normal visual inspection, full ROM and no JVD Carotids: normal carotid upstroke Lymphatic: no lymphadenopathy noted and no lymphedema noted Chest Chest: normal inspection of the chest Resp Effort & Inspection: normal respiratory effort Auscultation: clear to auscultation bilaterally Cardio Jugular venous pressure: no JVD Rate: regular rate Rhythm: regular rhythm Heart Sounds: S1 normal and S2 normal GI Inspection: distended Palpation: soft and firm in the LLQ, in the RLQ, in the LUQ and in the RUQ Auscultation: hypoactive bowel sounds General: other (concentrated urine) Skin General skin exam: no rashes or lesions noted Wounds: no wounds Neuro General: patient alert, patient awake and patient oriented x3 Cognition: normal cognition Speech: speech normal Extrem General: normal to inspection, full ROM and no clubbing, cyanosis or edema Objective Objective Clinical Data: Abnormal lab results 04/04/20 04/07/20 04/08/20 Range/Units 16:00 07:00 07:12 WBC 13.08 H 13.95 H (4.4-10.8) k/cumm RBC 4.07 L (4.50-6.00) m/cumm Hgb 11.6 L 12.3 L (13.5-17.5) g/dL Hct 34.4 L 36.1 L (40.0-50.0) % Plt Count 484 H (130-400) x1000/uL Sodium (136-145) mmol/L Chloride (98-107) mmol/L Glucose (74-106) mg/dL C-Reactive Protein (0.0-0.3) mg/dL Vancomycin Trough 21.1 H* (10.0-20.0) ug/mL 04/08/20 Range/Units 07:12 WBC (4.4-10.8) k/cumm RBC (4.50-6.00) m/cumm Hgb (13.5-17.5) g/dL Hct (40.0-50.0) % Plt Count (130-400) x1000/uL Sodium 132 L (136-145) mmol/L Chloride 96 L (98-107) mmol/L Glucose 206 H (74-106) mg/dL C-Reactive Protein 7.34 H (0.0-0.3) mg/dL Vancomycin Trough (10.0-20.0) ug/mL Vital Signs Temperature 36.8 C 04/08/20 11:15 Temperature Source Tympanic 04/08/20 11:15 Pulse 74 04/08/20 11:15 Pulse Rhythm Regular 04/08/20 08:00 Pulse 48 L 03/26/20 20:10 Respiratory Rate 19 04/08/20 11:15 Respiratory Effort Non-Labored 04/08/20 08:00 Respiratory Depth Normal 04/08/20 08:00 Respiratory Pattern Normal 04/08/20 08:00 Blood Pressure 116/70 04/08/20 11:15 Blood Pressure Mean 117 03/26/20 20:01 Blood Pressure Position Sitting 03/26/20 13:41 Pulse Oximetry 96 04/08/20 11:15 Oxygen Delivery Method Room Air 04/08/20 11:15 Oxygen Flow Rate 0 04/08/20 11:15 Pain Level 4 04/08/20 13:15 Comment 04/01/20 22:59 Intake & Output 04/07/20 04/08/20 04/08/20 23:59 11:59 23:59 Intake Total 1580 / 2631.667 190 / 190 Output Total 1000 / 2300 2755 / 2755 Balance 580 / 331.667 -2565 / -2565 Intake: IV 470 / 1521.667 140 / 140 Oral 1110 / 1110 50 / 50 Output: Urine 1000 / 2300 2725 / 2725 Stool 30 / 30 Other: Urine Color Yellow Yellow Urine Appearance Clear Clear Urine Odor Normal Normal Stool Occult Blood Negative Stool Size Small Smear Stool Characteristics Brown Mucoid Brown Voiding Methods Bedside Commode Bedside Commode Laboratory Results WBC 13.95 k/cumm (4.4-10.8) H 04/08/20 07:12 RBC 4.07 m/cumm (4.50-6.00) L 04/08/20 07:12 Hgb 12.3 g/dL (13.5-17.5) L 04/08/20 07:12 Hct 36.1 % (40.0-50.0) L 04/08/20 07:12 MCV 88.7 fL (80-95) 04/08/20 07:12 MCH 30.2 pg (27.0-33.0) 04/08/20 07:12 MCHC 34.1 g/dL (32.0-36.0) 04/08/20 07:12 RDW 13.4 % (11.8-14.1) 04/08/20 07:12 Plt Count 484 x1000/uL (130-400) H 04/08/20 07:12 MPV 9.3 fL (8.0-11.0) 04/08/20 07:12 Immature Gran % 1.7 % 04/04/20 06:25 Neutrophils % 85.5 04/04/20 06:25 Lymphocytes % 5.5 04/04/20 06:25 Monocytes % 5.9 04/04/20 06:25 Eosinophils % 1.3 04/04/20 06:25 Basophils % 0.1 04/04/20 06:25 Absolute Neutrophils 14.28 k/cumm (1.2-6.7) H 04/04/20 06:25 Absolute Lymphocytes 0.92 k/cumm (1.2-3.4) L 04/04/20 06:25 Absolute Monocytes 0.99 k/cumm (0.11-0.7) H 04/04/20 06:25 Absolute Eosinophils 0.22 k/cumm (0.0-0.7) 04/04/20 06:25 Absolute Basophils 0.02 k/cumm (0.0-0.2) 04/04/20 06:25 PT 11.9 sec (9.3-11.0) H 04/06/20 08:40 INR 1.2 (0.9-1.1) H 04/06/20 08:40 D-Dimer > 7500 ng/mlFEU (<500) H 03/31/20 08:03 ABG Sample Site Left radial 04/02/20 14:49 ABG pH 7.49 (7.35-7.45) H 04/02/20 14:49 ABG pCO2 39 mmHg (34-47) 04/02/20 14:49 ABG pO2 67 mmHg (83-108) L 04/02/20 14:49 ABG HCO3 29 mmol/L (22-28) H 04/02/20 14:49 ABG Total CO2 26 mmol/L (22-29) 04/02/20 14:49 ABG O2 Saturation 94 % (94-98) 04/02/20 14:49 ABG Base Excess 5.8 mmol/L (-3-3) H 04/02/20 14:49 FiO2 21 % 04/02/20 14:49 Sodium 132 mmol/L (136-145) L 04/08/20 07:12 Potassium 3.6 mmol/L (3.5-5.1) 04/08/20 07:12 Chloride 96 mmol/L (98-107) L 04/08/20 07:12 Carbon Dioxide 26.7 mmol/L (21.0-32.0) 04/08/20 07:12 Anion Gap 9.3 mmol/L (3-11) 04/08/20 07:12 BUN 16 mg/dL (7-18) 04/08/20 07:12 Creatinine 0.92 mg/dL (0.70-1.30) 04/08/20 07:12 Estimated GFR/1.73 m2 >= 60.00 (mL/min/1.73m2) 04/08/20 07:12 Glucose 206 mg/dL (74-106) H 04/08/20 07:12 Hemoglobin A1c 5.3 % (3.8-5.6) 03/27/20 07:15 Lactate 0.7 mmol/L (0.6-1.4) 04/02/20 13:25 Calcium 8.5 mg/dL (8.5-10.1) 04/08/20 07:12 Phosphorus 3.7 mg/dL (2.6-4.7) 04/08/20 07:12 Magnesium 1.8 mg/dL (1.8-2.4) 04/08/20 07:12 Iron 19 ug/dL (65-175) L 03/30/20 06:45 TIBC 127 ug/dL (250-450) L 03/30/20 06:45 Transferrin % Sat 15 % (20-55) L 03/30/20 06:45 Ferritin 1637 ng/mL (26-388) H 04/07/20 07:00 Total Bilirubin 0.4 mg/dL (0.2-1.0) 04/06/20 11:13 Conjugated Bilirubin 0.35 mg/dL (0.00-0.20) H 03/30/20 06:45 AST 64 U/L (15-37) H 04/06/20 11:13 ALT 59 U/L (16-63) 04/06/20 11:13 Alkaline Phosphatase 108 U/L (46-116) 04/06/20 11:13 Lactate Dehydrogenase 205 U/L (85-227) 03/26/20 17:10 Troponin I < 0.05 ng/mL (<0.06) 03/29/20 08:42 C-Reactive Protein 7.34 mg/dL (0.0-0.3) H 04/08/20 07:12 NT-Pro-B Natriuret Pep 328 pg/mL (<300) H 03/30/20 06:45 Total Protein 6.6 g/dL (6.4-8.2) 04/06/20 11:13 Albumin 2.4 g/dL (3.4-5.0) L 04/06/20 11:13 Triglycerides 199 mg/dL (<150) H 03/27/20 07:15 LDL Cholesterol Direct 111 mg/dL (<100) H 03/26/20 13:50 Lipase 332 U/L (73-393) 04/06/20 11:13 Procalcitonin 0.1 ng/mL 04/07/20 07:00 TSH 0.33 uIU/mL (0.36-3.74) L 03/29/20 08:42 Free T4 1.09 ng/dL (0.76-1.46) 03/29/20 08:42 Urine Color Yellow (Yellow) 04/03/20 07:25 Urine Clarity Clear (Clear) 04/03/20 07:25 Urine pH 6.0 (5-8) 04/03/20 07:25 Ur Specific [place] 1.020 (1.005-1.025) 04/03/20 07:25 Urine Protein Negative mg/dL (Negative) 04/03/20 07:25 Urine Ketones 15 mg/dL (Negative) H 04/03/20 07:25 Urine Blood Trace-intact (Negative) H 04/03/20 07:25 Urine Nitrite Negative (Negative) 04/03/20 07:25 Urine Bilirubin Negative (Negative) 04/03/20 07:25 Urine Urobilinogen 1.0 EU/dL (Up TO 0.2) H 04/03/20 07:25 Ur Leukocyte Esterase Negative (Negative) 04/03/20 07:25 Urine RBC 0-2 HPF (0-2) 04/03/20 07:25 Urine WBC 0-2 HPF (0-5) 04/03/20 07:25 Ur Epithelial Cells Rare HPF (Negative) 04/03/20 07:25 Urine Crystals Not Applicable 04/03/20 07:25 Urine Bacteria Not Applicable 04/03/20 07:25 Urine Mucus Not Applicable 04/03/20 07:25 Ur Culture Indicated? No 04/03/20 07:25 Urine Glucose Negative mg/dL (Negative) 04/03/20 07:25 Vancomycin Trough 25.2 ug/mL (10.0-20.0) H* 04/05/20 17:30 Ethyl Alcohol < 3.0 mg/dL (<3) 03/26/20 13:25 COVID-19 PCR Negative (Negative) 03/30/20 08:05 Nasopharyn COVID-19 PCR Not Applicable 03/30/20 08:05 Ref Test Perform Site [facility] lab 03/30/20 08:05
[2020-04-08 15:05] VITALS: BP 138/82; PULSE 80; RESP 19; TEMP 36.3; O2SAT 97
[2020-04-08 19:05] VITALS: BP 127/79; PULSE 95; RESP 18; TEMP 37.4; O2SAT 94
[2020-04-08] MEDS: Docusate Sodium 100 MG CAP PO (19:48)
[2020-04-08] MEDS: Insulin Glargine 300 UNITS/3 ML PEN 8 UNITS SC (22:05)
[2020-04-08 22:50] VITALS: BP 125/75; PULSE 79; RESP 17; TEMP 36.9; O2SAT 95
--- NOTE | 2020-04-09 | DI.RAD_ITS ---
EXAM: 2D digital imaging was performed. CLINICAL HISTORY: sudden onset abd pain. COMPARISON: CT CT ABDOMEN PELVIS W from 04/06/2020 CR XR CHEST 2V PA LATERAL from 04/06/2020 TECHNIQUE: Supine and upright views of the abdomen was performed. FINDINGS: LUNG BASES: The distal aspect of a PICC line is seen at the cavoatrial junction. The lung bases are clear. BOWEL GAS PATTERN: Nondistended. FREE AIR: None. CALCIFICATIONS: No radiopaque calcifications. OSSEOUS STRUCTURES: Normal for age. OTHER FINDINGS: There is hepatomegaly. IMPRESSION: No evidence of an acute abdomen. Hepatomegaly. DATA REPOSITORY: RADIATION DOSE DELIVERED:
[2020-04-09] MEDS: HYDROmorphone 2 MG/ML VIAL 1 MG IVP ×2 (00:16→22:16)
[2020-04-09] MEDS: Zolpidem 5 MG TAB PO (00:16)
[2020-04-09] MEDS: metroNIDAZOLE 500 MG/100 ML BAG 100 MG IVPB ×2 (03:00→10:35)
[2020-04-09 07:10] VITALS: BP 142/88; PULSE 89; RESP 16; TEMP 36.3; O2SAT 97
[2020-04-09] MEDS: Sucralfate 1 GM TAB PO ×3 (07:19→16:07)
[2020-04-09 07:34] LABS: HCT 36.5 % (40.0-50.0); HGB 12.4 g/dL (13.5-17.5); Mean Corpuscular Hemoglobin 30.5 pg (27.0-33.0); Mean Corpuscular Volume 89.7 fL (80-95); Mean Platelet Volume 9.6 fL (8.0-11.0); Platelet Count 498 x1000/uL (130-400); RBC 4.07 m/cumm (4.50-6.00); RBC Distribution Width 13.6 % (11.8-14.1)
[2020-04-09 07:44] LABS: Anion Gap 7.1 mmol/L (3-11); BUN 17 mg/dL (7-18); CO2 28.9 mmol/L (21.0-32.0); CREATININE 1.05 mg/dL (0.70-1.30); Calcium 8.7 mg/dL (8.5-10.1); Chloride 98 mmol/L (98-107); Glucose 114 mg/dL (74-106); Magnesium 1.8 mg/dL (1.8-2.4); PHOSPHORUS 4.8 mg/dL (2.6-4.7); Potassium 3.8 mmol/L (3.5-5.1); Sodium 134 mmol/L (136-145)
[2020-04-09] MEDS: DULoxetine 20 MG CAP PO (08:00)
[2020-04-09] MEDS: Metoprolol 50 MG TAB PO ×2 (08:00→20:03)
[2020-04-09] MEDS: Potassium Chloride 20 MEQ TABCR PO ×3 (08:00→16:08)
[2020-04-09] MEDS: Pantoprazole 40 MG VIAL IVP ×2 (08:01→20:03)
[2020-04-09] MEDS: Enoxaparin 40 MG/0.4 ML SYR SC (08:01)
[2020-04-09] MEDS: amLODIPine 10 MG TAB PO (08:01)
[2020-04-09] MEDS: Normal Saline Flush 10 ML SYR IVP ×3 (08:02→20:03)
[2020-04-09] MEDS: Lactobacillus Acidophilus CAP 1 CAP PO ×2 (08:03→16:07)
[2020-04-09 11:19] VITALS: BP 124/74; PULSE 98; RESP 18; TEMP 36.1; O2SAT 97
[2020-04-09] MEDS: HYDROcodone 5/Acetaminophen 325 TAB PO (11:19)
[2020-04-09] MEDS: levoFLOXacin 750 MG/150 ML BAG 100 MG IVPB (12:12)
--- NOTE | 2020-04-09 12:12 | W.PM.PROGNOT ---
Date of Service Date of service: 04/09/20 Time of Service: 12:12 Assessment and Plan Assessment and plan (1) Acute recurrent pancreatitis: Start date: 04/09/20 Start time: 12:20 Status: Acute Assessment and plan: slowly improving sx. Pain appears improved off TPN, tolerating full diet Mood appears improved, continue cymbalta. continue to encourage ambulation Will try to Contact PCP in [place], he will need follow up day he arrives in [place] Will need glucometer for BID fingersticks Dilaudid dcd will trial tramadol as he states he can not tolerate hydrocodone. (2) Hypokalemia: Start date: 04/09/20 Start time: 12:21 Status: Resolved Assessment and plan: Resolved, continue to monitor. 3.8 today (3) HTN (hypertension): Start date: 04/09/20 Start time: 12:23 Status: Chronic Assessment and plan: Improved with Amlodipine 10 mg daily. continue to monitor and adjust (4) DVT prophylaxis: Start date: 04/09/20 Start time: 12:24 Status: Acute Assessment and plan: TEDS and SCD, lovenox initiated by surgery. patient has been encouraged to ambulate above case discussed with Dr. Saldana who is in agreement. Subjective Subjective Patient reports: no new complaints Interval history since last seen: Doing great today, feels great. Best I have seem him on this admission. Possible discharge on Thu.He is tolerating PO. Spoke with regarding plan she will lease picker glucometer for patient. His provider in [place] is Fernando Hwang MD. Plan for possible discharge on Thursday I will speak with Dr. Hwang and make appt for for patient. His bgl is 114, he is off TPN, on oral medication will finish up a 7 day course of levaquin. Finished 5 days of metrodonizole. He denies CP, SOB, N/V/D. Exam Const General: cooperative, comfortable, no acute distress and ill appearing (older than stated age, with flush face) acutely Nutritional Appearance: average body habitus Orientation: alert, awake and oriented x3 HENMT Head: normal to inspection, normocephalic and atraumatic Mouth: oral mucosae normal Eyes Alignment and Position: alignment normal Cornea: corneas normal Pupils: pinpoint Neck Neck: normal visual inspection, full ROM and no JVD Carotids: normal carotid upstroke Lymphatic: no lymphadenopathy noted and no lymphedema noted Chest Chest: normal inspection of the chest Resp Effort & Inspection: normal respiratory effort Auscultation: clear to auscultation bilaterally Cardio Jugular venous pressure: no JVD Rate: regular rate Rhythm: regular rhythm Heart Sounds: S1 normal and S2 normal GI Inspection: distended Palpation: soft and firm in the LLQ, in the RLQ, in the LUQ and in the RUQ Auscultation: hypoactive bowel sounds General: other (concentrated urine) Skin General skin exam: no rashes or lesions noted Wounds: no wounds Neuro General: patient alert, patient awake and patient oriented x3 Cognition: normal cognition Speech: speech normal Extrem General: normal to inspection, full ROM and no clubbing, cyanosis or edema Objective Objective Clinical Data: Abnormal lab results 04/09/20 04/09/20 Range/Units 07:15 07:15 WBC 14.60 H (4.4-10.8) k/cumm RBC 4.07 L (4.50-6.00) m/cumm Hgb 12.4 L (13.5-17.5) g/dL Hct 36.5 L (40.0-50.0) % Plt Count 498 H (130-400) x1000/uL Sodium 134 L (136-145) mmol/L Glucose 114 H D (74-106) mg/dL Phosphorus 4.8 H (2.6-4.7) mg/dL Vital Signs Temperature 36.1 C L 04/09/20 11:19 Temperature Source Tympanic 04/09/20 11:19 Pulse 98 H 04/09/20 11:19 Pulse Rhythm Regular 04/09/20 07:26 Pulse 48 L 03/26/20 20:10 Respiratory Rate 18 04/09/20 11:19 Respiratory Effort Non-Labored 04/09/20 07:26 Respiratory Depth Normal 04/09/20 07:26 Respiratory Pattern Normal 04/09/20 07:26 Blood Pressure 124/74 04/09/20 11:19 Blood Pressure Mean 117 03/26/20 20:01 Blood Pressure Position Sitting 03/26/20 13:41 Pulse Oximetry 97 04/09/20 11:19 Oxygen Delivery Method Room Air 04/09/20 11:19 Oxygen Flow Rate 0 04/09/20 11:19 Pain Level 3 04/09/20 11:19 Comment 04/01/20 22:59 Intake & Output 04/08/20 04/09/20 04/09/20 23:59 11:59 23:59 Intake Total 2911 / 3441 3061 / 3061 Output Total 900 / 3655 Balance 2010 3061 / 3061 Intake: IV 2671 / 2911 3061 / 3061 Oral 240 / 530 Output: Urine 900 / 3625 Other: Urine Color Yellow Urine Appearance Clear Urine Odor Normal Comment Went to the bathroom more than once. Stool Occult Blood Negative Voiding Methods Bedside Commode Laboratory Results WBC 14.60 k/cumm (4.4-10.8) H 04/09/20 07:15 RBC 4.07 m/cumm (4.50-6.00) L 04/09/20 07:15 Hgb 12.4 g/dL (13.5-17.5) L 04/09/20 07:15 Hct 36.5 % (40.0-50.0) L 04/09/20 07:15 MCV 89.7 fL (80-95) 04/09/20 07:15 MCH 30.5 pg (27.0-33.0) 04/09/20 07:15 MCHC 34.0 g/dL (32.0-36.0) 04/09/20 07:15 RDW 13.6 % (11.8-14.1) 04/09/20 07:15 Plt Count 498 x1000/uL (130-400) H 04/09/20 07:15 MPV 9.6 fL (8.0-11.0) 04/09/20 07:15 Immature Gran % 1.7 % 04/04/20 06:25 Neutrophils % 85.5 04/04/20 06:25 Lymphocytes % 5.5 04/04/20 06:25 Monocytes % 5.9 04/04/20 06:25 Eosinophils % 1.3 04/04/20 06:25 Basophils % 0.1 04/04/20 06:25 Absolute Neutrophils 14.28 k/cumm (1.2-6.7) H 04/04/20 06:25 Absolute Lymphocytes 0.92 k/cumm (1.2-3.4) L 04/04/20 06:25 Absolute Monocytes 0.99 k/cumm (0.11-0.7) H 04/04/20 06:25 Absolute Eosinophils 0.22 k/cumm (0.0-0.7) 04/04/20 06:25 Absolute Basophils 0.02 k/cumm (0.0-0.2) 04/04/20 06:25 PT 11.9 sec (9.3-11.0) H 04/06/20 08:40 INR 1.2 (0.9-1.1) H 04/06/20 08:40 D-Dimer > 7500 ng/mlFEU (<500) H 03/31/20 08:03 ABG Sample Site Left radial 04/02/20 14:49 ABG pH 7.49 (7.35-7.45) H 04/02/20 14:49 ABG pCO2 39 mmHg (34-47) 04/02/20 14:49 ABG pO2 67 mmHg (83-108) L 04/02/20 14:49 ABG HCO3 29 mmol/L (22-28) H 04/02/20 14:49 ABG Total CO2 26 mmol/L (22-29) 04/02/20 14:49 ABG O2 Saturation 94 % (94-98) 04/02/20 14:49 ABG Base Excess 5.8 mmol/L (-3-3) H 04/02/20 14:49 FiO2 21 % 04/02/20 14:49 Sodium 134 mmol/L (136-145) L 04/09/20 07:15 Potassium 3.8 mmol/L (3.5-5.1) 04/09/20 07:15 Chloride 98 mmol/L (98-107) 04/09/20 07:15 Carbon Dioxide 28.9 mmol/L (21.0-32.0) 04/09/20 07:15 Anion Gap 7.1 mmol/L (3-11) 04/09/20 07:15 BUN 17 mg/dL (7-18) 04/09/20 07:15 Creatinine 1.05 mg/dL (0.70-1.30) 04/09/20 07:15 Estimated GFR/1.73 m2 >= 60.00 (mL/min/1.73m2) 04/09/20 07:15 Glucose 114 mg/dL (74-106) H D 04/09/20 07:15 Hemoglobin A1c 5.3 % (3.8-5.6) 03/27/20 07:15 Lactate 0.7 mmol/L (0.6-1.4) 04/02/20 13:25 Calcium 8.7 mg/dL (8.5-10.1) 04/09/20 07:15 Phosphorus 4.8 mg/dL (2.6-4.7) H 04/09/20 07:15 Magnesium 1.8 mg/dL (1.8-2.4) 04/09/20 07:15 Iron 19 ug/dL (65-175) L 03/30/20 06:45 TIBC 127 ug/dL (250-450) L 03/30/20 06:45 Transferrin % Sat 15 % (20-55) L 03/30/20 06:45 Ferritin 1637 ng/mL (26-388) H 04/07/20 07:00 Total Bilirubin 0.4 mg/dL (0.2-1.0) 04/06/20 11:13 Conjugated Bilirubin 0.35 mg/dL (0.00-0.20) H 03/30/20 06:45 AST 64 U/L (15-37) H 04/06/20 11:13 ALT 59 U/L (16-63) 04/06/20 11:13 Alkaline Phosphatase 108 U/L (46-116) 04/06/20 11:13 Lactate Dehydrogenase 205 U/L (85-227) 03/26/20 17:10 Troponin I < 0.05 ng/mL (<0.06) 03/29/20 08:42 C-Reactive Protein 7.34 mg/dL (0.0-0.3) H 04/08/20 07:12 NT-Pro-B Natriuret Pep 328 pg/mL (<300) H 03/30/20 06:45 Total Protein 6.6 g/dL (6.4-8.2) 04/06/20 11:13 Albumin 2.4 g/dL (3.4-5.0) L 04/06/20 11:13 Triglycerides 199 mg/dL (<150) H 03/27/20 07:15 LDL Cholesterol Direct 111 mg/dL (<100) H 03/26/20 13:50 Lipase 332 U/L (73-393) 04/06/20 11:13 Procalcitonin 0.1 ng/mL 04/07/20 07:00 TSH 0.33 uIU/mL (0.36-3.74) L 03/29/20 08:42 Free T4 1.09 ng/dL (0.76-1.46) 03/29/20 08:42 Urine Color Yellow (Yellow) 04/03/20 07:25 Urine Clarity Clear (Clear) 04/03/20 07:25 Urine pH 6.0 (5-8) 04/03/20 07:25 Ur Specific [place] 1.020 (1.005-1.025) 04/03/20 07:25 Urine Protein Negative mg/dL (Negative) 04/03/20 07:25 Urine Ketones 15 mg/dL (Negative) H 04/03/20 07:25 Urine Blood Trace-intact (Negative) H 04/03/20 07:25 Urine Nitrite Negative (Negative) 04/03/20 07:25 Urine Bilirubin Negative (Negative) 04/03/20 07:25 Urine Urobilinogen 1.0 EU/dL (Up TO 0.2) H 04/03/20 07:25 Ur Leukocyte Esterase Negative (Negative) 04/03/20 07:25 Urine RBC 0-2 HPF (0-2) 04/03/20 07:25 Urine WBC 0-2 HPF (0-5) 04/03/20 07:25 Ur Epithelial Cells Rare HPF (Negative) 04/03/20 07:25 Urine Crystals Not Applicable 04/03/20 07:25 Urine Bacteria Not Applicable 04/03/20 07:25 Urine Mucus Not Applicable 04/03/20 07:25 Ur Culture Indicated? No 04/03/20 07:25 Urine Glucose Negative mg/dL (Negative) 04/03/20 07:25 Vancomycin Trough 25.2 ug/mL (10.0-20.0) H* 04/05/20 17:30 Ethyl Alcohol < 3.0 mg/dL (<3) 03/26/20 13:25 COVID-19 PCR Negative (Negative) 03/30/20 08:05 Nasopharyn COVID-19 PCR Not Applicable 03/30/20 08:05 Ref Test Perform Site [facility] lab 03/30/20 08:05
[2020-04-09 15:30] VITALS: BP 120/78; PULSE 75; RESP 18; TEMP 36.8; O2SAT 97
[2020-04-09] MEDS: traMADol 50 MG TAB PO (20:03)
[2020-04-09] MEDS: Docusate Sodium 100 MG CAP PO (20:03)
[2020-04-09] MEDS: Normal Saline Flush 10 ML SYR 20 ML IVP (20:04)
[2020-04-09 21:10] VITALS: BP 110/71; PULSE 91; RESP 22; TEMP 37.2; O2SAT 95
[2020-04-09] MEDS: Ondansetron 4 MG/2 ML VIAL IVP (21:27)
--- NOTE | 2020-04-09 21:34 | W.PM.PROGNOT ---
Date of Service Date of service: 04/09/20 Time of Service: 21:34 Assessment and Plan Assessment and plan (1) Abdominal pain: Status: Acute Assessment and plan: Sudden onset notable, raises question mechanical lesion. Prior imaging neg gallstones so not likely, need to r/o perforation or obstruction. May be flare of known pancreatitis. Will place NPO, prn Zofran and Dilaudid, check KUB/upright and CBC, CMP and Lipase. Will update when results in. Results in: WBC 17K; lipase and LFTS WNL; film no FA/AFL. I suspect this is recurrence/flare of underlying pancreatitis. Will continue NPO/IVF and prn analgesics and antiemetics. Subjective Subjective Interval history since last seen: Patient reports sudden onset abd pain, several episodes vomiting bilious material. On exam: 110/71, 91, 37.2, 22, 95% RA. Appears uncomfortable. Abdomen somewhat distended, + BS, soft lower abd, guarding and moderate tenderness epigastrum/RUQ, without rebound and with neg Mcpherson's. Objective Objective Clinical Data: Abnormal lab results 04/09/20 04/09/20 Range/Units 07:15 07:15 WBC 14.60 H (4.4-10.8) k/cumm RBC 4.07 L (4.50-6.00) m/cumm Hgb 12.4 L (13.5-17.5) g/dL Hct 36.5 L (40.0-50.0) % Plt Count 498 H (130-400) x1000/uL Sodium 134 L (136-145) mmol/L Glucose 114 H D (74-106) mg/dL Phosphorus 4.8 H (2.6-4.7) mg/dL Vital Signs Temperature 36.8 C 04/09/20 15:30 Temperature Source Tympanic 04/09/20 15:30 Pulse 75 04/09/20 15:30 Pulse Rhythm Regular 04/09/20 15:15 Pulse 48 L 03/26/20 20:10 Respiratory Rate 18 04/09/20 15:30 Respiratory Effort Non-Labored 04/09/20 15:15 Respiratory Depth Normal 04/09/20 15:15 Respiratory Pattern Normal 04/09/20 15:15 Blood Pressure 120/78 04/09/20 15:30 Blood Pressure Mean 117 03/26/20 20:01 Blood Pressure Position Sitting 03/26/20 13:41 Pulse Oximetry 97 04/09/20 15:30 Oxygen Delivery Method Room Air 04/09/20 15:30 Oxygen Flow Rate 0 04/09/20 15:30 Pain Level 4 04/09/20 20:03 Comment 04/01/20 22:59 Intake & Output 04/08/20 04/09/20 04/09/20 23:59 11:59 23:59 Intake Total 2911 / 3441 3301 / 3561 260 / 3561 Output Total 900 / 3655 Balance 2010 3301 / 3561 260 / 3561 Intake: IV 2671 / 2911 3061 / 3081 20 / 3081 Oral 240 / 530 240 / 480 240 / 480 Output: Urine 900 / 3625 Other: Urine Color Yellow Urine Appearance Clear Urine Odor Normal Comment Went to the bathroom more than once. Stool Occult Blood Negative Voiding Methods Bedside Commode Laboratory Results WBC 14.60 k/cumm (4.4-10.8) H 04/09/20 07:15 RBC 4.07 m/cumm (4.50-6.00) L 04/09/20 07:15 Hgb 12.4 g/dL (13.5-17.5) L 04/09/20 07:15 Hct 36.5 % (40.0-50.0) L 04/09/20 07:15 MCV 89.7 fL (80-95) 04/09/20 07:15 MCH 30.5 pg (27.0-33.0) 04/09/20 07:15 MCHC 34.0 g/dL (32.0-36.0) 04/09/20 07:15 RDW 13.6 % (11.8-14.1) 04/09/20 07:15 Plt Count 498 x1000/uL (130-400) H 04/09/20 07:15 MPV 9.6 fL (8.0-11.0) 04/09/20 07:15 Immature Gran % 1.7 % 04/04/20 06:25 Neutrophils % 85.5 04/04/20 06:25 Lymphocytes % 5.5 04/04/20 06:25 Monocytes % 5.9 04/04/20 06:25 Eosinophils % 1.3 04/04/20 06:25 Basophils % 0.1 04/04/20 06:25 Absolute Neutrophils 14.28 k/cumm (1.2-6.7) H 04/04/20 06:25 Absolute Lymphocytes 0.92 k/cumm (1.2-3.4) L 04/04/20 06:25 Absolute Monocytes 0.99 k/cumm (0.11-0.7) H 04/04/20 06:25 Absolute Eosinophils 0.22 k/cumm (0.0-0.7) 04/04/20 06:25 Absolute Basophils 0.02 k/cumm (0.0-0.2) 04/04/20 06:25 PT 11.9 sec (9.3-11.0) H 04/06/20 08:40 INR 1.2 (0.9-1.1) H 04/06/20 08:40 D-Dimer > 7500 ng/mlFEU (<500) H 03/31/20 08:03 ABG Sample Site Left radial 04/02/20 14:49 ABG pH 7.49 (7.35-7.45) H 04/02/20 14:49 ABG pCO2 39 mmHg (34-47) 04/02/20 14:49 ABG pO2 67 mmHg (83-108) L 04/02/20 14:49 ABG HCO3 29 mmol/L (22-28) H 04/02/20 14:49 ABG Total CO2 26 mmol/L (22-29) 04/02/20 14:49 ABG O2 Saturation 94 % (94-98) 04/02/20 14:49 ABG Base Excess 5.8 mmol/L (-3-3) H 04/02/20 14:49 FiO2 21 % 04/02/20 14:49 Sodium 134 mmol/L (136-145) L 04/09/20 07:15 Potassium 3.8 mmol/L (3.5-5.1) 04/09/20 07:15 Chloride 98 mmol/L (98-107) 04/09/20 07:15 Carbon Dioxide 28.9 mmol/L (21.0-32.0) 04/09/20 07:15 Anion Gap 7.1 mmol/L (3-11) 04/09/20 07:15 BUN 17 mg/dL (7-18) 04/09/20 07:15 Creatinine 1.05 mg/dL (0.70-1.30) 04/09/20 07:15 Estimated GFR/1.73 m2 >= 60.00 (mL/min/1.73m2) 04/09/20 07:15 Glucose 114 mg/dL (74-106) H D 04/09/20 07:15 Hemoglobin A1c 5.3 % (3.8-5.6) 03/27/20 07:15 Lactate 0.7 mmol/L (0.6-1.4) 04/02/20 13:25 Calcium 8.7 mg/dL (8.5-10.1) 04/09/20 07:15 Phosphorus 4.8 mg/dL (2.6-4.7) H 04/09/20 07:15 Magnesium 1.8 mg/dL (1.8-2.4) 04/09/20 07:15 Iron 19 ug/dL (65-175) L 03/30/20 06:45 TIBC 127 ug/dL (250-450) L 03/30/20 06:45 Transferrin % Sat 15 % (20-55) L 03/30/20 06:45 Ferritin 1637 ng/mL (26-388) H 04/07/20 07:00 Total Bilirubin 0.4 mg/dL (0.2-1.0) 04/06/20 11:13 Conjugated Bilirubin 0.35 mg/dL (0.00-0.20) H 03/30/20 06:45 AST 64 U/L (15-37) H 04/06/20 11:13 ALT 59 U/L (16-63) 04/06/20 11:13 Alkaline Phosphatase 108 U/L (46-116) 04/06/20 11:13 Lactate Dehydrogenase 205 U/L (85-227) 03/26/20 17:10 Troponin I < 0.05 ng/mL (<0.06) 03/29/20 08:42 C-Reactive Protein 7.34 mg/dL (0.0-0.3) H 04/08/20 07:12 NT-Pro-B Natriuret Pep 328 pg/mL (<300) H 03/30/20 06:45 Total Protein 6.6 g/dL (6.4-8.2) 04/06/20 11:13 Albumin 2.4 g/dL (3.4-5.0) L 04/06/20 11:13 Triglycerides 199 mg/dL (<150) H 03/27/20 07:15 LDL Cholesterol Direct 111 mg/dL (<100) H 03/26/20 13:50 Lipase 332 U/L (73-393) 04/06/20 11:13 Procalcitonin 0.1 ng/mL 04/07/20 07:00 TSH 0.33 uIU/mL (0.36-3.74) L 03/29/20 08:42 Free T4 1.09 ng/dL (0.76-1.46) 03/29/20 08:42 Urine Color Yellow (Yellow) 04/03/20 07:25 Urine Clarity Clear (Clear) 04/03/20 07:25 Urine pH 6.0 (5-8) 04/03/20 07:25 Ur Specific [place] 1.020 (1.005-1.025) 04/03/20 07:25 Urine Protein Negative mg/dL (Negative) 04/03/20 07:25 Urine Ketones 15 mg/dL (Negative) H 04/03/20 07:25 Urine Blood Trace-intact (Negative) H 04/03/20 07:25 Urine Nitrite Negative (Negative) 04/03/20 07:25 Urine Bilirubin Negative (Negative) 04/03/20 07:25 Urine Urobilinogen 1.0 EU/dL (Up TO 0.2) H 04/03/20 07:25 Ur Leukocyte Esterase Negative (Negative) 04/03/20 07:25 Urine RBC 0-2 HPF (0-2) 04/03/20 07:25 Urine WBC 0-2 HPF (0-5) 04/03/20 07:25 Ur Epithelial Cells Rare HPF (Negative) 04/03/20 07:25 Urine Crystals Not Applicable 04/03/20 07:25 Urine Bacteria Not Applicable 04/03/20 07:25 Urine Mucus Not Applicable 04/03/20 07:25 Ur Culture Indicated? No 04/03/20 07:25 Urine Glucose Negative mg/dL (Negative) 04/03/20 07:25 Vancomycin Trough 25.2 ug/mL (10.0-20.0) H* 04/05/20 17:30 Ethyl Alcohol < 3.0 mg/dL (<3) 03/26/20 13:25 COVID-19 PCR Negative (Negative) 03/30/20 08:05 Nasopharyn COVID-19 PCR Not Applicable 03/30/20 08:05 Ref Test Perform Site [facility] lab 03/30/20 08:05
[2020-04-09 21:46] LABS: HCT 38.3 % (40.0-50.0); Mean Corp. HGB Concentration 33.9 g/dL (32.0-36.0); Mean Corpuscular Hemoglobin 30.2 pg (27.0-33.0); Mean Corpuscular Volume 89.1 fL (80-95); Mean Platelet Volume 9.3 fL (8.0-11.0); Platelet Count 634 x1000/uL (130-400); RBC Distribution Width 13.6 % (11.8-14.1); White Blood Cell Count 17.27 k/cumm (4.4-10.8)
[2020-04-09 21:57] LABS: ALT 39 U/L (16-63); AST 32 U/L (15-37); Albumin 2.6 g/dL (3.4-5.0); Alkaline Phosphatase 138 U/L (46-116); Anion Gap 9.9 mmol/L (3-11); BUN 20 mg/dL (7-18); Bilirubin, Total 0.5 mg/dL (0.2-1.0); CO2 27.1 mmol/L (21.0-32.0); CREATININE 1.08 mg/dL (0.70-1.30); Calcium 8.8 mg/dL (8.5-10.1); Chloride 96 mmol/L (98-107); Glucose 178 mg/dL (74-106); Lipase 364 U/L (73-393); Potassium 4.1 mmol/L (3.5-5.1); Sodium 133 mmol/L (136-145); Total Protein 7.3 g/dL (6.4-8.2)
--- NOTE | 2020-04-09 22:05 | DI.VRAD_ITS ---
PROCEDURE INFORMATION: Exam: XR Abdomen, 2 Views Exam date and time: 04/09/2020 9:42 PM Age: 64 years old Clinical indication: Generalized; Patient HX: Pancreatitis, sudden onset of severe abdominal pain and vomiting TECHNIQUE: Imaging protocol: XR of the abdomen. Views: 2 Views. COMPARISON: CT ABDOMEN PELVIS W 04/06/2020 8:58 AM FINDINGS: Gastrointestinal tract: Normal. No bowel dilation. Intraperitoneal space: Normal. No free air. Organs: Liver is top normal in size to minimally enlarged. Bones/joints: Unremarkable for age. IMPRESSION: Possible hepatomegaly. Dictated and Authenticated by: Kyle Rivero MD. Ordering:MAX Copeland MD
[2020-04-09] MEDS: Normal Saline 1,000 ML 150 ML IV (22:21)
[2020-04-10] VITALS (7 sets, daily range): BP systolic 113–128; BP diastolic 73–82; PULSE 63–90; RESP 17–20; TEMP 36.1–37.5; O2SAT 90–97
--- NOTE | 2020-04-10 | DI.US_ITS ---
EXAM: US ABDOMEN LIMITED CLINICAL HISTORY: pancreatitis, ? gall bladder TECHNIQUE: Ultrasound abdomen performed using standard protocol. COMPARISON: CT CT ABDOMEN PELVIS W from 04/06/2020 FINDINGS: PANCREAS: There is a heterogeneous echogenicity of the pancreas. There are areas of decreased attenu ation probably representing areas of pancreatic necrosis. This corresponds to the CT examination fro m 04/06/2020. GALLBLADDER: Large amount of sludge within the gallbladder. No definite cholelithiasis. No evidence of wall thickening. No pericholecystic fluid identified. BILIARY SYSTEM: Common bile duct measures 4.1 mm. No intrahepatic biliary ductal dilation. IMPRESSION: Limited abdominal ultrasound. 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 Large amount of sludge within the gallbladder. No biliary ductal dilatation. DATA REPOSITORY:
[2020-04-10] MEDS: HYDROmorphone 2 MG/ML VIAL IVP ×4 (01:59→21:33)
[2020-04-10] MEDS: Normal Saline 1,000 ML 150 ML IV ×3 (05:16→19:57)
[2020-04-10 07:17] LABS: Anion Gap 7.6 mmol/L (3-11); BUN 20 mg/dL (7-18); CO2 27.4 mmol/L (21.0-32.0); CREATININE 0.99 mg/dL (0.70-1.30); Calcium 8.1 mg/dL (8.5-10.1); Chloride 101 mmol/L (98-107); Glucose 121 mg/dL (74-106); Lipase 288 U/L (73-393); Magnesium 1.7 mg/dL (1.8-2.4); PHOSPHORUS 4.3 mg/dL (2.6-4.7); Sodium 136 mmol/L (136-145)
[2020-04-10] MEDS: Normal Saline Flush 10 ML SYR IVP ×4 (07:52→15:25)
[2020-04-10] MEDS: Normal Saline Flush 10 ML SYR 20 ML IVP ×2 (07:52→19:56)
[2020-04-10 08:12] LABS: HCT 35.4 % (40.0-50.0); HGB 11.7 g/dL (13.5-17.5); Mean Corp. HGB Concentration 33.1 g/dL (32.0-36.0); Mean Corpuscular Hemoglobin 29.8 pg (27.0-33.0); Mean Corpuscular Volume 90.3 fL (80-95); Mean Platelet Volume 9.2 fL (8.0-11.0); Platelet Count 457 x1000/uL (130-400); RBC 3.92 m/cumm (4.50-6.00); RBC Distribution Width 13.6 % (11.8-14.1); White Blood Cell Count 15.03 k/cumm (4.4-10.8)
--- NOTE | 2020-04-10 09:40 | CMPROGNOTE_ITS ---
Care Management Progress Note S/O: Drew may be ready for discharge as soon as Thursday with very close follow up in his home community. He was sitting up in his chair and appeared tired; his eyes kept closing. He reported not feeling well and reported feeling he had a relapse last night. CM reviewed discharge plan, and Rajat reported his and YAMILE would be transporting him home, and stated I drove for years, so they can have their turn. He appeared in good spirits and shared no concerns. CM continues to follow. A: Rajat is a 64 year old male admitted on 03/26/20 for Pancreatitis P: Anticipate Rajat will return home to [place] with new home health services once medically cleared. CM secured follow up appointment with Rajat's PCP and provided to [employer]. Rajat will require a new glucometer, diabetes education, close medical follow up and transportation. CM will continue to support Drew, his family and his discharge planning needs.
[2020-04-10] MEDS: Docusate Sodium 100 MG CAP PO ×2 (09:43→19:50)
[2020-04-10] MEDS: DULoxetine 20 MG CAP PO (09:43)
[2020-04-10] MEDS: Metoprolol 50 MG TAB PO ×2 (09:44→19:50)
[2020-04-10] MEDS: Sucralfate 1 GM TAB PO ×4 (09:44→21:10)
[2020-04-10] MEDS: amLODIPine 10 MG TAB PO (09:44)
[2020-04-10] MEDS: Potassium Chloride 20 MEQ TABCR PO ×3 (09:44→17:02)
[2020-04-10] MEDS: Pantoprazole 40 MG VIAL IVP ×2 (09:44→19:50)
[2020-04-10] MEDS: levoFLOXacin 500 MG, levoFLOXacin 250 MG 750 MG PO (09:44)
[2020-04-10] MEDS: Enoxaparin 40 MG/0.4 ML SYR SC (09:45)
[2020-04-10] MEDS: MAGNESIUM SULFATE 1 GM/100 ML BAG IVPB (09:45)
[2020-04-10] MEDS: traMADol 50 MG TAB PO ×2 (11:18→19:00)
[2020-04-10 11:41] LABS: ALT 33 U/L (16-63); AST 29 U/L (15-37); Albumin 2.3 g/dL (3.4-5.0); Alkaline Phosphatase 109 U/L (46-116); Bilirubin, Direct 0.15 mg/dL (0.00-0.20); Bilirubin, Total 0.4 mg/dL (0.2-1.0); Total Protein 6.3 g/dL (6.4-8.2)
--- NOTE | 2020-04-10 13:35 | PGE_ITS ---
Date of Service Date of service: 04/10/20 Time of Service: 13:35 Assessment and Plan Assessment and plan (1) Acute recurrent pancreatitis: Status: Acute Assessment and plan: symptoms slowly improving again after some severe pain last night was made NPO again and will advance to clears as tolerated. ultrasound unremarkable. previous MRCP Findings consistent with pancreatitis. There is increased ascites and bilateral pleural effusions. No evidence gallstones, common bile duct stones or acute cholecystitis. . (2) HTN (hypertension): Status: Chronic Assessment and plan: blood pressures stabilized, continue lopressor bid, increase amlodipine to 10 mg daily. continue to monitor and adjust as needed. (3) Ileus, unspecified: Status: Resolved Assessment and plan: resolved, diet per surgery. currently NPO, encourage ambulation. (4) PAF (paroxysmal atrial fibrillation): Status: Inactive Assessment and plan: resolved, vitals have been stable. echo with LVEF of 60% with no wall motion abnormalities. no significant valvular disease. tsh normal. continue lopressor BID (5) DVT prophylaxis: Status: Acute Assessment and plan: TEDS and SCD, lovenox. patient has been encouraged to ambulate (6) Discharge planning issues: Status: Acute Assessment and plan: home with no services once medically stable and taking good PO above case discussed with Dr. Saldana who is in agreement. Subjective Subjective Patient reports: feels better and other (has been NPO) Exam Const General: cooperative, comfortable, no acute distress and ill appearing (older than stated age, with flush face) acutely Nutritional Appearance: average body habitus Orientation: awake and oriented x3 HENMT Head: normal to inspection, normocephalic and atraumatic Mouth: oral mucosae normal Cardio Rate: regular rate Rhythm: regular rhythm GI Inspection: distended Palpation: soft Auscultation: hypoactive bowel sounds General: other (concentrated urine) Skin General skin exam: no rashes or lesions noted Neuro General: patient awake and patient oriented x3 Cognition: normal cognition Speech: speech normal Extrem General: normal to inspection and full ROM Objective Objective Clinical Data: Abnormal lab results 04/09/20 04/09/20 04/10/20 Range/Units 21:30 21:30 06:30 WBC 17.27 H (4.4-10.8) k/cumm RBC 4.30 L (4.50-6.00) m/cumm Hgb 13.0 L (13.5-17.5) g/dL Hct 38.3 L (40.0-50.0) % Plt Count 634 H (130-400) x1000/uL Sodium 133 L (136-145) mmol/L Chloride 96 L (98-107) mmol/L BUN 20 H 20 H (7-18) mg/dL Glucose 178 H 121 H (74-106) mg/dL Calcium 8.1 L (8.5-10.1) mg/dL Magnesium 1.7 L (1.8-2.4) mg/dL Alkaline Phosphatase 138 H (46-116) U/L Total Protein (6.4-8.2) g/dL Albumin 2.6 L (3.4-5.0) g/dL 04/10/20 04/10/20 Range/Units 06:30 07:15 WBC 15.03 H (4.4-10.8) k/cumm RBC 3.92 L (4.50-6.00) m/cumm Hgb 11.7 L (13.5-17.5) g/dL Hct 35.4 L (40.0-50.0) % Plt Count 457 H (130-400) x1000/uL Sodium (136-145) mmol/L Chloride (98-107) mmol/L BUN (7-18) mg/dL Glucose (74-106) mg/dL Calcium (8.5-10.1) mg/dL Magnesium (1.8-2.4) mg/dL Alkaline Phosphatase (46-116) U/L Total Protein 6.3 L (6.4-8.2) g/dL Albumin 2.3 L (3.4-5.0) g/dL Vital Signs Temperature 37.1 C 04/10/20 11:15 Temperature Source Tympanic 04/10/20 11:15 Pulse 83 04/10/20 11:15 Pulse Rhythm Regular 04/10/20 07:45 Pulse 48 L 03/26/20 20:10 Respiratory Rate 17 04/10/20 11:15 Respiratory Effort Non-Labored 04/10/20 07:45 Respiratory Depth Normal 04/10/20 07:45 Respiratory Pattern Normal 04/10/20 07:45 Blood Pressure 128/80 04/10/20 11:15 Blood Pressure Mean 117 03/26/20 20:01 Blood Pressure Position Sitting 03/26/20 13:41 Pulse Oximetry 97 04/10/20 11:15 Oxygen Delivery Method Room Air 04/10/20 11:15 Oxygen Flow Rate 0 04/10/20 11:15 Pain Level 5 04/10/20 12:39 Comment 04/10/20 07:45 Intake & Output 04/09/20 04/10/20 04/10/20 23:59 11:59 23:59 Intake Total 280 / 3581 1750 / 2180 430 / 2180 Output Total 450 / 450 550 / 650 100 / 650 Balance -170 / 3131 1200 / 1530 330 / 1530 Intake: IV 40 / 3101 1750 / 2180 430 / 2180 Oral 240 / 480 Output: Urine 450 / 450 550 / 650 100 / 650 Other: Urine Color Yellow Straw Straw Urine Appearance Clear Clear Clear Urine Odor Normal Normal Normal Comment Void x1 in the bedside commode. Void x1 in the bedside commode. Stool Size Moderate Stool Characteristics Soft Voiding Methods Bedside Commode Bedside Commode Bedside Commode Laboratory Results WBC 15.03 k/cumm (4.4-10.8) H 04/10/20 07:15 RBC 3.92 m/cumm (4.50-6.00) L 04/10/20 07:15 Hgb 11.7 g/dL (13.5-17.5) L 04/10/20 07:15 Hct 35.4 % (40.0-50.0) L 04/10/20 07:15 MCV 90.3 fL (80-95) 04/10/20 07:15 MCH 29.8 pg (27.0-33.0) 04/10/20 07:15 MCHC 33.1 g/dL (32.0-36.0) 04/10/20 07:15 RDW 13.6 % (11.8-14.1) 04/10/20 07:15 Plt Count 457 x1000/uL (130-400) H 04/10/20 07:15 MPV 9.2 fL (8.0-11.0) 04/10/20 07:15 Immature Gran % 1.7 % 04/04/20 06:25 Neutrophils % 85.5 04/04/20 06:25 Lymphocytes % 5.5 04/04/20 06:25 Monocytes % 5.9 04/04/20 06:25 Eosinophils % 1.3 04/04/20 06:25 Basophils % 0.1 04/04/20 06:25 Absolute Neutrophils 14.28 k/cumm (1.2-6.7) H 04/04/20 06:25 Absolute Lymphocytes 0.92 k/cumm (1.2-3.4) L 04/04/20 06:25 Absolute Monocytes 0.99 k/cumm (0.11-0.7) H 04/04/20 06:25 Absolute Eosinophils 0.22 k/cumm (0.0-0.7) 04/04/20 06:25 Absolute Basophils 0.02 k/cumm (0.0-0.2) 04/04/20 06:25 PT 11.9 sec (9.3-11.0) H 04/06/20 08:40 INR 1.2 (0.9-1.1) H 04/06/20 08:40 D-Dimer > 7500 ng/mlFEU (<500) H 03/31/20 08:03 ABG Sample Site Left radial 04/02/20 14:49 ABG pH 7.49 (7.35-7.45) H 04/02/20 14:49 ABG pCO2 39 mmHg (34-47) 04/02/20 14:49 ABG pO2 67 mmHg (83-108) L 04/02/20 14:49 ABG HCO3 29 mmol/L (22-28) H 04/02/20 14:49 ABG Total CO2 26 mmol/L (22-29) 04/02/20 14:49 ABG O2 Saturation 94 % (94-98) 04/02/20 14:49 ABG Base Excess 5.8 mmol/L (-3-3) H 04/02/20 14:49 FiO2 21 % 04/02/20 14:49 Sodium 136 mmol/L (136-145) 04/10/20 06:30 Potassium 4.0 mmol/L (3.5-5.1) 04/10/20 06:30 Chloride 101 mmol/L (98-107) 04/10/20 06:30 Carbon Dioxide 27.4 mmol/L (21.0-32.0) 04/10/20 06:30 Anion Gap 7.6 mmol/L (3-11) 04/10/20 06:30 BUN 20 mg/dL (7-18) H 04/10/20 06:30 Creatinine 0.99 mg/dL (0.70-1.30) 04/10/20 06:30 Estimated GFR/1.73 m2 >= 60.00 (mL/min/1.73m2) 04/10/20 06:30 Glucose 121 mg/dL (74-106) H 04/10/20 06:30 Hemoglobin A1c 5.3 % (3.8-5.6) 03/27/20 07:15 Lactate 0.7 mmol/L (0.6-1.4) 04/02/20 13:25 Calcium 8.1 mg/dL (8.5-10.1) L 04/10/20 06:30 Phosphorus 4.3 mg/dL (2.6-4.7) 04/10/20 06:30 Magnesium 1.7 mg/dL (1.8-2.4) L 04/10/20 06:30 Iron 19 ug/dL (65-175) L 03/30/20 06:45 TIBC 127 ug/dL (250-450) L 03/30/20 06:45 Transferrin % Sat 15 % (20-55) L 03/30/20 06:45 Ferritin 1637 ng/mL (26-388) H 04/07/20 07:00 Total Bilirubin 0.4 mg/dL (0.2-1.0) 04/10/20 06:30 Conjugated Bilirubin 0.15 mg/dL (0.00-0.20) 04/10/20 06:30 AST 29 U/L (15-37) 04/10/20 06:30 ALT 33 U/L (16-63) 04/10/20 06:30 Alkaline Phosphatase 109 U/L (46-116) 04/10/20 06:30 Lactate Dehydrogenase 205 U/L (85-227) 03/26/20 17:10 Troponin I < 0.05 ng/mL (<0.06) 03/29/20 08:42 C-Reactive Protein 7.34 mg/dL (0.0-0.3) H 04/08/20 07:12 NT-Pro-B Natriuret Pep 328 pg/mL (<300) H 03/30/20 06:45 Total Protein 6.3 g/dL (6.4-8.2) L 04/10/20 06:30 Albumin 2.3 g/dL (3.4-5.0) L 04/10/20 06:30 Triglycerides 199 mg/dL (<150) H 03/27/20 07:15 LDL Cholesterol Direct 111 mg/dL (<100) H 03/26/20 13:50 Lipase 288 U/L (73-393) 04/10/20 06:30 Procalcitonin 0.1 ng/mL 04/07/20 07:00 TSH 0.33 uIU/mL (0.36-3.74) L 03/29/20 08:42 Free T4 1.09 ng/dL (0.76-1.46) 03/29/20 08:42 Urine Color Yellow (Yellow) 04/03/20 07:25 Urine Clarity Clear (Clear) 04/03/20 07:25 Urine pH 6.0 (5-8) 04/03/20 07:25 Ur Specific [place] 1.020 (1.005-1.025) 04/03/20 07:25 Urine Protein Negative mg/dL (Negative) 04/03/20 07:25 Urine Ketones 15 mg/dL (Negative) H 04/03/20 07:25 Urine Blood Trace-intact (Negative) H 04/03/20 07:25 Urine Nitrite Negative (Negative) 04/03/20 07:25 Urine Bilirubin Negative (Negative) 04/03/20 07:25 Urine Urobilinogen 1.0 EU/dL (Up TO 0.2) H 04/03/20 07:25 Ur Leukocyte Esterase Negative (Negative) 04/03/20 07:25 Urine RBC 0-2 HPF (0-2) 04/03/20 07:25 Urine WBC 0-2 HPF (0-5) 04/03/20 07:25 Ur Epithelial Cells Rare HPF (Negative) 04/03/20 07:25 Urine Crystals Not Applicable 04/03/20 07:25 Urine Bacteria Not Applicable 04/03/20 07:25 Urine Mucus Not Applicable 04/03/20 07:25 Ur Culture Indicated? No 04/03/20 07:25 Urine Glucose Negative mg/dL (Negative) 04/03/20 07:25 Vancomycin Trough 25.2 ug/mL (10.0-20.0) H* 04/05/20 17:30 Ethyl Alcohol < 3.0 mg/dL (<3) 03/26/20 13:25 COVID-19 PCR Negative (Negative) 03/30/20 08:05 Nasopharyn COVID-19 PCR Not Applicable 03/30/20 08:05 Ref Test Perform Site [place] [facility] 03/30/20 08:05
--- NOTE | 2020-04-10 14:57 | CHAPLAIN ---
Drew was sitting up in his chair when I visited. He has been a patient for a few days, but his COVID test just returned negative. Drew is from [place], but has a mobile home in [place]. His four grandsons and one granddaughter are very important to him. 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
[2020-04-11] MEDS: Normal Saline 1,000 ML 150 ML IV ×3 (02:54→17:36)
[2020-04-11 03:46] VITALS: BP 128/78; PULSE 79; RESP 18; TEMP 37.4; O2SAT 96
[2020-04-11 07:37] VITALS: BP 151/84; PULSE 102; RESP 20; TEMP 37.3; O2SAT 97
[2020-04-11] MEDS: Normal Saline Flush 10 ML SYR 20 ML IVP ×2 (07:46→20:01)
[2020-04-11] MEDS: Pantoprazole 40 MG VIAL IVP ×2 (07:46→20:00)
[2020-04-11] MEDS: Enoxaparin 40 MG/0.4 ML SYR SC (07:46)
[2020-04-11] MEDS: DULoxetine 20 MG CAP PO (07:46)
[2020-04-11] MEDS: levoFLOXacin 500 MG, levoFLOXacin 250 MG 750 MG PO (07:47)
[2020-04-11] MEDS: Potassium Chloride 20 MEQ TABCR PO ×3 (07:47→16:36)
[2020-04-11] MEDS: Metoprolol 50 MG TAB PO ×2 (07:47→20:00)
[2020-04-11] MEDS: Docusate Sodium 100 MG CAP PO ×2 (07:47→20:00)
[2020-04-11] MEDS: amLODIPine 10 MG TAB PO (07:47)
[2020-04-11] MEDS: Sucralfate 1 GM TAB PO ×4 (07:47→21:14)
[2020-04-11 08:14] LABS: HCT 34.1 % (40.0-50.0); HGB 11.1 g/dL (13.5-17.5); Mean Corp. HGB Concentration 32.6 g/dL (32.0-36.0); Mean Corpuscular Hemoglobin 29.6 pg (27.0-33.0); Mean Corpuscular Volume 90.9 fL (80-95); Mean Platelet Volume 9.3 fL (8.0-11.0); Platelet Count 423 x1000/uL (130-400); RBC 3.75 m/cumm (4.50-6.00); RBC Distribution Width 13.6 % (11.8-14.1); White Blood Cell Count 11.06 k/cumm (4.4-10.8)
[2020-04-11 08:39] LABS: ALT 25 U/L (16-63); AST 20 U/L (15-37); Albumin 2.3 g/dL (3.4-5.0); Alkaline Phosphatase 107 U/L (46-116); BUN 14 mg/dL (7-18); Bilirubin, Total 0.6 mg/dL (0.2-1.0); CREATININE 1.09 mg/dL (0.70-1.30); Calcium 8.5 mg/dL (8.5-10.1); Chloride 101 mmol/L (98-107); Glucose 177 mg/dL (74-106); Magnesium 1.9 mg/dL (1.8-2.4); PHOSPHORUS 3.9 mg/dL (2.6-4.7); Potassium 3.6 mmol/L (3.5-5.1); Sodium 136 mmol/L (136-145); Total Protein 6.4 g/dL (6.4-8.2)
[2020-04-11] MEDS: HYDROmorphone 2 MG/ML VIAL IVP ×2 (11:20→17:48)
[2020-04-11] MEDS: Normal Saline Flush 10 ML SYR IVP ×4 (11:21→17:48)
[2020-04-11 11:29] VITALS: BP 122/78; PULSE 80; RESP 20; TEMP 35.4; O2SAT 95
--- NOTE | 2020-04-11 12:05 | W.PM.PROGNOT ---
Date of Service Date of service: 04/11/20 Time of Service: 12:05 Assessment and Plan Assessment and plan (1) Acute recurrent pancreatitis: Status: Acute Assessment and plan: symptoms slowly improving again clears well tolerated. ultrasound unremarkable. previous MRCP Findings consistent with pancreatitis. There is increased ascites and bilateral pleural effusions. No evidence gallstones, common bile duct stones or acute cholecystitis. . (2) HTN (hypertension): Status: Chronic Assessment and plan: blood pressures stabilized, continue lopressor bid, increase amlodipine to 10 mg daily. continue to monitor and adjust as needed. (3) Ileus, unspecified: Status: Resolved Assessment and plan: resolved, diet per surgery. currently NPO, encourage ambulation. (4) PAF (paroxysmal atrial fibrillation): Status: Inactive Assessment and plan: resolved, vitals have been stable. echo with LVEF of 60% with no wall motion abnormalities. no significant valvular disease. tsh normal. continue lopressor BID (5) DVT prophylaxis: Status: Acute Assessment and plan: TEDS and SCD, lovenox. patient has been encouraged to ambulate (6) Discharge planning issues: Status: Acute Assessment and plan: home tomorrow with no services if remains medically stable overnight above case discussed with Dr. Saldana who is in agreement. Subjective Subjective Patient reports: no new complaints, pain is less, tolerating liquids well and voiding w/o difficulty Exam Const General: cooperative, comfortable, no acute distress and ill appearing (older than stated age, with flush face) acutely Nutritional Appearance: average body habitus Orientation: awake and oriented x3 HENMT Head: normal to inspection, normocephalic and atraumatic Mouth: oral mucosae normal Cardio Rate: regular rate Rhythm: regular rhythm GI Inspection: distended Palpation: soft Auscultation: hypoactive bowel sounds General: other (concentrated urine) Skin General skin exam: no rashes or lesions noted Neuro General: patient awake and patient oriented x3 Cognition: normal cognition Speech: speech normal Extrem General: normal to inspection and full ROM Objective Objective Clinical Data: Abnormal lab results 04/11/20 04/11/20 Range/Units 08:00 08:00 WBC 11.06 H (4.4-10.8) k/cumm RBC 3.75 L (4.50-6.00) m/cumm Hgb 11.1 L (13.5-17.5) g/dL Hct 34.1 L (40.0-50.0) % Plt Count 423 H (130-400) x1000/uL Glucose 177 H (74-106) mg/dL Albumin 2.3 L (3.4-5.0) g/dL Vital Signs Temperature 35.4 C L 04/11/20 11:29 Temperature Source Tympanic 04/11/20 11:29 Pulse 80 04/11/20 11:29 Pulse Rhythm Regular 04/11/20 03:29 Pulse 48 L 03/26/20 20:10 Respiratory Rate 20 04/11/20 11:29 Respiratory Effort Non-Labored 04/11/20 03:29 Respiratory Depth Normal 04/11/20 03:29 Respiratory Pattern Normal 04/11/20 03:29 Blood Pressure 122/78 04/11/20 11:29 Blood Pressure Mean 117 03/26/20 20:01 Blood Pressure Position Sitting 03/26/20 13:41 Pulse Oximetry 95 04/11/20 11:29 Oxygen Delivery Method Room Air 04/11/20 11:29 Oxygen Flow Rate 0 04/11/20 11:29 Pain Level 1 04/11/20 11:48 Comment 04/10/20 14:48 Intake & Output 04/10/20 04/11/20 04/11/20 23:59 11:59 23:59 Intake Total 1530 / 3280 4840 / 4840 Output Total 1100 / 1650 1924 / 1925 Balance 430 / 1630 2915 / 2915 Intake: IV 1480 / 3230 4000 / 4000 Oral 50 / 50 840 / 840 Output: Urine 1100 / 1650 1924 / 192 Other: Urine Color Straw Yellow Urine Appearance Clear Clear Urine Odor Normal Normal Comment Void x1 in the bedside commode. 1500 from a few time going to the bathroom. Stool Occult Blood Negative Negative Stool Size Small Small Stool Characteristics Soft Soft Formed Brown Voiding Methods Bedside Commode Bedside Commode Laboratory Results WBC 11.06 k/cumm (4.4-10.8) H 04/11/20 08:00 RBC 3.75 m/cumm (4.50-6.00) L 04/11/20 08:00 Hgb 11.1 g/dL (13.5-17.5) L 04/11/20 08:00 Hct 34.1 % (40.0-50.0) L 04/11/20 08:00 MCV 90.9 fL (80-95) 04/11/20 08:00 MCH 29.6 pg (27.0-33.0) 04/11/20 08:00 MCHC 32.6 g/dL (32.0-36.0) 04/11/20 08:00 RDW 13.6 % (11.8-14.1) 04/11/20 08:00 Plt Count 423 x1000/uL (130-400) H 04/11/20 08:00 MPV 9.3 fL (8.0-11.0) 04/11/20 08:00 Immature Gran % 1.7 % 04/04/20 06:25 Neutrophils % 85.5 04/04/20 06:25 Lymphocytes % 5.5 04/04/20 06:25 Monocytes % 5.9 04/04/20 06:25 Eosinophils % 1.3 04/04/20 06:25 Basophils % 0.1 04/04/20 06:25 Absolute Neutrophils 14.28 k/cumm (1.2-6.7) H 04/04/20 06:25 Absolute Lymphocytes 0.92 k/cumm (1.2-3.4) L 04/04/20 06:25 Absolute Monocytes 0.99 k/cumm (0.11-0.7) H 04/04/20 06:25 Absolute Eosinophils 0.22 k/cumm (0.0-0.7) 04/04/20 06:25 Absolute Basophils 0.02 k/cumm (0.0-0.2) 04/04/20 06:25 PT 11.9 sec (9.3-11.0) H 04/06/20 08:40 INR 1.2 (0.9-1.1) H 04/06/20 08:40 D-Dimer > 7500 ng/mlFEU (<500) H 03/31/20 08:03 ABG Sample Site Left radial 04/02/20 14:49 ABG pH 7.49 (7.35-7.45) H 04/02/20 14:49 ABG pCO2 39 mmHg (34-47) 04/02/20 14:49 ABG pO2 67 mmHg (83-108) L 04/02/20 14:49 ABG HCO3 29 mmol/L (22-28) H 04/02/20 14:49 ABG Total CO2 26 mmol/L (22-29) 04/02/20 14:49 ABG O2 Saturation 94 % (94-98) 04/02/20 14:49 ABG Base Excess 5.8 mmol/L (-3-3) H 04/02/20 14:49 FiO2 21 % 04/02/20 14:49 Sodium 136 mmol/L (136-145) 04/11/20 08:00 Potassium 3.6 mmol/L (3.5-5.1) 04/11/20 08:00 Chloride 101 mmol/L (98-107) 04/11/20 08:00 Carbon Dioxide 25.0 mmol/L (21.0-32.0) 04/11/20 08:00 Anion Gap 10.0 mmol/L (3-11) 04/11/20 08:00 BUN 14 mg/dL (7-18) D 04/11/20 08:00 Creatinine 1.09 mg/dL (0.70-1.30) 04/11/20 08:00 Estimated GFR/1.73 m2 >= 60.00 (mL/min/1.73m2) 04/11/20 08:00 Glucose 177 mg/dL (74-106) H 04/11/20 08:00 Hemoglobin A1c 5.3 % (3.8-5.6) 03/27/20 07:15 Lactate 0.7 mmol/L (0.6-1.4) 04/02/20 13:25 Calcium 8.5 mg/dL (8.5-10.1) 04/11/20 08:00 Phosphorus 3.9 mg/dL (2.6-4.7) 04/11/20 08:00 Magnesium 1.9 mg/dL (1.8-2.4) 04/11/20 08:00 Iron 19 ug/dL (65-175) L 03/30/20 06:45 TIBC 127 ug/dL (250-450) L 03/30/20 06:45 Transferrin % Sat 15 % (20-55) L 03/30/20 06:45 Ferritin 1637 ng/mL (26-388) H 04/07/20 07:00 Total Bilirubin 0.6 mg/dL (0.2-1.0) 04/11/20 08:00 Conjugated Bilirubin 0.15 mg/dL (0.00-0.20) 04/10/20 06:30 AST 20 U/L (15-37) 04/11/20 08:00 ALT 25 U/L (16-63) 04/11/20 08:00 Alkaline Phosphatase 107 U/L (46-116) 04/11/20 08:00 Lactate Dehydrogenase 205 U/L (85-227) 03/26/20 17:10 Troponin I < 0.05 ng/mL (<0.06) 03/29/20 08:42 C-Reactive Protein 7.34 mg/dL (0.0-0.3) H 04/08/20 07:12 NT-Pro-B Natriuret Pep 328 pg/mL (<300) H 03/30/20 06:45 Total Protein 6.4 g/dL (6.4-8.2) 04/11/20 08:00 Albumin 2.3 g/dL (3.4-5.0) L 04/11/20 08:00 Triglycerides 199 mg/dL (<150) H 03/27/20 07:15 LDL Cholesterol Direct 111 mg/dL (<100) H 03/26/20 13:50 Lipase 288 U/L (73-393) 04/10/20 06:30 Procalcitonin 0.1 ng/mL 04/07/20 07:00 TSH 0.33 uIU/mL (0.36-3.74) L 03/29/20 08:42 Free T4 1.09 ng/dL (0.76-1.46) 03/29/20 08:42 Urine Color Yellow (Yellow) 04/03/20 07:25 Urine Clarity Clear (Clear) 04/03/20 07:25 Urine pH 6.0 (5-8) 04/03/20 07:25 Ur Specific [place] 1.020 (1.005-1.025) 04/03/20 07:25 Urine Protein Negative mg/dL (Negative) 04/03/20 07:25 Urine Ketones 15 mg/dL (Negative) H 04/03/20 07:25 Urine Blood Trace-intact (Negative) H 04/03/20 07:25 Urine Nitrite Negative (Negative) 04/03/20 07:25 Urine Bilirubin Negative (Negative) 04/03/20 07:25 Urine Urobilinogen 1.0 EU/dL (Up TO 0.2) H 04/03/20 07:25 Ur Leukocyte Esterase Negative (Negative) 04/03/20 07:25 Urine RBC 0-2 HPF (0-2) 04/03/20 07:25 Urine WBC 0-2 HPF (0-5) 04/03/20 07:25 Ur Epithelial Cells Rare HPF (Negative) 04/03/20 07:25 Urine Crystals Not Applicable 04/03/20 07:25 Urine Bacteria Not Applicable 04/03/20 07:25 Urine Mucus Not Applicable 04/03/20 07:25 Ur Culture Indicated? No 04/03/20 07:25 Urine Glucose Negative mg/dL (Negative) 04/03/20 07:25 Vancomycin Trough 25.2 ug/mL (10.0-20.0) H* 04/05/20 17:30 Ethyl Alcohol < 3.0 mg/dL (<3) 03/26/20 13:25 COVID-19 PCR Negative (Negative) 03/30/20 08:05 Nasopharyn COVID-19 PCR Not Applicable 03/30/20 08:05 Ref Test Perform Site [place] [facility] 03/30/20 08:05
--- NOTE | 2020-04-11 12:44 | PDOC.CMPRO ---
- If Service Date Differs Date of service: 04/11/20 Time of Service: 12:44 Care Management Progress Note S/O: Drew was OOB in a chair when CM met with him. He shared that he did not do well with the advancement of his diet and was again NPO yesterday. Today he is being restarted on clear liquids. There was a tentative plan for Drew to discharge home today, however his was waiting to hear the final plan and would not have been able to get here and back home to [place] in a reasonable time. The plan is for him to discharge tomorrow, barring any new complications, and transport with his and brother in law. He has an appointment with his PCP Thursday morning, coordinated by MATT. A: Rajat is a 64 year old male admitted on 03/26/20 for Pancreatitis P: Rajat will return home to [place] with no new services once medically cleared. CM secured follow up appointment with Rajat's PCP and provided to Human Resources Representative. He will transport with his and [id number]. CM will continue to support Drew, his family and his discharge planning needs.
[2020-04-11 15:55] VITALS: BP 131/76; PULSE 77; RESP 17; TEMP 36.3; O2SAT 97
--- NOTE | 2020-04-11 16:06 | W.INDIABCONS ---
Date of service: 04/11/20 Time of Service: 13:00 Diabetes Inpatient Consult DESCRIPTION/ASSESSMENT: 64 y/o male with elevated BG secondary to pacreatitis. FBG 162 (04/11),~ 2 hr post prandial 172. He states he had 3 hard lemonades at his vacation home here in [place] on March 24 causing severe abdominal pain r/t acute recurrent pancreatitis. He states he does not normally consume ETOH very often, only on special occasions. He reports that he drinks 8 cups of coffee daily. ordered DM edu consult and Rajat requires instruction in use of glucometer. He reports that his provides good support at home and will help him adhere to low fat/CHO diet and to review literature provided to facilitate compliance with dietary recommendations. INTERVENTION: Provided education and literature on DM2, CHO counting, label reading, types of CHO, recommended <60 g CHO per meal period. Reviewed risks and benefits of low fat/CHO controlled diet. Explained unintended consequences of untreated DM. Demonstrated use of glucometer and Rajat was able to take his postprandial BG reading which was 172mg/dl. Recommended that he take BG readings 1x per day and stagger the times fasting , 2 hrs before and after meals to relate BG levels to food consumption and adjust CHO accordingly if needed. Recommended he cut his coffee consumption by 50%. Provided education on proper ranges for BG for DM. Provided literature and examples of menus on <30mg fat diet to help with pancreatitis. Recommend he avoid ETOH. PLAN: Patient reports spouse is picking up glucometer and strips today. Provided contact information for any questions related to his new diagnosis of DM2, food and meal planning. Time Spent in Nutritional Counseling and Treatment: 20
[2020-04-11] MEDS: traMADol 50 MG TAB PO (16:42)
[2020-04-11 20:00] VITALS: BP 131/76; PULSE 77; RESP 17; TEMP 36.3; O2SAT 97
[2020-04-11 23:28] VITALS: BP 137/78; PULSE 78; RESP 18; TEMP 36.4; O2SAT 96
[2020-04-12] MEDS: HYDROmorphone 2 MG/ML VIAL IVP (00:22)
[2020-04-12] MEDS: Normal Saline 1,000 ML 150 ML IV ×2 (00:30→07:31)
[2020-04-12 03:24] VITALS: BP 132/80; PULSE 70; RESP 17; TEMP 36.5; O2SAT 96
[2020-04-12] MEDS: Sucralfate 1 GM TAB PO ×2 (07:31→12:11)
[2020-04-12 08:17] VITALS: BP 152/85; PULSE 84; RESP 17; TEMP 36.8; O2SAT 97
[2020-04-12] MEDS: Pantoprazole 40 MG VIAL IVP (08:36)
[2020-04-12] MEDS: DULoxetine 20 MG CAP PO (08:37)
[2020-04-12] MEDS: Docusate Sodium 100 MG CAP PO (08:37)
[2020-04-12] MEDS: levoFLOXacin 500 MG, levoFLOXacin 250 MG 750 MG PO (08:38)
[2020-04-12] MEDS: amLODIPine 10 MG TAB PO (08:39)
[2020-04-12] MEDS: Metoprolol 50 MG TAB PO (08:39)
[2020-04-12] MEDS: Potassium Chloride 20 MEQ TABCR PO ×2 (08:39→12:11)
[2020-04-12] MEDS: Enoxaparin 40 MG/0.4 ML SYR SC (08:39)
[2020-04-12] MEDS: Normal Saline Flush 10 ML SYR IVP ×2 (08:40→12:06)
[2020-04-12] MEDS: Normal Saline Flush 10 ML SYR 20 ML IVP (08:40)
[2020-04-12] MEDS: traMADol 50 MG TAB PO (09:05)
--- NOTE | 2020-04-12 09:34 | DSE_ITS ---
Date of service: 04/12/20 Time of Service: 16:44 DS: Diagnosis Discharge Diagnosis (1) Acute recurrent pancreatitis: Status: Acute (2) HTN (hypertension): Status: Chronic (3) Ileus, unspecified: Status: Resolved (4) PAF (paroxysmal atrial fibrillation): Status: Inactive Discharge Plan Disposition Patient Disposition: HOME Condition: Serious Discharge Details Chief Complaint: Abd Prob Clinical Impression: Acute recurrent pancreatitis Reason For Visit: PANCREATITIS Admit Date/Time: 03/26/20 18:52 Admit Provider: Min Mata Attending Provider: Min Mata Primary Care Provider: Unknown,Unknown ED Provider: Diana Ann Hospital Course Hospital Course: This is a 64-year-old male patient who presented here March 26 with complaints of abdominal pain left upper quadrant. He does have a history of pancreatitis and states that his pain was similar to previous episode. His work-up in the emergency department did show acute pancreatitis. He was placed on bowel rest given IV fluids and IV pain medication and was admitted to the medical surgical unit for further management. His hospital course was prolonged and extended secondary to poorly controlled pain. His imaging initially included a CT of the abdomen and pelvis that showed acute pancreatitis he also had an ultrasound which did not demonstrate any gallbladder wall thickening or pericholecystic fluid but did show large amount of sludge within the gallbladder. We were able to obtain a MRCP which showed no evidence of gallstones, common bile duct stones common or acute cholecystitis. His lipase and CBC normalized slowly. Hospital course was also complicated initially with PAF which was self-limiting. He was started on Metroprolol and had no further episodes of PAF. His work-up included an echocardiogram which showed LVEF estimated at 60% with no wall motion abnormalities and no valvular heart disease. TSH 0.42. He was also quite hypertensive with readings of 190/110 and amlodipine was added to the Metroprolol to get better blood pressure control. After 8 days of n.p.o. status and not tolerating diet advancement he received TPN. Blood sugars were elevated while on TPN but did improve when discontinued. His hemoglobin A1c was 5.3. There was concern he will develop secondary diabetes so should follow-up outpatient with his primary care provider he for a diabetes education referral and possible blood sugar monitoring.Over the past 24 hours his blood sugars have been 104-164. Triglycerides were elevated at 461 but did improve to 199. He was started on Cymbalta for a depressed mood, lack of motivation, lack of compliance with treatment plan thought to be due to depression. He also did have work-up for PE as he had an elevated d-dimer his CTA showed no evidence of pulmonary embolism. He was diuresed for fluid overload. Electrolytes were repleted. After slowly starting some improvement he had another period of increased pain and bump in his white count. He was started on broad-spectrum antibiotics no abscess or drainable fluid collection was ever identified and repeat imaging. He again slowly improved. He has been hemodynamically stable with stable labs white count now down to 11.0 lipase has remained normal. His abdominal exam is benign. He is stooling and tolerating fluids well. Plan is for him to discharge to home with oral medication for pain he has follo w-up appointment scheduled for tomorrow morning with his primary care provider as he will need further outpatient management for ongoing pain and possible cholecystectomy. It is anticipated that he will have ongoing pain management issues after discharge. Home Meds and New Rx's Prescriptions: New tramadol 50 mg Tablet 50 mg PO Q4H PRN PRNQty: 10 RF: 0 potassium chloride [Klor-Con M20] 20 mEq Tablet,Er Particles/Crystals 20 meq PO TID@0800,1200,1700 Qty: 90 RF: 0 amlodipine 10 mg Tablet 10 mg PO DAILY Qty: 30 RF: 0 metoprolol tartrate 50 mg Tablet 50 mg PO BID Qty: 60 RF: 0 docusate sodium [Colace] 100 mg Capsule 100 mg PO BID Qty: 60 RF: 0 duloxetine [Cymbalta] 20 mg Capsule,Delayed Release(Dr/Ec) 20 mg PO DAILY Qty: 30 RF: 0 Creon 12,000-38,000 -60,000 unit Capsule,Delayed Release(Dr/Ec) 1 cap PO QMEALS Qty: 90 RF: 0 hydromorphone 2 mg Tablet 2 mg PO Q4H PRN PRNQty: 8 RF: 0 Discharge Instructions Instructions: Pancreatitis (DC) Additional Instructions: Take all your medications as prescribed. Slowly advance diet only, bland, low fat, clears and liquids to stay well hydrated. Monitor your bowels closely as your pain medications can cause constipation use stool softeners as needed. Stand Alone Forms: Nursing Discharge Form Referrals: HUSSEIN KITCHEN [Other] - 04/13/20 9:00 am (FOLLOW UP WITH PCP HUSSEIN BAIN IN [place]) Activity:: Activity as Tolerated Equipment/Supplies:: No Equipment Needed Diet:: clears Discharge Orders Discharge Orders: Discharge Order (Routine); Ordered 04/12/20 Ordered By: Edith Moore Discharge Data Discharge Date/Time-TO BE ENTERED AT DEPARTURE: 04/12/20 12:20 DS: Summary Status at Discharge Functional status at discharge: independent ambulation Overall status at discharge: patient is not back to baseline Mental Status: mental status grossly normal Speech and Movement: speech and movement normal Mood: anxious mood Affect: anxious affect Exam Const General: cooperative, comfortable, no acute distress and ill appearing (older than stated age, with flush face) acutely Nutritional Appearance: average body habitus Orientation: awake and oriented x3 HENMT Head: normal to inspection, normocephalic and atraumatic Mouth: oral mucosae normal Cardio Rate: regular rate Rhythm: regular rhythm GI Inspection: distended Palpation: soft Auscultation: hypoactive bowel sounds General: other (concentrated urine) Skin General skin exam: no rashes or lesions noted Neuro General: patient awake and patient oriented x3 Cognition: normal cognition Speech: speech normal Extrem General: normal to inspection and full ROM Psych Mental Status: mental status grossly normal Speech and Movement: speech and movement normal Mood: anxious mood Affect: anxious affect DS: Data Vitals/I&O Vitals and I&O: Vital Signs Temperature 36.8 C 04/12/20 08:17 Temperature Source Temporal Artery Scan 04/12/20 08:17 Pulse 84 04/12/20 08:17 Pulse Rhythm Regular 04/12/20 02:58 Pulse 48 L 03/26/20 20:10 Respiratory Rate 17 04/12/20 08:17 Respiratory Effort Non-Labored 04/12/20 02:58 Respiratory Depth Normal 04/12/20 02:58 Respiratory Pattern Normal 04/12/20 02:58 Blood Pressure 152/85 H 04/12/20 08:17 Blood Pressure Mean 117 03/26/20 20:01 Blood Pressure Position Sitting 03/26/20 13:41 Pulse Oximetry 97 04/12/20 08:17 Oxygen Delivery Method Room Air 04/12/20 03:24 Oxygen Flow Rate 0 04/12/20 03:24 Pain Level 3 04/12/20 09:05 Comment 04/11/20 14:48 Intake & Output 04/11/20 04/11/20 04/12/20 11:59 23:59 11:59 Intake Total 4890 / 7550 2660 / 7550 2330 / 2330 Output Total 1925 / 3275 1350 / 3275 700 / 700 Balance 2965 / 4275 1310 / 4275 1630 / 1630 Intake: IV 4050 / 5110 1060 / 5110 1999 / 1999 Oral 840 / 2440 1600 / 2440 330 / 330 Output: Urine 1925 / 3275 1350 / 3275 700 / 700 Other: Urine Color Yellow Light Lindsay Yellow Urine Appearance Clear Clear Clear Purulent Urine Odor Normal Normal Normal Comment 1500 from a few time going to the bathroom. Void x1 in the bedside commode. Stool Occult Blood Negative Negative Negative Stool Size Small Small Moderate Stool Characteristics Soft Soft Soft Brown Formed Formed Brown Voiding Methods Bedside Commode Bedside Commode Bedside Commode [facility] Medical History (Updated 04/09/20 @ 21:37 by Min Mata MD) Anemia of chronic disease (Acute) Gallbladder sludge (Acute) Pancreatitis (Chronic) Protein-calorie malnutrition, mild (Acute) Trigeminal neuralgia of right side of face (Acute) s/p surgical intervention Social History Smoking/Tobacco Use Status: Current-Occasional Tobacco Type: cigars Alcohol Intake: current Alcohol Intake frequency: 0-2 drinks per day Drug use: Never Substance use type: does not use Do you feel safe at home: Yes Do you feel safe in your relationship?: Yes
[2020-04-12] MEDS: HYDROmorphone 2 MG TAB PO (10:46)
[2020-04-12 11:54] VITALS: BP 119/74; PULSE 76; RESP 18; TEMP 36.5; O2SAT 97
[2020-04-12] MEDS: HYDROmorphone 2 MG/ML VIAL 1 MG IVP (12:05)
--- NOTE | 2020-04-12 14:43 | CMDISCH_ITS ---
- If Service Date Differs Date of service: 04/12/20 Time of Service: 14:44 LACE Index Scoring Tool - Questions: Length of Stay (in days): 14 or more Acuity (Admit via E.D.?): Yes E.D. Visits: 1 - Answers: Total Score: 11 Risk of Readmission: High Risk Care Management Discharge Reason for Hospitalization: Pancreatitis Discharge Plan: Drew will be discharged home to [place], [place] with his Kori. He will transport via private vehicle with Kori and his brother-in law. Drew has an appointment with his PCP tomorrow, coordinated by [facility]. He was given paper prescriptions to be filled at home and also 2 for controlled drugs (Hydromorphone and Trammadol) to be filled locally . Drew has had some elevations in his blood glucose levels. Prior to discharge he received diabetic education, including instructions about checking his blood sugar at home. MATT left a message with Drew's PCP that he will need a prescription for a glucometer, test strips and lancets at home. Patient/Family Education Needs: Discharge plan, limitations, diabetic education, Ask Me Three.
[2020-04-12] MEDS: Bacitracin 1 PACKET (15:46)
== END 2020-04-12 12:20 | disposition home or self-care (01) | DRG 439 ==
LOC: ER 16:37 → MS 21:15
PROVIDERS: Internal Medicine; Nurse Practitioner Acute Care; Nurse Practitioner Family; Registered Nurse Emergency; Student in an Organized Health Care Education/Training Program; Surgery; Admitting Provider General Practice; Emergency Provider Physician Assistant; Visit Provider General Practice
DX: K85.90 Acute pancreatitis without necrosis or infection, unspecified (principal); K92.0 Hematemesis; K56.7 Ileus, unspecified; E44.0 Moderate protein-calorie malnutrition; F17.290 Nicotine dependence, other tobacco product, uncomplicated; I10 Essential (primary) hypertension; I48.0 Paroxysmal atrial fibrillation; E87.70 Fluid overload, unspecified; F10.10 Alcohol abuse, uncomplicated; E87.6 Hypokalemia; F32.9 Major depressive disorder, single episode, unspecified; D63.8 Anemia in other chronic diseases classified elsewhere
CPT/HCPCS: 36410; 36415; 36573; 71275; 80048; 80053; 80076; 82805; 83690; 83721; 84145; 85027; 87040; 93005; 96361; 96365; 96375; 96376; 99222; 99231; 99232; 99233; 99239; 99253; 99285; J1650; U0003; 36600; 71045; 71046; 74019; 74177; 74181; 76700; 76705; 80202; 80320; 81003; 81015; 82728; 83036; 83540; 83550; 83605; 83615; 83630; 83735; 83880; 84100; 84132; 84439; 84443; 84478; 84484; 85025; 85379; 85610; 86140; 87070; 87205; 87324; 93010; 93306; J0131; J1756; J1940; J1956; J2060; J2405; J3010; J3370; J3475; J3480; J3490

== ENCOUNTER 2022-06-21 22:18 | Outpatient (REF) | payer MEDICARE, SELFPAY | END 2022-06-21 22:19 | disposition home or self-care (01) | LOC: LBN 22:18 | PROVIDERS: Visit Provider Nurse Practitioner Family | DX: J06.9 Acute upper respiratory infection, unspecified (principal) | CPT/HCPCS: 87070 ==